=== PATIENT | female | born 1940 | race Caucasian/White ===

== ENCOUNTER → 2016-06-08 | Outpatient (CLI) | payer MEDICARE, BC | END | disposition home or self-care (01) | LOC: LABPAT 12:37 | PROVIDERS: ATTEND Orthopaedic Surgery Orthopaedic Surgery of the Spine | DX: Z01.812 Encounter for preprocedural laboratory examination (principal) | CPT/HCPCS: 87070 ==

== ENCOUNTER → 2016-06-15 | Outpatient (CLI) | payer MEDICARE, BC ==
--- NOTE | 2016-06-15 12:19 | XR ---
EXAMINATION TYPE: XR chest 2V DATE OF EXAM: 06/15/2016 11:06 AM COMPARISON: 05/13/2014 HISTORY: Hypertension FINDINGS: The lungs are clear and there is no pneumothorax, pleural effusion, or focal pneumonia. Persistent elevation of the right hemidiaphragm. Atherosclerotic change aorta. Cardiomegaly stable. Hypertrophic change of the spine noted. Surgical clips in the upper abdomen. IMPRESSION: 1. No acute process. Marked elevation of the right hemidiaphragm noted.
== END | disposition home or self-care (01) ==
LOC: RADXRMAIN 10:47
PROVIDERS: ATTEND Family Medicine
DX: J98.6 Disorders of diaphragm (principal); E11.9 Type 2 diabetes mellitus without complications; M81.0 Age-related osteoporosis without current pathological fracture; E78.00 Pure hypercholesterolemia, unspecified; J32.9 Chronic sinusitis, unspecified; I63.50 Cerebral infarction due to unspecified occlusion or stenosis of unspecified cerebral artery; R56.9 Unspecified convulsions; G60.9 Hereditary and idiopathic neuropathy, unspecified; E55.9 Vitamin D deficiency, unspecified; Z79.01 Long term (current) use of anticoagulants
CPT/HCPCS: 71020

== ENCOUNTER 2016-07-01 09:08 | Inpatient (IN) | payer MEDICARE, BC ==
[2016-06-25 15:10] VITALS: BMI 27.4
[~2016-07-01 09:08] MED LIST: BACITRACIN 50,000 UNIT, POLYMYXIN B 500,000 UNIT in SODIUM CHLORIDE 0.9% IRRIGATIO 1,00... IRRIGATION ONE; HYDROmorphone 1 MG/ML 1 ML SYRINGE IVP PRN; LIDOCAINE 1% 20 ML VIAL (10MG/ML) FOR IV START INTRADERMA PRN; ONDANSETRON 4 MG/2 ML VIAL IVP ONE; ceFAZolin 2 GM in SODIUM CHLORIDE 0.9% 100 ML IVPB ONE
[2016-07-01] MEDS: LACTATED RINGERS 1,000 ML IV SCH (11:35)
[2016-07-01 11:39] LABS: Glucose,Whole Blood 118 mg/dL (75-99)
[2016-07-01 12:35] LABS: INR 1.2 (<1.1); Prothrombin Time 11.8 sec (9.0-12.0)
[2016-07-01] MEDS ORDERED: HYDROmorphone (PF) 1 MG/ML ONE (12:39)
[2016-07-01] MEDS ORDERED: LIDOCAINE 0.5%-EPI 1:200,000 50 ML VIAL SQ ONE (12:39)
[2016-07-01] MEDS ORDERED: THROMBIN (BOVINE) 5,000 UNIT VIAL TOPICAL ONE (12:39)
[2016-07-01] MEDS ORDERED: GELATIN SPONGE,ABSORB (LARGE) 1 EACH SPONGE TOPICAL ONE (12:39)
[2016-07-01] MEDS ORDERED: LIDOCAINE 1% INJ 10MG/ML (20 ML MDV) ONE (12:39)
[2016-07-01] MEDS ORDERED: fentaNYL (PF) 50 MCG/ML 2 ML AMP ONE (12:39)
[2016-07-01] MEDS ORDERED: BUPIVACAINE (PF) 0.25% 30 ML VIAL SQ ONE (12:39)
[2016-07-01] MEDS ORDERED: SUCCINYLCHOLINE CHLORIDE 100 MG/5 ML SYR IV ONE (12:39)
[2016-07-01] MEDS ORDERED: MIDAZOLAM 2 MG/2 ML VIAL ONE (12:39)
[2016-07-01] MEDS ORDERED: ROCURONIUM BROMIDE 10 MG/ML 10 ML VIAL IV ONE (12:39)
[2016-07-01] MEDS ORDERED: PROPOFOL 10 MG/ML 20 ML VIAL IV ONE (12:39)
[2016-07-01] MEDS ORDERED: LACTATED RINGERS 1,000 ML IV ONE (14:06)
[2016-07-01] MEDS ORDERED: BUPIVACAINE LIPOSOME/PF 1.3% 20 ML, BUPIVACAIN-EPI 0.5%-1:200,000 25 ML, SODIUM CHLORID... MISCELLANE ONE ×3 (14:22)
[2016-07-01] MEDS ORDERED: ONDANSETRON 4 MG/2 ML VIAL IVP PRN (15:44)
[2016-07-01] MEDS ORDERED: HYDROmorphone 1 MG/ML 1 ML SYRINGE IVP PRN (15:44)
[2016-07-01] MEDS ORDERED: DIAZEPAM 5 MG TAB PO PRN (15:44)
[2016-07-01] MEDS ORDERED: BENZOCAINE/MENTHOL LOZENG 1 EACH LOZENGE MUCOUS MEM PRN (15:44)
--- NOTE | 2016-07-01 15:56 | XR ---
EXAM TYPE: LUMBAR SPINE X RAY SERIES COMPARISON: NONE HISTORY: Postop TECHNIQUE: One view submitted FINDINGS: Postoperative change appear in near-anatomic alignment. IMPRESSION: 1. Postoperative change.
--- NOTE | 2016-07-01 15:56 | P.OP ---
Date of Procedure: 07/01/16 Preoperative Diagnosis: Spondylolisthesis L3 4 Spinal stenosis L3 4 Facet arthrosis L3 4 Low back pain with lower extremity radiculopathy Postoperative Diagnosis: Same Anesthesia: GETA Pathology: none sent Condition: stable Disposition: PACU Description of Procedure: DESCRIPTION OF PROCEDURE(S): BRIEF OPERATIVE NOTE Preoperative Diagnosis: Spondylolisthesis L3 4, degenerative disc disease L3 4, facet arthrosis L3 4, lower extremity radiculopathy, spinal stenosis L3 4 Postoperative Diagnosis: Same Procedure: Minimally invasive Laminectomy and decompression L3 4 with facetectomy Minimally invasive Posterior lateral decompression and fusion L3 4 with facet fusion on the left and intertransverse process fusion on the right Minimally invasive Transforaminal lumbar interbody fusion for a 360 fusion L3 4 Discectomy for decompression L3 4 Placement of interbody graft L3 4 bone marrow aspiration from the left iliac crest through a separate skin incision using a bone marrow aspirate device to supplement the bone grafting Local autogenous bone grafting Use of Cell Saver Use of bone graft extenders Surgeon: Dr. Larry Instructor Bridge: Servando Hester is present throughout the entire the case persistence during positioning, dissection, exposure, visualization, and all crucial elements of the case as well as closure. Anesthesia: General anesthesia Estimated blood loss: approximately 100 mL Complications: None apparent Components implanted: K2M minimally invasive Buckland screw system with 4 screws measuring 6.5 x 45 mm, 2 rods and 1 Everson interbody cage and 1 osteoamp cancellus sponge to supplemental local autogenous bone graft Disposition: To recovery room in good stable condition. OPERATIVE INDICATIONS The patient has had long-standing issues in their lower back and lower extremities. she is found have a lateral listhesis with spinal listhesis at L3 4 which was dynamic and present when standing and during activity. The finding showed stenosis as well as the listhesis with instability and correlated well with her pain at her back and into her lower extremities. She had been through conservative management however was not having any lasting benefit despite conservative care. The patient has been through conservative treatment. We discussed various treatment options including surgery, and the patient wishes to proceed with surgery We discussed the risk, patient's alternatives and benefits of surgery including but not limited to, risk of bleeding risk of infection, risk of need for further surgery, risk of decreased, loss of motion, muscle function, malunion nonunion, hardware failure, nerve damage, paralysis, heart attack, blindness and . OPERATIVE SUMMARY After discussing all the risks, patient alternatives and benefits at length, the patient elected to proceed with surgical intervention, signed informed consent, and presented for their procedure. The patient was seen and examined in the preoperative holding area and the surgical site was marked. The patient was given antibiotics and brought to the operating room. The patient was sedated and intubated by anesthesia in standard fashion. The patient was positioned on to the operating room table in a prone position on the appropriate frame which was well-padded and well molded. We were careful to pad any bony prominences and pressure points. We were careful to maintain the patient's cervical spine and good neutral alignment and position throughout. The patient was prepped and draped in a normal standard fashion. An appropriate timeout and keystone protocol performed. We were able to proceed with the surgery. The local wound area was infiltrated with local anesthetic. I was able utilize C-arm guidance to establish appropriate position over the pedicles bilaterally at the appropriate levels at L3 4 . With the appropriate levels confirmed was able to make small stab incisions over the appropriate pedicle sites bilaterally. Utilizing C-arm in his house able to establish a Jamshidi needle over the lateral aspect of the pedicle and advanced the trocar into the pedicle being careful not to breech superiorly inferiorly medially or laterally. Position was confirmed regularly with AP and lateral images on C- arm. I was able to establish the trocar into the pedicle appropriately into the posterior aspect of the vertebral body bilaterally at the appropriate levels at L3 4 . This was done at each of the pedicle positions and each of the vertebrae. I was able place the guidewire into the trocar and into the vertebral body appropriately under C-arm guidance. Dissection was taken down over the wire to the appropriate starting position for the screw placed. The appropriate length screw was chosen, threaded over the guidewire and screwed appropriately into the pedicle and vertebral body under C-arm guidance in excellent alignment and position with good bony purchase. This is done at each of the screw sites at the appropriate levels at L3 and 4 bilaterally . With the screws intact I extended the incision to connect the screw hole sites on the most symptomatic side on the right . I dissected down to establish access over the pars and lamina to the base of the spinous process. I was able to expose the facet joint. The capsule the facet was taken down and showed some facet arthrosis at the joint. I was able to use a combination of curettes and Kerrison rongeurs and a high-speed drill to take down the facet joint and do a facetectomy. Partial laminectomy was also performed. I was able get excellent foraminal decompression and central decompression with undermining across midline to perform a laminectomy centrally and contralaterally. As able get good central decompression at L3 4 . The ligamentum flavum was taken down to further decompress centrally and at bilateral neural foramen at L3 4 . I was able to expose the disc space and visualize the traversing nerve root. Note was made of some disc protrusion at the level causing further compression of the nerve root. I was able to establish a annulotomy at the appropriate level protecting soft tissue and neural structures. Note was made of some significant disc desiccation at the disc. I performed a complete discectomy with accommodation of curettes and rasps and scrapers. The discectomy provided further decompression of the traversing nerve root.I was able get good endplate preparation at the disc space. I sized for the appropriate size interbody spacer protecting the soft tissue and neural structures. The wound was copiously irrigated and suctioned dry. There is no evidence of any dural tear or leak. I was able to pack the disc space with local autogenous bone graft as well as a small amount of infuse which was also placed into the interbody cage itself. Protecting the soft tissue structures and neural structures I was able place the interbody cage in good alignment and good position with good fit and fill at the interbody space at L3 4 . His issues was confirmed with C-arm guidance. Good hemostasis maintained. There is no evidence of any dural tear or leak. The wound was irrigated and suctioned dry. With the hardware intact, intraoperative C-arm imaging was again taken which showed good alignment and position of the hardware at the appropriate levels at L3 4 . We were then able to measure, contour and place the rods and appropriate hardware bilaterally. I was able to place capcrews, tighten them down, and shear them off appropriately. The sheared portion was counted and accounted for. With this intact I was able to place the local autogenous bone graft with additional bone graft enhancer as necessary into the posterior lateral gutters over the decorticated transverse processes. The remainder of thgraftas placed over the facet joint on the contralateral side after taking down the facet joint capsule. With the bone graft intact, a stable construct, and good decompression at the appropriate levels, we were able to proceed with closure. Good hemostasis was maintained. There is no evidence of dural tear or leak. The fascia was closed for a watertight closure. he subcuticular tissue was closed with absorbable suture. The wound was cleaned and dried and dressed with the appropriate dressing. The drapes were broken down. The patient was gently rolled back onto their hospital bed being careful to maintain their cervical spine and good neutral alignment and position. They were woken up by anesthesia, extubated, and brought to the recovery room in good stable condition. The patient will be admitted to the hospital for appropriate postoperative care , medical management and monitoring. We will continue to follow them closely about the postoperative course.
[2016-07-01 16:26] LABS: Glucose,Whole Blood 151 mg/dL (75-99)
[2016-07-01] MEDS: ceFAZolin 2 GM in SODIUM CHLORIDE 0.9% 100 ML IVPB SCH ×2 (19:00→23:34)
[2016-07-01 21:23] LABS: Glucose,Whole Blood 114 mg/dL (75-99)
[2016-07-01] MEDS: ATORVASTATIN 10 MG TAB PO SCH (21:25)
[2016-07-01] MEDS: metFORMIN 500 MG TAB PO SCH (21:25)
[2016-07-01] MEDS: SODIUM CHLORIDE 0.9% 1,000 ML IV SCH (23:35)
[2016-07-02] MEDS: HYDROcodone/APAP 5-325MG 1 EACH TAB PO PRN ×5 (01:09→22:11)
[2016-07-02] MEDS: LEVOTHYROXINE 75 MCG TAB PO SCH (05:34)
[2016-07-02] MEDS: LACTATED RINGERS 1,000 ML IV SCH (05:35)
[2016-07-02] MEDS: SODIUM CHLORIDE 0.9% 1,000 ML IV SCH ×2 (05:35→07:11)
[2016-07-02 07:15] VITALS: RESP 16
[2016-07-02 07:16] LABS: Glucose,Whole Blood 127 mg/dL (75-99)
[2016-07-02 08:22] LABS: Basophils % (A) 0 %; CHCM 32.6; Eosinophils % (A) 0 %; HCT 35.8 % (34.0-46.0); HDW 2.76; HGB 11.7 gm/dL (11.4-16.0); Luc # (Auto) 0.11; Luc % (Auto) 1; Lymphocytes % (A) 12 %; MCH 31.3 pg (25.0-35.0); MCHC 32.7 g/dL (31.0-37.0); MCV 95.6 fL (80.0-100.0); Mean Platelet Volume 7.4; Monocytes # (A) 0.6 k/uL (0-1.0); Monocytes % (A) 7 %; Neutrophils # (A) 6.8 k/uL (1.3-7.7); Neutrophils % (A) 80 %; RBC 3.74 m/uL (3.80-5.40); RDW 13.5 % (11.5-15.5); WBC 8.5 k/uL (3.8-10.6); WBC (Perox) 9.47
[2016-07-02 08:34] LABS: Anion Gap 9 mmol/L; Blood Urea Nitrogen 12 mg/dL (7-17); Calcium 9.3 mg/dL (8.4-10.2); Carbon Dioxide 30 mmol/L (22-30); Chloride 105 mmol/L (98-107); Glucose 121 mg/dL (74-99); Non-African American GFR(MDRD) >60 (>60 ml/min/1.73 sqM); Potassium 3.6 mmol/L (3.5-5.1); Sodium 144 mmol/L (137-145)
--- NOTE | 2016-07-02 08:55 | FL ---
EXAMINATION TYPE: FL guidance operating room DATE OF EXAM: 07/01/2016 3:43 PM HISTORY: Flouroscopy time 87 seconds of fluoroscopy provided. IMPRESSION: 1. Fluoroscopy time.
--- NOTE | 2016-07-02 08:58 | P.PN ---
Progress Note - Text Postoperative day #1 Patient is seen and examined today at bedside. The patient has some pain around the surgical site as expected. Pain is being controlled with medication. She was up yesterday and feels as though she'll be okay to try to get up today. She was able tolerate some soft foods yesterday. Physical Exam Afebrile with stable vital signs Abdomen is soft nontender. Chest has good excursion deep and space expiration The incision site is clean dry and intact. No erythema there is no purulence. The dressings her back to her clean and dry. There is no drainage. Extremities have not had neurologic change from prior to surgery. She has sustained dorsiflexion plantar flexion and extensor hallucis longus Calves and thighs were soft nontender without evidence of DVT. Assessment/Plan Postoperative day #1 status post decompression and fusion with minimally invasive approach at L3 4 for her spondylolisthesis with spinal stenosis Patient is progressing as expected from the surgery. We will discontinue her Dobbs today. I will also order a TLSO brace to try to give her some support as she starts to mobilize. We will continue to increase the patient's mobilization with therapy. We'll see how she does with her mobility and hopefully she'll be able to go home however we will also have case management see her for the possibility of alternate disposition after discharge We will continue pain control with oral or IV medications. We'll continue to follow patient closely.
[2016-07-02] MEDS ORDERED: FAMOTIDINE 20 MG TAB PO PRN (09:00)
[2016-07-02] MEDS ORDERED: [UNRECOGNIZED DRUG - REMARK] PO SCH (09:00)
[2016-07-02] MEDS: metFORMIN 500 MG TAB PO SCH ×2 (10:21→20:16)
[2016-07-02] MEDS: BACLOFEN 10 MG TAB PO SCH (10:22)
[2016-07-02] MEDS: LOSARTAN 50 MG TAB PO SCH (10:23)
[2016-07-02] MEDS: SERTRALINE 50 MG TAB PO SCH (10:23)
[2016-07-02] MEDS: FLUTICASONE 50MCG/SPRAY NASAL 16GM EA NOSTRIL SCH (10:42)
[2016-07-02 11:49] LABS: Glucose,Whole Blood 162 mg/dL (75-99)
[2016-07-02] MEDS: GABAPENTIN 400 MG CAP PO SCH (11:54)
[2016-07-02] MEDS: amLODIPine 10 MG TAB PO SCH (11:54)
[2016-07-02] MEDS: ASPIRIN 81 MG CHEW PO SCH (11:54)
[2016-07-02] MEDS: FUROSEMIDE 20 MG TAB PO SCH (11:54)
[2016-07-02 13:03] LABS: Hemoglobin A1C 6.3 % (4.2-6.1)
--- NOTE | 2016-07-02 13:39 | P.CONS ---
History of Present Illness - Reason for Consult Consult date: 07/02/16 Medical management Requesting physician: Greg Larry - Chief Complaint Chronic low back pain - History of Present Illness This is a 75-year-old female with past medical history noted below significant for severe lumbar spinal stenosis was admitted to the hospital for an elective back surgery. Patient is postoperative day #1 status post lumbar spine decompression and fusion involving L3/L4. Patient tolerated the surgery well. She is up in the chair today. Her pain is well controlled. Dobbs catheter discontinued this morning. Patient does not have any specific concerns at this time. I was asked to see her for medical management. Review of Systems Review of system: 14 points review of systems were obtained and were negative except to what were mentioned in the HPI. 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 History of Any Multi-Drug Resistant Organisms: None Reported Past Surgical History: Appendectomy, Cholecystectomy, Hysterectomy, Orthopedic Surgery, Tonsillectomy Additional Past Surgical History / Comment(s): skin cancer removal, hemorroids, lt knee arthoscopy Past Anesthesia/Blood Transfusion Reactions: No Reported Reaction Past Psychological History: Anxiety, Depression Smoking Status: Never smoker Past Alcohol Use History: None Reported Past Drug Use History: None Reported - Past Family History Sister(s) Family Medical History: Cancer Additional Family Medical History / Comment(s): BREAST Medications and Allergies Home Medications Medication Instructions Recorded Confirmed Type Alendronate Sodium 70 mg PO FR 05/03/14 07/01/16 History Aspirin 81 mg PO DAILY 05/03/14 07/01/16 History Baclofen [Lioresal] 20 mg PO DAILY 05/03/14 07/01/16 History Furosemide [Lasix] 20 mg PO DAILY 05/03/14 07/01/16 History Losartan Potassium 100 mg PO DAILY 05/03/14 07/01/16 History Sertraline [Zoloft] 50 mg PO DAILY 05/03/14 07/01/16 History Simvastatin [Zocor] 20 mg PO HS 05/03/14 07/01/16 History Warfarin Sodium 4 mg PO DAILY 05/03/14 07/01/16 History amLODIPine [Norvasc] 10 mg PO QAM 05/03/14 07/01/16 History levETIRAcetam 750 mg PO BID 05/03/14 07/01/16 History metFORMIN HCL 1,000 mg PO BID 05/03/14 07/01/16 History Famotidine [Pepcid] 10 mg PO DIRECTED 06/25/16 07/01/16 History Fluticasone Nasal [place] [Flonase 2 spr EA NOSTRIL DAILY 06/25/16 07/01/16 History Nasal [place]] Gabapentin [Neurontin] 400 mg PO DAILY 06/25/16 07/01/16 History LORazepam [Ativan] 0.5 mg PO DAILY PRN 06/25/16 07/01/16 History Levothyroxine Sodium [Synthroid] 75 mcg PO DAILY 06/25/16 07/01/16 History Plant Stanol Nohemy [Cholest Off] 450 mg PO DAILY 06/25/16 07/01/16 History Zolpidem Tartrate [Ambien] 10 mg PO HS PRN 06/25/16 07/01/16 History Allergies Allergy/AdvReac Type Severity Reaction Status Date / Time Sulfa (Sulfonamide Allergy Rash/Hives Verified 06/25/16 14:58 Antibiotics) bleach Allergy Rash/Hives Uncoded 06/25/16 14:58 Physical Exam Vitals: Vital Signs Temp Pulse Resp BP BP Pulse Ox 07/02/16 11:58 82 16 134/58 94 L 07/02/16 07:42 92 L 07/02/16 07:00 98.1 F 81 16 141/68 91 L 07/02/16 04:06 77 133/62 07/02/16 02:00 98.2 F 78 18 162/72 93 L 07/01/16 20:31 74 16 135/63 93 L 07/01/16 20:16 80 16 142/69 94 L 07/01/16 20:01 79 16 141/69 92 L 07/01/16 19:50 92 L 07/01/16 19:46 79 16 139/69 93 L 07/01/16 19:31 81 16 138/72 93 L 07/01/16 19:16 92 16 136/69 93 L 07/01/16 19:01 83 16 139/66 90 L 07/01/16 18:46 81 144/70 89 L 07/01/16 18:31 76 142/73 07/01/16 18:16 74 148/69 07/01/16 18:01 78 149/69 07/01/16 17:46 76 153/74 90 L 07/01/16 17:31 90 164/81 07/01/16 16:45 89 16 176/80 93 L 07/01/16 16:31 89 16 177/83 94 L 07/01/16 16:17 188/88 07/01/16 16:15 97 16 183/86 94 L 07/01/16 16:00 97.4 F L 105 H 12 186/83 95 Intake and Output 07/01/16 07/02/16 07/02/16 22:59 06:59 14:59 Intake Total 352 600 200 Output Total 480 720 Balance -128 -120 200 Intake: IV 352 600 Sodium Chloride 0.9% 1, 300 600 000 ml @ 75 mls/hr IV . [id number] [facility] Rx#:[id number] Oral 200 Output: Urine 380 720 Uretheral (Dobbs) 720 Estimated Blood Loss 100 Other: Voiding Method Indwelling Catheter Indwelling Catheter Weight 77.111 kg 77.111 kg Patient Weight 07/03/16 06:59 Weight 77.111 kg General: The patient is awake and alert, in no distress Eye: there is normal conjunctiva bilaterally. Neck: The neck is supple, there is no JVD. Cardiovascular: Normal S1-S2, no S3-S4, no murmurs. Respiratory: Lungs clear to auscultation bilaterally Gastrointestinal: Abdomen is soft, nontender Musculoskeletal: There is no pedal edema. Neurological:. Speech is normal. Skin: Skin is warm and dry Results CBC & Chem 7: 07/02/16 07:31 07/02/16 07:31 Labs: Abnormal Lab Results - Last 24 Hours (Table) 07/01/16 07/01/16 07/02/16 Range/Units 16:23 21:20 07:14 RBC (3.80-5.40) m/uL Glucose (74-99) mg/dL POC Glucose (mg/dL) 151 H 114 H 127 H (75-99) mg/dL 07/02/16 07/02/16 07/02/16 Range/Units 07:31 07:31 11:36 RBC 3.74 L (3.80-5.40) m/uL Glucose 121 H (74-99) mg/dL POC Glucose (mg/dL) 162 H (75-99) mg/dL Assessment and Plan Plan: 1. Severe lumbar spinal stenosis status post decompression and fusion of L3/L4 postoperative day #1 2. Essential hypertension: Blood pressure well-controlled continue home medication 3. Type 2 diabetes mellitus 4. Major depressive disorder on Zoloft 5. Hypothyroidism on levothyroxin 6. DVT prophylaxis: Subcu heparin 7. Physical debility: Continue PT/OT Today, I reviewed her medication list and lab work results. Continue current regimen. Dobbs catheter discontinued this morning. Postoperative care. Repeat lab work in the morning. We will continue to follow up on the patient closely.
[2016-07-02 17:11] LABS: Glucose,Whole Blood 130 mg/dL (75-99)
--- NOTE | 2016-07-02 17:59 | XR ---
EXAMINATION TYPE: XR chest 1V portable DATE OF EXAM: 07/02/2016 5:45 PM COMPARISON: June 15, 2016 HISTORY: Dyspnea TECHNIQUE: Single frontal view of the chest is obtained. FINDINGS: The markedly elevated right hemidiaphragm is unchanged. The overall lung inflation pattern is similar to yesterday's study, but there is a suggestion of a veliz btle fine reticular pattern of increased attenuation throughout the lung parenchyma, partially silhou etting the pulmonary vasculature. There is also a band of added opacity in the retrocardiac lung, consistent with segmental atelectasis . There are no abnormal fluid or gas collections evident. Bones and soft tissues are unremarkable. IMPRESSION: 1. Subtle reticular pattern suggests subtle interstitial phase pulmonary edema. 2. Left lower lobe subsegmental atelectasis noted, appearing to be new since the prior study.
[2016-07-02] MEDS: ATORVASTATIN 10 MG TAB PO SCH (20:15)
[2016-07-02] MEDS: HEPARIN SODIUM,PORCINE 5,000 UNIT/ML 1 ML VIAL SQ SCH (20:16)
[2016-07-02 20:47] LABS: Glucose,Whole Blood 126 mg/dL (75-99)
[2016-07-02] MEDS ORDERED: FUROSEMIDE 10 MG/ML 2 ML VIAL IV ONE (21:01)
[2016-07-03] MEDS: LACTATED RINGERS 1,000 ML IV SCH (02:13)
[2016-07-03] MEDS: LEVOTHYROXINE 75 MCG TAB PO SCH (05:23)
[2016-07-03] MEDS: HYDROcodone/APAP 5-325MG 1 EACH TAB PO PRN ×4 (05:24→21:19)
[2016-07-03 07:19] LABS: INR 1.2 (<1.1); Prothrombin Time 11.8 sec (9.0-12.0)
[2016-07-03 07:25] LABS: Glucose,Whole Blood 125 mg/dL (75-99)
[2016-07-03 07:31] LABS: Anion Gap 8 mmol/L; Blood Urea Nitrogen 18 mg/dL (7-17); Calcium 9.1 mg/dL (8.4-10.2); Carbon Dioxide 29 mmol/L (22-30); Chloride 102 mmol/L (98-107); Glucose 131 mg/dL (74-99); Non-African American GFR(MDRD) >60 (>60 ml/min/1.73 sqM); Potassium 3.4 mmol/L (3.5-5.1); Sodium 139 mmol/L (137-145)
[2016-07-03 07:47] LABS: Basophils % (A) 0 %; CHCM 32.7; Eosinophils % (A) 0 %; HCT 33.3 % (34.0-46.0); HGB 10.8 gm/dL (11.4-16.0); Luc # (Auto) 0.09; Luc % (Auto) 1; Lymphocytes # (A) 1.3 k/uL (1.0-4.8); Lymphocytes % (A) 15 %; MCH 30.8 pg (25.0-35.0); MCHC 32.3 g/dL (31.0-37.0); MCV 95.6 fL (80.0-100.0); Monocytes # (A) 0.5 k/uL (0-1.0); Monocytes % (A) 6 %; Neutrophils # (A) 6.5 k/uL (1.3-7.7); Neutrophils % (A) 77 %; RBC 3.49 m/uL (3.80-5.40); RDW 13.3 % (11.5-15.5); WBC 8.4 k/uL (3.8-10.6); WBC (Perox) 8.77
[2016-07-03] MEDS: BACLOFEN 10 MG TAB PO SCH (08:25)
[2016-07-03] MEDS: metFORMIN 500 MG TAB PO SCH ×2 (08:25→21:19)
[2016-07-03] MEDS: FUROSEMIDE 20 MG TAB PO SCH (08:26)
[2016-07-03] MEDS: ASPIRIN 81 MG CHEW PO SCH (08:26)
[2016-07-03] MEDS: HEPARIN SODIUM,PORCINE 5,000 UNIT/ML 1 ML VIAL SQ SCH ×2 (08:26→21:19)
[2016-07-03] MEDS: GABAPENTIN 400 MG CAP PO SCH (08:26)
[2016-07-03] MEDS: FLUTICASONE 50MCG/SPRAY NASAL 16GM EA NOSTRIL SCH (08:26)
[2016-07-03] MEDS: amLODIPine 10 MG TAB PO SCH (08:26)
[2016-07-03] MEDS: LOSARTAN 50 MG TAB PO SCH (08:27)
[2016-07-03] MEDS: SERTRALINE 50 MG TAB PO SCH (08:27)
--- NOTE | 2016-07-03 08:41 | P.DS ---
Providers Date of admission: 07/01/16 09:08 Expected date of discharge: 07/03/16 Attending physician: Greg Larry Consults: 07/01/16 15:44 Consult Physician Routine Consulting Provider: David Dang Consult Reason/Comments: Medical management Do you want consulting provider notified?: Yes Primary care physician: Lela Choudhary - Discharge Diagnosis(es) (1) Spondylolisthesis, lumbar region Current Visit: Yes Status: Acute (2) Lumbar spinal stenosis Current Visit: Yes Status: Acute (3) Lumbar facet arthropathy Current Visit: Yes Status: Acute (4) Low back pain Current Visit: Yes Status: Acute (5) Radiculopathy with lower extremity symptoms Current Visit: Yes Status: Acute (6) Arthrodesis status Current Visit: Yes Status: Acute (7) Pulmonary edema Current Visit: Yes Status: Acute Hospital Course: This is a pleasant 75-year-old female who presented with L3-4 spondylolisthesis , spinal stenosis, and facet arthrosis with low back pain and lower extremity radiculopathy who failed outpatient conservative therapy. She admitted for a minimally invasive posterior lateral decompression fusion with transfer lumbar interbody fusion at L3-4. The patient tolerated the procedure well and did well postoperatively. She states she has some discomfort at the surgical site but that her pain has been well-controlled. She feels improvement in her lower extremity radiculopathy. She is able to ambulate to the restroom without significant difficulty with the aid of a walker. Condition on day of discharge stable. Patient will be discharged home. Patient was cleared preoperatively for surgery by Dr. Choudhary. Patient currently denies any nausea, vomiting, fever , or chills. Patient is eating and voiding freely without difficulty. Patient may shower Tegaderm dressing intact. Patient may remove Tegaderm dressing in 3 days and shower without a dressing at that time. Patient should keep Steri- Strips intact and allow them to fall off naturally. Patient should refrain from driving until at least after their first follow-up appointment in the office. Patient should avoid excessive bending, lifting, and twisting; no lifting greater than 10 pounds. She is also been given a prescription for a wheeled walker to machinist helper in ambulation. She given a prescription for Independence 5 mg/325 mg which she may take 1 tab every 6 hours as needed for the for symptoms. She has had some difficulty with breathing while here in the hospital. Chest x-ray showed evidence of pulmonary edema with some atelectasis. She discern IV Lasix. She is currently on 4 L of O2 nasal cannula with saturation at 90%. We discussed she'll be cleared for discharge when she has been cleared by medicine for discharge in regards to her pulmonary function. She may also restart anticoagulation medications as prescribed prior to surgical intervention. Physical Exam on day of discharge: Patient is awake, alert, and oriented 3 Vital signs stable Good chest excursion with deep inspiration and expiration; currently on O2 nasal cannula; evidence of mild cough Abdomen soft nontender No signs or symptoms of DVT; no calf pain Extensor hallucis longus, plantarflexion, and dorsiflexion positive sustained bilateral lower extremities Incision is clean, dry, and intact; no erythema, purulence, or signs of infection Tegaderm dressing and non-stick Telfa intact Procedures: Minimally invasive posterior lateral decompression and fusion with transforaminal lumbar interbody fusion L3-4 Patient Condition at Discharge: Stable Plan - Discharge Summary New Discharge Prescriptions: HYDROcodone/APAP 5-325MG [Independence 5] 1 each PO Q6HR PRN #90 tab PRN Reason: Pain Discharge Medication List Alendronate Sodium 70 mg PO FR 05/03/14 [History] Aspirin 81 mg PO DAILY 05/03/14 [History] Baclofen [Lioresal] 20 mg PO DAILY 05/03/14 [History] Furosemide [Lasix] 20 mg PO DAILY 05/03/14 [History] Losartan Potassium 100 mg PO DAILY 05/03/14 [History] Sertraline [Zoloft] 50 mg PO DAILY 05/03/14 [History] Simvastatin [Zocor] 20 mg PO HS 05/03/14 [History] Warfarin Sodium 4 mg PO DAILY 05/03/14 [History] amLODIPine [Norvasc] 10 mg PO QAM 05/03/14 [History] levETIRAcetam 750 mg PO BID 05/03/14 [History] metFORMIN HCL 1,000 mg PO BID 05/03/14 [History] Famotidine [Pepcid] 10 mg PO DIRECTED 06/25/16 [History] Fluticasone Nasal [place] [Flonase Nasal [place]] 2 spr EA NOSTRIL DAILY 06/25/16 [ History] Gabapentin [Neurontin] 400 mg PO DAILY 06/25/16 [History] LORazepam [Ativan] 0.5 mg PO DAILY PRN 06/25/16 [History] Levothyroxine Sodium [Synthroid] 75 mcg PO DAILY 06/25/16 [History] Plant Stanol Nohemy [Cholest Off] 450 mg PO DAILY 06/25/16 [History] Zolpidem Tartrate [Ambien] 10 mg PO HS PRN 06/25/16 [History] HYDROcodone/APAP 5-325MG [Independence 5] 1 each PO Q6HR PRN #90 tab 07/03/16 [Rx] Follow up Appointment(s)/Referral(s): Servando James, ROC [PHYSICIAN CHIEF CLINICAL DIETITIAN] - 2 Weeks (Patient may follow-up with Servando James PA-C or Dr. Christian Larry at [facility] in 2-3 weeks following discharge. ) Activity/Diet/Wound Care/Special Instructions: 1. Patient may shower Tegaderm dressing intact. 2. Patient may remove Tegaderm dressing in 3 days and shower without a dressing at that time. 3. Patient should keep Steri-Strips intact and allow them to fall off naturally. 4. Patient should refrain from driving until at least after their first follow- up appointment in the office. 5. Patient should avoid excessive bending, twisting, and lifting; no lifting greater than 10 pounds 6. Do not soak in tub Discharge Disposition: HOME SELF-CARE
[2016-07-03] MEDS ORDERED: POTASSIUM CHLORIDE ER 20 MEQ TAB.ER PO STA (08:54)
[2016-07-03 11:45] LABS: Glucose,Whole Blood 127 mg/dL (75-99)
[2016-07-03] MEDS ORDERED: FUROSEMIDE 10 MG/ML 2 ML VIAL IV ONE (14:14)
--- NOTE | 2016-07-03 14:22 | P.PN ---
Subjective This is a 75-year-old female status post back surgery with Dr. Larry. Patient has had decrease in her oxygen saturation. She is satting around 84% on room air with ambulating. She is requiring about 4 L of oxygen sat 95%. She's not complaining of shortness of breath. She denies any chest pain. Denies any nausea or vomiting. She has a bowel movement changes or urinary symptoms. She denies any previous history of smoking. Denies any history of congestive heart failure. She had a chest x-ray completed and did show some mild edema and atelectasis she did receive 1 dose of IV Lasix yesterday with no improvement in her oxygen saturation. I she will get another dose of IV Lasix today. Cardiology and echo have been ordered. Also, A team called yesterday for possible strokelike symptoms. Patient also had some slurring of the speech and worsening left eyelid droop. Patient has had previous strokes in the past. Symptoms resolved after a few minutes Objective - Vital Signs Vital signs: Vital Signs Temp 97.0 F L 07/03/16 07:00 Pulse 79 07/03/16 07:00 Resp 16 07/03/16 07:00 BP 139/64 07/03/16 07:00 Pulse Ox 94 L 07/03/16 07:00 Intake & Output 07/02/16 07/03/16 07/03/16 18:59 06:59 18:59 Intake Total 640 Output Total 650 600 100 Balance -10 -600 -100 Weight 77.111 kg Intake: Oral 640 Output: Urine 650 600 100 Other: Voiding Method Indwelling Catheter Toilet Bedside Commode # Voids 2 - Exam Head normocephalic Neck supple Lungs bilaterally Heart regular rate and rhythm S1-S2, no rub or gallop Abdomen is soft nontender nondistended positive bowel sounds no hepatosplenomegaly Extremities no edema Neuro alert and orientated to 3. Hand construction analyst equal bilaterally lower extremity strength equal bilaterally. No new facial droop or slurred speech. - Labs CBC & Chem 7: 07/03/16 06:54 07/03/16 06:54 Labs: Abnormal Lab Results - Last 24 Hours (Table) 07/02/16 07/02/16 07/03/16 Range/Units 16:56 20:45 06:54 RBC 3.49 L (3.80-5.40) m/uL Hgb 10.8 L (11.4-16.0) gm/dL Hct 33.3 L (34.0-46.0) % Potassium (3.5-5.1) mmol/L BUN (7-17) mg/dL Glucose (74-99) mg/dL POC Glucose (mg/dL) 130 H 126 H (75-99) mg/dL 07/03/16 07/03/16 07/03/16 Range/Units 06:54 07:19 11:40 RBC (3.80-5.40) m/uL Hgb (11.4-16.0) gm/dL Hct (34.0-46.0) % Potassium 3.4 L (3.5-5.1) mmol/L BUN 18 H (7-17) mg/dL Glucose 131 H (74-99) mg/dL POC Glucose (mg/dL) 125 H 127 H (75-99) mg/dL Assessment and Plan Plan: 1. Severe lumbar spinal stenosis status post decompression and fusion of L3/L4 postoperative day #2 2. Essential hypertension: Blood pressure well-controlled continue home medication 3. Type 2 diabetes mellitus 4. Major depressive disorder on Zoloft 5. Hypothyroidism on levothyroxin 6. DVT prophylaxis: Subcu heparin 7. Physical debility: Continue PT/OT 8. Hypoxemia: Exact etiology unclear possibly related to some fluid overload. Patient will receive another dose of IV Lasix 20 mg 1. Check 2-D echo. Consult cardiology. Chest x-ray also showing evidence of fluid overload and atelectasis. Continue with incentive spirometer 9. Previous history of CVA continue with an aspirin. Patient reports that she is on Coumadin for her CVAs. Denies any history of atrial fibrillation or blood clots Medically, patient is not stable for discharge. We'll have patient evaluated by cardiology and further workup in regards to her hypoxemia
[2016-07-03] MEDS ORDERED: NON-FORMULARY DRUG (Alendronate Sodium [Alendronate Sodium] 70 MG) PO SCH (15:47)
[2016-07-03] MEDS: SODIUM CHLORIDE 0.9% 1,000 ML IV SCH ×2 (16:59→21:20)
[2016-07-03 17:16] LABS: Glucose,Whole Blood 163 mg/dL (75-99)
[2016-07-03] MEDS ORDERED: WARFARIN 2 MG TAB PO SCH (18:00)
--- NOTE | 2016-07-03 18:47 | ECHOF ---
Referral Reason:check EF MEASUREMENTS -------- HEIGHT: 167.6 cm WEIGHT: 77.1 kg BP: 139/64 RVIDd: 2.8 cm (< 3.3) IVSd: 0.9 cm (0.6 - 1.1) LVIDd: 5.1 cm (3.9 - 5.3) LVPWd: 1.0 cm (0.6 - 1.1) IVSs: 1.8 cm LVIDs: 3.3 cm LVPWs: 1.1 cm LA Diam: 3.7 cm (2.7 - 3.8) LAESV Index (A-L): 29.94 ml/m Ao Diam: 2.5 cm (2.0 - 3.7) AV Cusp: 1.7 cm (1.5 - 2.6) LA Diam: 3.5 cm (2.7 - 3.8) MV EXCURSION: 9.371 mm (> 18.000) MV EF SLOPE: 73 mm/s (70 - 150) EPSS: 1.1 cm MV E Richard: 1.03 m/s MV DecT: 211 ms MV A Richard: 0.69 m/s MV E/A Ratio: 1.50 RAP: 5.00 mmHg RVSP: 36.30 mmHg FINDINGS -------- Sinus rhythm with extra systolic beats. This was a technically good study. Left ventricular wall thickness is normal. Overall left ventricular systolic function is normal with, an EF between 55 - 60 %. The right ventricle is normal in size. LA is midly dilated 29-33ml/m2. The right atrium is normal in size. Aortic valve is trileaflet and is mildly thickened. The mitral valve leaflets are mildly thickened. Mild mitral annular calcification present. There is trace mitral regurgitation. Mild tricuspid regurgitation present. There is mild pulmonary hypertension. The right ventricular systolic pressure, as measured by Doppler, is 36.30mmHg. Trace/mild (physiologic) pulmonic regurgitation. The aortic root size is normal. The inferior vena cava is mildly dilated. There is no pericardial effusion. CONCLUSIONS -------- 1. Sinus rhythm with extra systolic beats. 2. Mild mitral annular calcification present. 3. There is trace mitral regurgitation. 4. Mild tricuspid regurgitation present. 5. There is mild pulmonary hypertension. 6. The right ventricular systolic pressure, as measured by Doppler, is 36.30mmHg. 7. Trace/mild (physiologic) pulmonic regurgitation. 8. The aortic root size is normal. 9. The inferior vena cava is mildly dilated. 10. There is no pericardial effusion. 11. This was a technically good study. 12. Left ventricular wall thickness is normal. 13. Overall left ventricular systolic function is normal with, an EF between 55 - 60 %. 14. The right ventricle is normal in size. 15. LA is midly dilated 29-33ml/m2. 16. The right atrium is normal in size. 17. Aortic valve is trileaflet and is mildly thickened. 18. The mitral valve leaflets are mildly thickened. BOTTLE BOOTH ATTENDANT: Gutierrez Wilson RDCS
[2016-07-03] MEDS: ATORVASTATIN 10 MG TAB PO SCH (21:19)
[2016-07-03 21:20] LABS: Glucose,Whole Blood 128 mg/dL (75-99)
[2016-07-04] MEDS: HYDROcodone/APAP 5-325MG 1 EACH TAB PO PRN ×3 (01:52→11:59)
[2016-07-04] MEDS: LACTATED RINGERS 1,000 ML IV SCH (04:50)
[2016-07-04] MEDS: LEVOTHYROXINE 75 MCG TAB PO SCH (05:35)
[2016-07-04 07:16] LABS: Basophils % (A) 0 %; CH 31.2; CHCM 32.9; Eosinophils # (A) 0.1 k/uL (0-0.7); Eosinophils % (A) 1 %; HDW 2.85; HGB 10.5 gm/dL (11.4-16.0); Luc # (Auto) 0.18; Luc % (Auto) 3; Lymphocytes # (A) 1.4 k/uL (1.0-4.8); Lymphocytes % (A) 22 %; MCH 31.4 pg (25.0-35.0); MCHC 32.8 g/dL (31.0-37.0); MCV 95.5 fL (80.0-100.0); Mean Platelet Volume 7.5; Monocytes # (A) 0.3 k/uL (0-1.0); Monocytes % (A) 5 %; Neutrophils # (A) 4.4 k/uL (1.3-7.7); Neutrophils % (A) 69 %; RBC 3.35 m/uL (3.80-5.40); RDW 13.1 % (11.5-15.5); WBC 6.4 k/uL (3.8-10.6); WBC (Perox) 7.16
[2016-07-04 07:20] LABS: INR 1.1 (<1.1); Prothrombin Time 11.2 sec (9.0-12.0)
[2016-07-04 07:47] LABS: Anion Gap 11 mmol/L; Blood Urea Nitrogen 16 mg/dL (7-17); Calcium 9.5 mg/dL (8.4-10.2); Carbon Dioxide 30 mmol/L (22-30); Chloride 99 mmol/L (98-107); Glucose 120 mg/dL (74-99); Non-African American GFR(MDRD) >60 (>60 ml/min/1.73 sqM); Potassium 3.7 mmol/L (3.5-5.1); Sodium 140 mmol/L (137-145)
[2016-07-04 07:51] LABS: Glucose,Whole Blood 123 mg/dL (75-99)
--- NOTE | 2016-07-04 11:18 | P.PN ---
Progress Note - Text This is a pleasant 75-year-old female with L3 4 spondylolisthesis, spinal stenosis and facet arthrosis. The patient is status post minimally invasive posterior lateral decompression fusion with transfer lumbar interbody fusion L3 4. The patient tolerated the procedure well. She's had some difficulty with hypoxemia for which cardiology and pulmonary has been consulted. Workup is in progress. She is seen and evaluated at bedside. In regards to her back she is feeling well. Her pain is reasonably controlled. She denies any lower extremity symptoms today. The patient's dressing is clean dry and intact. She is able to perform active hip flexion. She has sustained dorsiflexion, plantar flexion extensor hallux longus. Sensation and circulatory status is intact. Her calves are soft and nontender. Assessment and plan Continue routine postoperative care. Anticipate discharge to home once she's been cleared medically and by consulting physicians.
[2016-07-04] MEDS: FLUTICASONE 50MCG/SPRAY NASAL 16GM EA NOSTRIL SCH (11:33)
[2016-07-04] MEDS: HEPARIN SODIUM,PORCINE 5,000 UNIT/ML 1 ML VIAL SQ SCH (11:33)
[2016-07-04] MEDS: LOSARTAN 50 MG TAB PO SCH (11:34)
[2016-07-04] MEDS: SERTRALINE 50 MG TAB PO SCH (11:34)
[2016-07-04] MEDS: amLODIPine 10 MG TAB PO SCH (11:35)
[2016-07-04] MEDS: BACLOFEN 10 MG TAB PO SCH (11:35)
[2016-07-04] MEDS: GABAPENTIN 400 MG CAP PO SCH (11:35)
[2016-07-04] MEDS: SODIUM CHLORIDE 0.9% 1,000 ML IV SCH (11:35)
[2016-07-04] MEDS: FUROSEMIDE 20 MG TAB PO SCH (11:35)
[2016-07-04] MEDS: metFORMIN 500 MG TAB PO SCH (11:35)
[2016-07-04] MEDS: ASPIRIN 81 MG CHEW PO SCH (11:35)
[2016-07-04 12:05] LABS: Glucose,Whole Blood 125 mg/dL (75-99)
--- NOTE | 2016-07-04 13:22 | CONS ---
DATE OF CONSULTATION: A 75-year-old lady who was admitted to hospital for back surgery and Cardiology had been consulted because of hypoxia. She has had low O2 saturations prior to surgery and has been requiring oxygen supplements. Really does not have any cardiac symptoms. Denies chest pain, difficulty in breathing, palpitations, syncope, focal neurological deficits or leg edema. Past medical history is significant for hypertension, diabetes, dyslipidemia, seizure disorder, osteoarthritis, and thyroid disorder. Past surgical history is significant for appendectomy, cholecystectomy, hysterectomy, tonsillectomy. Medications include aspirin, baclofen, Lasix, losartan, Zoloft, Zocor, Coumadin, Norvasc, metformin, Pepcid, Flonase, Neurontin, Ativan, Synthroid. ALLERGIES: No known drug allergies. Family history is negative for premature coronary artery disease. Social history is negative for smoking, EtOH abuse or drug abuse. REVIEW OF SYSTEMS: HEENT: Unremarkable. CARDIAC: As described above. RESPIRATORY: Negative. GI: Negative. GENITOURINARY: Negative. MUSCULOSKELETAL: Significant for arthritis. PSYCHOSOCIAL: Negative. ENDOCRINE: Negative. HEMATOLOGICAL: Negative. DERMATOLOGICAL: Negative. CONSTITUTIONAL: Negative. The rest of the system review is not relevant. On exam, comfortable at rest. Vital signs are stable. There is no jugular venous distention. Chest exam reveals good air entry bilaterally. Heart exam reveals first and second heart sounds. No gallop. No murmur. Abdomen is soft. Exam of the extremities did not reveal any edema. Peripheral pulses are felt. Labs show a hemoglobin of 10.5. Potassium is 3.7. Echocardiogram shows normal LV function. ASSESSMENT: 1. Hypoxia of unclear etiology. 2. Hypertension. 3. Status post back surgery. PLAN: The patient will go home on home oxygen. I reviewed echo results with her. If she remains oxygen dependent, we will consider doing a stress test on her as outpatient if we have to.
--- NOTE | 2016-07-04 14:21 | P.DS ---
Providers Date of admission: 07/01/16 09:08 Attending physician: Greg Larry Consults: 07/01/16 15:44 Consult Physician Routine Consulting Provider: David Dang Consult Reason/Comments: Medical management Do you want consulting provider notified?: Yes 07/03/16 14:15 Consult Physician Routine Consulting Provider: Tyler Calvin Consult Reason/Comments: CHF, decrease oxygen Level Do you want consulting provider notified?: Yes Primary care physician: Lela Choudhary Hospital Course: Patient is a 75-year-old female admitted to [facility] by Dr. Henry and underwent decompression and fusion of L3/L4 Postoperatively patient developed worsening shortness of breath and hypoxemia her O2 sat duration was down in the 80s she was started on oxygen supplements Patient had evidence of fluid overload she received IV Lasix and improved. Echocardiogram was done and revealed preserved LV function. She was evaluated by cardiology no further testing or intervention was recommended at this time Patient was discharged home on 07/04/2016 She will be continued on her same home medication as prior to admission She will also receive home oxygen If O2 sat duration improves oxygen can be discontinued in the short term, most likely the cause of her hypoxia is fluid overload which improved significantly with IV Lasix. Patient would benefit of a follow-up with Dr. Alejandra solution architect for further evaluation Patient Condition at Discharge: Stable Plan - Discharge Summary New Discharge Prescriptions: HYDROcodone/APAP 5-325MG [[place] 5] 1 each PO Q6HR PRN #90 tab PRN Reason: Pain Discharge Medication List Alendronate Sodium 70 mg PO FR 05/03/14 [History] Aspirin 81 mg PO DAILY 05/03/14 [History] Baclofen [Lioresal] 20 mg PO DAILY 05/03/14 [History] Furosemide [Lasix] 20 mg PO DAILY 05/03/14 [History] Losartan Potassium 100 mg PO DAILY 05/03/14 [History] Sertraline [Zoloft] 50 mg PO DAILY 05/03/14 [History] Simvastatin [Zocor] 20 mg PO HS 05/03/14 [History] Warfarin Sodium 4 mg PO DAILY 05/03/14 [History] amLODIPine [Norvasc] 10 mg PO QAM 05/03/14 [History] levETIRAcetam 750 mg PO BID 05/03/14 [History] metFORMIN HCL 1,000 mg PO BID 05/03/14 [History] Famotidine [Pepcid] 10 mg PO DIRECTED 06/25/16 [History] Fluticasone Nasal [place] [Flonase Nasal [place]] 2 spr EA NOSTRIL DAILY 06/25/16 [ History] Gabapentin [Neurontin] 400 mg PO DAILY 06/25/16 [History] LORazepam [Ativan] 0.5 mg PO DAILY PRN 06/25/16 [History] Levothyroxine Sodium [Synthroid] 75 mcg PO DAILY 06/25/16 [History] Plant Stanol Nohemy [Cholest Off] 450 mg PO DAILY 06/25/16 [History] Zolpidem Tartrate [Ambien] 10 mg PO HS PRN 06/25/16 [History] HYDROcodone/APAP 5-325MG [[place] 5] 1 each PO Q6HR PRN #90 tab 07/03/16 [Rx] Follow up Appointment(s)/Referral(s): Servando James PAC [PHYSICIAN MILITARY TECHNICIAN] - 07/17/16 10:30 am (Patient may follow-up with Servando James PA-C or Dr. Christian Larry at [facility] in 2-3 weeks following discharge. ) [facility], [NON-STAFF] - 1 Week Tyler Calvin MD [STAFF PHYSICIAN] - 2 Weeks (CALL OFFICE FOR APPOINTMENT, OFFICE CLOSED ON WEEKEND.) Patient Instructions/Handouts: *[facility] - ([facility]) Lumbar Surgery Discharge Instructions, Heart Failure (DC), Using Oxygen at Home (DC), Pulse Oximetry (DC) Activity/Diet/Wound Care/Special Instructions: 1. Patient may shower Tegaderm dressing intact. 2. Patient may remove Tegaderm dressing in 3 days and shower without a dressing at that time. 3. Patient should keep Steri-Strips intact and allow them to fall off naturally. 4. Patient should refrain from driving until at least after their first follow- up appointment in the office. 5. Patient should avoid excessive bending, twisting, and lifting; no lifting greater than 10 pounds 6. Do not soak in tub call [facility] when you get home to get the rest of your o2 delivered [phone] Discharge Disposition: HOME SELF-CARE
[2016-07-04 14:35] VITALS: BP 163/72; PULSE 79; TEMP 98.1
--- NOTE | 2016-07-04 17:09 | P.DS ---
Providers Date of admission: 07/01/16 09:08 Attending physician: Greg Larry Consults: 07/01/16 15:44 Consult Physician Routine Consulting Provider: David Dang Consult Reason/Comments: Medical management Do you want consulting provider notified?: Yes 07/03/16 14:15 Consult Physician Routine Consulting Provider: Tyler Calvin Consult Reason/Comments: CHF, decrease oxygen Level Do you want consulting provider notified?: Yes Primary care physician: Lela Choudhary Hospital Course: The patient presented on the day of admission as per her operative note. Her procedure went well and she feels as though she is making progress in terms of her back. She feels that she has muscle soreness but she does not feel unstable in her back and she did before. She feels her legs are doing well. Her bleeding has been stable as is improving over the past 2 days. She is doing quite well on 2 L nasal cannula and conversant without any shortness of breath. She is not having any chest pain. She has good strength at her upper and lower extremity is. Physical Exam The incision site is clean dry and intact. There is no erythema no drainage. There is no purulence no evidence of infection. The wounds appear to be healing well at her back. Abdomen soft and nontender. Chest has good excursion with deep inspiration and expiration. The patient has active and passive range of motion intact at the upper and lower extremities. There is no acute change in neurologic status. She has good sustained dorsal flexion plantar flexion and EHL. Hospital Course The patient has been making steady progress postoperatively over the past couple of days. She had some issues with her breathing and was hypoxic and may have had some extra fluid on her lungs but she seemed to be doing quite well and is stabilizing nicely. She is breathing well on 2 L nasal cannula without hypoxia over the past 24 hours and is not having any difficulty with her breathing. Her status for a medical standpoint is as per Dr. Estevez's note. I' m in agreement with his assessment and plan. She is going home with home oxygen on nasal cannula. Her daughter was at bedside and we discussed this with her daughter and the patient. They have completed the prophylactic antibiotics without any signs or symptoms of infection. The patient has been able to advance their diet, and is tolerating diet adequately. The pain was initially controlled with IV medications and is now controlled appropriately with oral medications. The patient has been able to increase their mobilization. The patient has progressed appropriately. I think they are in good stable condition for discharge today. They will be sent home with appropriate prescriptions. I answered their questions to the best of my ability in a language that they can understand and they are agreeable with the plan. They will follow up as directed In approximately 2 weeks or sooner if she is having any problems. Patient Condition at Discharge: Stable Plan - Discharge Summary New Discharge Prescriptions: HYDROcodone/APAP 5-325MG [[place] 5-325] 1 each PO Q6HR PRN #90 tab PRN Reason: Pain Discharge Medication List Alendronate Sodium 70 mg PO FR 05/03/14 [History] Aspirin 81 mg PO DAILY 05/03/14 [History] Baclofen [Lioresal] 20 mg PO DAILY 05/03/14 [History] Furosemide [Lasix] 20 mg PO DAILY 05/03/14 [History] Losartan Potassium 100 mg PO DAILY 05/03/14 [History] Sertraline [Zoloft] 50 mg PO DAILY 05/03/14 [History] Simvastatin [Zocor] 20 mg PO HS 05/03/14 [History] Warfarin Sodium 4 mg PO DAILY 05/03/14 [History] amLODIPine [Norvasc] 10 mg PO QAM 05/03/14 [History] levETIRAcetam 750 mg PO BID 05/03/14 [History] metFORMIN HCL 1,000 mg PO BID 05/03/14 [History] Famotidine [Pepcid] 10 mg PO DIRECTED 06/25/16 [History] Fluticasone Nasal [place] [Flonase Nasal [place]] 2 spr EA NOSTRIL DAILY 06/25/16 [ History] Gabapentin [Neurontin] 400 mg PO DAILY 06/25/16 [History] LORazepam [Ativan] 0.5 mg PO DAILY PRN 06/25/16 [History] Levothyroxine Sodium [Synthroid] 75 mcg PO DAILY 06/25/16 [History] Plant Stanol Nohemy [Cholest Off] 450 mg PO DAILY 06/25/16 [History] Zolpidem Tartrate [Ambien] 10 mg PO HS PRN 06/25/16 [History] HYDROcodone/APAP 5-325MG [[place] 5-325] 1 each PO Q6HR PRN #90 tab 07/03/16 [Rx] Follow up Appointment(s)/Referral(s): Lela Choudhary MD [Primary Care Provider] - 1 Week (call for appointment, office closed on weekend) Servando James PAC [PHYSICIAN QUALITY ASSURANCE LEAD] - 07/17/16 10:30 am (Patient may follow-up with Servando James PA-C or Dr. Christian Larry at [facility] in 2-3 weeks following discharge. ) [facility], [NON-STAFF] - 1 Week Tyler Calvin MD [STAFF PHYSICIAN] - 2 Weeks (CALL OFFICE FOR APPOINTMENT, OFFICE CLOSED ON WEEKEND.) Patient Instructions/Handouts: *[facility] - (Kendy) Lumbar Surgery Discharge Instructions, Heart Failure (DC), Pulmonary Edema (DC), Using Oxygen at Home (DC ), Pulse Oximetry (DC) Activity/Diet/Wound Care/Special Instructions: 1. Patient may shower Tegaderm dressing intact. 2. Patient may remove Tegaderm dressing in 3 days and shower without a dressing at that time. 3. Patient should keep Steri-Strips intact and allow them to fall off naturally. 4. Patient should refrain from driving until at least after their first follow- up appointment in the office. 5. Patient should avoid excessive bending, twisting, and lifting; no lifting greater than 10 pounds 6. Do not soak in tub call [facility] when you get home to get the rest of your o2 delivered [phone] Discharge Disposition: HOME SELF-CARE
== END 2016-07-04 17:53 | disposition home or self-care (01) | DRG 460 ==
LOC: 2ORMAIN 09:08 → 3SUR 15:45
PROVIDERS: ADMIT Orthopaedic Surgery Orthopaedic Surgery of the Spine; ATTEND Orthopaedic Surgery Orthopaedic Surgery of the Spine
PROC: 07DR3ZZ Extraction of Iliac Bone Marrow, Percutaneous Approach (ICD-10-PCS; 2016-07-01)
PROC: 0SG00A1 (ICD-10-PCS; principal; 2016-07-01 11:30)
PROC: 0ST20ZZ Resection of Lumbar Vertebral Disc, Open Approach (ICD-10-PCS; 2016-07-01 11:30)
DX: M48.06 Spinal stenosis, lumbar region (principal); J98.11 Atelectasis; E11.40 Type 2 diabetes mellitus with diabetic neuropathy, unspecified; E87.70 Fluid overload, unspecified; M51.16 Intervertebral disc disorders with radiculopathy, lumbar region; G40.909 Epilepsy, unspecified, not intractable, without status epilepticus; I10 Essential (primary) hypertension; E78.5 Hyperlipidemia, unspecified; G25.81 Restless legs syndrome; G89.29 Other chronic pain; M43.16 Spondylolisthesis, lumbar region; M12.88 Other specific arthropathies, not elsewhere classified, other specified site; G56.00 Carpal tunnel syndrome, unspecified upper limb; E03.9 Hypothyroidism, unspecified; R09.02 Hypoxemia; M19.90 Unspecified osteoarthritis, unspecified site; F32.9 Major depressive disorder, single episode, unspecified; F41.9 Anxiety disorder, unspecified; K44.9 Diaphragmatic hernia without obstruction or gangrene; R47.81 Slurred speech; Z79.82 Long term (current) use of aspirin; Z79.01 Long term (current) use of anticoagulants; Z79.84 Long term (current) use of oral hypoglycemic drugs; Z79.899 Other long term (current) drug therapy; Z85.828 Personal history of other malignant neoplasm of skin; Z88.2 Allergy status to sulfonamides; Z82.49 Family history of ischemic heart disease and other diseases of the circulatory system
CPT/HCPCS: 71010; 72100; 80048; 83036; 85025; 85610; 86850; 86900; 86901; 93306; 94760

== ENCOUNTER → 2017-01-13 | Outpatient (CLI) | payer MEDICARE, BC ==
--- NOTE | 2017-01-14 08:54 | MM ---
Reason for exam: screening (asymptomatic). Last mammogram was performed 2 years and 9 months ago. History: Patient is postmenopausal and history of other cancer. Family history of breast cancer in sister at age 69. Cyst aspiration of the right breast, June 18, 2003. Physical Findings: A clinical breast exam by your physician is recommended on an annual basis and results should be correlated with mammographic findings. MG 3D Screening Mammo W/Cad Bilateral CC and MLO view(s) were taken. Prior study comparison: April 27, 2014, bilateral MG screening mammo w CAD. July 21, 2012, bilateral digital screening mammo w/CAD. The breast tissue is heterogeneously dense. This may lower the sensitivity of mammography. Finding: There are stable round, linear calcifications. There is no discrete abnormality. No significant changes in finding since April 27, 2014 and July 21, 2012. ASSESSMENT: Benign, BI-RAD 2 RECOMMENDATION: Routine screening mammogram of both breasts in 1 year.
--- NOTE | 2017-01-15 12:24 | BD ---
EXAMINATION TYPE: MG DEXA axial skeleton. DATE OF EXAM: 01/13/2017 COMPARISON: 2012 CLINICAL HISTORY: osteoporosis Height: 5'5 Weight: 165 FRAX RISK QUESTIONS: Alcohol (3 or more units per day): no Family History (Parent hip fracture): no Glucocorticoids (More than 3mos): no (Ex: prednisone, prednisolone, methylprednisolone, dexamethasone, and hydrocortisone). History of Fracture in Adulthood: yes Secondary Osteoporosis: 1. Type 1 Diabetes: no 2. Hyperthyroidism: no 3. Menopause before 45: yes 4. Malnutrition: no 5. Chronic liver disease: no Rheumatoid Arthritis: no Current Tobacco Use: no RISK FACTORS HISTORY OF: Surgery to Spine When: 06/2016 Diet low in dairy products/other sources of calcium: Postmenopausal woman: MEDICATIONS: thyroid : Synthroid 5 years Osteoporosis Medications: Which medication: Fosamax How Lon years Additional Medications: blood pressure, cholesterol diabetes type 2, Additional History: EXAM MEASUREMENTS: Bone mineral densitometry was performed using the [employer] System. Bone mineral density about the R hip (g/cm2): 0.651 Bone mineral density about the L hip (g/cm2): 0.682 T Score values are as follows: -----R Neck: -2.8 -----L Neck: -2.6 -----R Total: -3.0 -----L Total: -2.8 Bone mineral density has: Decreased -11.9nce study of: 07/21/2012 IMPRESSION: Osteoporosis (T Score less than -2.5) as noted by T Score values at [facility] There is increased fracture risk and therapy is usually indicated based on age. Re-Screen 1-2 years. NOTE: T-SCORE=SD OF THE YOUNG ADULT MEAN.
== END | disposition home or self-care (01) ==
LOC: RADMAMWWP 14:04
PROVIDERS: ATTEND Family Medicine
DX: Z12.31 Encounter for screening mammogram for malignant neoplasm of breast (principal); M81.0 Age-related osteoporosis without current pathological fracture
CPT/HCPCS: 77080; 77063; G0202

== ENCOUNTER → 2017-03-12 | Outpatient (CLI) | payer MEDICARE, BC ==
[~2017-03-12] MED LIST changes: -BACITRACIN 50,000 UNIT, POLYMYXIN B 500,000 UNIT in SODIUM CHLORIDE 0.9% IRRIGATIO 1,00... IRRIGATION ONE; -HYDROmorphone 1 MG/ML 1 ML SYRINGE IVP PRN; -LIDOCAINE 1% 20 ML VIAL (10MG/ML) FOR IV START INTRADERMA PRN; -ONDANSETRON 4 MG/2 ML VIAL IVP ONE; +SODIUM CHLORIDE 0.9% 500 ML in EMPTY BAG 1 BAG IV PRN; +ZOLEDRONIC ACID 5 MG in SODIUM CHLORIDE 0.9% 100 ML IV ONE; -ceFAZolin 2 GM in SODIUM CHLORIDE 0.9% 100 ML IVPB ONE
[2017-03-12 09:54] VITALS: BP 186/88; PULSE 57; RESP 16; TEMP 97.9
== END ==
LOC: PROCWHC3 09:38
PROVIDERS: ATTEND Family Medicine
DX: Q78.2 Osteopetrosis (principal); M81.8 Other osteoporosis without current pathological fracture
CPT/HCPCS: 96365; J3489

== ENCOUNTER → 2018-11-18 | Outpatient (CLI) | payer MEDICARE, BC ==
[~2018-11-18] MED LIST changes: +SODIUM CHLORIDE 0.9% 500 ML 500 ML in EMPTY BAG 1 BAG IV PRN; -SODIUM CHLORIDE 0.9% 500 ML in EMPTY BAG 1 BAG IV PRN; +ZOLEDRONIC ACID 5 MG in SODIUM CHLORIDE 0.9% 100 ML IV NR; -ZOLEDRONIC ACID 5 MG in SODIUM CHLORIDE 0.9% 100 ML IV ONE
[2018-11-18 09:35] VITALS: BP 194/79; PULSE 55; RESP 18; TEMP 97.7
== END | disposition home or self-care (01) ==
LOC: PROCWHC3 09:11
PROVIDERS: ATTEND Family Medicine
DX: M81.0 Age-related osteoporosis without current pathological fracture (principal)
CPT/HCPCS: 96365; J3489

== ENCOUNTER → 2019-01-16 | Outpatient (CLI) | payer MEDICARE, BC ==
--- NOTE | 2019-01-16 09:56 | BD ---
EXAMINATION TYPE: Axial Bone Density DATE OF EXAM: 01/16/2019 COMPARISON: 2017 CLINICAL HISTORY: osteoporosis Height: 5'5 Weight: 167 FRAX RISK QUESTIONS: History of Fracture in Adulthood: y Secondary Osteoporosis: 3. Menopause before 45: y RISK FACTORS HISTORY OF: Surgery to Spine: L3 When: 2017 Diet low in dairy products/other sources of calcium: y Postmenopausal woman: y MEDICATIONS: Thyroid Medications: Which medication: Levothyroxine How Lon-5 years Osteoporosis Medications: Which medication: Other infusion 1 x a year How Lon-2 years Additional Medications: blood pressure, cholesterol, type 2 diabetes, foot pain Additional History: EXAM MEASUREMENTS: Bone mineral densitometry was performed using the [employer] System. Bone mineral density about the R hip (g/cm2): 0.673 Bone mineral density about the L hip (g/cm2): 0.712 T Score values are as follows: -----R Neck: -2.6 -----L Neck: -2.3 -----R Total: -2.9 -----L Total: -2.5 Bone mineral density has: Increased 3.9% since study of: 01/13/2017 Bone mineral density about the L Wrist (g/cm2): 0.507 T Score values are as follows: -----Dist. R+U: -0.3 -----Prox. R+U: -1.6 -----Radius total: -2.8 IMPRESSION: Osteoporosis (T Score less than -2.5). There is increased fracture risk and therapy is usually indicated based on age. Re-Screen 1-2 years. NOTE: T-SCORE=SD OF THE YOUNG ADULT MEAN.
--- NOTE | 2019-01-17 11:46 | MM ---
Reason for exam: screening (asymptomatic). Last mammogram was performed 2 years ago. History: Patient is postmenopausal and history of other cancer. Family history of breast cancer in sister at age 69. Cyst aspiration of the right breast, June 18, 2003. Took hormonal contraceptives for 2 years. MG 3D Screening Mammo W/Cad Bilateral CC and MLO view(s) were taken. Prior study comparison: January 13, 2017, bilateral MG 3d screening mammo w/cad. April 27, 2014, bilateral MG screening mammo w CAD. The breast tissue is heterogeneously dense. This may lower the sensitivity of mammography. Finding: There are two adjacent 4 mm mass, the most conspicuous containing punctate calcifications, both are located in the upper outer quadrant, middle depth position of the left breast. There are benign-appearing calcifications in the right breast. No Suspicious abnormality in the right breast. ASSESSMENT: Incomplete: need additional imaging evaluation, BI-RAD 0 RECOMMENDATION: Ultrasound of the left breast. [facility] will attempt to contact patient to return for ultrasound.
== END | disposition home or self-care (01) ==
LOC: RADMAMWWP 08:47
PROVIDERS: ATTEND Family Medicine
DX: Z12.31 Encounter for screening mammogram for malignant neoplasm of breast (principal); M81.0 Age-related osteoporosis without current pathological fracture
CPT/HCPCS: 77063; 77067; 77080

== ENCOUNTER → 2019-01-31 | Outpatient (CLI) | payer MEDICARE, BC ==
--- NOTE | 2019-01-31 10:14 | USB ---
Reason for exam: additional evaluation requested from abnormal screening. History: Patient is postmenopausal and history of other cancer. Family history of breast cancer in sister at age 69. Cyst aspiration of the right breast, June 18, 2003. Took hormonal contraceptives for 2 years. Physical Findings: Nurse did not find any significant physical abnormalities on exam. US Breast Workup Limited LT Right limited breast ultrasound including focal area of concern, retroareolar and axilla demonstrates a 0.3 x 0.2 x 0.3cm cystic lesion at 1 o'clock and a 0.1 x 0.2 x 0.2cm lesion too small to characterize at 2 o'clock. Both appear cystic with posterior enhancement on image. These are retrospectively seen on mammogram dated 01/13/17. These results were verbally communicated with the patient and result sheet given to the patient on 01/31/19. ASSESSMENT: Benign, BI-RAD 2 RECOMMENDATION: Return to routine screening mammogram schedule for both breasts.
== END | disposition home or self-care (01) ==
LOC: RADUSWWP 09:06
PROVIDERS: ATTEND Family Medicine
DX: R92.8 Other abnormal and inconclusive findings on diagnostic imaging of breast (principal)

== ENCOUNTER → 2020-10-01 | Outpatient (CLI) | payer MEDICARE, BC ==
--- NOTE | 2020-10-02 10:53 | MM ---
Reason for exam: screening (asymptomatic). Last mammogram was performed 1 year and 9 months ago. History: Patient is postmenopausal and history of other cancer. Family history of breast cancer in sister at age 69. Cyst aspiration of the right breast, June 18, 2003. Took hormonal contraceptives for 2 years. Physical Findings: A clinical breast exam by your physician is recommended on an annual basis and results should be correlated with mammographic findings. MG 3D Screening Mammo W/Cad Bilateral CC and MLO view(s) were taken. Prior study comparison: January 16, 2019, bilateral MG 3d screening mammo w/cad. January 13, 2017, bilateral MG 3d screening mammo w/cad. The breast tissue is heterogeneously dense. This may lower the sensitivity of mammography. Cluster of indeterminate calcifications upper outer left breast zone B. ASSESSMENT: Incomplete: need additional imaging evaluation, BI-RAD 0 RECOMMENDATION: Special view mammogram of the left breast. [facility] will attempt to contact patient to return for supplemental views.
== END | disposition home or self-care (01) ==
LOC: RADMAMWWP 12:20
PROVIDERS: ATTEND Family Medicine
DX: Z12.31 Encounter for screening mammogram for malignant neoplasm of breast (principal); Z78.0 Asymptomatic menopausal state; Z80.3 Family history of malignant neoplasm of breast
CPT/HCPCS: 77063; 77067

== ENCOUNTER → 2020-10-03 | Outpatient (CLI) | payer MEDICARE, BC ==
--- NOTE | 2020-10-03 09:46 | MM ---
Reason for exam: additional evaluation requested from abnormal screening. Last mammogram was performed less than 1 month ago. History: Patient is postmenopausal and history of other cancer. Family history of breast cancer in sister at age 69. Cyst aspiration of the right breast, June 18, 2003. Took hormonal contraceptives for 2 years. Physical Findings: Nurse did not find any significant physical abnormalities on exam. MG 3D Work Up W/Cad LT Spot compression CC, spot compression MLO, and LM view(s) were taken of the left breast. Prior study comparison: October 01, 2020, bilateral MG 3d screening mammo w/cad. January 16, 2019, bilateral MG 3d screening mammo w/cad. The breast tissue is heterogeneously dense. This may lower the sensitivity of mammography. Indeterminate cluster of calcifications upper outer left breast zone B. These results were verbally communicated with the patient and result sheet given to the patient on 10/03/20. ASSESSMENT: Suspicious, BI-RAD 4 RECOMMENDATION: Stereotactic core biopsy of the left breast. Called Dr. Choudhary's office with mammographic findings and has scheduled an appointment for the patient for 10/18/20 at 2:[address] Gutierrez. Biopsy scheduled for 10/24/20 at 8:00. PRELIMINARY REPORT CALLED AND FAXED TO DR. GUTIERREZ ON 10/03/20.
== END | disposition home or self-care (01) ==
LOC: RADMAMWWP 07:39
PROVIDERS: ATTEND Family Medicine
DX: R92.1 Mammographic calcification found on diagnostic imaging of breast (principal); Z78.0 Asymptomatic menopausal state; Z80.3 Family history of malignant neoplasm of breast
CPT/HCPCS: 77065; G0279; 77061

== ENCOUNTER → 2020-10-18 | Outpatient (CLI) | payer MEDICARE, BC ==
[2020-10-18 13:57] VITALS: BP 193/75; PULSE 62; RESP 18; TEMP 97.5
--- NOTE | 2020-10-18 14:48 | P.GSHP ---
History of Present Illness H&P Date: 10/18/20 Chief Complaint: left breast abnormal mammogram Marilyn is an 79 year old white female seen in consultation for Dr. Choudhary regarding her mammographic abnormality in her left breast. She [place] [address]. An area of concern was noted in the left breast and [place] [address]. This revealed an indeterminate cluster of calcifications in the upper outer quadrant for which stereotactic core biopsy was recommended. She had not had a mammogram last year secondary to the pandemic. Otherwise she gets mammograms every year. She does not feel any lumps masses or nodules of concern in either breast. She does not complain of any nipple discharge or skin changes. She has not had any recent trauma or infection of the breast. She's never had any surgery on her breast. Caffeine: 1/2 cup of coffee/day nicotine: none chocolate: occasional Family history: sister: Breast cancer at age 73 patient: skin cancer Hormonal History: menarche: 12 M2, breast fed: no, age at first : 20 menopause: surgical, [facility] at 39 for fibroid tumors, also did Appendectomy and bladder suspension BCP: 5 years Surgical History: Tonsillectomy Hysterectomy with appendectomy and bladder suspension Hemorrhoidectomy Skin cancer tumor on forehead, shoulder, arm, legs, feet, bottom lip, chest, top of head in both hands Right foot attention nerve Cholecystectomy Back surgery Medical history: CVA 2000, 2003, 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 Depression and anxiety Tarsal tunnel both feet Hypertension Vertigo Hiatal hernia Hypothyroid High cholesterol Deteriorated disc lower back Diabetic Restless leg syndrome Neuropathy Pinched nerve right side of neck Osteopenia Seizures Numbness related to her back Social History: nicotine: none alcohol: none drugs: none - Constitutional Constitutional: Denies chills, Denies fever - EENT Eyes: bilateral blurred vision Ears: deny: decreased hearing, tinnitus Ears, nose, mouth and throat: Reports headache, Denies sore throat - Breasts Breasts: bilateral: as per HPI - Cardiovascular Cardiovascular: Denies chest pain, Denies shortness of breath - Respiratory Respiratory: Denies cough, Denies 7 - Gastrointestinal Gastrointestinal: Denies abdominal pain, Denies diarrhea, Denies nausea, Denies vomiting - Genitourinary (Female) Genitourinary: Denies dysuria, Denies hematuria - Menstruation Menstruation: Reports post hysterectomy - Musculoskeletal Comment: arthritis Musculoskeletal: Reports myalgias - Integumentary Comment: history of skin cancer Integumentary: Denies pruritus, Denies rash - Neurological Comment: strokes left side weakness Neurological: Reports as per HPI, Reports numbness - Psychiatric Psychiatric: Reports anxiety, Reports depression - Endocrine Comment: Hypothyroid, diabetic - Hematologic/Lymphatic Comment: takes aspirin and Coumadin - Allergic/Immunologic Allergic/Immunologic: Reports seasonal allergies Past Medical History Past Medical History: Cancer, CVA/TIA, Diabetes Mellitus, Hyperlipidemia, Hypertension, Osteoarthritis (OA), Seizure Disorder, Thyroid Disorder Additional Past Medical History / Comment(s): vertigo,hiatal hernia, restless leg,neuropathy,carpal tunnel,ddd History of Any Multi-Drug Resistant Organisms: None Reported Past Surgical History: Appendectomy, Back Surgery, Cholecystectomy, Hysterectomy, Orthopedic Surgery, Tonsillectomy Additional Past Surgical History / Comment(s): skin cancer removal,hemorroids Past Anesthesia/Blood Transfusion Reactions: No Reported Reaction Past Psychological History: Anxiety, Depression Smoking Status: Never smoker Past Alcohol Use History: None Reported Past Drug Use History: None Reported - Past Family History Sister(s) Family Medical History: Cancer Additional Family Medical History / Comment(s): BREAST Medications and Allergies Home Medications Medication Instructions Recorded Confirmed Type Aspirin 81 mg PO DAILY 05/03/14 10/18/20 History Baclofen [Lioresal] 20 mg PO DAILY 05/03/14 10/18/20 History Furosemide [Lasix] 20 mg PO DAILY 05/03/14 10/18/20 History Losartan Potassium 100 mg PO DAILY 05/03/14 10/18/20 History Sertraline [Zoloft] 50 mg PO DAILY 05/03/14 10/18/20 History Simvastatin [Zocor] 20 mg PO HS 05/03/14 10/18/20 History Warfarin Sodium 4 mg PO DAILY 05/03/14 10/18/20 History amLODIPine [Norvasc] 10 mg PO QAM 05/03/14 10/18/20 History levETIRAcetam 750 mg PO BID 05/03/14 10/18/20 History metFORMIN HCL 1,000 mg PO BID 05/03/14 10/18/20 History Famotidine [Pepcid] 40 mg PO DIRECTED 06/25/16 10/18/20 History Fluticasone Nasal Philipp [Flonase 2 spr EA NOSTRIL DAILY 06/25/16 10/18/20 History Nasal Philipp] Gabapentin [Neurontin] 400 mg PO DAILY 06/25/16 10/18/20 History LORazepam [Ativan] 0.5 mg PO DAILY PRN 06/25/16 10/18/20 History Levothyroxine Sodium [Synthroid] 75 mcg PO DAILY 06/25/16 10/18/20 History Plant Stanol Nohemy [Cholest Off] 450 mg PO DAILY 06/25/16 10/18/20 History Zolpidem Tartrate [Ambien] 10 mg PO HS PRN 06/25/16 10/18/20 History Cholecalciferol (Vitamin D3) 5,000 unit PO DAILY 11/18/18 10/18/20 History [Vitamin D3] Thiamine [Vitamin B-1] 100 mg PO DAILY 11/18/18 10/18/20 History Allergies Allergy/AdvReac Type Severity Reaction Status Date / Time Sulfa (Sulfonamide Allergy Rash/Hives Verified 10/18/20 13:52 Antibiotics) bleach Allergy Rash/Hives Uncoded 10/18/20 13:52 Surgical - Exam Vital Signs Temp Pulse Resp BP Pulse Ox 97.5 F L 62 18 193/75 96 10/18/20 13:54 10/18/20 13:54 10/18/20 13:54 10/18/20 13:54 10/18/20 13:54 BMI 25.7 - General no distress - Eyes normal ocular movement - ENT normal pinna, normal nares - Neck no masses, trachea midline - Respiratory normal expansion, normal respiratory effort - Cardiovascular Heart Sounds: normal: S1, S2 - Abdomen Abdomen: soft - Integumentary skin lesion above eyebrows, skin lesions over upper extremities bilateral treated recently by dermatology as precancer - Neurologic no disoriented, no combative - Musculoskeletal normal gait - Psychiatric oriented to time, oriented to person, oriented to place, speech is normal, memory intact Breast exam: BRA: 38C inspection: Bilateral grade 2/3 ptosis Palpation: Right breast: Multiple positional exam fibrocystic changes, no dominant masses or nodules of concern Right axilla: No adenopathy of concern Left breast: Multi-positional exam fibrocystic changes, no dominant masses or nodules of concern, attention to the upper outer quadrant area does not reveal any discrete masses Left axilla: No adenopathy of concern Assessment and Plan Assessment: Impression: CVA 2000, 2003, 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 Patient with abnormal left breast mammogram 2. Stereotactic core biopsy recommended 3. Holding Coumadin and aspirin as per Dr. Choudhary PT and INR will be repeated the morning of the procedure Patient and her understand the risks and benefits and wished to proceed. Risk include but are not limited to bleeding, infection, reaction to the anesthetic. The possibility that the lesion could not be targeted was discussed and the fact that this may require an open biopsy. Alternatives such as watchful waiting open biopsy were discussed but not recommended. CC: Dr. Choudhary
== END ==
LOC: WWCWWP 13:25
PROVIDERS: ATTEND Surgery
DX: N60.12 Diffuse cystic mastopathy of left breast (principal); F32.9 Major depressive disorder, single episode, unspecified; F41.9 Anxiety disorder, unspecified; G57.53 Tarsal tunnel syndrome, bilateral lower limbs; I10 Essential (primary) hypertension; R42 Dizziness and giddiness; K44.9 Diaphragmatic hernia without obstruction or gangrene; E03.9 Hypothyroidism, unspecified; E78.00 Pure hypercholesterolemia, unspecified; E11.40 Type 2 diabetes mellitus with diabetic neuropathy, unspecified; G25.81 Restless legs syndrome; E78.5 Hyperlipidemia, unspecified; G58.8 Other specified mononeuropathies; M19.90 Unspecified osteoarthritis, unspecified site; M85.80 Other specified disorders of bone density and structure, unspecified site; R56.9 Unspecified convulsions; Z86.73 Personal history of transient ischemic attack (TIA), and cerebral infarction without residual deficits; Z80.3 Family history of malignant neoplasm of breast; Z79.82 Long term (current) use of aspirin; Z79.84 Long term (current) use of oral hypoglycemic drugs; Z79.890 Hormone replacement therapy; Z79.899 Other long term (current) drug therapy; Z88.2 Allergy status to sulfonamides; Z91.048 Other nonmedicinal substance allergy status

== ENCOUNTER → 2020-10-24 | Day surgery (SDC) | payer MEDICARE, BC ==
[2020-10-24 07:32] VITALS: RESP 16
[2020-10-24 07:56] LABS: Partial Thromboplastin Time 22.2 sec (22.0-30.0); Prothrombin Time 10.9 sec (9.0-12.0)
--- NOTE | 2020-10-24 08:54 | P.PCN ---
Date of Procedure: 10/24/20 Preoperative Diagnosis: Indeterminate cluster of calcifications upper outer quadrant left breast Postoperative Diagnosis: Same Procedure(s) Performed: Left breast stereotactic core biopsy Anesthesia: local Senior Branch Manager #1: Mónica Gutierrez Pathology: other (Breast tissue with microcalcifications of concern) Condition: stable Disposition: same day Indications for Procedure: Microcalcifications of concern upper outer quadrant left breast Operative Findings: Specimen radiograph reveals microcalcifications of concern Description of Procedure: Marilyn is an 79-year-old white female who was noted to have some indeterminate microcalcifications of concern in the left breast in the upper quadrant area. She was recommended to undergo a stereotactic core biopsy. Risks and benefits of the procedure were discussed with the patient as well as alternatives. She wished to proceed with a stereotactic core biopsy. The patient was taking Coumadin which was stopped and preoperative PT and INR were obtained and were noted to be in normal limits. The patient was brought to the stereotactic core biopsy room. She was positioned prone on the lo-rad table. A sorter lumber straightener film was obtained. The area of concern was identified, and trageted. A lateral to medial approach was utilized. The breast was prepped using Betadine. 20 mL of 1% lidocaine were used to anesthetize the area of concern. A 9-gauge vacuum-assisted core rotating biopsy needle was driven to the correct coordinates. The needle was fired. Post fire film revealed the needle to be in the correct location. 3 specimens were obtained at the 12 o'clock position. Radiograph of the specimen revealed the area of concern had been sampled. A secure parker Top-Hat clip was placed. This was noted to be in the correct location. The specimen was sent to pathology. The patient tolerated the procedure in stable condition. The patient will follow-up with Dr. Ramos next week.
[2020-10-24 09:00] VITALS: BP 197/83; PULSE 66; TEMP 97.9
--- NOTE | 2020-10-24 17:33 | MM ---
EXAMINATION TYPE: MG stereo VAD BX LT DATE OF EXAM: 10/24/2020 COMPARISON: 10/03/2020 CLINICAL HISTORY: Left breast calcifications TECHNIQUE: Stereotactic guided core biopsy of left breast. FINDINGS: The procedure of stereotactic guided core biopsy was explained to the patient. Benefits, alternatives, and risks were discussed. An informed consent was then obtained. The shortness pathway for biopsy was chosen. Shortness pathway was true lateral breast positioning, lateral to medial approach. I performed the localization, then surgeon, Dr. Richard Siddiqi performed the remainder of the procedure. A vacuum assisted biopsy gun was used to obtain multiple core samples. The patient tolerated the procedure well without any immediate complication. The patient was kept in the radiology department for short stay after the procedure and then discharged home in stable condition. Targeted calcifications are identified in specimen mammogram. Post biopsy mammogram shows the clip to appear in satisfactory position relative to the targeted area of concern on the preprocedure images. IMPRESSION: SUCCESSFUL, UNCOMPLICATED STEREOTACTIC GUIDED CORE BIOPSY OF AREA OF CONCERN IN THE LEFT BREAST, FULL PATHOLOGY RESULTS TO FOLLOW. 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 Focal flat epithelial atypia adjacent to DCIS. Negative for invasive carcinoma. Recommendation Surgical consult of the left breast. EMILY
== END ==
LOC: RADMAMWWP 06:57
PROVIDERS: ATTEND Surgery
DX: R92.0 Mammographic microcalcification found on diagnostic imaging of breast (principal); Z85.3 Personal history of malignant neoplasm of breast; R92.8 Other abnormal and inconclusive findings on diagnostic imaging of breast; D05.12 Intraductal carcinoma in situ of left breast; Z88.2 Allergy status to sulfonamides; Z88.9 Allergy status to unspecified drugs, medicaments and biological substances
CPT/HCPCS: 88305; 85610; 85730; 88342; 88341; 19081; A4648; J2001

== ENCOUNTER → 2020-11-01 | Outpatient (CLI) | payer MEDICARE, BC ==
[2020-11-01 11:48] VITALS: BP 205/86; PULSE 54; RESP 16; TEMP 97.7
--- NOTE | 2020-11-01 12:19 | P.PN ---
Subjective Progress Note Date: 11/01/20 Principal diagnosis: DCIS low-grade left breast Marilyn is an 79-year-old white female status post stero-tactic core biopsy of the left breast on 10-24-20. Pathology revealed low-grade ductal carcinoma in situ that was ER/AK positive. She tolerated the procedure without difficulty. She has no complaints. Her mammogram was reviewed with Dr. Parr in the area of concern appears to be approximately 1 cm in size. Objective - Vital Signs Vital signs: Vital Signs Temp 97.7 F 11/01/20 11:37 Pulse 54 L 11/01/20 11:37 Resp 16 11/01/20 11:37 BP 205/86 11/01/20 11:37 Pulse Ox 94 L 11/01/20 11:37 Intake & Output 10/31/20 11/01/20 11/01/20 18:59 06:59 18:59 Weight 72.121 kg - Constitutional General appearance: Present: average body habitus - EENT Eyes: Present: EOMI - Integumentary Integumentary Comment(s): Biopsy site clean and dry, no evidence of infection or hematoma. Assessment and Plan Assessment: Impression: 1. Stereotactic core biopsy left breast/positive ductal carcinoma in situ Plan: 1. Needle localization excisional lumpectomy, possible optical plastic tissue transfer 2. Medical clearance from Dr. Choudhary 3. Presentation of case at tumor board Would not recommend sentinel node biopsy stenosis and ductal carcinoma in situ, it is a small area, and the patient is 79 years old with multiple medical comorbidities. Risk and benefits of the procedure were discussed with the patient. This i ncluded but are not limited to bleeding, infection, reaction to anesthetic. Additionally the patient could have positive margins which would necessitate further resection. We have run the [facility] nomogram to show the benefit of surgery plus or minus radiation or hormonal therapy. He also shown the patient her mammogram so she could have a perspective of the size of the lesion relative to the size of her tumor. She has been given the option of a mastectomy versus lumpectomy and mastectomy was not recommended. The patient wishes to proceed with lumpectomy. The patient does have multiple medical comorbidities and clearance from Dr. Choudhary will be obtained. CC: Dr. Choudhary encounter 45 minutes time spent in examination, review of tests, and counselling.
== END ==
LOC: WWCWWP 10:52
PROVIDERS: ATTEND Surgery
DX: D05.12 Intraductal carcinoma in situ of left breast (principal); Z17.0 Estrogen receptor positive status [ER+]; Z88.2 Allergy status to sulfonamides

== ENCOUNTER → 2020-11-05 | Outpatient (CLI) | payer MEDICARE, BC ==
[2020-11-05 11:09] VITALS: BP 208/88; PULSE 86; RESP 15; TEMP 97.7
== END | disposition home or self-care (01) ==
LOC: PROCWHC3 09:42
PROVIDERS: ATTEND Family Medicine
DX: M81.0 Age-related osteoporosis without current pathological fracture (principal)
CPT/HCPCS: 96365; J3489

== ENCOUNTER → 2020-11-26 | Outpatient (CLI) | payer MEDICARE, BC ==
[2020-11-26 11:19] LABS: INR 1.7 (<1.2); Prothrombin Time 16.9 sec (9.0-12.0)
[2020-11-26 15:57] LABS: Basophils # (A) 0.02 X 10*3/uL (0.00-0.10); Basophils % (A) 0.3 %; Eosinophils # (A) 0.02 X 10*3/uL (0.04-0.35); Eosinophils % (A) 0.3 %; HCT 35.7 % (37.2-46.3); HGB 11.4 g/dL (12.0-15.0); Lymphocytes # (A) 1.82 X 10*3/uL (0.90-5.00); Lymphocytes % (A) 31.6 %; MCH 30.2 pg (27.0-32.0); MCHC 31.9 g/dL (32.0-37.0); MCV 94.4 fL (80.0-97.0); Mean Platelet Volume 10.6 fL (9.5-12.2); Monocytes # (A) 0.51 X 10*3/uL (0.20-1.00); Monocytes % (A) 8.9 %; Neutrophils # (A) 3.35 X 10*3/uL (1.80-7.70); Neutrophils % (A) 58.2 %; Platelet Count 185 X 10*3/uL (140-440); RBC 3.78 X 10*6/uL (4.10-5.20); RDW 13.2 % (11.5-14.5); WBC 5.76 X 10*3/uL (4.50-10.00)
[2020-11-26 17:06] LABS: ALT <8 U/L (8-44); AST 15 U/L (13-35); African American GFR (CKD) 44.9 (60.0-200.0); Albumin/Globulin Ratio 2.18 (1.60-3.17); Alkaline Phosphatase 41 U/L (41-126); Calcium 10.6 mg/dL (8.7-10.3); Carbon Dioxide 29.1 mmol/L (21.6-31.8); Chloride 105 mmol/L (96-109); Chol/HDL Ratio 3.54; Cholesterol 170 mg/dL (0-200); Globulin 2.2 g/dL (1.6-3.3); Glucose 116 mg/dL (70-110); LDL Cholesterol,Calculated 84.8 mg/dL (0.0-131.0); Non-African American GFR(CKD) 38.7 (60.0-200.0); Potassium 3.9 mmol/L (3.5-5.5); Sodium 144 mmol/L (135-145); Total Bilirubin 1.4 mg/dL (0.3-1.2)
[2020-11-26 17:27] LABS: Hemoglobin A1C 6.5 % (4.0-6.0)
== END | disposition home or self-care (01) ==
LOC: LABWHC1 10:22
PROVIDERS: ATTEND Family Medicine
DX: Z01.812 Encounter for preprocedural laboratory examination (principal); E11.9 Type 2 diabetes mellitus without complications; I10 Essential (primary) hypertension; Z79.01 Long term (current) use of anticoagulants
CPT/HCPCS: 36415; 80053; 80061; 83036; 84443; 85025; 85610; 85730

== ENCOUNTER 2020-12-19 06:38 | Day surgery (SDC) | payer MEDICARE, BC ==
--- NOTE | 2020-12-13 13:07 | P.PN ---
Subjective Progress Note Date: 12/13/20 Principal diagnosis: Ductal carcinoma in situ left breast Marilyn is an 80 year old white female seen in consultation for Dr. Choudhary regarding her mammographic abnormality in her left breast. She had a [place] [address]. An area of concern was noted in the left breast and a diagnostic [place] [address]. This revealed an indeterminate cluster of calcifications in the upper outer quadrant for which stereotactic core biopsy was recommended. She had not had a mammogram last year secondary to the pandemic. Otherwise she gets mammograms every year. She did not feel any lumps masses or nodules of concern in either breast. She did not complain of any nipple discharge or skin changes. She had not had any recent trauma or infection of the breast. She underwent a stereotactic core biopsy on 6321. Pathology revealed low-grade DCIS that was ER/OH positive. She tolerated procedure without difficulty. Caffeine: 1/2 cup of coffee/day nicotine: none chocolate: occasional Family history: sister: Breast cancer at age 73 patient: skin cancer Hormonal History: menarche: 12 M2, breast fed: no, age at first : 20 menopause: surgical, [facility] at 39 for fibroid tumors, also did Appendectomy and bladder suspension BCP: 5 years Surgical History: Tonsillectomy Hysterectomy with appendectomy and bladder suspension Hemorrhoidectomy Skin cancer tumor on forehead, shoulder, arm, legs, feet, bottom lip, chest, top of head in both hands Right foot attention nerve Cholecystectomy Back surgery Medical history: CVA 2000, 2004, 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 Depression and anxiety Tarsal tunnel both feet Hypertension Vertigo Hiatal hernia Hypothyroid High cholesterol Deteriorated disc lower back Diabetic Restless leg syndrome Neuropathy Pinched nerve right side of neck Osteopenia Seizures Numbness related to her back Social History: nicotine: none alcohol: none drugs: none - Constitutional Constitutional: Denies chills, Denies fever - EENT Eyes: bilateral blurred vision Ears: deny: decreased hearing, tinnitus Ears, nose, mouth and throat: Reports headache, Denies sore throat - Breasts Breasts: bilateral: as per HPI - Cardiovascular Cardiovascular: Denies chest pain, Denies shortness of breath - Respiratory Respiratory: Denies cough, Denies 7 - Gastrointestinal Gastrointestinal: Denies abdominal pain, Denies diarrhea, Denies nausea, Denies vomiting - Genitourinary (Female) Genitourinary: Denies dysuria, Denies hematuria - Menstruation Menstruation: Reports post hysterectomy - Musculoskeletal Comment: arthritis Musculoskeletal: Reports myalgias - Integumentary Comment: history of skin cancer Integumentary: Denies pruritus, Denies rash - Neurological Comment: strokes left side weakness Neurological: Reports as per HPI, Reports numbness - Psychiatric Psychiatric: Reports anxiety, Reports depression - Endocrine Comment: Hypothyroid, diabetic - Hematologic/Lymphatic Comment: takes aspirin and Coumadin - Allergic/Immunologic Allergic/Immunologic: Reports seasonal allergies Objective - Constitutional General appearance: Present: average body habitus - EENT Eyes: Present: EOMI - Neck Neck: Present: normal ROM - Respiratory Respiratory: bilateral: CTA - Cardiovascular Heart sounds: normal: S1, S2 - Integumentary Integumentary: Present: normal turgor - Psychiatric Psychiatric: Present: A&O x's 3, appropriate affect, intact judgment & insight - Additional findings Additional findings: Breast exam: Yoseph: 30 8C Inspection: Bilateral grade 2/3 ptosis Palpation: Right breast: Positional exam fibrocystic changes or dominant masses or nodules of concern; 5 mL clean and dry no evidence of infection or hematoma Right axilla no adenopathy of concern Left breast: Multi-positional exam fibrocystic changes no dominant masses or nodules of concern Left axilla: No adenopathy of concern Assessment and Plan Assessment: Impression/plan: CVA 2000, 2004, 2007 Mini stroke 2001, 2010 Depression and anxiety Tarsal tunnel both feet Hypertension Vertical Hiatal hernia Hypothyroid High cholesterol Deteriorated disc lower back Diabetic Restless leg syndrome Neuropathy Patient of right side of neck Osteopenia Seizures Numbness related to her back Abnormal left breast mammogram Fibrocystic breast changes Family history of cancer Ductal carcinoma in situ Patient diagnosed with left breast ductal carcinoma in situ Patient would like to have needle localization excisional lumpectomy of this site. Would not recommend sentinel node biopsy. The area small the patient is 79 years old with multiple medical morbidities The skin benefits of the procedure were discussed with the patient. These include but are not limited to bleeding, infection, reaction to the anesthetic. Additionally the patient could have positive margins which would necessitate further resection. Clear phlegm [facility] nomogram to show the benefit of surgery plus or minus radiation or hormonal therapy. We've shown the patient her mammogram so she could have a perspective of the size of the lesion relative to the size of the breast. She has been given the option of mastectomy versus lumpectomy and mastectomy was not recommended. The patient wishes to proceed with lumpectomy. The patient does have medical comorbidities and clearance from Dr. Choudhary is requested.
[2020-12-16 09:52] VITALS: BMI 25.7
[~2020-12-19 06:38] MED LIST changes: +HEPARIN SODIUM,PORCINE/PF 5,000 UNIT/0.5 ML SYRINGE SQ PRN; +LACTATED RINGERS 1,000 ML IV SCH; +ONDANSETRON 4 MG/2 ML VIAL IVP ONE; +Pre Op ABX Message 1 EACH MISC MISCELLANE ONE; -SODIUM CHLORIDE 0.9% 500 ML 500 ML in EMPTY BAG 1 BAG IV PRN; -ZOLEDRONIC ACID 5 MG in SODIUM CHLORIDE 0.9% 100 ML IV NR; +fentaNYL (PF) 50 MCG/ML 2 ML AMP IV PRN
[2020-12-19 07:30] LABS: Glucose,Whole Blood 130 mg/dL (75-99)
[2020-12-19] MEDS ORDERED: ALPRAZolam 0.25 MG TAB ONE (07:48)
[2020-12-19] MEDS ORDERED: ALPRAZolam 0.25 MG TAB PO ONE (07:50)
[2020-12-19 08:05] LABS: INR 1.1 (<1.2); Prothrombin Time 11.4 sec (9.0-12.0)
[2020-12-19 08:11] LABS: Partial Thromboplastin Time 21.4 sec (22.0-30.0)
[2020-12-19] MEDS ORDERED: LIDOCAINE 1% INJ 10MG/ML (20 ML MDV) SQ ONE (09:16)
[2020-12-19] MEDS ORDERED: DEXAMETHASONE SOD PHOSPHATE 4 MG/ML 1 ML VIAL IVP ONE (09:53)
[2020-12-19] MEDS ORDERED: SUCCINYLCHOLINE CHLORIDE 100 MG/5 ML SYR IV ONE (10:39)
[2020-12-19] MEDS ORDERED: PROPOFOL 10 MG/ML 20 ML VIAL IV ONE (10:39)
[2020-12-19] MEDS ORDERED: MIDAZOLAM 2 MG/2 ML VIAL ONE (10:39)
[2020-12-19] MEDS ORDERED: ePHEDrine SULFATE/0.9% NACL/PF 50 MG/5 ML SYRINGE IV ONE (10:39)
[2020-12-19] MEDS ORDERED: fentaNYL (PF) 50 MCG/ML 2 ML AMP ONE (10:39)
[2020-12-19] MEDS ORDERED: LIDOCAINE 1% INJ 10MG/ML (20 ML MDV) ONE (10:39)
--- NOTE | 2020-12-19 11:19 | P.OP ---
Date of Procedure: 12/19/20 Preoperative Diagnosis: Left breast ductal carcinoma in situ Postoperative Diagnosis: Same Procedure(s) Performed: Needle localization lumpectomy with margins Anesthesia: INESSA Surgeon: Mónica Gutierrez Estimated Blood Loss (ml): 5 IV fluids (ml): 350 Pathology: other (beast tissue) Condition: stable Disposition: same day Indications for Procedure: core biopsy left breast ductal carcinoma in situ Operative Findings: Fibrofatty breast tissue Description of Procedure: The patient was initially seen in the radiology department and needle localization of area of concern was performed. The patient was then brought to the operative suite where the left breast was prepped and draped in a sterile fashion. An incision was made which surrounded the needle including an area of skin as the clip was very superficial. This was carried down to the hook of the needle and surrounding tissue was excised. The tissue was painted for orientation. Radiograph of the specimen revealed the area of concern had been then removed. The breast was irrigated and evaluated for hemostasis. The deep tissues were closed using 3-0 Vicryl suture. The skin was closed using 4-0 Monocryl. Steri-Strips were applied. The patient tolerated the procedure in stable condition. All instrument and sponge counts were correct at the end of the case.
--- NOTE | 2020-12-19 11:21 | P.DS ---
Providers Attending physician: Mónica Gutierrez Primary care physician: Lela Choudhary Plan - Discharge Summary Discharge Rx Participant: No New Discharge Prescriptions: No Action Furosemide [Lasix] 20 mg PO DAILY Aspirin 81 mg PO DAILY Sertraline [Zoloft] 50 mg PO DAILY metFORMIN HCL [Glucophage] 1,000 mg PO BID levETIRAcetam 750 mg PO BID Simvastatin [Zocor] 20 mg PO HS Warfarin Sodium 4 mg PO DAILY Baclofen [Lioresal] 20 mg PO DAILY amLODIPine [Norvasc] 10 mg PO QAM Losartan Potassium 100 mg PO DAILY Zolpidem Tartrate [Ambien] 10 mg PO HS PRN PRN Reason: SLEEP Plant Stanol Nohemy [Cholest Off] 450 mg PO DAILY Levothyroxine Sodium [Synthroid] 75 mcg PO DAILY LORazepam [Ativan] 0.5 mg PO DAILY PRN PRN Reason: Anxiety Gabapentin [Neurontin] 400 mg PO HS Fluticasone Nasal Clear[place] [Flonase Nasal Clear[place]] 2 spr EA NOSTRIL DAILY Famotidine [Pepcid] 40 mg PO DAILY Thiamine [Vitamin B-1] 100 mg PO DAILY Cholecalciferol (Vitamin D3) [Vitamin D3] 5,000 unit PO DAILY cloNIDine [Catapres-TTS] 1 patch TRANSDERM Q7D Discharge Medication List Aspirin 81 mg PO DAILY 05/03/14 [History] Baclofen [Lioresal] 20 mg PO DAILY 05/03/14 [History] Furosemide [Lasix] 20 mg PO DAILY 05/03/14 [History] Losartan Potassium 100 mg PO DAILY 05/03/14 [History] Sertraline [Zoloft] 50 mg PO DAILY 05/03/14 [History] Simvastatin [Zocor] 20 mg PO HS 05/03/14 [History] Warfarin Sodium 4 mg PO DAILY 05/03/14 [History] amLODIPine [Norvasc] 10 mg PO QAM 05/03/14 [History] levETIRAcetam 750 mg PO BID 05/03/14 [History] metFORMIN HCL [Glucophage] 1,000 mg PO BID 05/03/14 [History] Famotidine [Pepcid] 40 mg PO DAILY 06/25/16 [History] Fluticasone Nasal [place] [Flonase Nasal [place]] 2 spr EA NOSTRIL DAILY 06/25/16 [History] Gabapentin [Neurontin] 400 mg PO HS 06/25/16 [History] LORazepam [Ativan] 0.5 mg PO DAILY PRN 06/25/16 [History] Levothyroxine Sodium [Synthroid] 75 mcg PO DAILY 06/25/16 [History] Plant Stanol Nohemy [Cholest Off] 450 mg PO DAILY 06/25/16 [History] Zolpidem Tartrate [Ambien] 10 mg PO HS PRN 06/25/16 [History] Cholecalciferol (Vitamin D3) [Vitamin D3] 5,000 unit PO DAILY 11/18/18 [History] Thiamine [Vitamin B-1] 100 mg PO DAILY 11/18/18 [History] cloNIDine [Catapres-TTS] 1 patch TRANSDERM Q7D 12/19/20 [History] Follow up Appointment(s)/Referral(s): Mónica Gutierrez MD [STAFF PHYSICIAN] - 1 Week Activity/Diet/Wound Care/Special Instructions: Do not drive today May shower after 48 hours Wear bra at all times Discharge Disposition: HOME SELF-CARE
[2020-12-19 11:41] VITALS: TEMP 96.8
--- NOTE | 2020-12-19 12:03 | MM ---
EXAMINATION TYPE: MG pre op needle loc LT, MG surgical specimen LT DATE OF EXAM: 12/19/2020 COMPARISON: 10/03/2020, 10/01/2020 CLINICAL HISTORY: 80-year-old female with biopsy-proven left breast DCIS referred for needle localiza tion for excision. TECHNIQUE: Needle localization with wire placement and surgical excision of area of concern in the 2: 00 periphery of the left breast. FINDINGS: The procedure of needle localization with wire placement and than surgical excision was exp lained to the patient. Benefits, alternatives, and risks were discussed. An informed consent was th en obtained. The shortest pathway for procedure was chosen. Shortest pathway was a lateral approach. The overlyin g skin was prepped and draped in usual sterile fashion. Lidocaine was used as anesthetic into the sk in and subcutaneous tissue up to the level of area of concern. A 5 cm Kopans needle was used. It was placed via a lateral approach under mammographic guidance. Subsequent 90 degrees mammogram show the needle to be in satisfactory position relative to the targeted area. At this point, wire was placed and the needle was withdrawn. The wire was fixed to patient's skin. Images were marked for surgeon . The patient tolerated the procedure well without any immediate complication. The patient was kept in the radiology department for short stay after the procedure and then taken to surgery for surgical e xcision. The microclip and surrounding tissue as well as the wire are identified in the specimen mammogram. T he patient was kept in hospital for short stay after the procedure and then discharged home in stable condition. IMPRESSION: Successful, uncomplicated needle localization with wire placement and surgical excision of the site o f biopsy-proven DCIS in the 2:00 left breast. We note that no residual microcalcifications remained a fter the biopsy and that there may have been slight 1 cm lateral clip migration which was accounted f or during wire placement. Full pathology results to follow.
[2020-12-19] MEDS ORDERED: LABETALOL SYRINGE 5 MG/ML IVP ONE (12:09)
[2020-12-19] MEDS ORDERED: LACTATED RINGERS 1,000 ML IV ONE (12:20)
[2020-12-19 13:44] VITALS: RESP 18
[2020-12-19 14:06] VITALS: BP 167/78; PULSE 82
== END 2020-12-19 14:07 | disposition home or self-care (01) ==
LOC: OR 06:38
PROVIDERS: ATTEND Surgery
DX: D24.2 Benign neoplasm of left breast (principal); Z17.0 Estrogen receptor positive status [ER+]; Z85.3 Personal history of malignant neoplasm of breast; Z90.710 Acquired absence of both cervix and uterus; Z98.890 Other specified postprocedural states; Z90.89 Acquired absence of other organs; Z85.828 Personal history of other malignant neoplasm of skin; Z90.49 Acquired absence of other specified parts of digestive tract; Z86.73 Personal history of transient ischemic attack (TIA), and cerebral infarction without residual deficits; F32.9 Major depressive disorder, single episode, unspecified; F41.9 Anxiety disorder, unspecified; I10 Essential (primary) hypertension; R42 Dizziness and giddiness; E03.9 Hypothyroidism, unspecified; E78.00 Pure hypercholesterolemia, unspecified; G25.81 Restless legs syndrome; E11.40 Type 2 diabetes mellitus with diabetic neuropathy, unspecified; M85.80 Other specified disorders of bone density and structure, unspecified site; G58.9 Mononeuropathy, unspecified; R56.9 Unspecified convulsions; Z79.01 Long term (current) use of anticoagulants; Z79.82 Long term (current) use of aspirin; Z79.84 Long term (current) use of oral hypoglycemic drugs; Z79.890 Hormone replacement therapy; Z79.899 Other long term (current) drug therapy
CPT/HCPCS: 19301; 85610; 85730; 88307; 76098; 19281; J2250; J1100; J2001; J3010; J0330; J2704; J1644

== ENCOUNTER → 2020-12-26 | Outpatient (CLI) | payer MEDICARE, BC ==
--- NOTE | 2020-12-26 13:26 | P.PN ---
Progress Note - Text Progress Note Date: 12/26/20 Marilyn is an 80-year-old white female status post left breast needle local excisional lumpectomy and [id number]. Pathology revealed that the lesion had been completely removed with no residual DCIS. The patient after she went home did well. Lungs: clear Heart: S1-S2 Incision left breast clean and dry Patient's case was discussed at tumor Board and she opted for excision rather than any radiation therapy or hormonal therapy. She has opted not to be followed by medical and radiation oncology. We are going to follow her closely. Impression: 1. DCIS left breast completely excised 2. Patient has declined radiation or hormonal therapy. Plan: 1. Follow up here in 4 months for physician exam 2. Follow-up sooner any questions or concerns CC: DR. Choudhary
[2020-12-26 15:51] VITALS: BP 202/74; PULSE 59; RESP 16; TEMP 98
== END | disposition home or self-care (01) ==
LOC: WWCWWP 13:13
PROVIDERS: ATTEND Surgery
DX: Z53.9 Procedure and treatment not carried out, unspecified reason (principal)

== ENCOUNTER → 2021-03-27 | Outpatient (CLI) | payer MEDICARE, BC ==
--- NOTE | 2021-03-27 14:57 | P.PN ---
Subjective Progress Note Date: 03/27/21 Marilyn is an 80 year old white female seen in consultation for Dr. Choudhary regarding a mammographic abnormality in her left breast. She had a bilateral routine mammogram performed on . An area of concern was noted in the left breast and a diagnostic left breast mammogram was performed on . This revealed an indeterminate cluster of calcifications in the upper outer quadrant for which stereotactic core biopsy was recommended. She had not had a mammogram in 2019 secondary to the pandemic. Otherwise she gets mammograms every year. She did not feel any lumps masses or nodules of concern in either breast. She did not complain of any nipple discharge or skin changes. She had not had any recent trauma or infection of the breast. She'd never had any surgery on her breast. She underwent a stero biopsy on 10-24-20 which revealed DCIS. She than had a needle localization and resection on 12-19-20 which revealed the lesion had been completely removed. She opted for no radiation or hormone therapy. She has no complaints of any new lumps masses or nodules in either breast. Caffeine: 1/2 cup of coffee/day nicotine: none chocolate: occasional Family history: sister: Breast cancer at age 73 patient: skin cancer Hormonal History: menarche: 12 M2, breast fed: no, age at first : 20 menopause: surgical, JOHNY at 39 for fibroid tumors, also did Appendectomy and bladder suspension BCP: 5 years Surgical History: Tonsillectomy Hysterectomy with appendectomy and bladder suspension Hemorrhoidectomy Skin cancer tumor on forehead, shoulder, arm, legs, feet, bottom lip, chest, top of head in both hands Right foot attention nerve Cholecystectomy Back surgery left breast lumpectomy Medical history: CVA 2000, 2004, 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 Depression and anxiety Tarsal tunnel both feet Hypertension Vertigo Hiatal hernia Hypothyroid High cholesterol Deteriorated disc lower back Diabetic Restless leg syndrome Neuropathy Pinched nerve right side of neck Osteopenia Seizures Numbness related to her back Social History: nicotine: none alcohol: none drugs: none - Constitutional Constitutional: Denies chills, Denies fever - EENT Eyes: bilateral blurred vision Ears: deny: decreased hearing, tinnitus Ears, nose, mouth and throat: Reports headache, Denies sore throat - Breasts Breasts: bilateral: as per HPI - Cardiovascular Cardiovascular: Denies chest pain, Denies shortness of breath - Respiratory Respiratory: Denies cough, Denies 7 - Gastrointestinal Gastrointestinal: Denies abdominal pain, Denies diarrhea, Denies nausea, Denies vomiting - Genitourinary (Female) Genitourinary: Denies dysuria, Denies hematuria - Menstruation Menstruation: Reports post hysterectomy - Musculoskeletal Comment: arthritis Musculoskeletal: Reports myalgias - Integumentary Comment: history of skin cancer Integumentary: Denies pruritus, Denies rash - Neurological Comment: strokes left side weakness Neurological: Reports as per HPI, Reports numbness - Psychiatric Psychiatric: Reports anxiety, Reports depression - Endocrine Comment: Hypothyroid, diabetic - Hematologic/Lymphatic Comment: takes aspirin and Coumadin - Allergic/Immunologic Allergic/Immunologic: Reports seasonal allergies Objective - Constitutional General appearance: Present: cooperative - EENT Eyes: Present: EOMI ENT: Present: hearing grossly normal - Neck Neck: Present: normal ROM - Respiratory Respiratory: bilateral: CTA - Cardiovascular Rhythm: regular Heart sounds: normal: S1, S2 - Gastrointestinal General gastrointestinal: Present: soft - Integumentary Integumentary: Present: normal turgor - Musculoskeletal Musculoskeletal: Present: gait normal - Psychiatric Psychiatric: Present: A&O x's 3, appropriate affect, intact judgment & insight - Additional findings Additional findings: Breast Exam: BRA: 36D inspection: bilateral grade 3 ptosis, well-healed scar left breast palpation: right breast: Multi-positional exam fibrocystic changes no dominant masses or nodules of concern Right axilla: No adenopathy of concern Left breast: Multi-positional exam fibrocystic changes no dominant masses or n odules of concern; well healed scar from prior surgery Left axilla: No adenopathy of concern Assessment and Plan Assessment: Impression: CVA 2000, 2003, 2006 Mini stroke 2002 in 2009 Depression and anxiety Tarsal tunnel both feet Hypertension Vertigo Hiatal hernia Hypothyroid High cholesterol Deteriorated disc lower back Diabetic Restless leg syndrome Neuropathy Pinched nerve right side of neck Osteopenia Seizures Numbness related to her back left breast DCIS resected no evidence of recurrence Plan: Medical management of medical conditions Left breast mammogram in 3 months with physician exam at that time Patient to follow up sooner if any questions or concerns Again patient has declined seen medical radiation oncology and we are following her clinically. CC: Dr. Choudhary
[2021-03-27 15:09] VITALS: BP 197/75; PULSE 61; RESP 18; TEMP 98.1
== END | disposition home or self-care (01) ==
LOC: WWCWWP 13:36
PROVIDERS: ATTEND Surgery
DX: Z53.9 Procedure and treatment not carried out, unspecified reason (principal)

== ENCOUNTER → 2021-06-30 | Outpatient (CLI) | payer MEDICARE, BC ==
--- NOTE | 2021-06-30 11:33 | MM ---
Reason for exam: follow-up at short interval from prior study. Last mammogram was performed 9 months ago. History: Patient is postmenopausal, has history of high-risk lesion on a previous biopsy at age 80, has history of breast cancer at age 79, and history of other cancer. Family history of breast cancer in sister at age 69. High risk MG pre op needle loc LT of the left breast, December 19, 2020. Lumpectomy of the left breast, December 19, 2020. Malignant MG stereo VAD BX LT of the left breast, October 24, 2020. Cyst aspiration of the right breast, June 18, 2003. Took hormonal contraceptives for 2 years. Physical Findings: Nurse did not find any significant physical abnormalities on exam. MG 3D Diag Mammo W/Cad LT CC and MLO view(s) were taken of the left breast. Prior study comparison: October 03, 2020, left breast MG 3d work up w/cad LT. October 01, 2020, bilateral MG 3d screening mammo w/cad. The breast tissue is heterogeneously dense. This may lower the sensitivity of mammography. There is no discrete abnormality. Post operative changes left breast. These results were verbally communicated with the patient and result sheet given to the patient on 06/30/21. ASSESSMENT: Benign, BI-RAD 2 RECOMMENDATION: Follow-up diagnostic mammogram of both breasts in 3 months. Back on schedule for September 2021.
== END | disposition home or self-care (01) ==
LOC: RADMAMWWP 10:14
PROVIDERS: ATTEND Surgery
DX: R92.8 Other abnormal and inconclusive findings on diagnostic imaging of breast (principal)
CPT/HCPCS: 77065; G0279; 77061

== ENCOUNTER → 2021-07-04 | Outpatient (CLI) | payer MEDICARE, BC ==
[2021-07-04 12:42] VITALS: BP 171/75; PULSE 67; RESP 18; TEMP 97.9
--- NOTE | 2021-07-04 13:05 | P.PN ---
Subjective Progress Note Date: 07/04/21 Principal diagnosis: DCIS left breast Marilyn is an 80 year old white female seen in consultation for Dr. Choudhary regarding a mammographic abnormality in her left breast. She had a bilateral routine mammogram performed on . An area of concern was noted in the left breast [place] [id number]. This revealed an indeterminate cluster of calcifications in the upper outer quadrant for which stereotactic core biopsy was recommended. She had not had a mammogram in 2019 secondary to the pandemic. Otherwise she gets mammograms every year. She did not feel any lumps masses or nodules of concern in either breast. She did not complain of any nipple discharge or skin changes. She had not had any recent trauma or infection of the breast. She'd never had any surgery on her breast. She underwent a stero biopsy on 10-24-20 which revealed DCIS. She than had a needle localization and resection on 12-19-20 which revealed the lesion had been completely removed. She opted for no radiation or hormone therapy. She has no complaints of any new lumps masses or nodules in either breast. 07-04-21 Left breast mammogram done, this was benign BIRAD 2 and bilateral mammogram recommended in 3 months back on schedule. She does not complain of any lumps masses or nodules of concern in either breast. Caffeine: 1/2 cup of coffee/day nicotine: none chocolate: occasional Family history: sister: Breast cancer at age 73 patient: skin cancer Hormonal History: menarche: 12 M2, breast fed: no, age at first : 20 menopause: surgical, JOHNY at 39 for fibroid tumors, also did Appendectomy and bladder suspension BCP: 5 years Surgical History: Tonsillectomy Hysterectomy with appendectomy and bladder suspension Hemorrhoidectomy Skin cancer tumor on forehead, shoulder, arm, legs, feet, bottom lip, chest, top of head in both hands Right foot attention nerve Cholecystectomy Back surgery left breast lumpectomy skin cancer left upper arm Medical history: CVA 2000, 2003, 2006 Mini stroke 2002 in 2009 Depression and anxiety Tarsal tunnel both feet Hypertension Vertigo Hiatal hernia Hypothyroid High cholesterol Deteriorated disc lower back Diabetic Restless leg syndrome Neuropathy Pinched nerve right side of neck Osteopenia Seizures Numbness related to her back Social History: nicotine: none alcohol: none drugs: none - Constitutional Constitutional: Denies chills, Denies fever - EENT Eyes: bilateral blurred vision Ears: deny: decreased hearing, tinnitus Ears, nose, mouth and throat: Reports headache, Denies sore throat - Breasts Breasts: bilateral: as per HPI - Cardiovascular Cardiovascular: Denies chest pain, Denies shortness of breath - Respiratory Respiratory: Denies cough - Gastrointestinal Gastrointestinal: Denies abdominal pain, Denies diarrhea, Denies nausea, Denies vomiting - Genitourinary (Female) Genitourinary: Denies dysuria, Denies hematuria - Menstruation Menstruation: Reports post hysterectomy - Musculoskeletal Comment: arthritis Musculoskeletal: Reports myalgias - Integumentary Comment: history of skin cancer Integumentary: Denies pruritus, Denies rash - Neurological Comment: strokes left side weakness Neurological: Reports as per HPI, Reports numbness - Psychiatric Psychiatric: Reports anxiety, Reports depression - Endocrine Comment: Hypothyroid, diabetic - Hematologic/Lymphatic Comment: takes aspirin and Coumadin - Allergic/Immunologic Allergic/Immunologic: Reports seasonal allergies Objective - Vital Signs Vital signs: Vital Signs Temp 97.9 F 07/04/21 12:36 Pulse 67 07/04/21 12:36 Resp 18 07/04/21 12:36 BP 171/75 07/04/21 12:36 Pulse Ox Intake & Output 07/03/21 07/04/21 07/04/21 18:59 06:59 18:59 Weight 68.492 kg - Exam BMI 25.1 - Constitutional General appearance: Present: cooperative - EENT Eyes: Present: EOMI ENT: Present: hearing grossly normal - Neck Neck: Present: normal ROM - Respiratory Respiratory: bilateral: CTA - Cardiovascular Rhythm: regular Heart sounds: normal: S1, S2 - Integumentary Integumentary Comment(s): incision left upper arm, skin cancer resected Integumentary: Present: normal turgor - Musculoskeletal Musculoskeletal: Present: gait normal - Psychiatric Psychiatric: Present: A&O x's 3, appropriate affect, intact judgment & insight - Additional findings Additional findings: Breast Exam: BRA: 38D inspection: Bilateral grade 3 ptosis Palpation: Right breast: Multiple positional exam fibrocystic changes no dominant masses or nodules of concern Right axilla: No adenopathy of concern Left breast: Well-healed scar from prior surgery, multiple positional exam no dominant masses or nodules of concern Left axilla: No adenopathy of concern Assessment and Plan Assessment: Impression: CVA 2000, 2003, 2006 Mini stroke 2002 in 2010 Depression and anxiety Tarsal tunnel both feet Hypertension Vertigo Hiatal hernia Hypothyroid High cholesterol Deteriorated disc lower back Diabetic Restless leg syndrome Neuropathy Pinched nerve right side of neck Osteopenia Seizures Numbness related to her back DCIS left breast treated with lumpectomy, patient did not have radiation or hormone therapy Plan: Repeat examination in 4 months Bilateral mammogram at that time Cc: Dr. Choudhary
== END | disposition home or self-care (01) ==
LOC: WWCWWP 12:02
PROVIDERS: ATTEND Surgery
DX: Z53.9 Procedure and treatment not carried out, unspecified reason (principal)

== ENCOUNTER → 2021-10-06 | Outpatient (CLI) | payer MEDICARE, BC ==
--- NOTE | 2021-10-06 15:21 | MM ---
Reason for Exam: Follow-up at short interval from prior study. Last screening mammogram was performed 12 month(s) ago. Patient History: Menarche at age 11. First Full-Term at age 19. Left ovary removed at age 38. Right ovary removed at age 38. Hysterectomy at age 38. Postmenopausal. Other cancer. Breast cancer, age 79. Patient used Hormonal Contraceptives for 2 years. 12/19/2020, Lumpectomy on the Left side. 12/19/2020, High risk Core Biopsy on the left side. 10/24/2020, Malignant Core Biopsy on the left side. 06/18/2003, Cyst Aspiration on the Right side. Sister had breast cancer, left, age 69. Film Views: Bilateral CC views were taken. Bilateral MLO views were taken. Prior Study Comparison: 10/01/2020 Bilateral Screening Mammogram, [facility]. 10/03/2020 Left Diagnostic Mammogram, [facility]. 06/30/2021 Left Diagnostic Mammogram, [facility]. Tissue Density: The breast tissue is heterogeneously dense. This may lower the sensitivity of mammography. Findings: Analyzed By CAD. Calcifications - There is benign-appearing regional linear calcifications in the upper outer quadrant of the right breast redemonstrated. Architectural distortion - There is architectural distortion in the upper outer quadrant of the left breast in the middle position corresponding to posttreatment change Chronic nodularity right breast is stable. Overall Assessment: Benign, BI-RAD 2 Management: Diagnostic Mammogram of both breasts in 1 year. A clinical breast exam by your physician is recommended on an annual basis and results should be correlated with mammographic findings.
== END | disposition home or self-care (01) ==
LOC: RADMAMWWP 13:32
PROVIDERS: ATTEND Surgery
DX: Z85.3 Personal history of malignant neoplasm of breast (principal)
CPT/HCPCS: 77066; G0279; 77062

== ENCOUNTER → 2021-10-10 | Outpatient (CLI) | payer MEDICARE, BC ==
--- NOTE | 2021-10-10 13:13 | BD ---
EXAMINATION TYPE: Axial Bone Density DATE OF EXAM: 10/10/2021 COMPARISON: NONE CLINICAL HISTORY: 80 years year old Female. ICD-10 CODE: M81.0 Age related osteoporosis Height: 5 FT 4 1/2 IN Weight: 146 FRAX RISK QUESTIONS: Alcohol (3 or more units per day): NO Family History (Parent hip fracture): NO Glucocorticoids (More than 3mos): NO (Ex: prednisone, prednisolone, methylprednisolone, dexamethasone, and hydrocortisone). History of Fracture in Adulthood: YES Secondary Osteoporosis: 1. Type 1 Diabetes: TYPE 2 2. Hyperthyroidism: NO 3. Menopause before 45: YES 4. Malnutrition: NO 5. Chronic liver disease: NO Rheumatoid Arthritis: NO Current Tobacco Use: NO RISK FACTORS HISTORY OF: Surgery to Spine/Hip(right/left)/Wrist (right/left): LUMBAR When: 2017 Family History of Osteoporosis: NO Active: YES Diet low in dairy products/other sources of calcium: NO Postmenopausal woman: YES Take estrogen and/or progesterone medications: NO Lost more than 2 inches in height since high school: YES Frequent falls: USES A CANE FOR STABILITY Poor Health: FAIR Hyperparathyroidism: NO Adrenal Insufficiency: NO MEDICATIONS: Thyroid Medications: YES Which medication: LEVOTHYROXINE How Lon-5 YEARS Additional Medications: BACLOFEN, SIMVASTATIN, AMLODIPINE, WARFARIN, GABAPENTIN, METFORMIN, LEVETIRAC ETAM, LOSARTAN, FUROSEMIDE, LEVOTHYROXINE, SERTRALINE, JAR DANCE, FAMOTIDINE, CLONIDINE, RECLAST Additional History: BEEN ON RECLAST FOR 3-4 YEARS EXAM MEASUREMENTS: Bone mineral density about the R hip (g/cm2): 0.642 Bone mineral density about the L hip (g/cm2): 0.717 T Score values are as follows: -----R Neck: -2.8 -----L Neck: -2.3 -----R Total: -3.0 -----L Total: -2.7 Bone mineral density has: DECREASED -3.1 % since study of: 2019 Bone mineral density about the L Wrist (g/cm2): 0.464 T Score values are as follows: -----Dist. R+U: -1.3 -----Prox. R+U: -2.1 -----Radius total: -3.5 Bone mineral density has: DECREASED -6.3 % since study of: 2019 FRAX%s: The graph provided illustrates a 31.6 % chance for a major osteoporotic fx and a 12.1 % chanc e for the hips probability for fx in 10 years time. IMPRESSION: Osteoporosis NOTE: T-SCORE=SD OF THE YOUNG ADULT MEAN.
== END | disposition home or self-care (01) ==
LOC: RADBDWWP 10:56
PROVIDERS: ATTEND Pediatrics
DX: M81.0 Age-related osteoporosis without current pathological fracture (principal)
CPT/HCPCS: 77080

== ENCOUNTER 2021-11-22 17:57 | Emergency (ER) | payer MEDICARE, BC ==
[2021-11-22 18:24] VITALS: TEMP 98.3
--- NOTE | 2021-11-22 18:59 | CT ---
EXAMINATION TYPE: CT brain siddhartha zneg con DATE OF EXAM: 11/22/2021 COMPARISON: CT brain 12/13/2011 HISTORY: Fall. Pain CT DLP: 1227.1 mGycm Automated exposure control for dose reduction was used. Images of the brain and cervical spine obtained with no contrast. There is cerebral cortical atrophy. There is no mass effect nor midline shift. No sign of intracrania l hemorrhage. The calvarium is intact. Skull base is intact. There is degenerative disc space narrowing throughout the cervical spine. There is a minimal retrolis thesis at C3-4. No compression fracture. Facet joints are intact. There is mild hypertrophic facet ar thropathy. Prevertebral soft tissues are intact. IMPRESSION: Cerebral atrophy. No acute intracranial abnormality. Spondylotic changes of the cervical spine. No acute abnormality of the cervical spine. No fracture.
--- NOTE | 2021-11-22 19:19 | XR ---
EXAMINATION TYPE: XR chest 2V DATE OF EXAM: 11/22/2021 COMPARISON: To 917 HISTORY: Pain TECHNIQUE: 3 views FINDINGS: There is elevated right diaphragm. No heart failure. Heart size is fairly normal. No pulmon greg consolidation. No pleural effusion. 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 No heart fa ilure.
--- NOTE | 2021-11-22 19:20 | XR ---
EXAMINATION TYPE: XR shoulder complete RT DATE OF EXAM: 11/22/2021 COMPARISON: NONE HISTORY: Pain TECHNIQUE: 3 views FINDINGS: There is calcification at the greater tuberosity of the humerus. I see no fracture nor disl ocation. AC joint is intact. IMPRESSION: Calcific tendinitis. No fracture seen.
[2021-11-22 19:54] VITALS: RESP 16
[2021-11-22] MEDS ORDERED: traMADol 50 MG TAB PO STA (20:06)
--- NOTE | 2021-11-22 20:13 | ED ---
General Adult HPI - General Chief complaint: Fall Stated complaint: fall Time Seen by Provider: 11/22/21 18:00 Source: patient, EMS, RN notes reviewed, old records reviewed Mode of arrival: EMS Limitations: no limitations - History of Present Illness Initial comments: 80-year-old female presenting status post fall. Patient fell backwards while vacuuming. She landed onto her right shoulder and right posterior lateral chest wall. There is no head or neck trauma but the patient is on Coumadin. She complains predominantly of pain in her shoulder and lateral chest wall. - Related Data Home Medications Medication Instructions Recorded Confirmed Aspirin 81 mg PO DAILY 05/03/14 10/09/21 Baclofen [Lioresal] 20 mg PO DAILY 05/03/14 10/09/21 Furosemide [Lasix] 20 mg PO DAILY 05/03/14 10/09/21 Losartan Potassium 100 mg PO DAILY 05/03/14 10/09/21 Sertraline [Zoloft] 50 mg PO DAILY 05/03/14 10/09/21 Simvastatin [Zocor] 20 mg PO HS 05/03/14 10/09/21 Warfarin Sodium 4 mg PO DAILY 05/03/14 10/09/21 amLODIPine [Norvasc] 10 mg PO QAM 05/03/14 10/09/21 levETIRAcetam 750 mg PO BID 05/03/14 10/09/21 metFORMIN HCL [Glucophage] 1,000 mg PO BID 05/03/14 10/09/21 Famotidine [Pepcid] 40 mg PO DAILY 06/25/16 10/09/21 Fluticasone Nasal [place] [Flonase 2 spr EA NOSTRIL DAILY 06/25/16 10/09/21 Nasal [place]] Gabapentin [Neurontin] 400 mg PO HS 06/25/16 10/09/21 LORazepam [Ativan] 0.5 mg PO DAILY PRN 06/25/16 10/09/21 Levothyroxine Sodium [Synthroid] 75 mcg PO DAILY 06/25/16 10/09/21 Plant Stanol Nohemy [Cholest Off] 450 mg PO DAILY 06/25/16 07/04/21 Cholecalciferol (Vitamin D3) 5,000 unit PO DAILY 11/18/18 10/09/21 [Vitamin D3] Thiamine [Vitamin B-1] 100 mg PO DAILY 11/18/18 10/09/21 Previous Rx's Medication Instructions Recorded traMADol HCl [Ultram] 50 mg PO BID PRN #12 tab 11/22/21 Allergies Allergy/AdvReac Type Severity Reaction Status Date / Time Sulfa (Sulfonamide Allergy Rash/Hives Verified 10/09/21 13:40 Antibiotics) bleach Allergy Rash/Hives Uncoded 10/09/21 13:40 Review of Systems ROS Statement: Those systems with pertinent positive or pertinent negative responses have been documented in the HPI. ROS Other: All systems not noted in ROS Statement are negative. Past Medical History Past Medical History: Cancer, CVA/TIA, Diabetes Mellitus, Hyperlipidemia, Hypertension, Osteoarthritis (OA), Seizure Disorder, Thyroid Disorder Additional Past Medical History / Comment(s): vertigo,hiatal hernia, restless leg,neuropathy,carpal tunnel,ddd, squamous cell carcinoma-arms, hands, legs History of Any Multi-Drug Resistant Organisms: None Reported Past Surgical History: Appendectomy, Back Surgery, Breast Surgery, Cholecystectomy, Hysterectomy, Orthopedic Surgery, Tonsillectomy Additional Past Surgical History / Comment(s): skin cancer removal, hemorrhoid removal, left breast high risk excisional november 2020 Past Anesthesia/Blood Transfusion Reactions: Motion Sickness Additional Past Anesthesia/Blood Transfusion Reaction / Comment(s): vertigo Past Psychological History: Anxiety, Depression Smoking Status: Never smoker Past Alcohol Use History: None Reported Past Drug Use History: None Reported - Past Family History Sister(s) Family Medical History: Cancer Additional Family Medical History / Comment(s): BREAST General Exam Limitations: no limitations General appearance: alert, in no apparent distress Head exam: Present: atraumatic, normocephalic Eye exam: Present: normal appearance, PERRL ENT exam: Present: normal exam Neck exam: Present: normal inspection, full ROM. Absent: tenderness, meningismus Respiratory exam: Present: normal lung sounds bilaterally, chest wall tenderness (Right lateral, no crepitus). Absent: respiratory distress, wheezes Cardiovascular Exam: Present: regular rate, normal rhythm GI/Abdominal exam: Present: soft. Absent: distended, tenderness, guarding Extremities exam: Absent: full ROM (Decreased range of motion of the right shoulder secondary to pain, no deformity noted. Distal pulses intact.) Back exam: Present: normal inspection. Absent: paraspinal tenderness, vertebral tenderness Neurological exam: Present: alert, oriented X3, CN II-XII intact. Absent: motor sensory deficit Psychiatric exam: Present: normal affect, normal mood Skin exam: Present: warm, dry, intact. Absent: cyanosis, diaphoretic Course Vital Signs 11/22/21 11/22/21 11/22/21 18:14 18:24 18:30 Temperature 98.3 F Pulse Rate 71 Respiratory 18 18 Rate Blood Pressure 172/86 172/86 O2 Sat by Pulse 95 93 L Oximetry 11/22/21 11/22/21 19:00 19:30 Temperature Pulse Rate Respiratory 16 16 Rate Blood Pressure 172/86 172/86 O2 Sat by Pulse 95 94 L Oximetry Medical Decision Making - Medical Decision Making 80-year-old female with mechanical fall. I did perform CT imaging of the brain given the history of Coumadin use. This is negative for intracranial hemorrhage or mass effect. Cervical spine is negative for fracture subluxation. X-rays of the chest and shoulder are performed without acute bony abnormality. Patient is accompanied by her family. She's given pain medicine and should follow with her primary care physician. Return parameters discussed. Disposition Clinical Impression: Fall, Shoulder strain Disposition: HOME SELF-CARE Condition: Fair Instructions (If sedation given, give patient instructions): Fall Prevention for Older Adults (ED), Shoulder Sprain (ED) Prescriptions: traMADol HCl [Ultram] 50 mg PO BID PRN #12 tab PRN Reason: Pain Is patient prescribed a controlled substance at d/c from ED?: No Referrals: Henrry Rojas MD [Primary Care Provider] - 1-2 days Time of Disposition: 20:10
[2021-11-22 20:42] VITALS: BP 176/91; PULSE 74
== END 2021-11-22 20:49 | disposition home or self-care (01) ==
LOC: EC 17:57
DX: S46.911A Strain of unspecified muscle, fascia and tendon at shoulder and upper arm level, right arm, initial encounter (principal); E78.5 Hyperlipidemia, unspecified; E11.9 Type 2 diabetes mellitus without complications; I10 Essential (primary) hypertension; Z86.73 Personal history of transient ischemic attack (TIA), and cerebral infarction without residual deficits; Z91.048 Other nonmedicinal substance allergy status; Z88.2 Allergy status to sulfonamides; W19.XXXA Unspecified fall, initial encounter
CPT/HCPCS: 70450; 71046; 72125; 99284

== ENCOUNTER → 2022-02-13 | Outpatient (CLI) | payer MEDICARE, BC ==
[2022-02-13 14:14] VITALS: BP 115/72; PULSE 76; RESP 14; TEMP 98.1
--- NOTE | 2022-02-13 15:14 | P.PN ---
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 Additional studies revealed indeterminate calcifications in the upper outer quadrant of the breast for which stereotactic core biopsy was recommended. Stereotactic core biopsy was performed and 63 which revealed DCIS. She then had a needle localization resection on [id number] which revealed the lesion had been completely removed. She opted for no radiation or hormonal therapy. She had a bilateral mammogram and [id number] which was benign BIRADS 2. The patient is not complaining of any new lumps masses or nodules of concern in either breast. Caffeine: stopped all caffeine nicotine: none chocolate: occasional Family history: sister: Breast cancer at age 73 patient: skin cancer Hormonal History: menarche: 12 M2, breast fed: no, age at first : 20 menopause: surgical, JOHNY at 39 for fibroid tumors, also did Appendectomy and bladder suspension BCP: 5 years Surgical History: Tonsillectomy Hysterectomy with appendectomy and bladder suspension Hemorrhoidectomy Skin cancer tumor on forehead, shoulder, arm, legs, feet, bottom lip, chest, top of head in both hands Right foot attention nerve Cholecystectomy Back surgery left breast lumpectomy skin cancer left upper arm 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 Quintanilla) Medical history: CVA 2000, 2003, 2006 Mini stroke 2002 in 2010 Depression and anxiety Tarsal tunnel both feet Hypertension Vertigo Hiatal hernia Hypothyroid High cholesterol Deteriorated disc lower back Diabetic Restless leg syndrome Neuropathy Pinched nerve right side of neck Osteopenia Seizures Numbness related to her back Social History: nicotine: none alcohol: none drugs: none - Constitutional Constitutional: Denies chills, Denies fever - EENT Eyes: bilateral blurred vision Ears: deny: decreased hearing, tinnitus Ears, nose, mouth and throat: Reports headache, Denies sore throat - Breasts Breasts: bilateral: as per HPI - Cardiovascular Cardiovascular: Denies chest pain, Denies shortness of breath - Respiratory Respiratory: Denies cough - Gastrointestinal Gastrointestinal: Denies abdominal pain, Denies diarrhea, Denies nausea, Denies vomiting - Genitourinary (Female) Genitourinary: Denies dysuria, Denies hematuria - Menstruation Menstruation: Reports post hysterectomy - Musculoskeletal Comment: arthritis Musculoskeletal: Reports myalgias - Integumentary Comment: history of skin cancer Integumentary: Denies pruritus, Denies rash - Neurological Comment: strokes left side weakness Neurological: Reports as per HPI, Reports numbness - Psychiatric Psychiatric: Reports anxiety, Reports depression - Endocrine Comment: Hypothyroid, diabetic - Hematologic/Lymphatic Comment: takes aspirin and Coumadin - Allergic/Immunologic Allergic/Immunologic: Reports seasonal allergies Objective - Vital Signs Vital signs: Vital Signs Temp 98.1 F 02/13/22 14:11 Pulse 76 02/13/22 14:11 Resp 14 02/13/22 14:11 BP 115/72 02/13/22 14:11 Pulse Ox 96 02/13/22 14:11 FiO2 Intake & Output 02/12/22 02/13/22 02/13/22 18:59 06:59 18:59 Weight 65.771 kg - Exam BMI: 24.1 - Constitutional General appearance: Present: cooperative - EENT Eyes: Present: EOMI ENT: Present: hearing grossly normal - Neck Neck: Present: normal ROM - Respiratory Respiratory: bilateral: CTA - Cardiovascular Heart sounds: normal: S1, S2 - Integumentary Integumentary Comment(s): scar under right nares - Musculoskeletal Musculoskeletal: Present: gait normal - Psychiatric Psychiatric: Present: A&O x's 3, appropriate affect, intact judgment & insight - Additional findings Additional findings: [place] Exam: BRA: 38D inspection: Well-healed scar left breast from prior surgery, bilateral grade 3 p tosis Palpation: Right breast: Multiple position exam fibrocystic changes no dominant masses or nodules of concern Right axilla: No adenopathy of concern Left breast: Multi-positional exam fibrocystic changes no evidence of recurrent disease well-healed scar from prior surgery Left axilla: No adenopathy of concern Assessment and Plan Assessment: Impression: CVA 2000, 2004, 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 Depression and anxiety Tarsal tunnel both feet Hypertension Vertigo Hiatal hernia Hypothyroid High cholesterol Deteriorated disc lower back Diabetic Restless leg syndrome Neuropathy Pinched nerve right side of neck Osteopenia Seizures Numbness related to her back History of DCIS left breast no evidence of recurrence Plan: Bilateral mammogram September 2022 with appointment CC: Dr. Rojas
== END | disposition home or self-care (01) ==
LOC: WWCWWP 13:28
PROVIDERS: ATTEND Surgery
DX: Z53.9 Procedure and treatment not carried out, unspecified reason (principal)

== ENCOUNTER 2022-08-24 13:52 | Inpatient (IN) | payer MEDICARE, BC ==
[2022-08-24] MEDS ORDERED: SODIUM CHLORIDE 0.9% 1,000 ML IV STA (14:35)
[2022-08-24 15:07] LABS: Basophils % (A) 0 %; Eosinophils % (A) 0 %; HCT 35.9 % (34.0-46.0); HGB 12.7 gm/dL (11.4-16.0); Lymphocytes # (A) 1.7 k/uL (1.0-4.8); Lymphocytes % (A) 21 %; MCH 31.4 pg (25.0-35.0); MCHC 35.4 g/dL (31.0-37.0); MCV 88.8 fL (80.0-100.0); Mean Platelet Volume 8.1; Monocytes # (A) 0.4 k/uL (0-1.0); Monocytes % (A) 6 %; Neutrophils # (A) 5.7 k/uL (1.3-7.7); Neutrophils % (A) 70 %; Platelet Count 245 k/uL (150-450); RBC 4.04 m/uL (3.80-5.40); RDW 13.8 % (11.5-15.5); WBC 8.1 k/uL (3.8-10.6)
--- NOTE | 2022-08-24 15:36 | ED ---
General Adult HPI - General Chief complaint: Weakness Stated complaint: weakness Time Seen by Provider: 08/24/22 14:14 Source: patient, family Mode of arrival: EMS Limitations: no limitations - History of Present Illness Initial comments: 81-year-old female with past nuchal history of CVA, diabetes, hypertension who presents to the emergency department reporting fatigue and weakness. Her has been acutely ill and is hospitalized at [facility]. She has been significantly stressed. Daughter states that she has not been eating or drinking. The did test positive for Covid. did start having symptoms of sinus congestion and therefore they tested her at home and found that she tested positive for Covid. Daughter states that she has been increasingly fatigued. She is unable to get out of bed. She has had some c onfusion. No recorded fevers. Patient is able to respond to all questions appropriately. Admits to nausea without vomiting. EMS was called. Patient is given a 500 bolus. Eyes any chest pain or shortness of breath. No vomiting. 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 - Related Data Home Medications Medication Instructions Recorded Confirmed Aspirin 81 mg PO DAILY 05/03/14 08/24/22 Losartan Potassium 100 mg PO HS 05/03/14 08/24/22 amLODIPine [Norvasc] 10 mg PO DAILY 05/03/14 08/24/22 metFORMIN HCL [Glucophage] 1,000 mg PO BID 05/03/14 08/24/22 Levothyroxine Sodium [Synthroid] 75 mcg PO DAILY 06/25/16 08/24/22 DULoxetine HCL [Cymbalta] 20 mg PO BID 08/24/22 08/24/22 Empagliflozin [Jardiance] 10 mg PO DAILY 08/24/22 08/24/22 Famotidine [Pepcid] 20 mg PO DAILY PRN 08/24/22 08/24/22 cloNIDine HCL 0.1 mg PO TID 08/24/22 08/24/22 levETIRAcetam [Keppra] 500 mg PO BID 08/24/22 08/24/22 ondansetron HCL [Zofran] 8 mg PO Q8HR PRN 08/24/22 08/24/22 Previous Rx's Medication Instructions Recorded Acetaminophen Tab [Tylenol] 650 mg PO Q6HR PRN tab 08/27/22 Ascorbic Acid [Vitamin C] 1,000 mg PO DAILY tab 08/27/22 INSULIN ASPART (NovoLOG) [NovoLOG 0 unit SQ AC-TID each 08/27/22 (formulary)] Melatonin 3 mg PO HS PRN tab 08/27/22 Multivitamins, Thera Liquid 15 ml PO DAILY ml 08/27/22 [Theragran Liquid (formulary)] Atorvastatin [Lipitor] 10 mg PO HS #30 tab 08/29/22 LORazepam [Ativan] 0.5 mg PO TID PRN #9 tab 08/29/22 Mirtazapine 7.5 mg PO HS #30 tablet 08/29/22 Rivaroxaban [Xarelto] 15 mg PO AC-SUPPER #30 tab 08/29/22 Zinc Gluconate [Zinc] 50 mg PO DAILY #30 tablet 08/29/22 Allergies Allergy/AdvReac Type Severity Reaction Status Date / Time Sulfa (Sulfonamide Allergy Rash/Hives Verified 08/24/22 16:39 Antibiotics) bleach Allergy Rash/Hives Uncoded 08/24/22 16:39 Review of Systems ROS Statement: Those systems with pertinent positive or pertinent negative responses have been documented in the HPI. ROS Other: All systems not noted in ROS Statement are negative. Past Medical History Past Medical History: Cancer, CVA/TIA, Diabetes Mellitus, Hyperlipidemia, Hypertension, Osteoarthritis (OA), Seizure Disorder, Thyroid Disorder Additional Past Medical History / Comment(s): vertigo,hiatal hernia, restless leg,neuropathy,carpal tunnel,ddd, squamous cell carcinoma-arms, hands, legs History of Any Multi-Drug Resistant Organisms: None Reported Past Surgical History: Appendectomy, Back Surgery, Breast Surgery, Cholecyste ctomy, Hysterectomy, Orthopedic Surgery, Tonsillectomy Additional Past Surgical History / Comment(s): skin cancer removal, hemorrhoid removal, left breast high risk excisional november 2020 Past Anesthesia/Blood Transfusion Reactions: Motion Sickness Additional Past Anesthesia/Blood Transfusion Reaction / Comment(s): vertigo Past Psychological History: Anxiety, Depression Smoking Status: Never smoker Past Alcohol Use History: None Reported Past Drug Use History: None Reported - Past Family History Sister(s) Family Medical History: Cancer Additional Family Medical History / Comment(s): BREAST General Exam Limitations: no limitations General appearance: alert, lethargic Head exam: Present: atraumatic, normocephalic, normal inspection Eye exam: Present: normal appearance, PERRL, EOMI. Absent: scleral icterus, conjunctival injection, periorbital swelling ENT exam: Present: mucous membranes dry Respiratory exam: Present: normal lung sounds bilaterally. Absent: respiratory distress, wheezes, rales, rhonchi, stridor Cardiovascular Exam: Present: regular rate, normal rhythm, normal heart sounds. Absent: systolic murmur, diastolic murmur, rubs, gallop, clicks GI/Abdominal exam: Present: soft, normal bowel sounds. Absent: distended, tenderness, guarding, rebound, rigid Neurological exam: Present: alert, oriented X3, CN II-XII intact Psychiatric exam: Present: flat affect Skin exam: Present: warm, dry, intact, normal color. Absent: rash Course Vital Signs 08/24/22 08/24/22 08/24/22 13:59 15:49 18:32 Temperature 97.6 F 98.2 F Pulse Rate 74 62 68 Respiratory 16 19 20 Rate Blood Pressure 129/73 146/77 146/87 O2 Sat by Pulse 94 L 91 L 92 L Oximetry 08/24/22 08/24/22 08/25/22 20:56 23:56 02:23 Temperature Pulse Rate 71 65 62 Respiratory 16 14 14 Rate Blood Pressure 145/70 148/86 123/62 O2 Sat by Pulse 94 L 93 L 93 L Oximetry 08/25/22 08/25/22 08/25/22 07:03 08:58 12:42 Temperature Pulse Rate 61 59 L 74 Respiratory 14 18 18 Rate Blood Pressure 144/72 140/70 177/88 O2 Sat by Pulse 92 L 92 L 94 L Oximetry 08/25/22 18:21 Temperature Pulse Rate 72 Respiratory 18 Rate Blood Pressure 144/74 O2 Sat by Pulse 92 L Oximetry Medical Decision Making - Medical Decision Making Was pt. sent in by a medical professional or institution (, PA, STOCK REPAIRER, urgent care, hospital, or senior living...) When possible be specific @ -No Did you speak to anyone other than the patient for history (EMS, parent, family, police, friend...)? What history was obtained from this source @ -Daughter Did you review nursing and triage notes (agree or disagree)? Why? @ -I reviewed and agree with nursing and triage notes Were old charts reviewed (outside hosp., previous admission, EMS record, old EKG, old radiological studies, urgent care reports/EKG's, senior living records)? Report findings @ -No old charts were reviewed Differential Diagnosis (chest pain, altered mental status, abdominal pain women, abdominal pain men, vaginal bleeding, weakness, fever, dyspnea, syncope, headache, dizziness, GI bleed, back pain, seizure, CVA, palpatations, mental health, musculoskeletal)? @ -CA, CVA, covid, sepsis, uti EKG interpreted by me (3pts min.). @ -As above X-rays interpreted by me (1pt min.). @ -yes CT interpreted by me (1pt min.). @ -yes U/S interpreted by me (1pt. min.). @ -None done What testing was considered but not performed or refused? (CT, X-rays, U/S, labs)? Why? @ -None What meds were considered but not given or refused? Why? @ -None Did you discuss the management of the patient with other professionals (prof essionals i.e. , PA, STOCK REPAIRER, lab, RT, psych nurse, clinical social work aide, certified composites technician, teacher, artillery officer, case making machine operator)? Give summary @ -Admitting physician Was smoking cessation discussed for >3mins.? @ -No Was critical care preformed (if so, how long)? @ -No Were there social determinants of health that impacted care today? How? (Homelessness, low income, unemployed, alcoholism, drug addiction, transportation, low edu. Level, literacy, decrease access to med. care, intermediate, rehab)? @ -No Was there de-escalation of care discussed even if they declined (Discuss DNR or withdrawal of care, Hospice)? DNR status @ -No What co-morbidities impacted this encounter? (DM, HTN, Smoking, COPD, CAD, Cancer, CVA, ARF, Chemo, Hep., AIDS, mental health diagnosis, sleep apnea, morbid obesity)? @ -DM, htn, hld Was patient admitted / discharged? Hospital course, mention meds given and rou te, prescriptions, significant lab abnormalities, going to OR and other pertinent info. @ - Admitted Undiagnosed new problem with uncertain prognosis? @ -yes Drug Therapy requiring intensive monitoring for toxicity (Heparin, Nitro, Insulin, Cardizem)? @ -No Were any procedures done? @ -No Diagnosis/symptom? @ -acute covid infection, acute dehydration, supratheraputic inr Acute, or Chronic, or Acute on Chronic? @ -acute Uncomplicated (without systemic symptoms) or Complicated (systemic symptoms)? @ -complicated Side effects of treatment? @ -No Exacerbation, Progression, or Severe Exacerbation? @ -No Poses a threat to life or bodily function? How? (Chest pain, USA, CA, pneumonia, PE, COPD, DKA, ARF, appy, cholecystitis, CVA, Diverticulitis, Homicidal, Suicidal, threat to staff... and all critical care pts) @ -yes - Lab Data Result diagrams: 08/25/22 05:48 08/27/22 05:45 Lab Results 08/24/22 08/24/22 08/24/22 Range/Units 14:50 14:50 14:50 WBC 8.1 (3.8-10.6) k/uL RBC 4.04 (3.80-5.40) m/uL Hgb 12.7 (11.4-16.0) gm/dL Hct 35.9 (34.0-46.0) % MCV 88.8 (80.0-100.0) fL MCH 31.4 (25.0-35.0) pg MCHC 35.4 (31.0-37.0) g/dL RDW 13.8 (11.5-15.5) % Plt Count 245 (150-450) k/uL MPV 8.1 Neutrophils % 70 % Lymphocytes % 21 % Monocytes % 6 % Eosinophils % 0 % Basophils % 0 % Neutrophils # 5.7 (1.3-7.7) k/uL Lymphocytes # 1.7 (1.0-4.8) k/uL Monocytes # 0.4 (0-1.0) k/uL Eosinophils # 0.0 (0-0.7) k/uL Basophils # 0.0 (0-0.2) k/uL PT >130.0 H (9.0-12.0) sec INR >10.0 H* (<1.2) APTT 58.6 H (22.0-30.0) sec Sodium 140 (137-145) mmol/L Potassium 3.3 L (3.5-5.1) mmol/L Chloride 101 (98-107) mmol/L Carbon Dioxide 25 (22-30) mmol/L Anion Gap 14 mmol/L BUN 23 H (7-17) mg/dL Creatinine 1.72 H (0.52-1.04) mg/dL Est GFR (CKD-EPI)AfAm 32 (>60 ml/min/1.73 sqM) Est GFR (CKD-EPI)NonAf 27 (>60 ml/min/1.73 sqM) Glucose 139 H (74-99) mg/dL Lactic Ac Sepsis Rflx Plasma Lactic Acid Felix (0.7-2.0) mmol/L Calcium 9.2 (8.4-10.2) mg/dL Magnesium 0.9 L* (1.6-2.3) mg/dL Total Bilirubin 1.1 (0.2-1.3) mg/dL AST 16 (14-36) U/L ALT 14 (4-34) U/L Alkaline Phosphatase 41 (38-126) U/L Troponin I (0.000-0.034) ng/mL Total Protein 6.5 (6.3-8.2) g/dL Albumin 4.0 (3.5-5.0) g/dL Urine Color Urine Appearance (Clear) Urine pH (5.0-8.0) Ur Specific [place] (1.001-1.035) Urine Protein (Negative) Urine Glucose (UA) (Negative) Urine Ketones (Negative) Urine Blood (Negative) Urine Nitrite (Negative) Urine Bilirubin (Negative) Urine Urobilinogen (<2.0) mg/dL Ur Leukocyte Esterase (Negative) Urine RBC (0-5) /hpf Urine WBC (0-5) /hpf Ur Squamous Epith Cells (0-4) /hpf Urine Mucus (None) /hpf Coronavirus (PCR) (Not Detectd) 08/24/22 08/24/22 08/24/22 Range/Units 14:50 14:50 15:50 WBC (3.8-10.6) k/uL RBC (3.80-5.40) m/uL Hgb (11.4-16.0) gm/dL Hct (34.0-46.0) % MCV (80.0-100.0) fL MCH (25.0-35.0) pg MCHC (31.0-37.0) g/dL RDW (11.5-15.5) % Plt Count (150-450) k/uL MPV Neutrophils % % Lymphocytes % % Monocytes % % Eosinophils % % Basophils % % Neutrophils # (1.3-7.7) k/uL Lymphocytes # (1.0-4.8) k/uL Monocytes # (0-1.0) k/uL Eosinophils # (0-0.7) k/uL Basophils # (0-0.2) k/uL PT (9.0-12.0) sec INR (<1.2) APTT (22.0-30.0) sec Sodium (137-145) mmol/L Potassium (3.5-5.1) mmol/L Chloride (98-107) mmol/L Carbon Dioxide (22-30) mmol/L Anion Gap mmol/L BUN (7-17) mg/dL Creatinine (0.52-1.04) mg/dL Est GFR (CKD-EPI)AfAm (>60 ml/min/1.73 sqM) Est GFR (CKD-EPI)NonAf (>60 ml/min/1.73 sqM) Glucose (74-99) mg/dL Lactic Ac Sepsis Rflx Y Plasma Lactic Acid Felix 2.7 H* (0.7-2.0) mmol/L Calcium (8.4-10.2) mg/dL Magnesium (1.6-2.3) mg/dL Total Bilirubin (0.2-1.3) mg/dL AST (14-36) U/L ALT (4-34) U/L Alkaline Phosphatase (38-126) U/L Troponin I <0.012 (0.000-0.034) ng/mL Total Protein (6.3-8.2) g/dL Albumin (3.5-5.0) g/dL Urine Color Urine Appearance (Clear) Urine pH (5.0-8.0) Ur Specific [place] (1.001-1.035) Urine Protein (Negative) Urine Glucose (UA) (Negative) Urine Ketones (Negative) Urine Blood (Negative) Urine Nitrite (Negative) Urine Bilirubin (Negative) Urine Urobilinogen (<2.0) mg/dL Ur Leukocyte Esterase (Negative) Urine RBC (0-5) /hpf Urine WBC (0-5) /hpf Ur Squamous Epith Cells (0-4) /hpf Urine Mucus (None) /hpf Coronavirus (PCR) (Not Detectd) 08/24/22 08/24/22 Range/Units 16:24 16:24 WBC (3.8-10.6) k/uL RBC (3.80-5.40) m/uL Hgb (11.4-16.0) gm/dL Hct (34.0-46.0) % MCV (80.0-100.0) fL MCH (25.0-35.0) pg MCHC (31.0-37.0) g/dL RDW (11.5-15.5) % Plt Count (150-450) k/uL MPV Neutrophils % % Lymphocytes % % Monocytes % % Eosinophils % % Basophils % % Neutrophils # (1.3-7.7) k/uL Lymphocytes # (1.0-4.8) k/uL Monocytes # (0-1.0) k/uL Eosinophils # (0-0.7) k/uL Basophils # (0-0.2) k/uL PT (9.0-12.0) sec INR (<1.2) APTT (22.0-30.0) sec Sodium (137-145) mmol/L Potassium (3.5-5.1) mmol/L Chloride (98-107) mmol/L Carbon Dioxide (22-30) mmol/L Anion Gap mmol/L BUN (7-17) mg/dL Creatinine (0.52-1.04) mg/dL Est GFR (CKD-EPI)AfAm (>60 ml/min/1.73 sqM) Est GFR (CKD-EPI)NonAf (>60 ml/min/1.73 sqM) Glucose (74-99) mg/dL Lactic Ac Sepsis Rflx Plasma Lactic Acid Felix (0.7-2.0) mmol/L Calcium (8.4-10.2) mg/dL Magnesium (1.6-2.3) mg/dL Total Bilirubin (0.2-1.3) mg/dL AST (14-36) U/L ALT (4-34) U/L Alkaline Phosphatase (38-126) U/L Troponin I (0.000-0.034) ng/mL Total Protein (6.3-8.2) g/dL Albumin (3.5-5.0) g/dL Urine Color Light Yellow Urine Appearance Clear (Clear) Urine pH 5.0 (5.0-8.0) Ur Specific [place] 1.008 (1.001-1.035) Urine Protein Negative (Negative) Urine Glucose (UA) 4+ H (Negative) Urine Ketones Negative (Negative) Urine Blood Large H (Negative) Urine Nitrite Negative (Negative) Urine Bilirubin Negative (Negative) Urine Urobilinogen <2.0 (<2.0) mg/dL Ur Leukocyte Esterase Negative (Negative) Urine RBC 68 H (0-5) /hpf Urine WBC 1 (0-5) /hpf Ur Squamous Epith Cells <1 (0-4) /hpf Urine Mucus Rare H (None) /hpf Coronavirus (PCR) Detected A (Not Detectd) - EKG Data EKG Comments: EKG demonstrates sinus rhythm with a rate of 71. [place] interval 157. QRS 103. QTC of 400. There are some PACs. No acute ST segment elevation Disposition Clinical Impression: Supratherapeutic INR, COVID-19, Weakness, Hypomagnesemia Disposition: ADMITTED IP TO THIS HOSP Is patient prescribed a controlled substance at d/c from ED?: No Time of Disposition: 16:45 Decision to Admit Reason: Admit from EC Decision Date: 08/24/22 Decision Time: 16:45
[2022-08-24 15:48] LABS: Partial Thromboplastin Time 58.6 sec (22.0-30.0)
[2022-08-24 15:52] LABS: Prothrombin Time >130.0 sec (9.0-12.0)
[2022-08-24 15:54] LABS: INR >10.0 (<1.2)
[2022-08-24 16:26] LABS: Calcium 9.2 mg/dL (8.4-10.2); Potassium 3.3 mmol/L (3.5-5.1); Total Bilirubin 1.1 mg/dL (0.2-1.3); Total Protein 6.5 g/dL (6.3-8.2)
--- NOTE | 2022-08-24 16:26 | CT ---
EXAMINATION TYPE: CT brain wo con DATE OF EXAM: 08/24/2022 COMPARISON: 11/22/2021 HISTORY: 81-year-old female with altered mental status, confusion, Weakness. TECHNIQUE: Examination was done in axial plane without intravenous contrast. Coronal and sagittal r econstructions performed. CT DLP: 1157.4 mGycm Automated exposure control for dose reduction was used. FINDINGS: There is no evidence of acute intracranial hemorrhage, acute ischemic changes, mass, mass-effect, or extra-axial fluid collection. There is no effacement of cerebral sulci or basal subarachnoid cister ns. There is no hydrocephalus. There is no midline shift. Real-white matter distinction is preserv ed. There is mild generalized supratentorial volume loss. Mild periventricular and subcortical white hermes er hypodensities in both cerebral hemispheres. Atherosclerotic calcifications in the bilateral carotid siphons. Mild mucosal thickening in the sphenoid sinuses. Slight leftward nasal septal deviation. IMPRESSION: Mild cerebral atrophy and mild burden of chronic small vessel ischemic disease. No acute intracranial abnormality seen.
--- NOTE | 2022-08-24 16:27 | XR ---
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 This obscures the right heart margin. Heart likely upper limits of normal in size. Interstitial prominence is a chronic appearance. Some straightening scarring noted at the periphery of the left base. No sera consolidat ion or pleural effusion seen. Cholecystectomy clips. 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 Otherwise, chronic appearing changes without definite acute process.
[2022-08-24 16:41] LABS: Magnesium 0.9 mg/dL (1.6-2.3)
[2022-08-24] MEDS ORDERED: PHYTONADIONE ORAL 5 MG/5 ML ORAL.SYRG PO STA (16:44)
[2022-08-24 16:47] LABS: Appearance,Urine Clear (Clear); Bilirubin,Urine Negative (Negative); Blood,Urine Large (Negative); Color,Urine Light Yellow; Glucose,Urine (UA) 4+ (Negative); Ketones,Urine Negative (Negative); Leukocyte Esterase,Urine Negative (Negative); Mucus,Urine Rare /hpf; Nitrite,Urine Negative (Negative); Protein,Urine Negative (Negative); RBC,Urine 68 /hpf (0-5); Specific Gravity,Urine 1.008 (1.001-1.035); Squamous Epithelial Cell,Urine <1 /hpf (0-4); Urobilinogen,Urine <2.0 mg/dL (<2.0); WBC,Urine 1 /hpf (0-5)
[2022-08-24] MEDS ORDERED: NALOXONE 0.4 MG/ML 1 ML VIAL IV PRN (16:48)
[2022-08-24] MEDS ORDERED: POTASSIUM CHLORIDE ER 20 MEQ TAB.ER PO STA (16:52)
[2022-08-24 17:01] LABS: Glucose,Whole Blood 117 mg/dL (70-110)
[2022-08-24] MEDS: SODIUM CHLORIDE 0.9% 1,000 ML IV SCH ×2 (17:28→23:53)
[2022-08-24] MEDS: MAGNESIUM SULFATE-D5W PMX 1 GM in DEXTROSE/WATER 1 100ML.BAG IVPB SCH ×2 (17:28→18:51)
[2022-08-24] MEDS ORDERED: MECLIZINE 12.5 MG TAB PO PRN (19:59)
[2022-08-24] MEDS ORDERED: cloNIDine HCL 0.1 MG TAB PO STA (20:03)
[2022-08-24] MEDS ORDERED: levETIRAcetam 500 MG TAB PO STA (20:04)
[2022-08-24] MEDS ORDERED: ATORVASTATIN 20 MG TAB PO STA (20:04)
[2022-08-24] MEDS ORDERED: LOSARTAN 50 MG TAB PO STA (20:05)
[2022-08-24] MEDS: ONDANSETRON 4 MG/2 ML VIAL IVP PRN (20:12)
[2022-08-24] MEDS ORDERED: FAMOTIDINE 20 MG TAB PO PRN (21:04)
[2022-08-24] MEDS ORDERED: NON FORMULARY DRUG (Ondansetron Hcl [Zofran] 8 MG Tablet) PO PRN (21:04)
[2022-08-24] MEDS ORDERED: LORazepam 0.5 MG TAB PO PRN (21:04)
[2022-08-24] MEDS ORDERED: LACTULOSE 20 GM/30 ML CUP PO PRN (22:49)
[2022-08-24] MEDS ORDERED: MELATONIN 3 MG TABLET PO PRN (22:49)
--- NOTE | 2022-08-24 23:04 | P.HPIM ---
History of Present Illness H&P Date: 08/24/22 Chief Complaint: Weak and tired This is a pleasant 81-year-old patient who follows with Dr. Rojas. Chronic stable medical conditions include diabetes, hypertension, essential hypertension, osteoarthritis, seizure disorder, hypothyroid, restless legs syndrome, peripheral neuropathy, History is obtained primarily by the daughter the bedside. Patient's has been admitted at [facility] for last 4 weeks.Diagnoses of COVID. Patient has been very stressed out about this. For last 34 days patient started getting more and more weak and tired. Fatigue. Not getting out of bed. Nausea. Some headaches off and on. Some muscle achiness. Patient did test positive at home for COVID 19. Denies shortness of breath. No diarrhea. No change in smell. Decreased taste. INR greater than 10. Given 5 mg vitamin K in the ER Review of systems: GEN.: Weak tired decreased appetite EYES: None HEENT: None NECK: None RESPIRATORY: None CARDIOVASCULAR: None GASTROINTESTINAL: None GENITOURINARY: None MUSCULOSKELETAL: Muscle aches, joint pains LYMPHATICS: None HEMATOLOGICAL: None PSYCHIATRY: None NEUROLOGICAL: None Past medical history to include: Diabetes, hyperlipidemia, hypertension, prostatitis, seizure disorder, hypothyroid, hiatal hernia, restless leg syndrome, peripheral neuropathy, DJD, squamous cell carcinoma the arms hands legs Social history: . No history of smoking or alcohol Physical examination: VITAL SIGNS: 98.2, 71, 16, 145/70, 91 % room air GENERAL: BMI 20, laying in bed awake tired. EYES: Pupils equal. Conjunctiva normal. HEENT: External appearance of nose and ears normal, oral cavity dry mucous membranes. NECK: JVD not raised; masses not palpable. HEART: First and second heart sounds are normal; no edema. LUNGS:[ Respiratory rate normal; decreased breath sounds. ABDOMEN: Soft, nontender, liver spleen not palpable, no masses palpable. PSYCH: Tired but able tonsil simple questionsl. MUSCULOSKELETAL:No Clubbing/cyanosis;muscles-grossly intact. OA NEUROLOGICAL: Cranial nerves grossly intact; no facial asymmetry, power and sensation grossly intact. LYMPHATICS: No lymph nodes palpable in the axilla and neck INVESTIGATIONS, reviewed in the clinical context: White count 8.1 hemoglobin 12.7 platelets 245 INR greater than 10 Sodium 140 potassium 3.3 when necessary 23 creatinine 1.7 to lactic acid 2.7. Magnesium 0.9 Troponin I is less than 0.012 COVID-19 PCR: Detected EKG tracing personally reviewed by me-sinus rhythm. Nonspecific T ST segment changes Computed tomography scan brain: Some atrophic changes Chest x-ray film personally reviewed by me-elevated right diaphragm. Chronic Assessment and plan: -Acute COVID-19. With pulse ox between 91-94%. Dexamethasone 6 mg a. Day. Patient's on Coumadin -Acute hypoxic respiratory failure secondary to Covid 19 Oxygen decreased to the pulse ox above 94% -Chronically elevated right diaphragm -Acute kidney injury possibly a combination of ATN/prerenal. Decreased appetite. IV fluids. Hold Lasix -Acute medical debility, multifactorial including COVID-19, acute kidney injury -Anorexia from COVID-19. Soft diet -Essential hypertension Hold off Lasix, amlodipine, losartan. Continue with Catapres -Diabetes mellitus type 2, on oral hypoglycemic Hold Glucophage. Diabetic diet. Follow Accu-Cheks -Seizure disorder Keppra -Hyperlipidemia Hold Zocor for now -Coumadin toxicity. INR greater than 10. No bleeding. Received 5 mg of vitamin K IV in the ER -Full code IV fluids. Received vitamin K. Soft diet. Oxygen. Dexamethasone. Care was discussed in detail with the daughter the bedside. Questions answered Past Medical History Past Medical History: Cancer, CVA/TIA, Diabetes Mellitus, Hyperlipidemia, Hypertension, Osteoarthritis (OA), Seizure Disorder, Thyroid Disorder Additional Past Medical History / Comment(s): vertigo,hiatal hernia, restless leg,neuropathy,carpal tunnel,ddd, squamous cell carcinoma-arms, hands, legs History of Any Multi-Drug Resistant Organisms: None Reported Past Surgical History: Appendectomy, Back Surgery, Breast Surgery, Cholecystectomy, Hysterectomy, Orthopedic Surgery, Tonsillectomy Additional Past Surgical History / Comment(s): skin cancer removal, hemorrhoid removal, left breast high risk excisional november 2020 Past Anesthesia/Blood Transfusion Reactions: Motion Sickness Additional Past Anesthesia/Blood Transfusion Reaction / Comment(s): vertigo Past Psychological History: Anxiety, Depression Smoking Status: Never smoker Past Alcohol Use History: None Reported Past Drug Use History: None Reported - Past Family History Sister(s) Family Medical History: Cancer Additional Family Medical History / Comment(s): BREAST Medications and Allergies Home Medications Medication Instructions Recorded Confirmed Type Aspirin 81 mg PO DAILY 12/11/14 04/03/23 History Furosemide [Lasix] 20 mg PO DAILY 05/03/14 08/24/22 History Losartan Potassium 100 mg PO HS 05/03/14 08/24/22 History Simvastatin [Zocor] 20 mg PO HS 05/03/14 08/24/22 History amLODIPine [Norvasc] 10 mg PO DAILY 05/03/14 08/24/22 History metFORMIN HCL [Glucophage] 1,000 mg PO BID 05/03/14 08/24/22 History LORazepam [Ativan] 0.5 mg PO BID PRN 06/25/16 08/24/22 History Levothyroxine Sodium [Synthroid] 75 mcg PO DAILY 06/25/16 08/24/22 History DULoxetine HCL [Cymbalta] 20 mg PO BID 08/24/22 08/24/22 History Empagliflozin [Jardiance] 10 mg PO DAILY 08/24/22 08/24/22 History Famotidine [Pepcid] 20 mg PO DAILY PRN 08/24/22 08/24/22 History Warfarin [Coumadin] 5 mg PO HS 08/24/22 08/24/22 History cloNIDine HCL 0.1 mg PO TID 08/24/22 08/24/22 History levETIRAcetam [Keppra] 500 mg PO BID 08/24/22 08/24/22 History ondansetron HCL [Zofran] 8 mg PO Q8HR PRN 08/24/22 08/24/22 History Allergies Allergy/AdvReac Type Severity Reaction Status Date / Time Sulfa (Sulfonamide Allergy Rash/Hives Verified 08/24/22 16:39 Antibiotics) bleach Allergy Rash/Hives Uncoded 08/24/22 16:39 Physical Exam Vitals: Vital Signs Temp Pulse Resp BP Pulse Ox 08/24/22 20:56 71 16 145/70 94 L 08/24/22 18:32 68 20 146/87 92 L 08/24/22 15:49 98.2 F 62 19 146/77 91 L 08/24/22 13:59 97.6 F 74 16 129/73 94 L Intake and Output 08/24/22 08/24/22 08/24/22 06:59 14:59 22:59 Other: Weight 54.431 kg Results CBC & Chem 7: 08/24/22 14:50 08/24/22 14:50 Labs: Abnormal Lab Results - Last 24 Hours (Table) 08/24/22 08/24/22 08/24/22 Range/Units 14:50 14:50 14:50 PT >130.0 H (9.0-12.0) sec INR >10.0 H* (<1.2) APTT 58.6 H (22.0-30.0) sec Potassium 3.3 L (3.5-5.1) mmol/L BUN 23 H (7-17) mg/dL Creatinine 1.72 H (0.52-1.04) mg/dL Glucose 139 H (74-99) mg/dL POC Glucose (mg/dL) (70-110) mg/dL Plasma Lactic Acid Felix 2.7 H* (0.7-2.0) mmol/L Magnesium 0.9 L* (1.6-2.3) mg/dL Urine Glucose (UA) (Negative) Urine Blood (Negative) Urine RBC (0-5) /hpf Urine Mucus (None) /hpf Coronavirus (PCR) (Not Detectd) 08/24/22 08/24/22 08/24/22 Range/Units 16:24 16:24 16:57 PT (9.0-12.0) sec INR (<1.2) APTT (22.0-30.0) sec Potassium (3.5-5.1) mmol/L BUN (7-17) mg/dL Creatinine (0.52-1.04) mg/dL Glucose (74-99) mg/dL POC Glucose (mg/dL) 117 H (70-110) mg/dL Plasma Lactic Acid Felix (0.7-2.0) mmol/L Magnesium (1.6-2.3) mg/dL Urine Glucose (UA) 4+ H (Negative) Urine Blood Large H (Negative) Urine RBC 68 H (0-5) /hpf Urine Mucus Rare H (None) /hpf Coronavirus (PCR) Detected A (Not Detectd)
[2022-08-24] MEDS: dexAMETHasone 2 MG TAB PO SCH (23:51)
[2022-08-25] MEDS: ONDANSETRON 4 MG/2 ML VIAL IVP PRN ×2 (02:21→08:47)
[2022-08-25] MEDS: ASPIRIN 81 MG PO SCH (08:50)
[2022-08-25] MEDS: dexAMETHasone 2 MG TAB PO SCH (08:50)
[2022-08-25] MEDS: cloNIDine HCL 0.1 MG TAB PO SCH ×3 (08:50→20:37)
[2022-08-25] MEDS: levETIRAcetam 500 MG TAB PO SCH ×2 (08:51→20:35)
[2022-08-25] MEDS: LEVOTHYROXINE 75 MCG TAB PO SCH (08:51)
[2022-08-25 11:11] LABS: Basophils # (A) 0.02 X 10*3/uL (0.00-0.10); Basophils % (A) 0.3 %; Eosinophils # (A) 0.02 X 10*3/uL (0.04-0.35); Eosinophils % (A) 0.3 %; HCT 33.2 % (37.2-46.3); HGB 10.9 g/dL (12.0-15.0); Immature Grans, Automated 1.6 %; Lymphocytes # (A) 1.61 X 10*3/uL (0.90-5.00); Lymphocytes % (A) 20.3 %; MCH 30.3 pg (27.0-32.0); MCHC 32.8 g/dL (32.0-37.0); MCV 92.2 fL (80.0-97.0); Mean Platelet Volume 9.8 fL (9.5-12.2); Monocytes # (A) 0.81 X 10*3/uL (0.20-1.00); Monocytes % (A) 10.2 %; NRBC Per 100 WBC 0 /100 WBCS (0.0-0.0); Neutrophils # (A) 5.35 X 10*3/uL (1.80-7.70); Neutrophils % (A) 67.3 %; Platelet Count 230 X 10*3/uL (140-440); RDW 13.3 % (11.5-14.5); WBC 7.94 X 10*3/uL (4.50-10.00)
[2022-08-25 11:20] LABS: African American GFR (CKD) 37.2 (60.0-200.0); Anion Gap 10.1 mmol/L (10.00-18.00); BUN/Creat Ratio 11.13 Ratio (12.00-20.00); Blood Urea Nitrogen 16.7 mg/dL (9.0-27.0); Carbon Dioxide 27.9 mmol/L (20.0-27.5); Magnesium 1.6 mg/dL (1.5-2.4); Non-African American GFR(CKD) 32.1 (60.0-200.0); Potassium 3.7 mmol/L (3.5-5.5)
[2022-08-25] MEDS ORDERED: SCOPOLAMINE 1 MG/72 HR PATCH TRANSDERM SCH (12:00)
[2022-08-25] MEDS: DULoxetine HCL 20 MG CAPSULE.DR PO SCH ×2 (12:40→20:35)
[2022-08-25] MEDS: DAPAGLIFLOZIN PROPANEDIOL 5 MG TABLET PO SCH (12:40)
[2022-08-25] MEDS: SODIUM CHLORIDE 0.9% 1,000 ML IV SCH ×2 (12:42→15:49)
[2022-08-25] MEDS ORDERED: DEXTROSE 50% SYRINGE 50 ML IVP PRN ×2 (14:20)
--- NOTE | 2022-08-25 14:22 | P.PN ---
Progress Note - Text Progress Note Date: 08/25/22 Chief Complaint: Weak and tired This is a pleasant 81-year-old patient who follows with Dr. Rojas. Chronic stable medical conditions include diabetes, hypertension, essential hypertension, osteoarthritis, seizure disorder, hypothyroid, restless legs syndrome, peripheral neuropathy, History is obtained primarily by the daughter the bedside. Patient's has been admitted at [facility] for last 4 weeks.Diagnoses of COVID. Patient has been very stressed out about this. For last 34 days patient started getting more and more weak and tired. Fatigue. Not getting out of bed. Nausea. Some headaches off and on. Some muscle achiness. Patient did test positive at home for COVID 19. Denies shortness of breath. No diarrhea. No change in smell. Decreased taste. INR greater than 10. Given 5 mg vitamin K in the ER 08/25/2022: In bed. Decreased appetite. Daughter at the bedside. Getting IV fluids. Some improvement in creatinine. On dexamethasone. Pulse ox between 92-94%. INR pending. 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 No history of smoking or alcohol Physical examination: VITAL SIGNS: Afebrile, 74, 18, 140/70, 92% room air GENERAL: , laying in bed awake tired. EYES: Pupils equal. Conjunctiva normal. HEENT: External appearance of nose and ears normal, oral cavity dry mucous membranes. NECK: JVD not raised; masses not palpable. HEART: First and second heart sounds are normal; no edema. LUNGS:[ Respiratory rate normal; decreased breath sounds. ABDOMEN: Soft, nontender, liver spleen not palpable, no masses palpable. PSYCH: Able to answer simple questions. MUSCULOSKELETAL:No Clubbing/cyanosis;muscles-grossly intact. OA INVESTIGATIONS, reviewed in the clinical context: August 25: White count 7.9 hemoglobin 10.9 platelets 2:30 potassium 3.7 creatinine 1.5 procalcitonin 0.1 White count 8.1 hemoglobin 12.7 platelets 245 INR greater than 10 Sodium 140 potassium 3.3 when necessary 23 creatinine 1.7 to lactic acid 2.7. Magnesium 0.9 Troponin I is less than 0.012 COVID-19 PCR: Detected EKG tracing personally reviewed by me-sinus rhythm. Nonspecific T ST segment changes Computed tomography scan brain: Some atrophic changes Chest x-ray film personally reviewed by me-elevated right diaphragm. Chronic Assessment and plan: -Acute COVID-19. With pulse ox between 91-94%.: Slow to respond Dexamethasone 6 mg a. Day. Patient's on Coumadin -Acute hypoxic respiratory failure secondary to Covid 19 Oxygen to the pulse ox above 94% -Chronically elevated right diaphragm -Acute kidney injury possibly a combination of ATN/prerenal. Decreased appetite. IV fluids. Hold Lasix -Acute medical debility, multifactorial including COVID-19, acute kidney injury -Anorexia from COVID-19. Soft diet -Essential hypertension Hold off Lasix, amlodipine,. Continue with Catapres. Resume losartan today -Diabetes mellitus type 2, on oral hypoglycemic Hold Glucophage. Diabetic diet. Follow Accu-Cheks -Seizure disorder Keppra -Hyperlipidemia Hold Zocor for now -Coumadin toxicity. INR greater than 10. No bleeding. Received 5 mg of vitamin K IV in the ER -Full code IV fluids. Pending INR. Encourage oral intake. Oxygen. Dexamethasone. Care was discussed with the daughter the bedside. Questions answered
[2022-08-25 14:44] LABS: INR 4.16 (0.90-1.11); Prothrombin Time 44.5 sec (9.9-11.9)
[2022-08-25] MEDS: INSULIN ASPART (NovoLOG) 100 UNIT/ML VIAL SQ SCH ×2 (15:43→17:09)
[2022-08-25 15:44] LABS: Glucose,Whole Blood 196 mg/dL (70-110)
[2022-08-25 17:10] LABS: Glucose,Whole Blood 169 mg/dL (70-110)
[2022-08-25 20:25] LABS: Glucose,Whole Blood 167 mg/dL (70-110)
[2022-08-25] MEDS: ATORVASTATIN 10 MG TAB PO SCH (20:35)
[2022-08-25] MEDS: LOSARTAN 50 MG TAB PO SCH (20:35)
[2022-08-25] MEDS: PROCHLORPERAZINE INJ 10 MG/2 ML VIAL IVP PRN (20:36)
[2022-08-25] MEDS: ACETAMINOPHEN TAB 325 MG TAB PO PRN (20:40)
--- NOTE | 2022-08-25 21:29 | P.CONS ---
History of Present Illness - Reason for Consult Consult date: 08/25/22 covid 19 Requesting physician: Ck Rodas - Chief Complaint Weakness and decreased oral intake x few days - History of Present Illness Patient is a 81-year-old female with a past medical his significant for diabetes mellitus hypertension hyperlipidemia seizure disorder CVA TIA who was recently diagnosed with COVID-19 about a week ago last Wednesday and the patient who is currently ill and hospitalized at [facility] also tested positive for COVID-19 before transfer to the group home patient initially did okay and did have some mild cough but no sputum production all over the last few days and the patient becoming more weaker and did have a decreased oral intake unable to get out of the bed and some confusion no fever has been recorded no vomiting or any diarrhea on presentation to the hospital the patient was afebrile and no fever have recorded subsequently patient did have mild hypoxemia with O2 sats of 93 to 92% currently 96% on room air patient did have a normal white count no significant lymphopenia creatinine was normal lactic acid was mildly elevated liver enzymes are normal urine has been negative COVID test came back positive patient did have a CT of the brain negative for any bleed chest x-ray chronic appearing changes without definite acute process infectious disease was consulted for further management most information has been obtained from review the chart talking to the daughter at the bedside as the patient herself did not provide any history Review of Systems Positive point has been mentioned in the HPI rest of the systems are negative Past Medical History Past Medical History: Cancer, CVA/TIA, Diabetes Mellitus, Hyperlipidemia, Hypertension, Osteoarthritis (OA), Seizure Disorder, Thyroid Disorder Additional Past Medical History / Comment(s): vertigo,hiatal hernia, restless leg,neuropathy,carpal tunnel,ddd, squamous cell carcinoma-arms, hands, legs History of Any Multi-Drug Resistant Organisms: None Reported Past Surgical History: Appendectomy, Back Surgery, Breast Surgery, Cholecystectomy, Hysterectomy, Orthopedic Surgery, Tonsillectomy Additional Past Surgical History / Comment(s): skin cancer removal, hemorrhoid removal, left breast high risk excisional november 2020 Past Anesthesia/Blood Transfusion Reactions: Motion Sickness Additional Past Anesthesia/Blood Transfusion Reaction / Comm: vertigo Past Psychological History: Anxiety, Depression Smoking Status: Never smoker Past Alcohol Use History: None Reported Past Drug Use History: None Reported - Past Family History Sister(s) Family Medical History: Cancer Additional Family Medical History / Comment(s): BREAST Medications and Allergies Home Medications Medication Instructions Recorded Confirmed Type Aspirin 81 mg PO DAILY 05/03/14 08/24/22 History Losartan Potassium 100 mg PO HS 05/03/14 08/24/22 History amLODIPine [Norvasc] 10 mg PO DAILY 05/03/14 08/24/22 History metFORMIN HCL [Glucophage] 1,000 mg PO BID 05/03/14 08/24/22 History Levothyroxine Sodium [Synthroid] 75 mcg PO DAILY 06/25/16 08/24/22 History DULoxetine HCL [Cymbalta] 20 mg PO BID 08/24/22 08/24/22 History Empagliflozin [Jardiance] 10 mg PO DAILY 08/24/22 08/24/22 History Famotidine [Pepcid] 20 mg PO DAILY PRN 08/24/22 08/24/22 History cloNIDine HCL 0.1 mg PO TID 08/24/22 08/24/22 History levETIRAcetam [Keppra] 500 mg PO BID 08/24/22 08/24/22 History ondansetron HCL [Zofran] 8 mg PO Q8HR PRN 08/24/22 08/24/22 History Acetaminophen Tab [Tylenol] 650 mg PO Q6HR PRN tab 08/27/22 Rx Ascorbic Acid [Vitamin C] 1,000 mg PO DAILY tab 08/27/22 Rx INSULIN ASPART (NovoLOG) [NovoLOG 0 unit SQ AC-TID each 08/27/22 Rx (formulary)] Melatonin 3 mg PO HS PRN tab 08/27/22 Rx Multivitamins, Thera Liquid 15 ml PO DAILY ml 08/27/22 Rx [Theragran Liquid (formulary)] Atorvastatin [Lipitor] 10 mg PO HS #30 tab 08/29/22 Rx LORazepam [Ativan] 0.5 mg PO TID PRN #9 tab 08/29/22 Rx Mirtazapine 7.5 mg PO HS #30 tablet 08/29/22 Rx Rivaroxaban [Xarelto] 15 mg PO AC-SUPPER #30 tab 08/29/22 Rx Zinc Gluconate [Zinc] 50 mg PO DAILY #30 tablet 08/29/22 Rx Allergies Allergy/AdvReac Type Severity Reaction Status Date / Time Sulfa (Sulfonamide Allergy Rash/Hives Verified 08/24/22 16:39 Antibiotics) bleach Allergy Rash/Hives Uncoded 08/24/22 16:39 Physical Exam Vitals: Vital Signs Temp Pulse Resp BP Pulse Ox 08/25/22 08:58 59 L 18 140/70 92 L 08/25/22 07:03 61 14 144/72 92 L 08/25/22 02:23 62 14 123/62 93 L 08/24/22 23:56 65 14 148/86 93 L 08/24/22 20:56 71 16 145/70 94 L 08/24/22 18:32 68 20 146/87 92 L 08/24/22 15:49 98.2 F 62 19 146/77 91 L 08/24/22 13:59 97.6 F 74 16 129/73 94 L GENERAL DESCRIPTION: Elderly female lying in bed, no distress. No tachypnea or accessory muscle of respiration use. HEENT: Shows Pallor , no scleral icterus. Oral mucous membrane is dry. No pharyngeal erythema or thrush NECK: Trachea central, no thyromegaly. LUNGS: Unlabored breathing. Decreased breath sound the bases. No wheeze or crackle. HEART: S1, S2, regular rate and rhythm. No loud murmur ABDOMEN: Soft, no tenderness , guarding or rigidity, no organomegaly EXTREMITIES: No edema of feet. SKIN: No rash, no masses palpable. NEUROLOGICAL: The patient is sleepy lethargic orientation could not be determined. Results CBC & Chem 7: 08/25/22 05:48 08/27/22 05:45 Labs: Abnormal Lab Results - Last 24 Hours (Table) 08/24/22 08/24/22 08/24/22 Range/Units 14:50 14:50 14:50 RBC (4.10-5.20) X 10*6/uL Hgb (12.0-15.0) g/dL Hct (37.2-46.3) % Immature Gran # (0.00-0.04) X 10*3/uL Eosinophils # (0.04-0.35) X 10*3/uL PT >130.0 H (9.0-12.0) sec INR >10.0 H* (<1.2) APTT 58.6 H (22.0-30.0) sec Potassium 3.3 L (3.5-5.1) mmol/L Carbon Dioxide (20.0-27.5) mmol/L BUN 23 H (7-17) mg/dL Creatinine 1.72 H (0.52-1.04) mg/dL Est GFR (CKD-EPI)AfAm (60.0-200.0) Est GFR (CKD-EPI)NonAf (60.0-200.0) BUN/Creatinine Ratio (12.00-20.00) Ratio Glucose 139 H (74-99) mg/dL POC Glucose (mg/dL) (70-110) mg/dL Plasma Lactic Acid Felix 2.7 H* (0.7-2.0) mmol/L Magnesium 0.9 L* (1.6-2.3) mg/dL Procalcitonin (0.02-0.09) ng/mL Urine Glucose (UA) (Negative) Urine Blood (Negative) Urine RBC (0-5) /hpf Urine Mucus (None) /hpf Coronavirus (PCR) (Not Detectd) 08/24/22 08/24/22 08/24/22 Range/Units 16:24 16:24 16:57 RBC (4.10-5.20) X 10*6/uL Hgb (12.0-15.0) g/dL Hct (37.2-46.3) % Immature Gran # (0.00-0.04) X 10*3/uL Eosinophils # (0.04-0.35) X 10*3/uL PT (9.0-12.0) sec INR (<1.2) APTT (22.0-30.0) sec Potassium (3.5-5.1) mmol/L Carbon Dioxide (20.0-27.5) mmol/L BUN (7-17) mg/dL Creatinine (0.52-1.04) mg/dL Est GFR (CKD-EPI)AfAm (60.0-200.0) Est GFR (CKD-EPI)NonAf (60.0-200.0) BUN/Creatinine Ratio (12.00-20.00) Ratio Glucose (74-99) mg/dL POC Glucose (mg/dL) 117 H (70-110) mg/dL Plasma Lactic Acid Felix (0.7-2.0) mmol/L Magnesium (1.6-2.3) mg/dL Procalcitonin (0.02-0.09) ng/mL Urine Glucose (UA) 4+ H (Negative) Urine Blood Large H (Negative) Urine RBC 68 H (0-5) /hpf Urine Mucus Rare H (None) /hpf Coronavirus (PCR) Detected A (Not Detectd) 08/25/22 08/25/22 08/25/22 Range/Units 05:48 05:48 05:48 RBC 3.60 L (4.10-5.20) X 10*6/uL Hgb 10.9 L (12.0-15.0) g/dL Hct 33.2 L (37.2-46.3) % Immature Gran # 0.13 H (0.00-0.04) X 10*3/uL Eosinophils # 0.02 L (0.04-0.35) X 10*3/uL PT (9.0-12.0) sec INR (<1.2) APTT (22.0-30.0) sec Potassium (3.5-5.1) mmol/L Carbon Dioxide 27.9 H (20.0-27.5) mmol/L BUN (7-17) mg/dL Creatinine (0.52-1.04) mg/dL Est GFR (CKD-EPI)AfAm 37.2 L (60.0-200.0) Est GFR (CKD-EPI)NonAf 32.1 L (60.0-200.0) BUN/Creatinine Ratio 11.13 L (12.00-20.00) Ratio Glucose 117 H (74-99) mg/dL POC Glucose (mg/dL) (70-110) mg/dL Plasma Lactic Acid Felix (0.7-2.0) mmol/L Magnesium (1.6-2.3) mg/dL Procalcitonin 0.10 H (0.02-0.09) ng/mL Urine Glucose (UA) (Negative) Urine Blood (Negative) Urine RBC (0-5) /hpf Urine Mucus (None) /hpf Coronavirus (PCR) (Not Detectd) Assessment and Plan (1) COVID-19 Status: Acute Code(s): U07.1 - COVID-19 SNOMED Code(s): 350281429 Plan: 1patient was in the hospital with weakness which is likely multifactorial in this patient with a recent diagnosis of COVID-19 about a week ago and possibly contributing to some of her symptoms patient currently is more than 7 days of the diagnosis and not requiring any supplemental oxygen will not qualify for remdesivir per [facility] policy and the clinical suspicion is low for secondary bacterial pneumonia as the patient not running any fever chest x-ray did not show any acute infiltrate 2-treatment for COVID reviewed mostly supportive with zinc ascorbic acid and the patient benefit from IV hydration as she looks dehydrated 3-droplet isolation We will follow on clinical condition and cultures to further adjust medication if needed Thank you for this consultation we will follow the patient along with you Time with Patient: Greater than 30
[2022-08-26 06:06] LABS: Glucose,Whole Blood 135 mg/dL (70-110)
[2022-08-26] MEDS: LEVOTHYROXINE 75 MCG TAB PO SCH (06:42)
[2022-08-26] MEDS: INSULIN ASPART (NovoLOG) 100 UNIT/ML VIAL SQ SCH ×3 (06:42→16:53)
[2022-08-26] MEDS: SODIUM CHLORIDE 0.9% 1,000 ML IV SCH ×4 (06:42→21:51)
[2022-08-26 07:53] LABS: INR 1.8 (<1.2)
[2022-08-26] MEDS: DAPAGLIFLOZIN PROPANEDIOL 5 MG TABLET PO SCH (07:54)
[2022-08-26] MEDS: DULoxetine HCL 20 MG CAPSULE.DR PO SCH ×2 (07:54→21:50)
[2022-08-26] MEDS: ASPIRIN 81 MG PO SCH (07:54)
[2022-08-26] MEDS: cloNIDine HCL 0.1 MG TAB PO SCH ×3 (07:54→21:50)
[2022-08-26] MEDS: levETIRAcetam 500 MG TAB PO SCH ×2 (07:54→21:50)
[2022-08-26] MEDS: dexAMETHasone 2 MG TAB PO SCH (07:54)
[2022-08-26] MEDS: CALCIUM CARBONATE 500 MG CHEWABLE PO PRN (07:54)
[2022-08-26 08:11] LABS: African American GFR (CKD) 54 (>60 ml/min/1.73 sqM); Anion Gap 8 mmol/L; Blood Urea Nitrogen 14 mg/dL (7-17); Calcium 8.4 mg/dL (8.4-10.2); Carbon Dioxide 26 mmol/L (22-30); Chloride 107 mmol/L (98-107); Glucose 122 mg/dL (74-99); Non-African American GFR(CKD) 47 (>60 ml/min/1.73 sqM); Potassium 3.9 mmol/L (3.5-5.1); Sodium 141 mmol/L (137-145)
[2022-08-26] MEDS: PROCHLORPERAZINE INJ 10 MG/2 ML VIAL IVP PRN ×2 (10:33→21:49)
[2022-08-26] MEDS: ACETAMINOPHEN TAB 325 MG TAB PO PRN ×2 (11:25→21:56)
[2022-08-26 11:57] LABS: Glucose,Whole Blood 144 mg/dL (70-110)
--- NOTE | 2022-08-26 14:52 | P.CN ---
Psychiatric Consult - . Consult date: 08/26/22 Consult:: 08/26/22 14:51 IDENTIFYING DATA: This patient is a , retired, 81 year old female with a significant history of HTN, HISTORY OF PRESENT ILLNESS: The patient presented to the hospital on 08/25/2022, brought into the emergency department by family for worsening fatigue and weakness. The patient did test positive for COVID. Collateral information was provided by the patient's daughter Rosa Maria Arevalo with permission granted by the patient. The patient's daughter reports that the patient has had significant worsening of depression and anxiety over the past few months due to the ailing health of her . The patient's daughter reports that they have been for 63 years and have been together most if not every day of their lives. She states that he tested positive for Covid and is currently waiting placement for [facility]. Prior to this he has been dealing with significant issues regarding his general health and dialysis. As per daughter, the patient has been displaying significant signs and symptoms of depression including low mood, anhedonia, low energy, nausea, low appetite, and excessive sleep. The patient has had episodes of severe anxiety with fears of being alone. She has reported thoughts of wanting to pass away to her daughter. The patient however is not endorsing any suicidal or homicidal ideation, intention, and/or plan. She is not reporting any auditory or visual hallucinations. She denies any paranoia or other delusions. The patient does admit to low appetite and severe nausea. PAST PSYCHIATRIC HISTORY: Patient has a history of depression and anxiety. Her home medication regimen includes Cymbalta and Ativan. No previous psychiatric hospitalizations. Patient denies any psychiatric outpatient follow-up. Patient denies any history of suicide attempts in the past. PAST MEDICAL HISTORY: Past Medical History: Cancer, CVA/TIA, Diabetes Mellitus, Hyperlipidemia, Hypertension, Osteoarthritis (OA), Seizure Disorder, Thyroid Disorder Additional Past Medical History / Comment(s): vertigo,hiatal hernia, restless leg,neuropathy,carpal tunnel,ddd, squamous cell carcinoma-arms, hands, legs History of Any Multi-Drug Resistant Organisms: None Reported Past Surgical History: Appendectomy, Back Surgery, Breast Surgery, Cholecystectomy, Hysterectomy, Orthopedic Surgery, Tonsillectomy Additional Past Surgical History / Comment(s): skin cancer removal, hemorrhoid removal, left breast high risk excisional november 2020 Past Anesthesia/Blood Transfusion Reactions: Motion Sickness Additional Past Anesthesia/Blood Transfusion Reaction / Comment(s): vertigo Past Psychological History: Anxiety, Depression Smoking Status: Never smoker Past Alcohol Use History: None Reported Past Drug Use History: None Reported ALLERGIES: Sulfa, bleach CHEMICAL DEPENDENCY HISTORY: No reported tobacco, alcohol, marijuana, or illicit drug use. FAMILY PSYCHIATRIC/SUBSTANCE USE HISTORY: No reported family psychiatric history SOCIAL HISTORY: Patient was born and raised in [place], [place]. She is to her for 63 years. They have 3 children together. She currently lives with her daughter. Her has been hospitalized for an extended period of time and is currently waiting placement at [facility]. The patient reports that she is Anabaptist. She reports no significant legal history. MENTAL STATUS EXAM: General Appearance: Patient appears to be stated age is alert, and cooperative. Patient appears to have fair hygiene and grooming wearing hospital gown with poor eye contact. Behavior: Patient is calmly lying in bed without any agitated behavior. Psychomotor slowing is evident. Speech: Patient's speech is fluent and nonpressured. Monotone and nonspontaneous. Mood/Affect: Patient reports their mood is "tired", affect is depressed and withdrawn. Suicidality/Homicidality: Patient does not endorse any suicidal or homicidal ideation, intention, and/or plan. Perceptions: Patient denies any visual hallucinations and denies any auditory hallucinations Though content/process: There is no evidence of any delusional thought content and thought process is linear and goal-directed. Memory and concentration: AOX3, grossly intact for the purposes of this session. Can spell "WORLD" backwards Judgment and insight: Fair Vital Signs Temp 97.6 F 08/26/22 13:15 Pulse 54 L 08/26/22 13:15 Resp 16 08/26/22 13:15 BP 168/64 08/26/22 13:15 Pulse Ox 94 L 08/26/22 13:15 FiO2 Intake & Output 08/25/22 08/26/22 08/26/22 18:59 06:59 18:59 Weight 54.431 kg 54.431 kg Other: Voiding Method Toilet Toilet # Voids 8 Laboratory Results WBC 7.94 X 10*3/uL (4.50-10.00) 08/25/22 05:48 RBC 3.60 X 10*6/uL (4.10-5.20) L 08/25/22 05:48 Hgb 10.9 g/dL (12.0-15.0) L 08/25/22 05:48 Hct 33.2 % (37.2-46.3) L 08/25/22 05:48 MCV 92.2 fL (80.0-97.0) 08/25/22 05:48 MCH 30.3 pg (27.0-32.0) 08/25/22 05:48 MCHC 32.8 g/dL (32.0-37.0) 08/25/22 05:48 RDW 13.3 % (11.5-14.5) 08/25/22 05:48 Plt Count 230 X 10*3/uL (140-440) 08/25/22 05:48 MPV 9.8 fL (9.5-12.2) 08/25/22 05:48 Immature Gran % (Auto) 1.6 % 08/25/22 05:48 Absolute Nucleated RBC 0 X 10*3/uL (0.00-0.00) 08/25/22 05:48 Neutrophils % 67.3 % 08/25/22 05:48 Lymphocytes % 20.3 % 08/25/22 05:48 Monocytes % 10.2 % 08/25/22 05:48 Eosinophils % 0.3 % 08/25/22 05:48 Basophils % 0.3 % 08/25/22 05:48 Immature Gran # 0.13 X 10*3/uL (0.00-0.04) H 08/25/22 05:48 Neutrophils # 5.35 X 10*3/uL (1.80-7.70) 08/25/22 05:48 Lymphocytes # 1.61 X 10*3/uL (0.90-5.00) 08/25/22 05:48 Monocytes # 0.81 X 10*3/uL (0.20-1.00) 08/25/22 05:48 Eosinophils # 0.02 X 10*3/uL (0.04-0.35) L 08/25/22 05:48 Basophils # 0.02 X 10*3/uL (0.00-0.10) 08/25/22 05:48 NRBC/100 WBC Diff 0 /100 WBCS (0.0-0.0) 08/25/22 05:48 PT 18.0 sec (9.0-12.0) H 08/26/22 05:48 INR 1.8 (<1.2) H 08/26/22 05:48 APTT 58.6 sec (22.0-30.0) H 08/24/22 14:50 Sodium 141 mmol/L (137-145) 08/26/22 05:48 Potassium 3.9 mmol/L (3.5-5.1) 08/26/22 05:48 Chloride 107 mmol/L (98-107) 08/26/22 05:48 Carbon Dioxide 26 mmol/L (22-30) 08/26/22 05:48 Anion Gap 8 mmol/L 08/26/22 05:48 BUN 14 mg/dL (7-17) 08/26/22 05:48 Creatinine 1.11 mg/dL (0.52-1.04) H 08/26/22 05:48 Est GFR (CKD-EPI)AfAm 54 (>60 ml/min/1.73 sqM) 08/26/22 05:48 Est GFR (CKD-EPI)NonAf 47 (>60 ml/min/1.73 sqM) 08/26/22 05:48 BUN/Creatinine Ratio 11.13 Ratio (12.00-20.00) L 08/25/22 05:48 Glucose 122 mg/dL (74-99) H 08/26/22 05:48 POC Glucose (mg/dL) 144 mg/dL (70-110) H 08/26/22 11:53 POC Glu Business Owner/Engineer ID Sayra Ferrell 08/26/22 11:53 Lactic Ac Sepsis Rflx Y 08/24/22 15:50 Plasma Lactic Acid Felix 1.3 mmol/L (0.7-2.0) 08/24/22 18:32 Calcium 8.4 mg/dL (8.4-10.2) 08/26/22 05:48 Magnesium 1.6 mg/dL (1.5-2.4) 08/25/22 05:48 Total Bilirubin 1.1 mg/dL (0.2-1.3) 08/24/22 14:50 AST 16 U/L (14-36) 08/24/22 14:50 ALT 14 U/L (4-34) 08/24/22 14:50 Alkaline Phosphatase 41 U/L (38-126) 08/24/22 14:50 Troponin I <0.012 ng/mL (0.000-0.034) 08/24/22 14:50 Total Protein 6.5 g/dL (6.3-8.2) 08/24/22 14:50 Albumin 4.0 g/dL (3.5-5.0) 08/24/22 14:50 Procalcitonin 0.10 ng/mL (0.02-0.09) H 08/25/22 05:48 Urine Color Light Yellow 08/24/22 16:24 Urine Appearance Clear (Clear) 08/24/22 16:24 Urine pH 5.0 (5.0-8.0) 08/24/22 16:24 Ur Specific [place] 1.008 (1.001-1.035) 08/24/22 16:24 Urine Protein Negative (Negative) 08/24/22 16:24 Urine Glucose (UA) 4+ (Negative) H 08/24/22 16:24 Urine Ketones Negative (Negative) 08/24/22 16:24 Urine Blood Large (Negative) H 08/24/22 16:24 Urine Nitrite Negative (Negative) 08/24/22 16:24 Urine Bilirubin Negative (Negative) 08/24/22 16:24 Urine Urobilinogen <2.0 mg/dL (<2.0) 08/24/22 16:24 Ur Leukocyte Esterase Negative (Negative) 08/24/22 16:24 Urine RBC 68 /hpf (0-5) H 08/24/22 16:24 Urine WBC 1 /hpf (0-5) 08/24/22 16:24 Ur Squamous Epith Cells <1 /hpf (0-4) 08/24/22 16:24 Urine Mucus Rare /hpf (None) H 08/24/22 16:24 Coronavirus (PCR) Detected (Not Detectd) A 08/24/22 16:24 IMPRESSIONS: Major depressive disorder, recurrent, severe - likely exacerbated by general medical condition and separation from Generalized anxiety disorder COVID-19 infection Anemia PLAN: -At this time patient DOES NOT meet criteria for inpatient psychiatric admission. Patient may meet criteria for geriatric inpatient psychiatric hospitals patient however she is positive for COVID-19 infection. Furthermore, keeping her from family may be more detrimental to her mental health and well-being than having her receive treatment in the outpatient setting. -Delirium precautions recommended with patient including - avoiding use of narcotics and FARM [employer]OR sedatives, limit anticholinergic medications when possible, frequent re-orientation, minimize use of restraints, open window shades during the day and close them at night -Would recommend the following medication changes/additions: We will start Remeron 7.5 mg by mouth at bedtime for depression/nausea/appetite stimulation Continue Cymbalta 20 mg by mouth twice a day for depression -Check B12 and folate -Will continue to follow along
--- NOTE | 2022-08-26 15:26 | P.PN ---
Progress Note - Text Progress Note Date: 08/26/22 Chief Complaint: Weak and tired This is a pleasant 81-year-old patient who follows with Dr. Rojas. Chronic stable medical conditions include diabetes, hypertension, essential hypertension, osteoarthritis, seizure disorder, hypothyroid, restless legs syndrome, peripheral neuropathy, History is obtained primarily by the daughter the bedside. Patient's has been admitted at [facility] for last 4 weeks.Diagnoses of COVID. Patient has been very stressed out about this. For last 34 days patient started getting more and more weak and tired. Fatigue. Not getting out of bed. Nausea. Some headaches off and on. Some muscle achiness. Patient did test positive at home for COVID 19. Denies shortness of breath. No diarrhea. No change in smell. Decreased taste. INR greater than 10. Given 5 mg vitamin K in the ER 08/25/2022: In bed. Decreased appetite. Daughter at the bedside. Getting IV fluids. Some improvement in creatinine. On dexamethasone. Pulse ox between 92-94%. INR pending. Resume losartan today 08/26/2022: Sitting up in a chair. Very depressed. Eating little. Did throw up his breakfast. Did have the patient order soft diet. Patient seen by psychiatry. Remeron added. Electrolytes are better. Continue IV fluids. Past medical history to include: Diabetes, hyperlipidemia, hypertension, prostatitis, seizure disorder, hypothyroid, hiatal hernia, restless leg syndrome, peripheral neuropathy, DJD, squamous cell carcinoma the arms hands legs Social history: . No history of smoking or alcohol Physical examination: VITAL SIGNS: 97.6, 54, 16, 116/64, 94% room air GENERAL: , laying in bed depressed EYES: Pupils equal. Conjunctiva normal. HEENT: External appearance of nose and ears normal, oral cavity dry mucous membranes. NECK: JVD not raised; masses not palpable. HEART: First and second heart sounds are normal; no edema. LUNGS:[ Respiratory rate normal; decreased breath sounds. ABDOMEN: Soft, nontender, liver spleen not palpable, no masses palpable. PSYCH: AO 3, depressed. MUSCULOSKELETAL:No Clubbing/cyanosis;muscles-grossly intact. OA INVESTIGATIONS, reviewed in the clinical context: August 26: INR 1.8 potassium 3.9 creatinine 1.11 August 25: White count 7.9 hemoglobin 10.9 platelets 2:30 potassium 3.7 creatinine 1.5 procalcitonin 0.1 White count 8.1 hemoglobin 12.7 platelets 245 INR greater than 10 Sodium 140 potassium 3.3 when necessary 23 creatinine 1.7 to lactic acid 2.7. Magnesium 0.9 Troponin I is less than 0.012 COVID-19 PCR: Detected EKG tracing personally reviewed by me-sinus rhythm. Nonspecific T ST segment changes Computed tomography scan brain: Some atrophic changes Chest x-ray film personally reviewed by me-elevated right diaphragm. Chronic Assessment and plan: -Acute COVID-19. With pulse ox between 91-94%.: Better Dexamethasone 6 mg a. Day. Patient's on Coumadin -Acute hypoxic respiratory failure secondary to Covid 19: Better Oxygen to the pulse ox above 94% -Chronically elevated right diaphragm -Acute kidney injury possibly a combination of ATN/prerenal. Better IV fluids. Hold Lasix -Acute medical debility, multifactorial including COVID-19, acute kidney injury -Anorexia from COVID-19. Soft diet -Essential hypertension Hold off Lasix, amlodipine,. Continue with Catapres. Resume losartan today -Diabetes mellitus type 2, on oral hypoglycemic Hold Glucophage. Diabetic diet. Follow Accu-Cheks -Seizure disorder Keppra -Major depressive disorder, recurrent, severe, generalized anxiety disorder Continue Cymbalta. Start Remeron 7.5 mg by mouth daily at bedtime -Hyperlipidemia Hold Zocor for now -Coumadin toxicity. INR greater than 10. No bleeding.: 5 mg of vitamin K IV in the ER -Full code IV fluids. Change diet to full liquids. Oxygen. Dexamethasone. Plan to DC tomorrow.
--- NOTE | 2022-08-26 15:30 | P.PN ---
Subjective Progress Note Date: 08/26/22 Principal diagnosis: COVID 19 Patient is a 81-year-old female with a past medical his significant for diabetes mellitus hypertension hyperlipidemia seizure disorder CVA TIA who was recently diagnosed with COVID-19 about a week before presentation hospital and presenting predominantly with weakness and decreased oral intake. On today's evaluation that is 08/26/2022, the patient is afebrile, the patient is currently on room air satting 95% patient is more awake and alert today compared to yesterday and does not seem to be any distress oral intake remains to be poor denies any chest pain no worsening cough vomiting or any diarrhea Objective - Vital Signs Vital signs: Vital Signs Temp 98.2 F 08/26/22 08:08 Pulse 49 L 08/26/22 08:08 Resp 16 08/26/22 08:08 BP 168/80 08/26/22 08:08 Pulse Ox 95 08/26/22 08:08 FiO2 Intake & Output 08/25/22 08/26/22 08/26/22 18:59 06:59 18:59 Weight 54.431 kg 54.431 kg Other: Voiding Method Toilet Toilet # Voids 8 - Exam GENERAL DESCRIPTION: An elderly female lying in bed in no distress RESPIRATORY SYSTEM: Unlabored breathing , decreased breath sounds at bases HEART: S1 S2 regular rate and rhythm , ABDOMEN: Soft , no tenderness EXTREMITIES: No edema feet - Labs CBC & Chem 7: 08/25/22 05:48 08/26/22 05:48 Labs: Abnormal Lab Results - Last 24 Hours (Table) 08/25/22 08/25/22 08/25/22 Range/Units 05:48 15:42 17:08 PT 44.5 H (9.9-11.9) sec INR 4.16 H (0.90-1.11) Creatinine (0.52-1.04) mg/dL Glucose (74-99) mg/dL POC Glucose (mg/dL) 196 H 169 H (70-110) mg/dL 08/25/22 08/26/22 08/26/22 Range/Units 20:22 05:48 05:48 PT 18.0 H (9.9-11.9) sec INR 1.8 H (0.90-1.11) Creatinine 1.11 H (0.52-1.04) mg/dL Glucose 122 H (74-99) mg/dL POC Glucose (mg/dL) 167 H (70-110) mg/dL 08/26/22 08/26/22 Range/Units 06:05 11:53 PT (9.9-11.9) sec INR (0.90-1.11) Creatinine (0.52-1.04) mg/dL Glucose (74-99) mg/dL POC Glucose (mg/dL) 135 H 144 H (70-110) mg/dL Assessment and Plan (1) COVID-19 Current Visit: Yes Status: Acute Code(s): U07.1 - COVID-19 SNOMED Code(s): 550494033 Plan: 1patient was in the hospital with weakness which is likely multifactorial in this patient with a recent diagnosis of COVID-19 about a week ago and possibly contributing to some of her symptoms patient currently is more than 7 days of the diagnosis and not requiring any supplemental oxygen will not qualify for remdesivir per [facility] policy and the clinical suspicion is low for secondary bacterial pneumonia as the patient not running any fever chest x-ray did not show any acute infiltrate Patient seemed to have some clinical improvement and will continue with zinc ascorbic acid, no need Remdisivir Time with Patient: Less than 30
[2022-08-26] MEDS: ZINC SULFATE 220 MG CAP PO SCH (16:49)
[2022-08-26] MEDS: ASCORBIC ACID 500 MG TAB PO SCH (16:49)
[2022-08-26] MEDS: MULTIVITAMINS, THERA LIQUID 237 ML BOTTLE PO SCH (16:50)
[2022-08-26 16:51] LABS: Glucose,Whole Blood 145 mg/dL (70-110)
[2022-08-26 20:33] LABS: Glucose,Whole Blood 189 mg/dL (70-110)
[2022-08-26] MEDS: ATORVASTATIN 10 MG TAB PO SCH (21:50)
[2022-08-26] MEDS: MIRTAZAPINE 15 MG TAB PO SCH (21:50)
[2022-08-26] MEDS: LOSARTAN 50 MG TAB PO SCH (21:50)
[2022-08-27] MEDS: SODIUM CHLORIDE 0.9% 1,000 ML IV SCH (06:12)
[2022-08-27] MEDS: LEVOTHYROXINE 75 MCG TAB PO SCH (06:12)
[2022-08-27] MEDS: INSULIN ASPART (NovoLOG) 100 UNIT/ML VIAL SQ SCH ×3 (06:12→16:55)
[2022-08-27 06:13] LABS: Glucose,Whole Blood 133 mg/dL (70-110)
[2022-08-27 08:16] LABS: African American GFR (CKD) 59 (>60 ml/min/1.73 sqM); Anion Gap 8 mmol/L; Blood Urea Nitrogen 14 mg/dL (7-17); Calcium 8.6 mg/dL (8.4-10.2); Carbon Dioxide 26 mmol/L (22-30); Chloride 106 mmol/L (98-107); Glucose 112 mg/dL (74-99); Non-African American GFR(CKD) 51 (>60 ml/min/1.73 sqM); Potassium 3.8 mmol/L (3.5-5.1); Sodium 140 mmol/L (137-145)
[2022-08-27] MEDS: cloNIDine HCL 0.1 MG TAB PO SCH ×2 (09:58→21:00)
[2022-08-27] MEDS: ASPIRIN 81 MG PO SCH (09:58)
[2022-08-27] MEDS: ASCORBIC ACID 500 MG TAB PO SCH (09:58)
[2022-08-27] MEDS: dexAMETHasone 2 MG TAB PO SCH (09:58)
[2022-08-27] MEDS: ZINC SULFATE 220 MG CAP PO SCH (09:59)
[2022-08-27] MEDS: DAPAGLIFLOZIN PROPANEDIOL 5 MG TABLET PO SCH (09:59)
[2022-08-27] MEDS: DULoxetine HCL 20 MG CAPSULE.DR PO SCH ×2 (09:59→21:01)
[2022-08-27] MEDS: levETIRAcetam 500 MG TAB PO SCH ×2 (10:00→21:00)
[2022-08-27] MEDS: MULTIVITAMINS, THERA LIQUID 237 ML BOTTLE PO SCH (10:03)
[2022-08-27] MEDS ORDERED: cloNIDine HCL 0.1 MG TAB PO STA (10:30)
[2022-08-27] MEDS: amLODIPine 10 MG TAB PO SCH (11:27)
[2022-08-27 11:38] LABS: Glucose,Whole Blood 141 mg/dL (70-110)
[2022-08-27 13:05] LABS: INR 1.5 (0.90-1.11); Prothrombin Time 16.7 sec (9.9-11.9)
--- NOTE | 2022-08-27 13:39 | P.PN ---
Progress Note - Text Progress Note Date: 08/27/22 Interval History: Patient was seen resting in bed and was directable and agreeable to speak with group underwriter in the office. Patient is currently denying any suicidal or homicidal ideation, intention, and/or plan. She is not reporting any auditory or visual hallucinations. She is denying any paranoia or other delusions. She is alert and oriented in all spheres. She reports that she is sleeping well and eating well. The patient is much more spontaneous in conversation. She is able to laugh about the [place] tigers in their history of losing. She has been adherent with her medication and is not endorsing any significant side effects. Mental Status Exam: General Appearance: Patient appears to be stated age is alert, directable, and cooperative. Behavior: Patient is calmly seated without any agitated behavior. Speech: Patient's speech is fluent and nonpressured. Mood/Affect: Mood is improving mildly, affect is congruent and constricted. Suicidality/Homicidality: Patient denies having any suicidal or homicidal ideation intent or plan. Perceptions: Patient denies any visual hallucinations and denies any auditory hallucinations Though content/process: There is no evidence of any delusional thought content and thought process is linear and goal-directed. Memory and concentration: AOX3, grossly intact for the purposes of this session Judgment and insight: Improving mildly Vital Signs Temp 98.6 F 08/27/22 07:19 Pulse 66 08/27/22 07:19 Resp 16 08/27/22 09:58 BP 192/96 08/27/22 07:19 Pulse Ox 94 L 08/27/22 07:19 FiO2 Intake & Output 08/26/22 08/27/22 08/27/22 18:59 06:59 18:59 Weight 54.431 kg Other: Voiding Method Toilet Toilet Toilet # Voids 8 1 Laboratory Results WBC 7.94 X 10*3/uL (4.50-10.00) 08/25/22 05:48 RBC 3.60 X 10*6/uL (4.10-5.20) L 08/25/22 05:48 Hgb 10.9 g/dL (12.0-15.0) L 08/25/22 05:48 Hct 33.2 % (37.2-46.3) L 08/25/22 05:48 MCV 92.2 fL (80.0-97.0) 08/25/22 05:48 MCH 30.3 pg (27.0-32.0) 08/25/22 05:48 MCHC 32.8 g/dL (32.0-37.0) 08/25/22 05:48 RDW 13.3 % (11.5-14.5) 08/25/22 05:48 Plt Count 230 X 10*3/uL (140-440) 08/25/22 05:48 MPV 9.8 fL (9.5-12.2) 08/25/22 05:48 Immature Gran % (Auto) 1.6 % 08/25/22 05:48 Absolute Nucleated RBC 0 X 10*3/uL (0.00-0.00) 08/25/22 05:48 Neutrophils % 67.3 % 08/25/22 05:48 Lymphocytes % 20.3 % 08/25/22 05:48 Monocytes % 10.2 % 08/25/22 05:48 Eosinophils % 0.3 % 08/25/22 05:48 Basophils % 0.3 % 08/25/22 05:48 Immature Gran # 0.13 X 10*3/uL (0.00-0.04) H 08/25/22 05:48 Neutrophils # 5.35 X 10*3/uL (1.80-7.70) 08/25/22 05:48 Lymphocytes # 1.61 X 10*3/uL (0.90-5.00) 08/25/22 05:48 Monocytes # 0.81 X 10*3/uL (0.20-1.00) 08/25/22 05:48 Eosinophils # 0.02 X 10*3/uL (0.04-0.35) L 08/25/22 05:48 Basophils # 0.02 X 10*3/uL (0.00-0.10) 08/25/22 05:48 NRBC/100 WBC Diff 0 /100 WBCS (0.0-0.0) 08/25/22 05:48 PT 16.7 sec (9.9-11.9) H 08/27/22 05:45 INR 1.50 (0.90-1.11) H 08/27/22 05:45 APTT 58.6 sec (22.0-30.0) H 08/24/22 14:50 Sodium 140 mmol/L (137-145) 08/27/22 05:45 Potassium 3.8 mmol/L (3.5-5.1) 08/27/22 05:45 Chloride 106 mmol/L (98-107) 08/27/22 05:45 Carbon Dioxide 26 mmol/L (22-30) 08/27/22 05:45 Anion Gap 8 mmol/L 08/27/22 05:45 BUN 14 mg/dL (7-17) 08/27/22 05:45 Creatinine 1.03 mg/dL (0.52-1.04) 08/27/22 05:45 Est GFR (CKD-EPI)AfAm 59 (>60 ml/min/1.73 sqM) 08/27/22 05:45 Est GFR (CKD-EPI)NonAf 51 (>60 ml/min/1.73 sqM) 08/27/22 05:45 BUN/Creatinine Ratio 11.13 Ratio (12.00-20.00) L 08/25/22 05:48 Glucose 112 mg/dL (74-99) H 08/27/22 05:45 POC Glucose (mg/dL) 141 mg/dL (70-110) H 08/27/22 11:33 POC Glu Chief Librarian Work With [employer] ID Keke Beckwithyline 08/27/22 11:33 Lactic Ac Sepsis Rflx Y 08/24/22 15:50 Plasma Lactic Acid Felix 1.3 mmol/L (0.7-2.0) 08/24/22 18:32 Calcium 8.6 mg/dL (8.4-10.2) 08/27/22 05:45 Magnesium 1.6 mg/dL (1.5-2.4) 08/25/22 05:48 Total Bilirubin 1.1 mg/dL (0.2-1.3) 08/24/22 14:50 AST 16 U/L (14-36) 08/24/22 14:50 ALT 14 U/L (4-34) 08/24/22 14:50 Alkaline Phosphatase 41 U/L (38-126) 08/24/22 14:50 Troponin I <0.012 ng/mL (0.000-0.034) 08/24/22 14:50 Total Protein 6.5 g/dL (6.3-8.2) 08/24/22 14:50 Albumin 4.0 g/dL (3.5-5.0) 08/24/22 14:50 Vitamin B12 479.0 pg/mL (200.0-944.0) 08/26/22 05:48 Folate 10.90 ng/mL (4.40-31.00) 08/26/22 05:48 Procalcitonin 0.10 ng/mL (0.02-0.09) H 08/25/22 05:48 Urine Color Light Yellow 08/24/22 16:24 Urine Appearance Clear (Clear) 08/24/22 16:24 Urine pH 5.0 (5.0-8.0) 08/24/22 16:24 Ur Specific [place] 1.008 (1.001-1.035) 08/24/22 16:24 Urine Protein Negative (Negative) 08/24/22 16:24 Urine Glucose (UA) 4+ (Negative) H 08/24/22 16:24 Urine Ketones Negative (Negative) 08/24/22 16:24 Urine Blood Large (Negative) H 08/24/22 16:24 Urine Nitrite Negative (Negative) 08/24/22 16:24 Urine Bilirubin Negative (Negative) 08/24/22 16:24 Urine Urobilinogen <2.0 mg/dL (<2.0) 08/24/22 16:24 Ur Leukocyte Esterase Negative (Negative) 08/24/22 16:24 Urine RBC 68 /hpf (0-5) H 08/24/22 16:24 Urine WBC 1 /hpf (0-5) 08/24/22 16:24 Ur Squamous Epith Cells <1 /hpf (0-4) 08/24/22 16:24 Urine Mucus Rare /hpf (None) H 08/24/22 16:24 Coronavirus (PCR) Detected (Not Detectd) A 08/24/22 16:24 Assessment Major depressive disorder, recurrent, severe - likely exacerbated by general medical condition and separation from ; resolving Generalized anxiety disorder COVID-19 infection Anemia Plan: -At this time patient DOES NOT meet criteria for inpatient psychiatric admission. The patient is not presenting with any significant signs or symptoms of depression today and she is much more spontaneous in conversation. She has been eating and sleeping well. She has been tolerating her medications. She is not presenting with imminent risk of harm to self or others. -Delirium precautions recommended with patient including - avoiding use of narcotics and [employer]EL[employer] sedatives, limit anticholinergic medications when possible, frequent re-orientation, minimize use of restraints, open window shades during the day and close them at night -Would recommend the following medication changes/additions: Continue Remeron 7.5 mg by mouth at bedtime for depression/nausea/appetite stimulation Continue Cymbalta 20 mg by mouth twice a day for depression -Psychiatry will sign off at this time. Thank you for this consult.
--- NOTE | 2022-08-27 13:50 | P.PN ---
Progress Note - Text Progress Note Date: 08/27/22 Chief Complaint: Weak and tired This is a pleasant 81-year-old patient who follows with Dr. Rojas. Chronic stable medical conditions include diabetes, hypertension, essential hypertension, osteoarthritis, seizure disorder, hypothyroid, restless legs syndrome, peripheral neuropathy, History is obtained primarily by the daughter the bedside. Patient's has been admitted at [facility] for last 4 weeks.Diagnoses of COVID. Patient has been very stressed out about this. For last 34 days patient started getting more and more weak and tired. Fatigue. Not getting out of bed. Nausea. Some headaches off and on. Some muscle achiness. Patient did test positive at home for COVID 19. Denies shortness of breath. No diarrhea. No change in smell. Decreased taste. INR greater than 10. Given 5 mg vitamin K in the ER 08/25/2022: In bed. Decreased appetite. Daughter at the bedside. Getting IV fluids. Some improvement in creatinine. On dexamethasone. Pulse ox between 92-94%. INR pending. Resume losartan today 08/26/2022: Sitting up in a chair. Very depressed. Eating little. Did throw up his breakfast. Did have the patient order soft diet. Patient seen by psychiatry. Remeron added. Electrolytes are better. Continue IV fluids. 08/27/2022: Patient stable for discharge. Documented intake 50% of her breakfast this morning. Has been up in a chair. More awake and answering questions more perked up. No active issues requiring acute inpatient treatment. Patient has a bed for rehab. correctional case manager discussed me to inform me that patient's family disputed discharge. We'll change Coumadin to Xarelto.. I called the patient's daughter on the phone and explained that Coumadin has been discontinued and patient put on Xarelto. Zocor is being replaced by Lipitor. Because of its profile. Lasix discontinued. wants to have some more days that the medicines can be monitored. I explained the importance of physical therapy, but from my standpoint sooner the better. Amlodipine and losartan resumed today. Patient walked 40 feet with a walker More than 50 minutes spent today. Care of the patient. Past medical history to include: Diabetes, hyperlipidemia, hypertension, prostatitis, seizure disorder, hypothyroid, hiatal hernia, restless leg syndrome, peripheral neuropathy, DJD, squamous cell carcinoma the arms hands legs Social history: . No history of smoking or alcohol Physical examination: VITAL SIGNS: Manual blood pressure requested GENERAL: , laying in bed comfortable EYES: Pupils equal. Conjunctiva normal. HEENT: External appearance of nose and ears normal, oral cavity dry mucous membranes. NECK: JVD not raised; masses not palpable. HEART: First and second heart sounds are normal; no edema. LUNGS:[ Respiratory rate normal; decreased breath sounds. ABDOMEN: Soft, nontender, liver spleen not palpable, no masses palpable. PSYCH: AO 3, less depressed MUSCULOSKELETAL:No Clubbing/cyanosis;muscles-grossly intact. OA INVESTIGATIONS, reviewed in the clinical context: August 27: INR 1.5 creatinine 1.03 August 26: INR 1.8 potassium 3.9 creatinine 1.11 August 25: White count 7.9 hemoglobin 10.9 platelets 2:30 potassium 3.7 creatinine 1.5 procalcitonin 0.1 White count 8.1 hemoglobin 12.7 platelets 245 INR greater than 10 Sodium 140 potassium 3.3 when necessary 23 creatinine 1.7 to lactic acid 2.7. Magnesium 0.9 Troponin I is less than 0.012 COVID-19 PCR: Detected EKG tracing personally reviewed by me-sinus rhythm. Nonspecific T ST segment changes Computed tomography scan brain: Some atrophic changes Chest x-ray film personally reviewed by me-elevated right diaphragm. Chronic Assessment and plan: -Acute COVID-19. Initial pulse ox between 91-94%.: Better Dexamethasone 6 mg a. Day. Patient's on Coumadin -Acute hypoxic respiratory failure secondary to Covid 19: Better Pulse ox 94% -Chronically elevated right diaphragm -Acute kidney injury possibly a combination of ATN/prerenal. Better IV fluids. Stop Lasix -Acute medical debility, multifactorial including COVID-19, acute kidney injury -Anorexia from COVID-19.: Improving Soft diet -Essential hypertension Stop Lasix, Catapres. amlodipine, and losartan resumed. -Diabetes mellitus type 2, on oral hypoglycemic Hold Glucophage. Diabetic diet. Follow Accu-Cheks -Seizure disorder Keppra -Major depressive disorder, recurrent, severe, generalized anxiety disorder Continue Cymbalta. Added Remeron 7.5 mg by mouth daily at bedtime -Hyperlipidemia Change Zocor to Lipitor because of better profile -Coumadin toxicity. INR greater than 10. No bleeding.: . 5 mg of vitamin K IV in the ER -Full code For blood pressure Catapres, amlodipine, losartan. Change Zocor to Lipitor for better profile. Eating better. Walked 40 feet. Change Coumadin to Xarelto.
[2022-08-27 16:39] LABS: Glucose,Whole Blood 193 mg/dL (70-110)
[2022-08-27] MEDS: RIVAROXABAN 15 MG TAB PO SCH (17:32)
[2022-08-27] MEDS: PROCHLORPERAZINE INJ 10 MG/2 ML VIAL IVP PRN (17:52)
[2022-08-27] MEDS ORDERED: WARFARIN 5 MG TAB PO ONE (18:00)
--- NOTE | 2022-08-27 18:09 | P.PN ---
Subjective Progress Note Date: 08/27/22 Principal diagnosis: COVID 19 Patient is a 81-year-old female with a past medical his significant for diabetes mellitus hypertension hyperlipidemia seizure disorder CVA TIA who was recently diagnosed with COVID-19 about a week before presentation hospital and presenting predominantly with weakness and decreased oral intake. On today's evaluation that is 08/27/2022, the patient remains to be afebrile, the patient is currently on room air satting 94% patient is feeling slightly better today and did have more oral intake denies any further nausea vomiting abdominal pain and no diarrhea Objective - Vital Signs Vital signs: Vital Signs Temp 98.6 F 08/27/22 07:19 Pulse 66 08/27/22 07:19 Resp 16 08/27/22 09:58 BP 192/96 08/27/22 07:19 Pulse Ox 94 L 08/27/22 07:19 FiO2 Intake & Output 08/26/22 08/27/22 08/27/22 18:59 06:59 18:59 Weight 54.431 kg Other: Voiding Method Toilet Toilet Toilet # Voids 8 1 - Exam GENERAL DESCRIPTION: An elderly female lying in bed in no distress RESPIRATORY SYSTEM: Unlabored breathing , decreased breath sounds at bases HEART: S1 S2 regular rate and rhythm , ABDOMEN: Soft , no tenderness EXTREMITIES: No edema feet - Labs CBC & Chem 7: 08/25/22 05:48 08/27/22 05:45 Labs: Abnormal Lab Results - Last 24 Hours (Table) 08/26/22 08/26/22 08/27/22 Range/Units 16:49 20:31 05:45 PT 16.7 H (9.9-11.9) sec INR 1.50 H (0.90-1.11) Glucose (74-99) mg/dL POC Glucose (mg/dL) 145 H 189 H (70-110) mg/dL 08/27/22 08/27/22 08/27/22 Range/Units 05:45 06:12 11:33 PT (9.9-11.9) sec INR (0.90-1.11) Glucose 112 H (74-99) mg/dL POC Glucose (mg/dL) 133 H 141 H (70-110) mg/dL Assessment and Plan (1) COVID-19 Current Visit: Yes Status: Acute Code(s): U07.1 - COVID-19 SNOMED Code(s): 215441409 Plan: 1patient was in the hospital with weakness which is likely multifactorial in this patient with a recent diagnosis of COVID-19 about a week ago and possibly contributing to some of her symptoms patient currently is more than 7 days of the diagnosis and not requiring any supplemental oxygen will not qualify for remdesivir per [facility] policy and the clinical suspicion is low for secondary bacterial pneumonia as the patient not running any fever chest x-ray did not show any acute infiltrate 2-Patient did have a minimal clinical improvement and will continue with zinc ascorbic acid, and continue with supportive care Time with Patient: Less than 30
[2022-08-27] MEDS: ATORVASTATIN 10 MG TAB PO SCH (21:00)
[2022-08-27] MEDS ORDERED: cloNIDine HCL 0.2 MG TAB PO SCH (21:00)
[2022-08-27] MEDS: MIRTAZAPINE 15 MG TAB PO SCH (21:00)
[2022-08-27] MEDS: LOSARTAN 50 MG TAB PO SCH (21:01)
[2022-08-27 21:17] LABS: Glucose,Whole Blood 177 mg/dL (70-110)
[2022-08-28 06:10] LABS: Glucose,Whole Blood 124 mg/dL (70-110)
[2022-08-28] MEDS: INSULIN ASPART (NovoLOG) 100 UNIT/ML VIAL SQ SCH ×3 (06:34→16:43)
[2022-08-28] MEDS: LEVOTHYROXINE 75 MCG TAB PO SCH (06:41)
[2022-08-28] MEDS: cloNIDine HCL 0.1 MG TAB PO SCH ×3 (09:04→21:45)
[2022-08-28] MEDS: MULTIVITAMINS, THERA LIQUID 237 ML BOTTLE PO SCH (09:04)
[2022-08-28] MEDS: levETIRAcetam 500 MG TAB PO SCH ×2 (09:04→21:46)
[2022-08-28] MEDS: dexAMETHasone 2 MG TAB PO SCH (09:04)
[2022-08-28] MEDS: ZINC SULFATE 220 MG CAP PO SCH (09:04)
[2022-08-28] MEDS: amLODIPine 10 MG TAB PO SCH (09:04)
[2022-08-28] MEDS: ASPIRIN 81 MG PO SCH (09:04)
[2022-08-28] MEDS: ASCORBIC ACID 500 MG TAB PO SCH (09:04)
[2022-08-28] MEDS: DULoxetine HCL 20 MG CAPSULE.DR PO SCH ×2 (09:04→21:45)
[2022-08-28] MEDS: DAPAGLIFLOZIN PROPANEDIOL 5 MG TABLET PO SCH (09:04)
[2022-08-28 11:50] LABS: Glucose,Whole Blood 167 mg/dL (70-110)
--- NOTE | 2022-08-28 15:44 | P.PN ---
Progress Note - Text Progress Note Date: 08/28/22 Chief Complaint: Weak and tired This is a pleasant 81-year-old patient who follows with Dr. Rojas. Chronic stable medical conditions include diabetes, hypertension, essential hypertension, osteoarthritis, seizure disorder, hypothyroid, restless legs syndrome, peripheral neuropathy, History is obtained primarily by the daughter the bedside. Patient's has been admitted at [facility] for last 4 weeks.Diagnoses of COVID. Patient has been very stressed out about this. For last 34 days patient started getting more and more weak and tired. Fatigue. Not getting out of bed. Nausea. Some headaches off and on. Some muscle achiness. Patient did test positive at home for COVID 19. Denies shortness of breath. No diarrhea. No change in smell. Decreased taste. INR greater than 10. Given 5 mg vitamin K in the ER 08/25/2022: In bed. Decreased appetite. Daughter at the bedside. Getting IV fluids. Some improvement in creatinine. On dexamethasone. Pulse ox between 92-94%. INR pending. Resume losartan today 08/26/2022: Sitting up in a chair. Very depressed. Eating little. Did throw up his breakfast. Did have the patient order soft diet. Patient seen by psychiatry. Remeron added. Electrolytes are better. Continue IV fluids. 08/27/2022: Patient stable for discharge. Documented intake 50% of her breakfast this morning. Has been up in a chair. More awake and answering questions more perked up. No active issues requiring acute inpatient treatment. Patient has a bed for rehab. manager risk discussed me to inform me that patient's family disputed discharge. We'll change Coumadin to Xarelto.. I called the patient's daughter on the phone and explained that Coumadin has been discontinued and patient put on Xarelto. Zocor is being replaced by Lipitor. Because of its profile. Lasix discontinued. wants to have some more days that the medicines can be monitored. I explained the importance of physical therapy, but from my standpoint sooner the better. Amlodipine and losartan resumed today. Patient walked 40 feet with a walker More than 50 minutes spent today. Care of the patient. 08/28/2022: Patient did much better today. Up to the bathroom on her own. Appetite is much improved. Feeling much better. More cheerful. Case management for me that Medicare it declined patient's objection to discharge. Has a little controlled on to be discharged. Patient will be going home with her daughter. With home care. Tolerating Xarelto. Psychiatry is signed off. Independent. Walk 60 feet. Oral intake 50% Past medical history to include: Diabetes, hyperlipidemia, hypertension, prostatitis, seizure disorder, hypothyroid, hiatal hernia, restless leg syndrome, peripheral neuropathy, DJD, squamous cell carcinoma the arms hands legs Social history: . No history of smoking or alcohol Physical examination: VITAL SIGNS: 98.3, 55, 18, 150/77, 90% on room air GENERAL: , Up in bed comfortable EYES: Pupils equal. Conjunctiva normal. HEENT: External appearance of nose and ears normal, oral cavity dry mucous membranes. NECK: JVD not raised; masses not palpable. HEART: First and second heart sounds are normal; no edema. LUNGS:[ Respiratory rate normal; decreased breath sounds. ABDOMEN: Soft, nontender, liver spleen not palpable, no masses palpable. PSYCH: AO 3, mood and affect much better MUSCULOSKELETAL:No Clubbing/cyanosis;muscles-grossly intact. OA INVESTIGATIONS, reviewed in the clinical context: August 27: INR 1.5 creatinine 1.03 August 26: INR 1.8 potassium 3.9 creatinine 1.11 August 25: White count 7.9 hemoglobin 10.9 platelets 2:30 potassium 3.7 creatinine 1.5 procalcitonin 0.1 White count 8.1 hemoglobin 12.7 platelets 245 INR greater than 10 Sodium 140 potassium 3.3 when necessary 23 creatinine 1.7 to lactic acid 2.7. Magnesium 0.9 Troponin I is less than 0.012 COVID-19 PCR: Detected EKG tracing personally reviewed by me-sinus rhythm. Nonspecific T ST segment changes Computed tomography scan brain: Some atrophic changes Chest x-ray film personally reviewed by me-elevated right diaphragm. Chronic Assessment and plan: -Acute COVID-19. Initial pulse ox between 91-94%.: Improving Dexamethasone 6 mg a. Day. Patient's on Coumadin -Acute hypoxic respiratory failure secondary to Covid 19: Better 91% on room air -Chronically elevated right diaphragm -Acute kidney injury possibly a combination of ATN/prerenal. Better IV fluids. Stop Lasix -Acute medical debility, multifactorial including COVID-19, acute kidney injury -Anorexia from COVID-19.: Improving Soft diet -Essential hypertension Stop Lasix, Catapres. amlodipine, and losartan -Diabetes mellitus type 2, on oral hypoglycemic Glucophage. Diabetic diet. Follow Accu-Cheks -Seizure disorder Keppra -Major depressive disorder, recurrent, severe, generalized anxiety disorder: Im proving Continue Cymbalta. Started on Remeron 7.5 mg by mouth daily at bedtime -Hyperlipidemia Change Zocor to Lipitor because of better profile -Coumadin toxicity. INR greater than 10. No bleeding.: . Discontinued 5 mg of vitamin K IV in the ER -Full code Patient looking much better. Discharged tomorrow.
[2022-08-28 16:30] LABS: Glucose,Whole Blood 218 mg/dL (70-110)
[2022-08-28] MEDS: RIVAROXABAN 15 MG TAB PO SCH (16:30)
--- NOTE | 2022-08-28 17:59 | P.PN ---
Subjective Progress Note Date: 08/28/22 Principal diagnosis: COVID 19 Patient is a 81-year-old female with a past medical his significant for diabetes mellitus hypertension hyperlipidemia seizure disorder CVA TIA who was recently diagnosed with COVID-19 about a week before presentation hospital and presenting predominantly with weakness and decreased oral intake. On today's evaluation that is 08/28/2022, the patient continues to be afebrile, the patient is more awake and alert and is feeling slightly better, the patient denies having any chest pain or shortness of breath occasional dry cough no further vomiting or diarrhea has been tolerating her diet oral intake has improved Objective - Vital Signs Vital signs: Vital Signs Temp 97.8 F 08/28/22 07:22 Pulse 56 L 08/28/22 08:00 Resp 18 08/28/22 07:22 BP 168/73 08/28/22 07:22 Pulse Ox 91 L 08/28/22 07:22 FiO2 Intake & Output 08/27/22 08/28/22 08/28/22 18:59 06:59 18:59 Other: Voiding Method Toilet Toilet # Voids 2 2 - Exam GENERAL DESCRIPTION: An elderly female lying in bed in no distress RESPIRATORY SYSTEM: Unlabored breathing , decreased breath sounds at bases HEART: S1 S2 regular rate and rhythm , ABDOMEN: Soft , no tenderness EXTREMITIES: No edema feet - Labs CBC & Chem 7: 08/25/22 05:48 08/27/22 05:45 Labs: Abnormal Lab Results - Last 24 Hours (Table) 08/27/22 08/27/22 08/28/22 Range/Units 16:37 21:15 06:08 POC Glucose (mg/dL) 193 H 177 H 124 H (70-110) mg/dL 08/28/22 Range/Units 11:48 POC Glucose (mg/dL) 167 H (70-110) mg/dL Assessment and Plan (1) COVID-19 Current Visit: Yes Status: Acute Code(s): U07.1 - COVID-19 SNOMED Code(s): 030484398 Plan: 1patient was in the hospital with weakness which is likely multifactorial in this patient with a recent diagnosis of COVID-19 about a week ago and possibly contributing to some of her symptoms patient currently is more than 7 days of the diagnosis and not requiring any supplemental oxygen will not qualify for remdesivir per [facility] policy and the clinical suspicion is low for secondary bacterial pneumonia as the patient not running any fever chest x-ray did not show any acute infiltrate 2-Patient seemed to have some clinical improvement and will continue with current supportive treatment including zinc ascorbic acid, and monitor clinical course closely Time with Patient: Less than 30
[2022-08-28] MEDS: CALCIUM CARBONATE 500 MG CHEWABLE PO PRN (18:29)
[2022-08-28 20:21] LABS: Glucose,Whole Blood 259 mg/dL (70-110)
[2022-08-28] MEDS: LOSARTAN 50 MG TAB PO SCH (21:45)
[2022-08-28] MEDS: ATORVASTATIN 10 MG TAB PO SCH (21:45)
[2022-08-28] MEDS: MIRTAZAPINE 15 MG TAB PO SCH (21:45)
[2022-08-28] MEDS: metFORMIN 500 MG TAB PO SCH (21:46)
[2022-08-29 02:27] LABS: Glucose,Whole Blood 130 mg/dL (70-110)
[2022-08-29 05:50] LABS: Glucose,Whole Blood 139 mg/dL (70-110)
[2022-08-29] MEDS: INSULIN ASPART (NovoLOG) 100 UNIT/ML VIAL SQ SCH (06:07)
[2022-08-29] MEDS: LEVOTHYROXINE 75 MCG TAB PO SCH (06:52)
[2022-08-29 07:51] VITALS: BP 149/83; PULSE 78; RESP 18; TEMP 97.5
[2022-08-29] MEDS: ASCORBIC ACID 500 MG TAB PO SCH (10:18)
[2022-08-29] MEDS: dexAMETHasone 2 MG TAB PO SCH (10:18)
[2022-08-29] MEDS: ZINC SULFATE 220 MG CAP PO SCH (10:18)
[2022-08-29] MEDS: amLODIPine 10 MG TAB PO SCH (10:18)
[2022-08-29] MEDS: cloNIDine HCL 0.1 MG TAB PO SCH (10:18)
[2022-08-29] MEDS: DAPAGLIFLOZIN PROPANEDIOL 5 MG TABLET PO SCH (10:18)
[2022-08-29] MEDS: levETIRAcetam 500 MG TAB PO SCH (10:18)
[2022-08-29] MEDS: ASPIRIN 81 MG PO SCH (10:18)
[2022-08-29] MEDS: metFORMIN 500 MG TAB PO SCH (10:18)
[2022-08-29] MEDS: DULoxetine HCL 20 MG CAPSULE.DR PO SCH (10:18)
[2022-08-29] MEDS: MULTIVITAMINS, THERA LIQUID 237 ML BOTTLE PO SCH (10:21)
[2022-08-29 14:19] LABS: INR 1.43 (0.90-1.11); Prothrombin Time 15.9 sec (9.9-11.9)
--- NOTE | 2022-08-29 17:35 | P.DS ---
Providers Date of admission: 08/24/22 16:49 Expected date of discharge: 08/29/22 Attending physician: Ck Rodas Consults: 08/24/22 22:57 Consult Physician Routine Consulting Provider: Cindy Guajardo Consult Reason/Comments: COVID-19 Do you want consulting provider notified?: Yes 08/26/22 11:39 Consult Physician Routine Consulting Provider: Devang Chopra Consult Reason/Comments: Depression Do you want consulting provider notified?: Yes Primary care physician: Henrry Rojas [facility] Course: Chief Complaint: Weak and tired This is a pleasant 81-year-old patient who follows with Dr. Rojas. Chronic stable medical conditions include diabetes, hypertension, essential hypertension, osteoarthritis, seizure disorder, hypothyroid, restless legs syndrome, peripheral neuropathy, History is obtained primarily by the daughter the bedside. Patient's has been admitted at [facility] for last 4 weeks.Diagnoses of COVID. Patient has been very stressed out about this. For last 34 days patient started getting more and more weak and tired. Fatigue. Not getting out of bed. Nausea. Some headaches off and on. Some muscle achiness. Patient did test positive at home for COVID 19. Denies shortness of breath. No diarrhea. No change in smell. Decreased taste. INR greater than 10. Given 5 mg vitamin K in the ER 08/25/2022: In bed. Decreased appetite. Daughter at the bedside. Getting IV fluids. Some improvement in creatinine. On dexamethasone. Pulse ox between 92-94%. INR pending. Resume losartan today 08/26/2022: Sitting up in a chair. Very depressed. Eating little. Did throw up his breakfast. Did have the patient order soft diet. Patient seen by psychiatry. Remeron added. Electrolytes are better. Continue IV fluids. 08/27/2022: Patient stable for discharge. Documented intake 50% of her breakfast this morning. Has been up in a chair. More awake and answering questions more perked up. No active issues requiring acute inpatient treatment. Patient has a bed for rehab. manager of security discussed me to inform me that patient's family disputed discharge. We'll change Coumadin to Xarelto.. I called the patient's daughter on the phone and explained that Coumadin has been discontinued and patient put on Xarelto. Zocor is being replaced by Lipitor. Because of its profile. Lasix discontinued. wants to have some more days that the medicines can be monitored. I explained the importance of physical therapy, but from my standpoint sooner the better. Amlodipine and losartan resumed today. Patient walked 40 feet with a walker More than 50 minutes spent today. Care of the patient. 08/28/2022: Patient did much better today. Up to the bathroom on her own. Appetite is much improved. Feeling much better. More cheerful. Case management for me that Medicare it declined patient's objection to discharge. Has a little controlled on to be discharged. Patient will be going home with her daughter. With home care. Tolerating Xarelto. Psychiatry is signed off. Independent. Walk 60 feet. Oral intake 50% 08/29/2022: Patient doing well. Up to the bathroom. Eating well. No cheerful. Discussed at length with the daughter the bedside. Questions answered. Discussion and discharge planning more than 35 minutes Past medical history to include: Diabetes, hyperlipidemia, hypertension, prostatitis, seizure disorder, hypothyroid, hiatal hernia, restless leg syndrome, peripheral neuropathy, DJD, squamous cell carcinoma the arms hands legs Social history: . No history of smoking or alcohol Physical examination: VITAL SIGNS: 97.5, 78, 18, 149 breasts 83, 94% room air GENERAL: , Up by the vendor comfortable EYES: Pupils equal. Conjunctiva normal. HEENT: External appearance of nose and ears normal, oral cavity dry mucous membranes. NECK: JVD not raised; masses not palpable. HEART: First and second heart sounds are normal; no edema. LUNGS:[ Respiratory rate normal; decreased breath sounds. ABDOMEN: Soft, nontender, liver spleen not palpable, no masses palpable. PSYCH: AO 3, mood and affect much better MUSCULOSKELETAL:No Clubbing/cyanosis;muscles-grossly intact. OA INVESTIGATIONS, reviewed in the clinical context: August 27: INR 1.5 creatinine 1.03 August 26: INR 1.8 potassium 3.9 creatinine 1.11 August 25: White count 7.9 hemoglobin 10.9 platelets 2:30 potassium 3.7 creatinine 1.5 procalcitonin 0.1 White count 8.1 hemoglobin 12.7 platelets 245 INR greater than 10 Sodium 140 potassium 3.3 when necessary 23 creatinine 1.7 to lactic acid 2.7. Magnesium 0.9 Troponin I is less than 0.012 COVID-19 PCR: Detected EKG tracing personally reviewed by me-sinus rhythm. Nonspecific T ST segment changes Computed tomography scan brain: Some atrophic changes Chest x-ray film personally reviewed by me-elevated right diaphragm. Chronic Assessment and plan: -Acute COVID-19. Initial pulse ox between 91-94%.: Better Dexamethasone 6 mg a. Day. -Stopped -Acute hypoxic respiratory failure secondary to Covid 19: Better 94 % on room air -Chronically elevated right diaphragm -Acute kidney injury possibly a combination of ATN/prerenal. Better IV fluids. Stop Lasix -Acute medical debility, multifactorial including COVID-19, acute kidney injury -Anorexia from COVID-19.: Improved Soft diet -Essential hypertension Stop Lasix,. Catapres. amlodipine, and losartan -Diabetes mellitus type 2, on oral hypoglycemic Glucophage. Diabetic diet. Follow Accu-Cheks -Seizure disorder Keppra -Major depressive disorder, recurrent, severe, generalized anxiety disorder: Improving Continue Cymbalta. Admitted Remeron 7.5 mg by mouth daily at bedtime. Seen by psychiatry -Hyperlipidemia Change Zocor to Lipitor because of better profile -Coumadin toxicity. INR greater than 10. No bleeding.: . Discontinued 5 mg of vitamin K IV in the ER -Full code Disposition: Home Plan - Discharge Summary Discharge Rx Participant: No New Discharge Prescriptions: New Melatonin 3 mg PO HS PRN tab PRN Reason: Insomnia INSULIN ASPART (NovoLOG) [NovoLOG (formulary)] 0 unit SQ AC-TID each Ascorbic Acid [Vitamin C] 1,000 mg PO DAILY tab LORazepam [Ativan] 0.5 mg PO TID PRN #9 tab PRN Reason: Anxiety Rivaroxaban [Xarelto] 15 mg PO AC-SUPPER #30 tab Zinc Gluconate [Zinc] 50 mg PO DAILY #30 tablet Multivitamins, Thera Liquid [Theragran Liquid (formulary)] 15 ml PO DAILY ml Acetaminophen Tab [Tylenol] 650 mg PO Q6HR PRN tab PRN Reason: Mild Pain Or Fever > 100.5 Atorvastatin [Lipitor] 10 mg PO HS #30 tab Mirtazapine 7.5 mg PO HS #30 tablet Continue Aspirin 81 mg PO DAILY metFORMIN HCL [Glucophage] 1,000 mg PO BID amLODIPine [Norvasc] 10 mg PO DAILY Losartan Potassium 100 mg PO HS Levothyroxine Sodium [Synthroid] 75 mcg PO DAILY levETIRAcetam [Keppra] 500 mg PO BID ondansetron HCL [Zofran] 8 mg PO Q8HR PRN PRN Reason: Nausea And Vomiting DULoxetine HCL [Cymbalta] 20 mg PO BID Famotidine [Pepcid] 20 mg PO DAILY PRN PRN Reason: Gi Upset Empagliflozin [Jardiance] 10 mg PO DAILY cloNIDine HCL 0.1 mg PO TID Discontinued Furosemide [Lasix] 20 mg PO DAILY Simvastatin [Zocor] 20 mg PO HS LORazepam [Ativan] 0.5 mg PO BID PRN PRN Reason: Anxiety Warfarin [Coumadin] 5 mg PO HS Discharge Medication List Aspirin 81 mg PO DAILY 05/03/14 [History] Losartan Potassium 100 mg PO HS 05/03/14 [History] amLODIPine [Norvasc] 10 mg PO DAILY 05/03/14 [History] metFORMIN HCL [Glucophage] 1,000 mg PO BID 05/03/14 [History] Levothyroxine Sodium [Synthroid] 75 mcg PO DAILY 06/25/16 [History] DULoxetine HCL [Cymbalta] 20 mg PO BID 08/24/22 [History] Empagliflozin [Jardiance] 10 mg PO DAILY 08/24/22 [History] Famotidine [Pepcid] 20 mg PO DAILY PRN 08/24/22 [History] cloNIDine HCL 0.1 mg PO TID 08/24/22 [History] levETIRAcetam [Keppra] 500 mg PO BID 08/24/22 [History] ondansetron HCL [Zofran] 8 mg PO Q8HR PRN 08/24/22 [History] Acetaminophen Tab [Tylenol] 650 mg PO Q6HR PRN tab 08/27/22 [Rx] Ascorbic Acid [Vitamin C] 1,000 mg PO DAILY tab 08/27/22 [Rx] INSULIN ASPART (NovoLOG) [NovoLOG (formulary)] 0 unit SQ AC-TID each 08/27/22 [Rx] Melatonin 3 mg PO HS PRN tab 08/27/22 [Rx] Multivitamins, Thera Liquid [Theragran Liquid (formulary)] 15 ml PO DAILY ml 08/27/22 [Rx] Atorvastatin [Lipitor] 10 mg PO HS #30 tab 08/29/22 [Rx] LORazepam [Ativan] 0.5 mg PO TID PRN #9 tab 08/29/22 [Rx] Mirtazapine 7.5 mg PO HS #30 tablet 08/29/22 [Rx] Rivaroxaban [Xarelto] 15 mg PO AC-SUPPER #30 tab 08/29/22 [Rx] Zinc Gluconate [Zinc] 50 mg PO DAILY #30 tablet 08/29/22 [Rx] Follow up Appointment(s)/Referral(s): Henrry Rojas MD [Primary Care Provider] - 1-2 days ([facility]ce is closed at time of discharge. Please call for appointment.) Patient Instructions/Handouts: COVID-19 (Coronavirus Disease 2019) (DC) Discharge Disposition: HOME WITH HOME HEALTH SERVICES
== END 2022-08-29 12:47 | disposition home health service (06) | DRG 177 ==
LOC: EC 13:52 → 4SSUR 16:49
PROVIDERS: ADMIT Hospitalist; ATTEND Hospitalist
DX: U07.1 COVID-19 (principal); J96.01 Acute respiratory failure with hypoxia; N17.9 Acute kidney failure, unspecified; F33.2 Major depressive disorder, recurrent severe without psychotic features; J98.6 Disorders of diaphragm; E11.42 Type 2 diabetes mellitus with diabetic polyneuropathy; G40.909 Epilepsy, unspecified, not intractable, without status epilepticus; I10 Essential (primary) hypertension; E78.5 Hyperlipidemia, unspecified; E03.9 Hypothyroidism, unspecified; G25.81 Restless legs syndrome; E83.42 Hypomagnesemia; K44.9 Diaphragmatic hernia without obstruction or gangrene; F41.1 Generalized anxiety disorder; R79.1 Abnormal coagulation profile; T45.515A Adverse effect of anticoagulants, initial encounter; M19.90 Unspecified osteoarthritis, unspecified site; R63.0 Anorexia; D64.9 Anemia, unspecified; Z79.82 Long term (current) use of aspirin; Z79.84 Long term (current) use of oral hypoglycemic drugs; Z79.01 Long term (current) use of anticoagulants; Z79.890 Hormone replacement therapy; Z79.899 Other long term (current) drug therapy; Z86.73 Personal history of transient ischemic attack (TIA), and cerebral infarction without residual deficits; Z85.828 Personal history of other malignant neoplasm of skin; Z88.2 Allergy status to sulfonamides; Z88.8 Allergy status to other drugs, medicaments and biological substances
CPT/HCPCS: 36415; 70450; 71046; 80048; 80053; 81001; 82607; 82746; 83605; 83735; 84145; 84484; 85025; 85610; 85730; 87635; 93005; 96361; 96365; 96366; 96375; 96376; 99285

== ENCOUNTER → 2022-11-19 | Outpatient (CLI) | payer MEDICARE, BC ==
--- NOTE | 2022-11-19 13:00 | MM ---
Reason for Exam: Additional evaluation requested from prior study. Last mammogram was performed 1 year(s) and 1 month(s) ago. Patient History: Menarche at age 11. First Full-Term at age 19. Left ovary removed at age 38. Right ovary removed at age 38. Hysterectomy at age 38. Postmenopausal. Other cancer. Breast cancer, left, age 79. Patient used Hormonal Contraceptives for 2 years. 12/19/2020, Lumpectomy on the Left side. 12/19/2020, High risk Core Biopsy on the left side. 10/24/2020, Malignant Core Biopsy on the left side. 06/18/2003, Cyst Aspiration on the Right side. Sister had breast cancer, left, age 69. Tissue Density: The breast tissue is heterogeneously dense. This may lower the sensitivity of mammography. Findings: Analyzed By CAD. Stable benign-appearing regional calcifications within the upper outer quadrant of the right breast redemonstrated. There is architectural distortion within the upper outer quadrant of the left breast in the middle position corresponding to posttreatment change. Stable chronic nodularity within the right breast. No new suspicious masses or calcifications within either breast. Overall Assessment: Benign, BI-RAD 2 Management: Diagnostic Mammogram of both breasts in 1 year. A clinical breast exam by your physician is recommended on an annual basis and results should be correlated with mammographic findings. This exam should not preclude additional follow-up of suspicious palpable abnormalities. Results were given to the patient verbally at the time of exam. Electronically signed and approved by: Pantera Pham D.O.
== END | disposition home or self-care (01) ==
LOC: RADMAMWWP 12:36
PROVIDERS: ATTEND Surgery
DX: Z78.0 Asymptomatic menopausal state (principal); Z85.3 Personal history of malignant neoplasm of breast; Z80.3 Family history of malignant neoplasm of breast
CPT/HCPCS: 77066; G0279; 77062

== ENCOUNTER → 2022-11-19 | Outpatient (CLI) | payer MEDICARE, BC ==
[2022-11-19 13:34] VITALS: BP 119/70; PULSE 67; RESP 17; TEMP 97.6
--- NOTE | 2022-11-19 13:54 | P.PN ---
Subjective Progress Note Date: 11/19/22 Principal diagnosis: DCIS left breast DCIS left breast 202011-19-22 Marilyn is an 81-year-old white female who on a routine mammogram performed on had an area of concern noted in the left breast. Additional studies revealed indeterminate calcifications in the upper outer quadrant of the breast for which stereotactic core biopsy was recommended. Stereotactic core biopsy was performed and 63 which revealed DCIS. She then had a needle localization resection on 1 which revealed the lesion had been completely removed. She opted for no radiation or hormonal therapy. She had a bilateral mammogram on 11-19-22 which was BIRAD 2 The patient is not complaining of any new lumps masses or nodules of concern in either breast. Caffeine: stopped all caffeine nicotine: none chocolate: occasional Family history: sister: Breast cancer at age 73 patient: skin cancer Hormonal History: menarche: 12 M2, breast fed: no, age at first : 20 menopause: surgical, JOHNY at 39 for fibroid tumors, also did Appendectomy and bladder suspension BCP: 5 years Surgical History: Tonsillectomy Hysterectomy with appendectomy and bladder suspension Hemorrhoidectomy Skin cancer tumor on forehead, shoulder, arm, legs, feet, bottom lip, chest, top of head in both hands Right foot attention nerve Cholecystectomy Back surgery left breast lumpectomy skin cancer left upper arm 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 Quintanilla) skin cancer right leg October 2022 Medical history: CVA 2000, 2003, 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 Depression and anxiety Tarsal tunnel both feet Hypertension Vertigo Hiatal hernia Hypothyroid High cholesterol Deteriorated disc lower back Diabetic Restless leg syndrome Neuropathy Pinched nerve right side of neck Osteopenia Seizures Numbness related to her back COVID Social History: nicotine: none alcohol: none drugs: none - Constitutional Constitutional: Denies chills, Denies fever - EENT Eyes: bilateral blurred vision Ears: deny: decreased hearing, tinnitus Ears, nose, mouth and throat: Reports headache, Denies sore throat - Breasts Breasts: bilateral: as per HPI - Cardiovascular Cardiovascular: Denies chest pain, Denies shortness of breath - Respiratory Respiratory: Denies cough - Gastrointestinal Gastrointestinal: Denies abdominal pain, Denies diarrhea, Denies nausea, Denies vomiting - Genitourinary (Female) Genitourinary: Denies dysuria, Denies hematuria - Menstruation Menstruation: Reports post hysterectomy - Musculoskeletal Comment: arthritis Musculoskeletal: Reports myalgias - Integumentary Comment: history of skin cancer Integumentary: Denies pruritus, Denies rash - Neurological Comment: strokes left side weakness Neurological: Reports as per HPI, Reports numbness - Psychiatric Psychiatric: Reports anxiety, Reports depression - Endocrine Comment: Hypothyroid, diabetic - Hematologic/Lymphatic Comment: takes aspirin and Coumadin - Allergic/Immunologic Allergic/Immunologic: Reports seasonal allergies Objective - Vital Signs Vital signs: Vital Signs Temp 97.6 F 11/19/22 13:31 Pulse 67 11/19/22 13:31 Resp 17 11/19/22 13:31 BP 119/70 11/19/22 13:31 Pulse Ox 96 11/19/22 13:31 FiO2 Intake & Output 11/18/22 11/19/22 11/19/22 18:59 06:59 18:59 Weight 63.503 kg - Constitutional General appearance: Present: cooperative - EENT Eyes: Present: EOMI ENT: Present: hearing grossly normal - Neck Neck: Present: normal ROM - Respiratory Respiratory: bilateral: CTA - Cardiovascular Rhythm: regular Heart sounds: normal: S1, S2 - Gastrointestinal General gastrointestinal: Present: soft - Integumentary Integumentary Comment(s): scar under right nares Integumentary: Present: normal turgor - Musculoskeletal Musculoskeletal Comment(s): uses a wheel chair - Psychiatric Psychiatric: Present: A&O x's 3, appropriate affect, intact judgment & insight - Additional findings Additional findings: Brest Exam: BRA: 38D inspection: Well-healed scar left breast from prior surgery, bilateral grade 3 ptosis Palpation: Right breast: Multiple position exam fibrocystic changes no dominant masses or nodules of concern Right axilla: Shoddy adenopathy Left breast: Multi-positional exam fibrocystic changes no evidence of recurrent disease well-healed scar from prior surgery Left axilla: No adenopathy of concern Assessment and Plan Assessment: Impression: CVA 2000, 2003, 2006 Mini stroke 2002 in 2009 Depression and anxiety Tarsal tunnel both feet Hypertension Vertigo Hiatal hernia Hypothyroid High cholesterol Deteriorated disc lower back Diabetic Restless leg syndrome Neuropathy Pinched nerve right side of neck Osteopenia Seizures Numbness related to her back History of DCIS left breast no evidence of recurrence Shotty adenopathy right axilla Plan: Bilateral mammogram September 2022 BIRAD 2, repeat mammogram in one year follow up in 6 months Follow-up sooner any questions or concerns CC: Dr. Rojas
== END ==
LOC: WWCWWP 13:03
PROVIDERS: ATTEND Surgery
DX: D05.12 Intraductal carcinoma in situ of left breast (principal); F32.A Depression, unspecified; F41.9 Anxiety disorder, unspecified; E03.9 Hypothyroidism, unspecified; E78.00 Pure hypercholesterolemia, unspecified; G25.81 Restless legs syndrome; E11.40 Type 2 diabetes mellitus with diabetic neuropathy, unspecified; I10 Essential (primary) hypertension; R56.9 Unspecified convulsions; M85.80 Other specified disorders of bone density and structure, unspecified site; R42 Dizziness and giddiness; K44.9 Diaphragmatic hernia without obstruction or gangrene; Z80.3 Family history of malignant neoplasm of breast; Z85.828 Personal history of other malignant neoplasm of skin; Z85.3 Personal history of malignant neoplasm of breast; Z86.16 Personal history of COVID-19; Z86.73 Personal history of transient ischemic attack (TIA), and cerebral infarction without residual deficits; Z88.2 Allergy status to sulfonamides; Z91.048 Other nonmedicinal substance allergy status; Z79.4 Long term (current) use of insulin; Z79.84 Long term (current) use of oral hypoglycemic drugs; Z79.890 Hormone replacement therapy; Z90.49 Acquired absence of other specified parts of digestive tract; Z79.01 Long term (current) use of anticoagulants

== ENCOUNTER 2023-01-25 14:12 | Emergency (ER) | payer MEDICARE, BC ==
[2023-01-25] MEDS ORDERED: SODIUM CHLORIDE 0.9% 1,000 ML IV STA (14:28)
--- NOTE | 2023-01-25 14:37 | ED ---
General Adult HPI - General Chief complaint: Abdominal Pain Stated complaint: weakness Time Seen by Provider: 01/25/23 14:14 Source: patient, EMS Mode of arrival: EMS Limitations: no limitations - History of Present Illness Initial comments: Dictation was produced using [employer] dictation software. please excuse any grammatical, word or spelling errors. Chief Complaint: 82-year-old female with sore throat, diarrhea and abdominal cramping History of Present Illness: Patient is an 82-year-old female she has multiple comorbidities including CK D, diabetes, dyslipidemia states that she has been having one day of mild headache, weakness, nausea, diarrhea and sore throat. No sick contacts. Patient is vaccinated for COVID-19. Denies any fever or constitutional symptoms. Denies any recent travel. No concerns of food poisoning. The ROS documented in this emergency department record has been reviewed and confirmed by me. Those systems with pertinent positive or negative responses have been documented in the HPI. All other systems are other negative and/or noncontributory. - Related Data Home Medications Medication Instructions Recorded Confirmed Aspirin 81 mg PO DAILY 05/03/14 11/19/22 Losartan Potassium 100 mg PO HS 05/03/14 11/19/22 amLODIPine [Norvasc] 10 mg PO DAILY 05/03/14 11/19/22 metFORMIN HCL [Glucophage] 1,000 mg PO BID 05/03/14 11/19/22 Levothyroxine Sodium [Synthroid] 75 mcg PO DAILY 06/25/16 11/19/22 DULoxetine HCL [Cymbalta] 20 mg PO BID 08/24/22 11/19/22 Empagliflozin [Jardiance] 10 mg PO DAILY 08/24/22 11/19/22 Famotidine [Pepcid] 20 mg PO DAILY PRN 08/24/22 11/19/22 cloNIDine HCL 0.1 mg PO TID 08/24/22 11/19/22 levETIRAcetam [Keppra] 500 mg PO BID 08/24/22 11/19/22 ondansetron HCL [Zofran] 8 mg PO Q8HR PRN 08/24/22 11/19/22 Previous Rx's Medication Instructions Recorded Acetaminophen Tab [Tylenol] 650 mg PO Q6HR PRN tab 08/27/22 Ascorbic Acid [Vitamin C] 1,000 mg PO DAILY tab 08/27/22 INSULIN ASPART (NovoLOG) [NovoLOG 0 unit SQ AC-TID each 08/27/22 (formulary)] Melatonin 3 mg PO HS PRN tab 08/27/22 Multivitamins, Thera Liquid 15 ml PO DAILY ml 08/27/22 [Theragran Liquid (formulary)] Atorvastatin [Lipitor] 10 mg PO HS #30 tab 08/29/22 LORazepam [Ativan] 0.5 mg PO TID PRN #9 tab 08/29/22 Mirtazapine 7.5 mg PO HS #30 tablet 08/29/22 Rivaroxaban [Xarelto] 15 mg PO AC-SUPPER #30 tab 08/29/22 Zinc Gluconate [Zinc] 50 mg PO DAILY #30 tablet 08/29/22 Allergies Allergy/AdvReac Type Severity Reaction Status Date / Time Sulfa (Sulfonamide Allergy Rash/Hives Verified 01/25/23 14:20 Antibiotics) bleach Allergy Rash/Hives Uncoded 01/25/23 14:20 Review of Systems ROS Statement: Those systems with pertinent positive or pertinent negative responses have been documented in the HPI. ROS Other: All systems not noted in ROS Statement are negative. Past Medical History Past Medical History: Cancer, CVA/TIA, Diabetes Mellitus, Hyperlipidemia, Hypertension, Osteoarthritis (OA), Renal Disease, Seizure Disorder, Thyroid Disorder Additional Past Medical History / Comment(s): vertigo,hiatal hernia, restless leg,neuropathy,carpal tunnel,ddd, squamous cell carcinoma-arms, hands, legs, AKF History of Any Multi-Drug Resistant Organisms: None Reported Past Surgical History: Appendectomy, Back Surgery, Breast Surgery, Cholecystec kobe, Hysterectomy, Orthopedic Surgery, Tonsillectomy Additional Past Surgical History / Comment(s): skin cancer removal, hemorrhoid removal, left breast high risk excisional november 2020 Past Anesthesia/Blood Transfusion Reactions: Motion Sickness Additional Past Anesthesia/Blood Transfusion Reaction / Comment(s): vertigo Past Psychological History: Anxiety, Depression Smoking Status: Never smoker Past Alcohol Use History: None Reported Past Drug Use History: None Reported - Past Family History Sister(s) Family Medical History: Cancer Additional Family Medical History / Comment(s): BREAST General Exam - General Exam Comments Initial Comments: PHYSICAL EXAM: General Impression: Alert and oriented x3, not in acute distress HEENT: Normocephalic atraumatic, extra-ocular movements intact, pupils equal and reactive to light bilaterally, mucous membranes moist. Cardiovascular: Heart regular rate and rhythm Chest: Able to complete full sentences, no retractions, no tachypnea Abdomen: abdomen soft, non-tender, non-distended, no organomegaly Musculoskeletal: Pulses present and equal in all extremities, no peripheral edema Motor: no focal deficits noted Neurological: CN II-XII grossly intact, no focal motor or sensory deficits noted Skin: Intact with no visualized rashes Psych: Normal affect and mood Limitations: no limitations Course Vital Signs 01/25/23 14:16 Temperature 98.5 F Pulse Rate 87 Respiratory 18 Rate Blood Pressure 146/85 O2 Sat by Pulse 93 L Oximetry Medical Decision Making - Medical Decision Making Was pt. sent in by a medical professional or institution (, PA, BATTERY ASSEMBLER, urgent care, hospital, or longterm...) When possible be specific @ -No Did you speak to anyone other than the patient for history (EMS, parent, family, police, friend...)? What history was obtained from this source @ -No Did you review nursing and triage notes (agree or disagree)? Why? @ -I reviewed and agree with nursing and triage notes Were old charts reviewed (outside hosp., previous admission, EMS record, old EKG, old radiological studies, urgent care reports/EKG's, longterm records)? Report findings @ -No old charts were reviewed Differential Diagnosis (chest pain, altered mental status, abdominal pain women, abdominal pain men, vaginal bleeding, musculoskeletal, weakness, fever, dyspnea, syncope, headache, dizziness, GI bleed, back pain, seizure, CVA, palpatations, mental health)? @ -Differential Abdominal Pain Women: Appendicitis, Cholecystitis, diverticulosis, ischemic bowel, pancreatitis, hepat itis, UTI, gastroenteritis, AAA, incarcerated hernia, bowel obstruction, constipation, inflammatory bowel, hepatitis, peptic ulcer disease, splenic infarction, perforated viscus, vulvitis, ovarian torsion, PID, kidney stone, placenta abruption, this is not meant to be an all-inclusive list EKG interpreted by me (3pts min.). @ -None done X-rays interpreted by me (1pt min.). @ -None done CT interpreted by me (1pt min.). @ -None done U/S interpreted by me (1pt. min.). @ -None done What testing was considered but not performed or refused? (CT, X-rays, U/S, labs)? Why? @ -None What meds were considered but not given or refused? Why? @ -None Did you discuss the management of the patient with other professionals (professionals i.e. , PA, BATTERY ASSEMBLER, lab, RT, psych nurse, 7th grade social studies teacher, associate trainer, teacher, licensed loan officer, employment evaluator/case manager)? Give summary @ -No Was smoking cessation discussed for >3mins.? @ -No Was critical care preformed (if so, how long)? @ -No Were there social determinants of health that impacted care today? How? (Homelessness, low income, unemployed, alcoholism, drug addiction, transportation, low edu. Level, literacy, decrease access to med. care, prison, rehab)? @ -No Was there de-escalation of care discussed even if they declined (Discuss DNR or withdrawal of care, Hospice)? DNR status @ -No What co-morbidities impacted this encounter? (DM, HTN, Smoking, COPD, CAD, Cancer, CVA, ARF, Chemo, Hep., AIDS, mental health diagnosis, sleep apnea, morbid obesity)? @ -None Was patient admitted / discharged? Hospital course, mention meds given and route, prescriptions, significant lab abnormalities, going to OR and other pertinent info. @ --82 year-old female presents to emergency by with sore throat, diarrhea nausea and poor appetite. Patient with the symptoms of viral gastroenteritis. Laboratory evaluation obtained. CBC, metabolic panel is within acceptable limits. Vital testing is negative. Strep test negative. Patient given Zofran IV fluids discharge advised follow-up with primary doctor. Undiagnosed new problem with uncertain prognosis? @ -No Drug Therapy requiring intensive monitoring for toxicity (Heparin, Nitro, Insulin, Cardizem)? @ -No Were any procedures done? @ -No Diagnosis/symptom? Acute, or Chronic, or Acute on Chronic? Uncomplicated (without systemic symptoms) or Complicated (systemic symptoms)? @ -1. Viral syndrome Side effects of treatment? @ -No Exacerbation, Progression, or Severe Exacerbation? @ -No Poses a threat to life or bodily function? How? (Chest pain, USA, CA, pneumonia, PE, COPD, DKA, ARF, appy, cholecystitis, CVA, Diverticulitis, Homicidal, Suicidal, threat to staff... and all critical care pts) @ -No - Lab Data Result diagrams: 01/25/23 14:33 01/25/23 14:33 Lab Results 01/25/23 01/25/23 01/25/23 Range/Units 14:33 14:33 14:33 WBC 9.4 (3.8-10.6) k/uL RBC 3.80 (3.80-5.40) m/uL Hgb 11.9 (11.4-16.0) gm/dL Hct 35.6 (34.0-46.0) % MCV 93.8 (80.0-100.0) fL MCH 31.4 (25.0-35.0) pg MCHC 33.5 (31.0-37.0) g/dL RDW 14.5 (11.5-15.5) % Plt Count 179 (150-450) k/uL MPV 7.6 Neutrophils % 80 % Lymphocytes % 7 % Monocytes % 10 % Eosinophils % 0 % Basophils % 0 % Neutrophils # 7.5 (1.3-7.7) k/uL Lymphocytes # 0.7 L (1.0-4.8) k/uL Monocytes # 1.0 (0-1.0) k/uL Eosinophils # 0.0 (0-0.7) k/uL Basophils # 0.0 (0-0.2) k/uL Sodium 139 (137-145) mmol/L Potassium 4.6 (3.5-5.1) mmol/L Chloride 104 (98-107) mmol/L Carbon Dioxide 26 (22-30) mmol/L Anion Gap 9 mmol/L BUN 27 H (7-17) mg/dL Creatinine 1.59 H (0.52-1.04) mg/dL Est GFR (CKD-EPI)AfAm 34 (>60 ml/min/1.73 sqM) Est GFR (CKD-EPI)NonAf 30 (>60 ml/min/1.73 sqM) Glucose 131 H (74-99) mg/dL Calcium 10.4 H (8.4-10.2) mg/dL Influenza Type A (PCR) Not Detected (Not Detectd) Influenza Type B (PCR) Not Detected (Not Detectd) RSV (PCR) Not Detected (Not Detectd) SARS-CoV-2 (PCR) Not Detected (Not Detectd) Group A Strep (PCR) (Not Detectd) 01/25/23 Range/Units 14:33 WBC (3.8-10.6) k/uL RBC (3.80-5.40) m/uL Hgb (11.4-16.0) gm/dL Hct (34.0-46.0) % MCV (80.0-100.0) fL MCH (25.0-35.0) pg MCHC (31.0-37.0) g/dL RDW (11.5-15.5) % Plt Count (150-450) k/uL MPV Neutrophils % % Lymphocytes % % Monocytes % % Eosinophils % % Basophils % % Neutrophils # (1.3-7.7) k/uL Lymphocytes # (1.0-4.8) k/uL Monocytes # (0-1.0) k/uL Eosinophils # (0-0.7) k/uL Basophils # (0-0.2) k/uL Sodium (137-145) mmol/L Potassium (3.5-5.1) mmol/L Chloride (98-107) mmol/L Carbon Dioxide (22-30) mmol/L Anion Gap mmol/L BUN (7-17) mg/dL Creatinine (0.52-1.04) mg/dL Est GFR (CKD-EPI)AfAm (>60 ml/min/1.73 sqM) Est GFR (CKD-EPI)NonAf (>60 ml/min/1.73 sqM) Glucose (74-99) mg/dL Calcium (8.4-10.2) mg/dL Influenza Type A (PCR) (Not Detectd) Influenza Type B (PCR) (Not Detectd) RSV (PCR) (Not Detectd) SARS-CoV-2 (PCR) (Not Detectd) Group A Strep (PCR) NOT DETECTED (Not Detectd) Disposition Clinical Impression: Gastroenteritis Disposition: HOME SELF-CARE Condition: Good Instructions (If sedation given, give patient instructions): Gastroenteritis (ED) Is patient prescribed a controlled substance at d/c from ED?: No Referrals: Mani Robles DO [Primary Care Provider] - 1-2 days Time of Disposition: 15:35
[2023-01-25 15:00] LABS: African American GFR (CKD) 34 (>60 ml/min/1.73 sqM); Anion Gap 9 mmol/L; Blood Urea Nitrogen 27 mg/dL (7-17); Calcium 10.4 mg/dL (8.4-10.2); Carbon Dioxide 26 mmol/L (22-30); Chloride 104 mmol/L (98-107); Glucose 131 mg/dL (74-99); Non-African American GFR(CKD) 30 (>60 ml/min/1.73 sqM); Potassium 4.6 mmol/L (3.5-5.1); Sodium 139 mmol/L (137-145)
[2023-01-25 15:24] LABS: Basophils % (A) 0 %; Eosinophils % (A) 0 %; HCT 35.6 % (34.0-46.0); HGB 11.9 gm/dL (11.4-16.0); Lymphocytes # (A) 0.7 k/uL (1.0-4.8); Lymphocytes % (A) 7 %; MCH 31.4 pg (25.0-35.0); MCHC 33.5 g/dL (31.0-37.0); MCV 93.8 fL (80.0-100.0); Mean Platelet Volume 7.6; Monocytes % (A) 10 %; Neutrophils # (A) 7.5 k/uL (1.3-7.7); Neutrophils % (A) 80 %; Platelet Count 179 k/uL (150-450); RDW 14.5 % (11.5-15.5); WBC 9.4 k/uL (3.8-10.6)
[2023-01-25] MEDS ORDERED: ONDANSETRON 4 MG/2 ML VIAL IVP STA (15:33)
[2023-01-25] MEDS ORDERED: ONDANSETRON 4 MG ODT STARTER PACK 2 TAB BTL PO STA (15:34)
[2023-01-25 15:59] VITALS: BP 158/84; PULSE 70; RESP 16; TEMP 98.3
== END 2023-01-25 16:08 | disposition home or self-care (01) ==
LOC: EC 14:12
DX: K52.9 Noninfective gastroenteritis and colitis, unspecified (principal); E11.9 Type 2 diabetes mellitus without complications; I10 Essential (primary) hypertension; F41.9 Anxiety disorder, unspecified; F32.A Depression, unspecified; E07.9 Disorder of thyroid, unspecified; Z79.890 Hormone replacement therapy; Z79.82 Long term (current) use of aspirin; Z79.899 Other long term (current) drug therapy; Z88.2 Allergy status to sulfonamides; Z88.8 Allergy status to other drugs, medicaments and biological substances; Z79.84 Long term (current) use of oral hypoglycemic drugs; Z88.1 Allergy status to other antibiotic agents
CPT/HCPCS: 36415; 87651; 80048; 85025; 87636; 99284; 96374; 96361; J2405; S0119

== ENCOUNTER → 2023-02-04 | Outpatient (CLI) | payer MEDICARE, BC ==
--- NOTE | 2023-02-04 10:25 | CT ---
EXAMINATION TYPE: CT abdomen pelvis wo con DATE OF EXAM: 02/04/2023 COMPARISON: None HISTORY: acute kidney failure CT DLP: 438.5 mGycm Examination of the solid and hollow viscera is limited given the lack of contrast. FINDINGS: LUNG BASES: No evidence for nodule. No evidence for infiltrate. Chronic elevation right hemidiaphragm with right basilar parenchymal scar or atelectasis. LIVER/GB: The gallbladder is surgically absent. No space-occupying hepatic lesion. PANCREAS: No pancreatic mass identified. No inflammatory process seen. SPLEEN: No evidence for splenomegaly. No intrasplenic lesions seen. ADRENALS: No adrenal nodules identified. No evidence for thickening. KIDNEYS: No evidence for renal mass. 1 cm nonobstructing calculus lower pole left kidney. No addition al calculi seen. No hydronephrosis. BOWEL: Appendix has a normal appearance. No evidence of bowel obstruction. No inflammatory process. Lymph nodes: No evidence for adenopathy greater than 1 cm. Abdominal aorta: Atheromatous changes seen. No evidence for aneurysm. Genital organs: No significant abnormality. Other: No significant abnormality. IMPRESSION: 1. Nonobstructing nephrolithiasis left kidney. No hydronephrosis, renal mass or significant parenchym al thinning for the patient's age group.
== END | disposition home or self-care (01) ==
LOC: RADCTMAIN 08:17
PROVIDERS: ATTEND Family Medicine
DX: E11.43 Type 2 diabetes mellitus with diabetic autonomic (poly)neuropathy (principal); N17.8 Other acute kidney failure; N20.0 Calculus of kidney
CPT/HCPCS: 74176

== ENCOUNTER 2023-03-30 06:49 | Inpatient (IN) | payer MEDICARE, BC ==
[2023-03-30] MEDS ORDERED: SODIUM CHLORIDE 0.9% 500 ML 500 ML IV ONE (07:17)
[2023-03-30] MEDS ORDERED: ACETAMINOPHEN TAB 500 MG TAB PO STA (07:18)
--- NOTE | 2023-03-30 07:30 | ED ---
General Adult HPI - General Chief complaint: Altered Mental Status Stated complaint: AMS Time Seen by Provider: 03/30/23 06:58 Source: patient, EMS, RN notes reviewed, old records reviewed Mode of arrival: EMS - History of Present Illness Initial comments: 82-year-old female presenting with confusion and fever. Patient has history of chronic kidney disease, history diabetes. She developed confusion and hallucination over the past 12 hours. She was also noted to have some nausea and fever of 101. Patient's daughter is at bedside was able to aid in the history. She states that she complained of some back pain which seems to be predominantly right sided. She was screened for urinary tract infection and recent past and this was negative according to the daughter. She's had no cough or upper respiratory symptoms. No complaints of abdominal pain. - Related Data Home Medications Medication Instructions Recorded Confirmed Aspirin 81 mg PO DAILY 05/03/14 11/19/22 Losartan Potassium 100 mg PO HS 05/03/14 11/19/22 amLODIPine [Norvasc] 10 mg PO DAILY 05/03/14 11/19/22 metFORMIN HCL [Glucophage] 1,000 mg PO BID 05/03/14 11/19/22 Levothyroxine Sodium [Synthroid] 75 mcg PO DAILY 06/25/16 11/19/22 DULoxetine HCL [Cymbalta] 20 mg PO BID 08/24/22 11/19/22 Empagliflozin [Jardiance] 10 mg PO DAILY 08/24/22 11/19/22 Famotidine [Pepcid] 20 mg PO DAILY PRN 08/24/22 11/19/22 cloNIDine HCL 0.1 mg PO TID 08/24/22 11/19/22 levETIRAcetam [Keppra] 500 mg PO BID 08/24/22 11/19/22 ondansetron HCL [Zofran] 8 mg PO Q8HR PRN 08/24/22 11/19/22 Previous Rx's Medication Instructions Recorded Acetaminophen Tab [Tylenol] 650 mg PO Q6HR PRN tab 08/27/22 Ascorbic Acid [Vitamin C] 1,000 mg PO DAILY tab 08/27/22 INSULIN ASPART (NovoLOG) [NovoLOG 0 unit SQ AC-TID each 08/27/22 (formulary)] Melatonin 3 mg PO HS PRN tab 04/06/23 Multivitamins, Thera Liquid 15 ml PO DAILY ml 08/27/22 [Theragran Liquid (formulary)] Atorvastatin [Lipitor] 10 mg PO HS #30 tab 08/29/22 LORazepam [Ativan] 0.5 mg PO TID PRN #9 tab 08/29/22 Mirtazapine 7.5 mg PO HS #30 tablet 08/29/22 Rivaroxaban [Xarelto] 15 mg PO AC-SUPPER #30 tab 08/29/22 Zinc Gluconate [Zinc] 50 mg PO DAILY #30 tablet 08/29/22 Allergies Allergy/AdvReac Type Severity Reaction Status Date / Time Sulfa (Sulfonamide Allergy Rash/Hives Verified 01/25/23 14:20 Antibiotics) bleach Allergy Rash/Hives Uncoded 01/25/23 14:20 Review of Systems ROS Statement: Those systems with pertinent positive or pertinent negative responses have been documented in the HPI. ROS Other: All systems not noted in ROS Statement are negative. Past Medical History Past Medical History: Cancer, CVA/TIA, Diabetes Mellitus, Hyperlipidemia, Hypertension, Osteoarthritis (OA), Renal Disease, Seizure Disorder, Thyroid Disorder Additional Past Medical History / Comment(s): vertigo,hiatal hernia, restless leg,neuropathy,carpal tunnel,ddd, squamous cell carcinoma-arms, hands, legs, AKF History of Any Multi-Drug Resistant Organisms: None Reported Past Surgical History: Appendectomy, Back Surgery, Breast Surgery, Cholecystectomy, Hysterectomy, Orthopedic Surgery, Tonsillectomy Additional Past Surgical History / Comment(s): skin cancer removal, hemorrhoid removal, left breast high risk excisional november 2020 Past Anesthesia/Blood Transfusion Reactions: Motion Sickness Additional Past Anesthesia/Blood Transfusion Reaction / Comment(s): vertigo Past Psychological History: Anxiety, Depression Smoking Status: Never smoker Past Alcohol Use History: None Reported Past Drug Use History: None Reported - Past Family History Sister(s) Family Medical History: Cancer Additional Family Medical History / Comment(s): BREAST General Exam Limitations: altered mental status General appearance: in no apparent distress, lethargic Head exam: Present: atraumatic, normocephalic Eye exam: Present: normal appearance, PERRL ENT exam: Present: mucous membranes dry Neck exam: Present: normal inspection. Absent: tenderness, meningismus Respiratory exam: Present: normal lung sounds bilaterally. Absent: respiratory distress, wheezes Cardiovascular Exam: Present: regular rate, normal rhythm GI/Abdominal exam: Present: soft. Absent: distended, tenderness, guarding, rebound Extremities exam: Present: normal inspection, normal capillary refill Neurological exam: Present: alert, CN II-XII intact, other (No focal findings). Absent: oriented X3, motor sensory deficit Skin exam: Present: warm, dry, intact Course Vital Signs 03/30/23 03/30/23 03/30/23 06:59 08:38 08:40 Temperature 101.1 F H Pulse Rate 80 Respiratory 16 Rate Blood Pressure 184/104 O2 Sat by Pulse 95 80 L 91 L Oximetry 03/30/23 03/30/23 08:44 09:10 Temperature 97.8 F Pulse Rate 92 94 Respiratory 17 20 Rate Blood Pressure 169/86 179/97 O2 Sat by Pulse 94 L 95 Oximetry Medical Decision Making - Medical Decision Making Was pt. sent in by a medical professional or institution (, PA, FACILITIES MANAGER, urgent care, hospital, or fdc...) When possible be specific @ -No Did you speak to anyone other than the patient for history (EMS, parent, family, police, friend...)? What history was obtained from this source @ Patient's daughter who is at bedside Did you review nursing and triage notes (agree or disagree)? Why? @ -I reviewed and agree with nursing and triage notes Were old charts reviewed (outside hosp., previous admission, EMS record, old EKG, old radiological studies, urgent care reports/EKG's, fdc records)? Report findings @ -No old charts were reviewed Differential Diagnosis (chest pain, altered mental status, abdominal pain women, abdominal pain men, vaginal bleeding, weakness, fever, dyspnea, syncope, headache, dizziness, GI bleed, back pain, seizure, CVA, palpatations, mental health, musculoskeletal)? @ -[Differential Altered Mental Status: Hypoglycemia, DKA, hypercapnia, ETOH, overdose, CO poisoning, trauma, myxedema coma, HTN encephalopathy, infection, encephalitis, psychosis, intercranial hemor rhage, hepatic encephalopathy, meningitis, CVA, this is not meant to be an all- inclusive list EKG interpreted by me (3pts min.). @ -[Sinus rhythm rate of 95, GA interval 164, QRS duration 108, QTC [address] segment elevation. X-rays interpreted by me (1pt min.). @ Chest x-ray showing chronic elevation of right hemidiaphragm and left lower lobe infiltrate. CT interpreted by me (1pt min.). @ -None done U/S interpreted by me (1pt. min.). @ -None done What testing was considered but not performed or refused? (CT, X-rays, U/S, labs)? Why? @ -None What meds were considered but not given or refused? Why? @ -None Did you discuss the management of the patient with other professionals (professionals i.e. , PA, FACILITIES MANAGER, lab, RT, psych nurse, social services assistant, forest botany instructor, teacher, traffic officer, family service caseworker)? Give summary @ -[Sound physician group Was smoking cessation discussed for >3mins.? @ -No Was critical care preformed (if so, how long)? @ -No Were there social determinants of health that impacted care today? How? (Homelessness, low income, unemployed, alcoholism, drug addiction, transportation, low edu. Level, literacy, decrease access to med. care, shelter, rehab)? @ -No Was there de-escalation of care discussed even if they declined (Discuss DNR or withdrawal of care, Hospice)? DNR status @ -[Patient is a DO NOT RESUSCITATE with elective intubation for respiratory issues What co-morbidities impacted this encounter? (DM, HTN, Smoking, COPD, CAD, Cancer, CVA, ARF, Chemo, Hep., AIDS, mental health diagnosis, sleep apnea, morbid obesity)? @ -Diabetes Was patient admitted / discharged? Hospital course, mention meds given and route, prescriptions, significant lab abnormalities, going to OR and other pertinent info. @ 82-year-old female with fever, confusion. Patient is febrile upon arrival o ther vital signs are stable. She has normal lactic acid, normal white blood cell count. Her viral panel is negative. Urinalysis is negative. She has a infiltrate on chest x-ray which is likely the cause of her fever. She has mild oxygen requirements requiring oxygen by nasal cannula. She will be admitted for treatment of pneumonia with hypoxia. Undiagnosed new problem with uncertain prognosis? @ -No Drug Therapy requiring intensive monitoring for toxicity (Heparin, Nitro, Insulin, Cardizem)? @ -No Were any procedures done? @ -No Diagnosis/symptom? @ -[Pneumonia with hypoxia Acute, or Chronic, or Acute on Chronic? @ -[Acute Uncomplicated (without systemic symptoms) or Complicated (systemic symptoms)? @ -Complicated Side effects of treatment? @ -No Exacerbation, Progression, or Severe Exacerbation? @ -No Poses a threat to life or bodily function? How? (Chest pain, [place], [place], pneumonia, PE, COPD, DKA, ARF, appy, cholecystitis, CVA, Diverticulitis, Homicidal, Suic idal, threat to staff... and all critical care pts) @ -Yes, sepsis, respiratory failure - Lab Data Result diagrams: 03/30/23 07:36 03/30/23 07:36 Lab Results 03/30/23 03/30/23 03/30/23 Range/Units 07:36 07:36 07:36 WBC 9.3 (3.8-10.6) k/uL RBC 3.89 (3.80-5.40) m/uL Hgb 12.2 (11.4-16.0) gm/dL Hct 36.2 (34.0-46.0) % MCV 92.9 (80.0-100.0) fL MCH 31.2 (25.0-35.0) pg MCHC 33.6 (31.0-37.0) g/dL RDW 13.6 (11.5-15.5) % Plt Count 165 (150-450) k/uL MPV 8.1 Neutrophils % 82 % Lymphocytes % 10 % Monocytes % 7 % Eosinophils % 0 % Basophils % 0 % Neutrophils # 7.7 (1.3-7.7) k/uL Lymphocytes # 0.9 L (1.0-4.8) k/uL Monocytes # 0.6 (0-1.0) k/uL Eosinophils # 0.0 (0-0.7) k/uL Basophils # 0.0 (0-0.2) k/uL PT 16.7 H (10.0-12.5) sec INR 1.6 H (<1.2) APTT 25.4 (22.0-30.0) sec Sodium (137-145) mmol/L Potassium (3.5-5.1) mmol/L Chloride (98-107) mmol/L Carbon Dioxide (22-30) mmol/L Anion Gap mmol/L BUN (7-17) mg/dL Creatinine (0.52-1.04) mg/dL Est GFR (CKD-EPI)AfAm (>60 ml/min/1.73 sqM) Est GFR (CKD-EPI)NonAf (>60 ml/min/1.73 sqM) Glucose (74-99) mg/dL Calcium (8.4-10.2) mg/dL Total Bilirubin (0.2-1.3) mg/dL AST (14-36) U/L ALT (4-34) U/L Alkaline Phosphatase (38-126) U/L Total Protein (6.3-8.2) g/dL Albumin (3.5-5.0) g/dL Urine Color Colorless Urine Appearance Clear (Clear) Urine pH 7.0 (5.0-8.0) Ur Specific [place] 1.013 (1.001-1.035) Urine Protein 1+ H (Negative) Urine Glucose (UA) 4+ H (Negative) Urine Ketones Negative (Negative) Urine Blood Negative (Negative) Urine Nitrite Negative (Negative) Urine Bilirubin Negative (Negative) Urine Urobilinogen <2.0 (<2.0) mg/dL Ur Leukocyte Esterase Negative (Negative) Urine RBC <1 (0-5) /hpf Urine WBC <1 (0-5) /hpf Ur Squamous Epith Cells <1 (0-4) /hpf Urine Bacteria Rare H (None) /hpf Influenza Type A (PCR) (Not Detectd) Influenza Type B (PCR) (Not Detectd) RSV (PCR) (Not Detectd) SARS-CoV-2 (PCR) (Not Detectd) 03/30/23 03/30/23 Range/Units 07:36 07:36 WBC (3.8-10.6) k/uL RBC (3.80-5.40) m/uL Hgb (11.4-16.0) gm/dL Hct (34.0-46.0) % MCV (80.0-100.0) fL MCH (25.0-35.0) pg MCHC (31.0-37.0) g/dL RDW (11.5-15.5) % Plt Count (150-450) k/uL MPV Neutrophils % % Lymphocytes % % Monocytes % % Eosinophils % % Basophils % % Neutrophils # (1.3-7.7) k/uL Lymphocytes # (1.0-4.8) k/uL Monocytes # (0-1.0) k/uL Eosinophils # (0-0.7) k/uL Basophils # (0-0.2) k/uL PT (10.0-12.5) sec INR (<1.2) APTT (22.0-30.0) sec Sodium 142 (137-145) mmol/L Potassium 4.0 (3.5-5.1) mmol/L Chloride 103 (98-107) mmol/L Carbon Dioxide 26 (22-30) mmol/L Anion Gap 13 mmol/L BUN 29 H (7-17) mg/dL Creatinine 1.37 H (0.52-1.04) mg/dL Est GFR (CKD-EPI)AfAm 41 (>60 ml/min/1.73 sqM) Est GFR (CKD-EPI)NonAf 36 (>60 ml/min/1.73 sqM) Glucose 243 H (74-99) mg/dL Calcium 10.6 H (8.4-10.2) mg/dL Total Bilirubin 2.2 H (0.2-1.3) mg/dL AST 16 (14-36) U/L ALT 13 (4-34) U/L Alkaline Phosphatase 71 (38-126) U/L Total Protein 8.2 (6.3-8.2) g/dL Albumin 4.8 (3.5-5.0) g/dL Urine Color Urine Appearance (Clear) Urine pH (5.0-8.0) Ur Specific [place] (1.001-1.035) Urine Protein (Negative) Urine Glucose (UA) (Negative) Urine Ketones (Negative) Urine Blood (Negative) Urine Nitrite (Negative) Urine Bilirubin (Negative) Urine Urobilinogen (<2.0) mg/dL Ur Leukocyte Esterase (Negative) Urine RBC (0-5) /hpf Urine WBC (0-5) /hpf Ur Squamous Epith Cells (0-4) /hpf Urine Bacteria (None) /hpf Influenza Type A (PCR) Not Detected (Not Detectd) Influenza Type B (PCR) Not Detected (Not Detectd) RSV (PCR) Not Detected (Not Detectd) SARS-CoV-2 (PCR) Not Detected (Not Detectd) Disposition Clinical Impression: Delirium due to general medical condition, Pneumonia, Hypoxia Disposition: ADMITTED IP TO THIS HOSP Condition: Stable Is patient prescribed a controlled substance at d/c from ED?: No Referrals: Mani Robles DO [Primary Care Provider] - 1-2 days Time of Disposition: 09:52
--- NOTE | 2023-03-30 07:39 | XR ---
EXAMINATION TYPE: XR chest 2V DATE OF EXAM: 03/30/2023 7:34 AM COMPARISON: Chest radiographs from TECHNIQUE: XR chest 2V Frontal and lateral views of the chest. CLINICAL INDICATION:Female, 82 years old with history of fever; FINDINGS: Lungs/Pleura: Blunting of the right costophrenic angle. Chronic elevation of the right hemidiaphragm. No pneumothorax. Left basilar patchy airspace opacity. Pulmonary vascularity: Unremarkable. Heart/mediastinum: Cardiomediastinal silhouette is enlarged and stable. Atherosclerotic calcificatio ns are seen in the aorta. Musculoskeletal: No acute osseous pathology. IMPRESSION: Small right pleural effusion with left basilar patchy airspace opacities which may represent atelecta sis versus infiltrate.
[2023-03-30 07:58] LABS: Basophils % (A) 0 %; Eosinophils % (A) 0 %; HCT 36.2 % (34.0-46.0); HGB 12.2 gm/dL (11.4-16.0); Lymphocytes # (A) 0.9 k/uL (1.0-4.8); Lymphocytes % (A) 10 %; MCH 31.2 pg (25.0-35.0); MCHC 33.6 g/dL (31.0-37.0); MCV 92.9 fL (80.0-100.0); Mean Platelet Volume 8.1; Monocytes # (A) 0.6 k/uL (0-1.0); Monocytes % (A) 7 %; Neutrophils # (A) 7.7 k/uL (1.3-7.7); Neutrophils % (A) 82 %; Platelet Count 165 k/uL (150-450); RBC 3.89 m/uL (3.80-5.40); RDW 13.6 % (11.5-15.5); WBC 9.3 k/uL (3.8-10.6)
[2023-03-30 08:09] LABS: INR 1.6 (<1.2); Partial Thromboplastin Time 25.4 sec (22.0-30.0); Prothrombin Time 16.7 sec (10.0-12.5)
[2023-03-30 08:15] LABS: ALT 13 U/L (4-34); AST 16 U/L (14-36); African American GFR (CKD) 41 (>60 ml/min/1.73 sqM); Albumin 4.8 g/dL (3.5-5.0); Alkaline Phosphatase 71 U/L (38-126); Anion Gap 13 mmol/L; Blood Urea Nitrogen 29 mg/dL (7-17); Calcium 10.6 mg/dL (8.4-10.2); Carbon Dioxide 26 mmol/L (22-30); Chloride 103 mmol/L (98-107); Glucose 243 mg/dL (74-99); Non-African American GFR(CKD) 36 (>60 ml/min/1.73 sqM); Sodium 142 mmol/L (137-145); Total Bilirubin 2.2 mg/dL (0.2-1.3); Total Protein 8.2 g/dL (6.3-8.2)
[2023-03-30] MEDS ORDERED: AZITHROMYCIN 500 MG in SODIUM CHLORIDE 0.9% 250 ML IVPB STA (09:27)
[2023-03-30 09:28] LABS: Appearance,Urine Clear (Clear); Bacteria,Urine Rare /hpf; Bilirubin,Urine Negative (Negative); Blood,Urine Negative (Negative); Color,Urine Colorless; Glucose,Urine (UA) 4+ (Negative); Ketones,Urine Negative (Negative); Leukocyte Esterase,Urine Negative (Negative); Nitrite,Urine Negative (Negative); Protein,Urine 1+ (Negative); RBC,Urine <1 /hpf (0-5); Specific Gravity,Urine 1.013 (1.001-1.035); Squamous Epithelial Cell,Urine <1 /hpf (0-4); Urobilinogen,Urine <2.0 mg/dL (<2.0); WBC,Urine <1 /hpf (0-5)
[2023-03-30] MEDS: SODIUM CHLORIDE 0.9% 1,000 ML IV SCH (09:31)
[2023-03-30] MEDS ORDERED: NALOXONE 0.4 MG/ML 1 ML VIAL IV PRN (09:49)
[2023-03-30] MEDS ORDERED: FAMOTIDINE 20 MG TAB PO PRN (11:42)
[2023-03-30] MEDS: levETIRAcetam 500 MG TAB PO SCH ×2 (12:18→20:19)
[2023-03-30] MEDS: LEVOTHYROXINE 75 MCG TAB PO SCH (12:18)
[2023-03-30] MEDS: DULoxetine HCL 30 MG CAPSULE.DR PO SCH (12:18)
[2023-03-30] MEDS: amLODIPine 10 MG TAB PO SCH (12:18)
[2023-03-30] MEDS: DAPAGLIFLOZIN PROPANEDIOL 5 MG TABLET PO SCH ×2 (12:18→12:19)
[2023-03-30] MEDS: FUROSEMIDE 20 MG TAB PO SCH (12:19)
[2023-03-30] MEDS ORDERED: PNEUMONIA PROTOCOL UTILIZED 1 EACH MISC PO PRN (16:19)
[2023-03-30] MEDS ORDERED: ACETAMINOPHEN TAB 325 MG TAB PO PRN (16:19)
[2023-03-30] MEDS ORDERED: ALBUTEROL NEBULIZED 2.5 MG/3 ML INHALATION PRN (16:19)
[2023-03-30] MEDS ORDERED: DEXTROSE 50% SYRINGE 50 ML IVP PRN ×2 (16:21)
[2023-03-30] MEDS ORDERED: bisacodyL 5 MG TABLET.DR PO PRN (16:22)
[2023-03-30] MEDS ORDERED: ONDANSETRON 4 MG/2 ML VIAL IVP PRN (16:22)
[2023-03-30] MEDS ORDERED: MELATONIN 3 MG TABLET PO PRN (16:22)
--- NOTE | 2023-03-30 16:26 | P.HPIM ---
History of Present Illness H&P Date: 03/30/23 (delayed charting seen at 1115) Patient is an 82-year-old female with sciatica, hypertension, dyslipidemia, diabetes, and prior cerebrovascular accidents who presented to the hospital today due to fevers and altered mentation. In the emergency department she underwent an extensive evaluation. Initial vital signs were remarkable for temperature of 101.1 and blood pressure 184/104. She was found to be 80% on room air. Initial laboratory analysis included CBC, coags, CMP, & urinalysis which were remarkable for INR 1.6, BUN 29, creatinine 1.37, calcium 10.6. Influenza A/B/RSV/COVID-19 testing was negative. Her chest x-ray in the ER showed possible left lower lobe infiltrate. She was given a dose of Zithromax and Rocephin. Arrangements were made for admission. Patient seen and examined at bedside in the emergency department with daughter present. Patient is lethargic. She does awake to touch over immediately falls back asleep. Daughter participates in information gathering. The patient had been suffering from her sciatica with having some right sided buttock pain as well as as fasciculations. They went and saw her primary care physician yesterday who prescribed her baclofen. She took 2 doses yesterday and then became more confused in the evening. As time went on she had increased confusion as well as weakness. This morning she went to go to the bathroom and was unable to hold herself up. The daughter brought her to the emergency department. Patient daughter states that when she was seen at the family physician yesterday she had no signs of pneumonia or urinary tract infection. She has not been having any fevers, cough, or shortness of breath at home prior to this incident. She is not convinced that the baclofen would cause altered mentation as the patient has been on it in the past. Vital signs reviewed General: nontoxic, no distress, appears at stated age Derm: warm, dry Eyes: EOMI, no lid lag, anicteric sclera, pupils equal round reactive to light ENT: Nose and ears atraumatic, no thrush, no pharyngeal erythema Cardiovascular: S1S2 reg, no murmur, positive posterior tibial pulse bilateral, no edema, capillary refill less than 2 seconds Lungs: Decreased breath sounds bilateral, no rhonchi, no rales, no wheeze, no accessory muscle use Abdominal: soft, nontender to palpation, no guarding, no appreciable organomegaly, normal bowel sounds Ext: no gross muscle atrophy, moving all 4 extremities independently, no contractures Neuro: CN II-XII grossly intact, no focal neuro deficits noted Psych: Lethargic, awake and converses appropriately, but has difficulty maintaining alertness. Assessment/Plan: Metabolic encephalopathy Left lower lobe pneumonia, community-acquired Hypercalcemia Dehydration -Influenza A/B/RSV/COVID-19 testing was negative Zithromax 500 mg IV piggyback daily, Rocephin 2 g IV piggyback daily -Hold baclofen, Ativan, Remeron, and gabapentin due to sedation -Continue with Keppra 500 mg by mouth twice daily given patient's history of seizures -Normal saline at 75 mL/h - safe and supportive environment DM II -Start sliding scale insulin -Follow blood sugars -Check A1c - farxigaf 5 mg oral daily Chronic kidney disease stage III - monitor Cr closely - avoid nephrotoxic agents Subtherapeutic Coumadin coagulopathy History of CVA -Resume Coumadin with pharmacy to dose Chronic: Hypertension Dyslipidemia Seizure disorder Imaging: Discussed x-ray is reviewed by myself shows increased pulmonary vascular co ngestion with left lower lobe infiltrate and air bronchograms Data Review: As per HPI The patient is admitted with an anticipated greater than 2 midnight stay for evaluation of Pneumonia Surrogate decision-maker: Daughter CODE STATUS:Okay for elective intubation, no CPR DVT prophylaxis: Coumadin Anticipated discharge date: Pending Clinical Course Anticipated discharge place: Pending Clinical Course This dictation was prepared using [employer] voice recognition software. Though every attempt is made to correct errors during dictation some may still exist. Past Medical History Past Medical History: Cancer, CVA/TIA, Diabetes Mellitus, Hyperlipidemia, Hypertension, Osteoarthritis (OA), Renal Disease, Seizure Disorder, Thyroid Disorder Additional Past Medical History / Comment(s): vertigo,hiatal hernia, restless leg,neuropathy,carpal tunnel,ddd, squamous cell carcinoma-arms, hands, legs, CKD History of Any Multi-Drug Resistant Organisms: None Reported Past Surgical History: Appendectomy, Back Surgery, Breast Surgery, Cholecystectomy, Hysterectomy, Orthopedic Surgery, Tonsillectomy Additional Past Surgical History / Comment(s): skin cancer removal, hemorrhoid removal, left breast high risk excisional november 2020 Past Anesthesia/Blood Transfusion Reactions: Motion Sickness Additional Past Anesthesia/Blood Transfusion Reaction / Comment(s): vertigo Past Psychological History: Anxiety, Depression Smoking Status: Never smoker Past Alcohol Use History: None Reported Past Drug Use History: None Reported - Past Family History Sister(s) Family Medical History: Cancer Additional Family Medical History / Comment(s): BREAST Medications and Allergies Home Medications Medication Instructions Recorded Confirmed Type Losartan Potassium 100 mg PO HS 05/03/14 03/30/23 History amLODIPine [Norvasc] 10 mg PO DAILY 05/03/14 03/30/23 History Levothyroxine Sodium [Synthroid] 75 mcg PO DAILY 06/25/16 03/30/23 History Empagliflozin [Jardiance] 10 mg PO DAILY 08/24/22 03/30/23 History Famotidine [Pepcid] 20 mg PO DAILY PRN 08/24/22 03/30/23 History cloNIDine HCL 0.1 mg PO BID 08/24/22 03/30/23 History levETIRAcetam [Keppra] 500 mg PO BID 08/24/22 03/30/23 History Atorvastatin [Lipitor] 10 mg PO HS #30 tab 08/29/22 03/30/23 Rx DULoxetine HCL [Cymbalta] 30 mg PO DAILY 03/30/23 03/30/23 History Furosemide [Lasix] 20 mg PO DAILY 03/30/23 03/30/23 History Gabapentin 300 mg PO HS 03/30/23 03/30/23 History LORazepam [Ativan] 0.5 mg PO DAILY PRN 03/30/23 03/30/23 History Mirtazapine [Remeron] 7.5 mg PO HS 03/30/23 03/30/23 History Warfarin Sodium [Jantoven] 4 mg PO DAILY 03/30/23 03/30/23 History Allergies Allergy/AdvReac Type Severity Reaction Status Date / Time Bleach (Sodium Hypochlorite) Allergy Rash/Hives Verified 03/30/23 10:28 Sulfa (Sulfonamide Allergy Rash/Hives Verified 03/30/23 10:28 Antibiotics) Physical Exam Osteopathic Statement: *. No significant issues noted on an osteopathic structural exam other than those noted in the History and Physical/Consult. Vitals: Vital Signs Temp Pulse Resp BP Pulse Ox 03/30/23 15:15 75 16 165/81 97 03/30/23 14:03 98.2 F 78 18 167/94 95 03/30/23 13:20 78 17 162/82 95 03/30/23 12:08 90 17 169/97 94 L 03/30/23 11:00 90 17 163/87 94 L 03/30/23 10:25 98.3 F 92 20 174/95 94 L 03/30/23 09:10 94 20 179/97 95 03/30/23 08:44 97.8 F 92 17 169/86 94 L 03/30/23 08:40 91 L 03/30/23 08:38 80 L 03/30/23 06:59 101.1 F H 80 16 184/104 95 Intake and Output 03/30/23 03/30/23 03/30/23 06:59 14:59 22:59 Output Total 1200 Balance -1200 Output: Urine 1200 Uretheral (Dobbs) 400 Other: Weight 72.575 kg Results CBC & Chem 7: 03/30/23 07:36 03/30/23 07:36 Labs: Abnormal Lab Results - Last 24 Hours (Table) 03/30/23 03/30/23 03/30/23 Range/Units 07:36 07:36 07:36 Lymphocytes # 0.9 L (1.0-4.8) k/uL PT 16.7 H (10.0-12.5) sec INR 1.6 H (<1.2) BUN (7-17) mg/dL Creatinine (0.52-1.04) mg/dL Glucose (74-99) mg/dL Calcium (8.4-10.2) mg/dL Total Bilirubin (0.2-1.3) mg/dL Urine Protein 1+ H (Negative) Urine Glucose (UA) 4+ H (Negative) Urine Bacteria Rare H (None) /hpf 03/30/23 Range/Units 07:36 Lymphocytes # (1.0-4.8) k/uL PT (10.0-12.5) sec INR (<1.2) BUN 29 H (7-17) mg/dL Creatinine 1.37 H (0.52-1.04) mg/dL Glucose 243 H (74-99) mg/dL Calcium 10.6 H (8.4-10.2) mg/dL Total Bilirubin 2.2 H (0.2-1.3) mg/dL Urine Protein (Negative) Urine Glucose (UA) (Negative) Urine Bacteria (None) /hpf
[2023-03-30 16:59] LABS: Glucose,Whole Blood 161 mg/dL (70-110)
[2023-03-30] MEDS: INSULIN ASPART (NovoLOG) 100 UNIT/ML VIAL SQ SCH ×2 (17:18→20:56)
[2023-03-30] MEDS ORDERED: WARFARIN 5 MG TAB PO ONE (18:00)
[2023-03-30 18:02] LABS: Glucose,Whole Blood 155 mg/dL (70-110)
[2023-03-30] MEDS: LOSARTAN 50 MG TAB PO SCH (20:18)
[2023-03-30] MEDS: ATORVASTATIN 10 MG TAB PO SCH (20:19)
[2023-03-30 20:48] LABS: Glucose,Whole Blood 161 mg/dL (70-110)
[2023-03-31] MEDS: SODIUM CHLORIDE 0.9% 1,000 ML IV SCH ×2 (02:00→12:56)
[2023-03-31] MEDS: LEVOTHYROXINE 75 MCG TAB PO SCH (05:33)
[2023-03-31 07:21] LABS: Glucose,Whole Blood 154 mg/dL (70-110)
--- NOTE | 2023-03-31 08:35 | XR ---
EXAMINATION TYPE: XR chest 1V portable DATE OF EXAM: 03/31/2023 COMPARISON: 03/30/2023 HISTORY: Pneumonia TECHNIQUE: Single frontal view of the chest is obtained. FINDINGS: Elevated right hemidiaphragm with subsegmental changes at both lung bases. Heart is promin ent in size but no overt failure or pneumothorax. IMPRESSION: 1. Marked elevation of the right hemidiaphragm with basilar atelectasis favored over pneumonia.
[2023-03-31] MEDS: INSULIN ASPART (NovoLOG) 100 UNIT/ML VIAL SQ SCH ×4 (09:23→20:56)
[2023-03-31] MEDS: DULoxetine HCL 30 MG CAPSULE.DR PO SCH (09:31)
[2023-03-31] MEDS: amLODIPine 10 MG TAB PO SCH (09:31)
[2023-03-31] MEDS: FUROSEMIDE 20 MG TAB PO SCH (09:31)
[2023-03-31] MEDS: DAPAGLIFLOZIN PROPANEDIOL 5 MG TABLET PO SCH (09:31)
[2023-03-31] MEDS: levETIRAcetam 500 MG TAB PO SCH ×2 (09:31→20:53)
[2023-03-31 11:29] LABS: HCT 36.3 % (37.2-46.3); HGB 11.4 g/dL (12.0-15.0); MCH 29.6 pg (27.0-32.0); MCHC 31.4 g/dL (32.0-37.0); MCV 94.3 FL (80.0-97.0); Mean Platelet Volume 10.4 FL (9.5-12.2); NRBC Per 100 WBC 0 X 10*3/uL (0.00-0.01); Platelet Count 156 X 10*3/uL (140-440); RBC 3.85 X 10*6/uL (4.10-5.20); RDW 13.3 % (11.5-14.5)
[2023-03-31] MEDS: AZITHROMYCIN 500 MG in SODIUM CHLORIDE 0.9% 250 ML IVPB SCH (11:33)
[2023-03-31 11:59] LABS: Glucose,Whole Blood 153 mg/dL (70-110)
[2023-03-31 13:20] LABS: INR 1.82 sec (0.93-1.11); Prothrombin Time 18.9 sec (9.9-11.9)
[2023-03-31 13:53] LABS: BUN/Creat Ratio 15.69 Ratio (12.00-20.00); Blood Urea Nitrogen 20.4 mg/dL (9.0-27.0); Calcium 10.1 mg/dL (8.7-10.3); Carbon Dioxide 23.9 mmol/L (21.6-31.8); Chloride 105 mmol/L (96-109); Glucose 148 mg/dL (70-110); Potassium 3.5 mmol/L (3.5-5.5); Sodium 144 mmol/L (135-145)
--- NOTE | 2023-03-31 15:26 | P.PN ---
Subjective Progress Note Date: 03/31/23 (delayed charting seen at 0845) Patient is an 82-year-old female with sciatica, hypertension, dyslipidemia, diabetes, and prior cerebrovascular accidents who presented to the hospital toda y due to fevers and altered mentation. In the emergency department she underwent an extensive evaluation. Initial vital signs were remarkable for temperature of 101.1 and blood pressure 184/104. She was found to be 80% on room air. Initial laboratory analysis included CBC, coags, CMP, & urinalysis which were remarkable for INR 1.6, BUN 29, creatinine 1.37, calcium 10.6. Influenza A/B/RSV/COVID-19 testing was negative. Her chest x-ray in the ER showed possible left lower lobe infiltrate. She was given a dose of Zithromax and Rocephin. Arrangements were made for admission. She was conitnued on zithromax and rocephin. Patient seen and examined at bedside. Doing better today, no chest pain, mild SOB, no nuasea, feeling stronger today. Vital signs reviewed General: nontoxic, no distress, appears at stated age Cardiovascular: S1S2 reg, no murmur, positive posterior tibial pulse bilateral, Lungs: Decreased bs bilateral, no rhonchi, no rales , no accessory muscle use Abdominal: soft, nontender to palpation, no guarding, no appreciable organomegaly Ext: no gross muscle atrophy, no edema b/l lower extremities, no contractures Neuro: CN II-XI grossly intact, no focal neuro deficits Psych: Alert, oriented, appropriate affect Assessment/Plan: Metabolic encephalopathy, improving Left lower lobe pneumonia, community-acquired Acute Hypoxic Respiratory Failure - Influenza A/B/RSV/COVID-19 testing was negative - Zithromax 500 mg IV piggyback daily D # 2, Rocephin 2 g IV piggyback daily D#2 - Continue to hold baclofen, Ativan, Remeron, and gabapentin due to sedation - Continue with Keppra 500 mg by mouth twice daily - Normal saline at 75 mL/h - safe and supportive environment DM II -Sliding scale insulin -Follow blood sugars -A1c 8.1 -farxiga 5 mg oral daily Chronic kidney disease stage III - monitor Cr closely - avoid nephrotoxic agents Subtherapeutic Coumadin coagulopathy History of CVA -pharmacy dosing coumadin, follow INR daily for titration, monitor for toxicity with INR and for bleeding. Hypercalcemia, resolved Dehydration, resolved Chronic: Hypertension Dyslipidemia Seizure disorder Imaging: CXR reviewed by myself with continued right hemidiaphragm elevation and left sided infiltrate Data Review: Labs reviewed today are CBC, BMP, A1c, and coags which are remarkable for hemoglobin 11.4, INR 1.82, hemoglobin A1c 8.1 DVT prophylaxis: Coumadin Discussed with: Anticipated discharge date: Pending Clinical Course Anticipated discharge place: Pending Clinical Course This dictation was prepared using [email or web address] voice recognition software. Though every attempt is made to correct errors during dictation some may still exist. Objective - Vital Signs Vital signs: Vital Signs Temp 98.9 F 03/31/23 13:55 Pulse 75 03/31/23 13:55 Resp 18 03/31/23 13:55 BP 155/71 03/31/23 13:55 Pulse Ox 97 03/31/23 13:55 FiO2 Intake & Output 03/30/23 03/31/23 03/31/23 18:59 06:59 18:59 Intake Total 150 1020 120 Output Total 2400 1200 Balance -2250 -180 120 Weight 72.575 kg Intake: Intake, IV Titration 150 900 Amount Sodium Chloride 0.9% 1, 150 900 000 ml @ 75 mls/hr IV . [id number] [facility] Rx#:[id number] Oral 120 120 Output: Urine 2400 1200 Uretheral (Dobbs) 1600 Other: Voiding Method Indwelling Catheter Indwelling Catheter Indwelling Catheter - Labs CBC & Chem 7: 03/31/23 06:21 03/31/23 06:21 Labs: Abnormal Lab Results - Last 24 Hours (Table) 03/30/23 03/30/23 03/30/23 Range/Units 16:57 17:59 20:47 RBC (4.10-5.20) X 10*6/uL Hgb (12.0-15.0) g/dL Hct (37.2-46.3) % MCHC (32.0-37.0) g/dL PT (9.9-11.9) sec INR (0.93-1.11) sec Anion Gap (4.00-12.00) mmol/L Est GFR (CKD-EPI) (>=60) Glucose (70-110) mg/dL POC Glucose (mg/dL) 161 H 155 H 161 H (70-110) mg/dL Hemoglobin A1c (<=6.0) % 03/31/23 03/31/23 03/31/23 Range/Units 06:21 06:21 06:21 RBC 3.85 L (4.10-5.20) X 10*6/uL Hgb 11.4 L (12.0-15.0) g/dL Hct 36.3 L (37.2-46.3) % MCHC 31.4 L (32.0-37.0) g/dL PT 18.9 H (9.9-11.9) sec INR 1.82 H (0.93-1.11) sec Anion Gap (4.00-12.00) mmol/L Est GFR (CKD-EPI) (>=60) Glucose (70-110) mg/dL POC Glucose (mg/dL) (70-110) mg/dL Hemoglobin A1c 8.1 H (<=6.0) % 03/31/23 03/31/23 03/31/23 Range/Units 06:21 07:01 11:45 RBC (4.10-5.20) X 10*6/uL Hgb (12.0-15.0) g/dL Hct (37.2-46.3) % MCHC (32.0-37.0) g/dL PT (9.9-11.9) sec INR (0.93-1.11) sec Anion Gap 15.10 H (4.00-12.00) mmol/L Est GFR (CKD-EPI) 41 L (>=60) Glucose 148 H (70-110) mg/dL POC Glucose (mg/dL) 154 H 153 H (70-110) mg/dL Hemoglobin A1c (<=6.0) %
[2023-03-31 16:57] LABS: Glucose,Whole Blood 146 mg/dL (70-110)
[2023-03-31] MEDS ORDERED: WARFARIN 5 MG TAB PO ONE (18:00)
[2023-03-31] MEDS: LOSARTAN 50 MG TAB PO SCH (20:53)
[2023-03-31] MEDS: ATORVASTATIN 10 MG TAB PO SCH (20:53)
[2023-03-31 20:55] LABS: Glucose,Whole Blood 170 mg/dL (70-110)
[2023-03-31] MEDS: GABAPENTIN 300 MG CAP PO SCH (21:47)
[2023-04-01] MEDS: SODIUM CHLORIDE 0.9% 1,000 ML IV SCH (02:14)
--- NOTE | 2023-04-01 05:13 | XR ---
EXAM: XR Right Knee, 3 Views CLINICAL HISTORY: ITS.REASON XR Reason: trauma, fall TECHNIQUE: Three views of the right knee. COMPARISON: No relevant prior studies available. IMPRESSION: 1. No evidence of acutely displaced fracture or dislocation within the right knee. 2. Mild to moderate medial and lateral tibiofemoral compartment osteoarthrosis with extensive chondrocalcinosis. Additional mild patellofemoral compartment osteoarthrosis with osteophyte formation. 3. Given bone demineralization, if there is further concern, consider MRI.
[2023-04-01] MEDS: LEVOTHYROXINE 75 MCG TAB PO SCH (05:33)
[2023-04-01 06:43] LABS: INR 2.1 (<1.2); Prothrombin Time 21.2 sec (10.0-12.5)
[2023-04-01 07:07] LABS: Glucose,Whole Blood 135 mg/dL (70-110)
[2023-04-01] MEDS: INSULIN ASPART (NovoLOG) 100 UNIT/ML VIAL SQ SCH ×4 (08:57→20:11)
[2023-04-01 09:00] LABS: BUN/Creat Ratio 17.92 Ratio (12.00-20.00); Blood Urea Nitrogen 21.5 mg/dL (9.0-27.0); Calcium 9.9 mg/dL (8.7-10.3); Carbon Dioxide 25.2 mmol/L (21.6-31.8); Chloride 108 mmol/L (96-109); Glucose 148 mg/dL (70-110); Potassium 3.5 mmol/L (3.5-5.5); Sodium 145 mmol/L (135-145)
[2023-04-01 09:16] LABS: HCT 36.5 % (37.2-46.3); HGB 11.5 g/dL (12.0-15.0); MCH 29.8 pg (27.0-32.0); MCHC 31.5 g/dL (32.0-37.0); MCV 94.6 FL (80.0-97.0); Mean Platelet Volume 10.3 FL (9.5-12.2); NRBC Per 100 WBC 0 X 10*3/uL (0.00-0.01); Platelet Count 165 X 10*3/uL (140-440); RBC 3.86 X 10*6/uL (4.10-5.20); RDW 13.2 % (11.5-14.5); WBC 6.64 X 10*3/uL (4.50-10.00)
--- NOTE | 2023-04-01 09:44 | XR ---
EXAMINATION TYPE: XR chest 1V portable DATE OF EXAM: 04/01/2023 8:40 AM CLINICAL INDICATION:Female, 82 years old with history of hypoxia; COMPARISON: Chest radiographs from 03/31/2023 TECHNIQUE: XR chest 1V portable Frontal view of the chest. FINDINGS: Lungs/Pleura: Elevated right diaphragm, similar prior. There is no evidence of pleural effusion, foca l consolidation, or pneumothorax. Pulmonary vascularity: Unremarkable. Heart/mediastinum: Cardiomediastinal silhouette is enlarged and stable. Musculoskeletal: No acute osseous pathology. IMPRESSION: Low lung volumes with a generalized hazy appearance which could represent atelectasis versus pulmonar y edema correlate with serum BNP.
[2023-04-01] MEDS: FUROSEMIDE 20 MG TAB PO SCH (10:27)
[2023-04-01] MEDS: levETIRAcetam 500 MG TAB PO SCH ×2 (10:27→20:11)
[2023-04-01] MEDS: amLODIPine 10 MG TAB PO SCH (10:27)
[2023-04-01] MEDS: DAPAGLIFLOZIN PROPANEDIOL 5 MG TABLET PO SCH (10:36)
[2023-04-01] MEDS: DULoxetine HCL 30 MG CAPSULE.DR PO SCH (10:36)
[2023-04-01] MEDS: AZITHROMYCIN 500 MG in SODIUM CHLORIDE 0.9% 250 ML IVPB SCH (10:41)
[2023-04-01 12:05] LABS: Glucose,Whole Blood 172 mg/dL (70-110)
--- NOTE | 2023-04-01 13:49 | P.PN ---
Subjective Progress Note Date: 04/01/23 Patient is an 82-year-old female with sciatica, hypertension, dyslipidemia, diabetes, and prior cerebrovascular accidents who presented to the hospital today due to fevers and altered mentation. In the emergency department she underwent an extensive evaluation. Initial vital signs were remarkable for temperature of 101.1 and blood pressure 184/104. She was found to be 80% on room air. Initial laboratory analysis included CBC, coags, CMP, & urinalysis which were remarkable for INR 1.6, BUN 29, creatinine 1.37, calcium 10.6. Influenza A/B/RSV/COVID-19 testing was negative. Her chest x-ray in the ER showed possible left lower lobe infiltrate. She was given a dose of Zithromax and Rocephin. Arrangements were made for admission. She was conitnued on zithromax and rocephin. Patient seen and examined at bedside. Doing better today, no chest pain, mild SOB, no nuasea, feeling stronger today. Has a Dobbs catheter in place. Vital signs reviewed General: nontoxic, no distress, appears at stated age Cardiovascular: S1S2 reg, no murmur, positive posterior tibial pulse bilateral, Lungs: Decreased bs bilateral, no rhonchi, no rales , no accessory muscle use, supplemental oxygen Abdominal: soft, nontender to palpation, no guarding, no appreciable organomegaly Ext: no gross muscle atrophy, no edema b/l lower extremities, no contractures Neuro: CN II-XI grossly intact, no focal neuro deficits Psych: Alert, oriented, appropriate affect Assessment/Plan: Metabolic encephalopathy, resolved Left lower lobe pneumonia, community-acquired versus aspiration Acute Hypoxic Respiratory Failure - Influenza A/B/RSV/COVID-19 testing was negative - Zithromax 500 mg IV piggyback daily D # 3, Rocephin 2 g IV piggyback daily D#3 - Continue to hold baclofen, Ativan, Remeron, and gabapentin due to sedation - Continue with Keppra 500 mg by mouth twice daily - IV fluids discontinued - safe and supportive environment -Continue to wean oxygen Acute urinary retention -Do a voiding trial DM II -Sliding scale insulin -Follow blood sugars -A1c 8.1 -farxiga 5 mg oral daily Chronic kidney disease stage III - monitor Cr closely - avoid nephrotoxic agents Subtherapeutic Coumadin coagulopathy History of CVA -pharmacy dosing coumadin, follow INR daily for titration, monitor for toxicity with INR and for bleeding. Hypercalcemia, resolved Dehydration, resolved Chronic: Hypertension Dyslipidemia Seizure disorder Imaging: CXR reviewed by myself with continued right hemidiaphragm elevation and left sided infiltrate , unchanged from yesterday Data Review: Labs reviewed today are WBC 6.64, hemoglobin 11.5, INR 2.1, creatinine 1.2, blood sugars range between 140-170 DVT prophylaxis: Coumadin Anticipated discharge date: Pending Clinical Course Anticipated discharge place: Pending Clinical Course Objective - Vital Signs Vital signs: Vital Signs Temp 98.2 F 04/01/23 12:01 Pulse 80 04/01/23 12:01 Resp 17 04/01/23 12:01 BP 169/94 04/01/23 12:01 Pulse Ox 96 04/01/23 12:01 FiO2 Intake & Output 03/31/23 04/01/23 04/01/23 18:59 06:59 18:59 Intake Total 660 Output Total 913 583 9408 Balance 120 -500 -1100 Intake: Oral 660 Output: Urine 444 549 9852 Uretheral (Dobbs) 540 Other: Voiding Method Indwelling Catheter Indwelling Catheter Indwelling Catheter - Labs CBC & Chem 7: 04/01/23 05:48 04/01/23 05:48 Labs: Abnormal Lab Results - Last 24 Hours (Table) 03/31/23 03/31/23 03/31/23 Range/Units 06:21 16:56 20:53 RBC (4.10-5.20) X 10*6/uL Hgb (12.0-15.0) g/dL Hct (37.2-46.3) % MCHC (32.0-37.0) g/dL PT (10.0-12.5) sec INR (<1.2) Anion Gap 15.10 H (4.00-12.00) mmol/L Est GFR (CKD-EPI) 41 L (>=60) Glucose 148 H (70-110) mg/dL POC Glucose (mg/dL) 146 H 170 H (70-110) mg/dL 04/01/23 04/01/23 04/01/23 Range/Units 05:48 05:48 05:48 RBC 3.86 L (4.10-5.20) X 10*6/uL Hgb 11.5 L (12.0-15.0) g/dL Hct 36.5 L (37.2-46.3) % MCHC 31.5 L (32.0-37.0) g/dL PT 21.2 H (10.0-12.5) sec INR 2.1 H (<1.2) Anion Gap (4.00-12.00) mmol/L Est GFR (CKD-EPI) 45 L (>=60) Glucose 148 H (70-110) mg/dL POC Glucose (mg/dL) (70-110) mg/dL 04/01/23 04/01/23 Range/Units 07:05 12:02 RBC (4.10-5.20) X 10*6/uL Hgb (12.0-15.0) g/dL Hct (37.2-46.3) % MCHC (32.0-37.0) g/dL PT (10.0-12.5) sec INR (<1.2) Anion Gap (4.00-12.00) mmol/L Est GFR (CKD-EPI) (>=60) Glucose (70-110) mg/dL POC Glucose (mg/dL) 135 H 172 H (70-110) mg/dL Microbiology - Last 24 Hours (Table) 03/30/23 07:30 Blood Culture - Preliminary Blood 03/30/23 07:36 Blood Culture - Preliminary Blood
[2023-04-01 17:24] LABS: Glucose,Whole Blood 188 mg/dL (70-110)
[2023-04-01] MEDS ORDERED: WARFARIN 2 MG TAB PO ONE (18:00)
[2023-04-01 19:57] LABS: Glucose,Whole Blood 162 mg/dL (70-110)
[2023-04-01] MEDS: ATORVASTATIN 10 MG TAB PO SCH (20:11)
[2023-04-01] MEDS: LOSARTAN 50 MG TAB PO SCH (20:11)
[2023-04-01] MEDS: GABAPENTIN 300 MG CAP PO SCH (20:11)
[2023-04-02] MEDS: LEVOTHYROXINE 75 MCG TAB PO SCH (05:29)
[2023-04-02 06:27] LABS: Prothrombin Time 19.7 sec (10.0-12.5)
[2023-04-02 07:25] LABS: Glucose,Whole Blood 135 mg/dL (70-110)
[2023-04-02 07:59] VITALS: RESP 14
[2023-04-02] MEDS: amLODIPine 10 MG TAB PO SCH (08:14)
[2023-04-02] MEDS: FUROSEMIDE 20 MG TAB PO SCH (08:15)
[2023-04-02] MEDS: DAPAGLIFLOZIN PROPANEDIOL 5 MG TABLET PO SCH (08:15)
[2023-04-02] MEDS: DULoxetine HCL 30 MG CAPSULE.DR PO SCH (08:15)
[2023-04-02] MEDS: levETIRAcetam 500 MG TAB PO SCH (08:16)
[2023-04-02] MEDS: INSULIN ASPART (NovoLOG) 100 UNIT/ML VIAL SQ SCH ×2 (09:06→13:09)
[2023-04-02] MEDS: AZITHROMYCIN 500 MG in SODIUM CHLORIDE 0.9% 250 ML IVPB SCH (09:07)
[2023-04-02] MEDS ORDERED: AZITHROMYCIN 500 MG TAB PO STA (11:07)
[2023-04-02] MEDS ORDERED: CEFDINIR 300 MG CAP PO SCH (11:15)
--- NOTE | 2023-04-02 11:29 | P.DS ---
Providers Date of admission: 03/30/23 09:49 Expected date of discharge: 04/02/23 Attending physician: Deb Cuevas DO Primary care physician: Mani Robles [facility] Course: Discharge Diagnosis: Metabolic encephalopathy Left lower lobe pneumonia, suspected aspiration Acute Hypoxic Respiratory Failure Acute urinary retention Type 2 diabetes History of CVA on Coumadin CK D stage III Hypercalcemia Dehydration Sciatica Chronic low back pain Hospital Course: Patient is an 82-year-old female with sciatica, hypertension, dyslipidemia, diabetes, and prior cerebrovascular accidents who presented to the hospital today due to fevers and altered mentation. In the emergency department she underwent an extensive evaluation. Initial vital signs were remarkable for temperature of 101.1 and blood pressure 184/104. She was found to be 80% on room air. Initial laboratory analysis included CBC, coags, CMP, & urinalysis which were remarkable for INR 1.6, BUN 29, creatinine 1.37, calcium 10.6. Influenza A/B/RSV/COVID-19 testing was negative. Her chest x-ray in the ER showed possible left lower lobe infiltrate. Concerning for aspiration pneumonia given patient was recently started on baclofen causing sedation. She was started on ceftriaxone and azithromycin. Respiratory function improved at the time of discharge. Mental status normal at the time of discharge. Patient is now going home on oral antibiotics. Daughter will be providing 14/12 care. Due to significant sciatica and back pain patient requires a transport chair. Patient seen and examined at bedside. Vital signs reviewed and stable. General: nontoxic, no distress, appears at stated age Cardiovascular: S1S2 reg, no murmur, positive posterior tibial pulse bilateral, Lungs: Decreased bs bilateral, no rhonchi, no rales , no accessory muscle use, supplemental oxygen Abdominal: soft, nontender to palpation, no guarding, no appreciable organomegaly Ext: no gross muscle atrophy, no edema b/l lower extremities, no contractures Neuro: CN II-XI grossly intact, no focal neuro deficits Psych: Alert, oriented, appropriate affect A total of 33 minutes of time were spent preparing this complex discharge summary. Patient was discharged on 04/02/23 at 11:11. Patient Condition at Discharge: Stable Plan - Discharge Summary Discharge Rx Participant: No New Discharge Prescriptions: New Cefdinir [Omnicef] 300 mg PO BID #5 cap Continue amLODIPine [Norvasc] 10 mg PO DAILY Losartan Potassium 100 mg PO HS Levothyroxine Sodium [Synthroid] 75 mcg PO DAILY levETIRAcetam [Keppra] 500 mg PO BID Furosemide [Lasix] 20 mg PO DAILY Warfarin Sodium [Jantoven] 4 mg PO DAILY Famotidine [Pepcid] 20 mg PO DAILY PRN PRN Reason: Gi Upset Empagliflozin [Jardiance] 10 mg PO DAILY cloNIDine HCL 0.1 mg PO BID Atorvastatin [Lipitor] 10 mg PO HS #30 tab DULoxetine HCL [Cymbalta] 30 mg PO DAILY Gabapentin 300 mg PO HS Mirtazapine [Remeron] 7.5 mg PO HS Discontinued LORazepam [Ativan] 0.5 mg PO DAILY PRN PRN Reason: Anxiety Discharge Medication List Losartan Potassium 100 mg PO HS 05/03/14 [History] amLODIPine [Norvasc] 10 mg PO DAILY 05/03/14 [History] Levothyroxine Sodium [Synthroid] 75 mcg PO DAILY 06/25/16 [History] Empagliflozin [Jardiance] 10 mg PO DAILY 08/24/22 [History] Famotidine [Pepcid] 20 mg PO DAILY PRN 08/24/22 [History] cloNIDine HCL 0.1 mg PO BID 08/24/22 [History] levETIRAcetam [Keppra] 500 mg PO BID 08/24/22 [History] Atorvastatin [Lipitor] 10 mg PO HS #30 tab 08/29/22 [Rx] DULoxetine HCL [Cymbalta] 30 mg PO DAILY 03/30/23 [History] Furosemide [Lasix] 20 mg PO DAILY 03/30/23 [History] Gabapentin 300 mg PO HS 03/30/23 [History] Mirtazapine [Remeron] 7.5 mg PO HS 03/30/23 [History] Warfarin Sodium [Jantoven] 4 mg PO DAILY 03/30/23 [History] Cefdinir [Omnicef] 300 mg PO BID #5 cap 04/02/23 [Rx] Follow up Appointment(s)/Referral(s): Mani Robles DO [Primary Care Provider] - 04/08/23 2:20 pm (appointment in [place] office w/ Gisela ZHENG) Patient Instructions/Handouts: Bacterial Pneumonia (DC), Encephalopathy (DC) Activity/Diet/Wound Care/Special Instructions: Please see your PCP. Discharge Disposition: HOME WITH HOME HEALTH SERVICES
[2023-04-02 11:46] LABS: Glucose,Whole Blood 296 mg/dL (70-110)
[2023-04-02 12:06] VITALS: BP 150/74; PULSE 82; TEMP 98.1
[2023-04-02] MEDS ORDERED: WARFARIN 5 MG TAB PO ONE (18:00)
== END 2023-04-02 14:11 | disposition home health service (06) | DRG 177 ==
LOC: EC 06:49 → 5NMEDONC 09:49
PROVIDERS: ADMIT Internal Medicine; ATTEND Internal Medicine
DX: J69.0 Pneumonitis due to inhalation of food and vomit (principal); G93.41 Metabolic encephalopathy; J96.01 Acute respiratory failure with hypoxia; F05 Delirium due to known physiological condition; I12.9 Hypertensive chronic kidney disease with stage 1 through stage 4 chronic kidney disease, or unspecified chronic kidney disease; E11.22 Type 2 diabetes mellitus with diabetic chronic kidney disease; E86.0 Dehydration; G40.909 Epilepsy, unspecified, not intractable, without status epilepticus; Z20.822 Contact with and (suspected) exposure to COVID-19; N18.30 Chronic kidney disease, stage 3 unspecified; F32.A Depression, unspecified; G25.81 Restless legs syndrome; E78.5 Hyperlipidemia, unspecified; E83.52 Hypercalcemia; F41.9 Anxiety disorder, unspecified; R79.1 Abnormal coagulation profile; X58.XXXA Exposure to other specified factors, initial encounter; T45.515A Adverse effect of anticoagulants, initial encounter; Z79.01 Long term (current) use of anticoagulants; Z79.4 Long term (current) use of insulin; Z79.84 Long term (current) use of oral hypoglycemic drugs; Z79.82 Long term (current) use of aspirin; Z86.73 Personal history of transient ischemic attack (TIA), and cerebral infarction without residual deficits; E11.42 Type 2 diabetes mellitus with diabetic polyneuropathy; Z90.710 Acquired absence of both cervix and uterus; G89.29 Other chronic pain; M19.90 Unspecified osteoarthritis, unspecified site; R33.8 Other retention of urine; M54.40 Lumbago with sciatica, unspecified side; Z79.890 Hormone replacement therapy; Z79.899 Other long term (current) drug therapy; Z88.2 Allergy status to sulfonamides; Z91.048 Other nonmedicinal substance allergy status; Z90.49 Acquired absence of other specified parts of digestive tract; Z85.828 Personal history of other malignant neoplasm of skin
CPT/HCPCS: 36415; 51798; 71045; 71046; 80048; 80053; 81001; 83036; 85025; 85027; 85610; 85730; 87040; 87449; 87636; 93005; 96361; 96365; 96367; 96368; 99285

== ENCOUNTER → 2023-04-08 | Outpatient (CLI) | payer MEDICARE, BC ==
--- NOTE | 2023-04-08 16:07 | XR ---
EXAMINATION TYPE: XR chest 2V DATE OF EXAM: 04/08/2023 COMPARISON: 04/01/2023 HISTORY: Shortness of breath TECHNIQUE: Frontal and lateral views of the chest are obtained. FINDINGS: Scattered senescent parenchymal changes noted. Hyperinflation compatible with COPD. No evidence for infiltrate. No evidence for atelectasis. Chronic elevation right hemidiaphragm. Heart size is stable. Mediastinal structures are stable and grossly unremarkable. No evidence for hilar prominence. Degenerative changes dorsal spine. IMPRESSION: 1. No evidence for acute pulmonary disease.
--- NOTE | 2023-04-08 16:08 | XR ---
EXAMINATION TYPE: XR lumbosacral spine min 4V DATE OF EXAM: 04/08/2023 CLINICAL HISTORY: pain COMPARISON: NONE TECHNIQUE: Frontal, lateral, and oblique images of the lumbar spine are obtained. FINDINGS: Compression fracture involving L1 of uncertain age and/or etiology with loss of height of 5 0%. No additional lumbar compression fracture seen. Severe multilevel degenerative disc disease and s pondylosis. Postoperative changes of fusion at L3-4. Pedicular screws and intervertebral spacer in pl yaima. IMPRESSION: Fracture of uncertain age and/or etiology L1. Degenerative and postoperative changes as n oted.
== END | disposition home or self-care (01) ==
LOC: RADXRYALE 15:23
PROVIDERS: ATTEND Physician Assistant
DX: J15.9 Unspecified bacterial pneumonia (principal); M43.26 Fusion of spine, lumbar region; M51.36 Other intervertebral disc degeneration, lumbar region
CPT/HCPCS: 71046; 72110

== ENCOUNTER → 2023-04-29 | Outpatient (CLI) | payer MEDICARE, BC ==
--- NOTE | 2023-04-29 15:29 | P.PN ---
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 Additional studies revealed indeterminate calcifications in the upper outer quadrant of the breast for which stereotactic core biopsy was recommended. Stereotactic core biopsy was performed and 6320 which revealed DCIS. She then had a needle localization resection on which revealed the lesion had been completely removed. She opted for no radiation or hormonal therapy. She had a bilateral mammogram on 11-19-22 which was BIRAD 2 The patient is not complaining of any new lumps masses or nodules of concern in either breast. 04-29-23 DCIS treated with lumpectomy on 12-19-20; she opted for no chemo or radiation The concern about any new lumps masses or nodules in either breast Caffeine: stopped all caffeine nicotine: none chocolate: occasional Family history: sister: Breast cancer at age 73 patient: skin cancer Hormonal History: menarche: 12 M2, breast fed: no, age at first : 20 menopause: surgical, JOHNY at 39 for fibroid tumors, also did Appendectomy and bladder suspension BCP: 5 years Surgical History: Tonsillectomy Hysterectomy with appendectomy and bladder suspension Hemorrhoidectomy Skin cancer tumor on forehead, shoulder, arm, legs, feet, bottom lip, chest, top of head in both hands Right foot attention nerve Cholecystectomy Back surgery left breast lumpectomy skin cancer left upper arm 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 Quintanilla) skin cancer right leg October 2022 skin cancer left arm uncertain of the type done by dermatology Medical history: CVA 2000, 2003, 2006 Mini stroke 2002 in 2010 Depression and anxiety Tarsal tunnel both feet Hypertension Vertigo Hiatal hernia Hypothyroid High cholesterol Deteriorated disc lower back Diabetic Restless leg syndrome Neuropathy Pinched nerve right side of neck Osteopenia Seizures Numbness related to her back COVID Social History: nicotine: none alcohol: none drugs: none - Constitutional Constitutional: Denies chills, Denies fever - EENT Eyes: bilateral blurred vision Ears: deny: decreased hearing, tinnitus Ears, nose, mouth and throat: Reports headache, Denies sore throat - Breasts Breasts: bilateral: as per HPI - Cardiovascular Cardiovascular: Denies chest pain, Denies shortness of breath - Respiratory Respiratory: Denies cough - Gastrointestinal Gastrointestinal: Denies abdominal pain, Denies diarrhea, Denies nausea, Denies vomiting - Genitourinary (Female) Genitourinary: Denies dysuria, Denies hematuria - Menstruation Menstruation: Reports post hysterectomy - Musculoskeletal Comment: arthritis Musculoskeletal: Reports myalgias - Integumentary Comment: history of skin cancer Integumentary: Denies pruritus, Denies rash - Neurological Comment: strokes left side weakness Neurological: Reports as per HPI, Reports numbness - Psychiatric Psychiatric: Reports anxiety, Reports depression - Endocrine Comment: Hypothyroid, diabetic - Hematologic/Lymphatic Comment: takes aspirin and Coumadin - Allergic/Immunologic Allergic/Immunologic: Reports seasonal allergies Objective - Constitutional General appearance: Present: cooperative - EENT Eyes: Present: EOMI ENT: Present: hearing grossly normal - Neck Neck: Present: normal ROM - Respiratory Respiratory: bilateral: CTA - Cardiovascular Heart sounds: normal: S1, S2 - Integumentary Integumentary: Present: normal turgor - Musculoskeletal Musculoskeletal Comment(s): uses a wheel chair - Psychiatric Psychiatric: Present: A&O x's 3, appropriate affect, intact judgment & insight - Additional findings Additional findings: [place] Exam: BRA: 38D inspection: Well-healed scar left breast from prior surgery, bilateral grade 3 ptosis Palpation: Right breast: Exam then seated in wheelchair exam fibrocystic changes no dominant masses or nodules of concern Right axilla: no adenopathy of concern Left breast: examine done seated in wheelchair exam fibrocystic changes no evidence of recurrent disease well-healed scar from prior surgery Left axilla: No adenopathy of concern Assessment and Plan Assessment: Impression: CVA 2000, 2003, 2006 Mini stroke 2002 in 2010 Depression and anxiety Tarsal tunnel both feet Hypertension Vertigo Hiatal hernia Hypothyroid High cholesterol Deteriorated disc lower back Diabetic Restless leg syndrome Neuropathy Pinched nerve right side of neck Osteopenia Seizures Numbness related to her back History of DCIS left breast no evidence of recurrence Shotty adenopathy right axilla Plan: Bilateral mammogram September 2022 BIRAD 2, repeat mammogram in September 2023 follow up September after mammogram Follow-up sooner any questions or concerns CC: Dr. Rojas
[2023-04-29 16:13] VITALS: BP 112/61; PULSE 63; RESP 16; TEMP 97.6
== END ==
LOC: WWCWWP 14:51
PROVIDERS: ATTEND Surgery
DX: D05.12 Intraductal carcinoma in situ of left breast (principal); E03.9 Hypothyroidism, unspecified; E11.40 Type 2 diabetes mellitus with diabetic neuropathy, unspecified; E78.00 Pure hypercholesterolemia, unspecified; F32.A Depression, unspecified; F41.9 Anxiety disorder, unspecified; G25.81 Restless legs syndrome; I10 Essential (primary) hypertension; K44.9 Diaphragmatic hernia without obstruction or gangrene; M85.80 Other specified disorders of bone density and structure, unspecified site; R56.9 Unspecified convulsions; Z85.828 Personal history of other malignant neoplasm of skin; Z86.16 Personal history of COVID-19; Z86.73 Personal history of transient ischemic attack (TIA), and cerebral infarction without residual deficits; Z90.49 Acquired absence of other specified parts of digestive tract; I63.9 Cerebral infarction, unspecified; Z80.3 Family history of malignant neoplasm of breast; Z88.2 Allergy status to sulfonamides; Z79.84 Long term (current) use of oral hypoglycemic drugs; Z91.048 Other nonmedicinal substance allergy status

== ENCOUNTER 2023-12-12 20:18 | Inpatient (IN) | payer MEDICARE, BC ==
[2023-12-12 21:05] LABS: Basophils % (A) 0 %; Eosinophils % (A) 1 %; HCT 41.5 % (34.0-46.0); HGB 13.4 gm/dL (11.4-16.0); Lymphocytes # (A) 2.2 k/uL (1.0-4.8); Lymphocytes % (A) 29 %; MCH 31.2 pg (25.0-35.0); MCHC 32.2 g/dL (31.0-37.0); Mean Platelet Volume 8.1; Monocytes # (A) 0.7 k/uL (0-1.0); Monocytes % (A) 9 %; Neutrophils # (A) 4.6 k/uL (1.3-7.7); Neutrophils % (A) 59 %; Platelet Count 169 k/uL (150-450); RBC 4.28 m/uL (3.80-5.40); RDW 14.8 % (11.5-15.5); WBC 7.7 k/uL (3.8-10.6)
[2023-12-12 21:14] LABS: ALT 10 U/L (4-34); AST 18 U/L (14-36); African American GFR (CKD) 42 (>60 ml/min/1.73 sqM); Albumin 4.6 g/dL (3.5-5.0); Alkaline Phosphatase 61 U/L (38-126); Anion Gap 9 mmol/L; Blood Urea Nitrogen 21 mg/dL (7-17); Calcium 10.4 mg/dL (8.4-10.2); Carbon Dioxide 28 mmol/L (22-30); Chloride 104 mmol/L (98-107); Glucose 123 mg/dL (74-99); Magnesium 2.1 mg/dL (1.6-2.3); Non-African American GFR(CKD) 37 (>60 ml/min/1.73 sqM); Potassium 4.4 mmol/L (3.5-5.1); Sodium 141 mmol/L (137-145); Total Bilirubin 1.4 mg/dL (0.2-1.3); Total Protein 7.1 g/dL (6.3-8.2)
[2023-12-12 21:20] LABS: INR 1.8 (<1.2); Partial Thromboplastin Time 26.8 sec (22.0-30.0); Prothrombin Time 18.5 sec (10.0-12.5)
[2023-12-12 21:22] LABS: NT-Pro-B-Type Natriuretic Pept 622 pg/mL
[2023-12-12 21:25] LABS: Appearance,Urine Cloudy (Clear); Bacteria,Urine Rare /hpf; Bilirubin,Urine Negative (Negative); Blood,Urine Trace (Negative); Color,Urine Colorless; Glucose,Urine (UA) 4+ (Negative); Ketones,Urine Negative (Negative); Leukocyte Esterase,Urine Large (Negative); Nitrite,Urine Negative (Negative); PH, Urine 7.5 (5.0-8.0); Protein,Urine Negative (Negative); RBC,Urine 8 /hpf (0-5); Specific Gravity,Urine 1.008 (1.001-1.035); Squamous Epithelial Cell,Urine 6 /hpf (0-4); Urobilinogen,Urine <2.0 mg/dL (<2.0); WBC,Urine 7 /hpf (0-5)
--- NOTE | 2023-12-12 21:33 | XR ---
EXAMINATION TYPE: XR chest 2V DATE OF EXAM: 12/12/2023 9:29 PM CLINICAL INDICATION:Female, 83 years old with history of difficulty breathing; COMPARISON: Chest radiographs from 04/08/2023 TECHNIQUE: XR chest 2V Frontal view of the chest. FINDINGS: Lungs/Pleura: Elevated right diaphragm similar prior. There is no evidence of pleural effusion, focal consolidation, or pneumothorax. Pulmonary vascularity: Unremarkable. Heart/mediastinum: Cardiomediastinal silhouette is enlarged and stable. Atherosclerotic calcificatio ns are seen in the aorta. Musculoskeletal: No acute osseous pathology. Compression deformities in the lower spine. IMPRESSION: 1. Similar exam to prior 04/08/2023 with cardiomegaly, no evidence for acute heart failure.. 2. Elevated right diaphragm, similar to prior.
[2023-12-12] MEDS: hydrALAZINE HCL 20 MG/ML 1 ML VIAL IVP STA (22:21)
[2023-12-12] MEDS ORDERED: NALOXONE 0.4 MG/ML 1 ML VIAL IV PRN (22:36)
--- NOTE | 2023-12-12 22:40 | ED ---
General Adult HPI - General Chief complaint: Shortness of Breath Stated complaint: dyspnea Time Seen by Provider: 12/12/23 20:50 Source: patient, EMS, RN notes reviewed, old records reviewed Mode of arrival: EMS Limitations: no limitations - History of Present Illness Initial comments: Patient is an 83-year-old female who presents emergency department complaining of shortness of breath. Has been somewhat progressive over the last few weeks but worse over the last 1 to 2 days. Typically does not requiring oxygen. Has a history of diabetes, hypertension, seizure disorder, thyroid disorder. He is chronically on Lasix daily. This is for dependent edema. No other complaints at this time. Denies any fevers, chills, cough. Denies chest pain or shortness of breath at least at rest on with oxygen. Denies any significant congestion. Denies abdominal pain, nausea, vomiting, diarrhea. Presents for further evaluation with family. - Related Data Home Medications Medication Instructions Recorded Confirmed Losartan Potassium 100 mg PO HS 05/03/14 04/29/23 amLODIPine [Norvasc] 10 mg PO DAILY 05/03/14 04/29/23 Levothyroxine Sodium [Synthroid] 75 mcg PO DAILY 06/25/16 04/29/23 Empagliflozin [Jardiance] 10 mg PO DAILY 08/24/22 04/29/23 Famotidine [Pepcid] 20 mg PO DAILY PRN 08/24/22 04/29/23 cloNIDine HCL 0.1 mg PO BID 08/24/22 04/29/23 levETIRAcetam [Keppra] 500 mg PO BID 08/24/22 04/29/23 DULoxetine HCL [Cymbalta] 30 mg PO DAILY 03/30/23 04/29/23 Furosemide [Lasix] 20 mg PO DAILY 03/30/23 04/29/23 Gabapentin 300 mg PO HS 03/30/23 04/29/23 Mirtazapine [Remeron] 7.5 mg PO HS 03/30/23 04/29/23 Warfarin Sodium [Jantoven] 4 mg PO DAILY 03/30/23 04/29/23 metFORMIN HCL 1,000 mg PO DAILY 04/29/23 04/29/23 Previous Rx's Medication Instructions Recorded Atorvastatin [Lipitor] 10 mg PO HS #30 tab 08/29/22 Allergies Allergy/AdvReac Type Severity Reaction Status Date / Time Bleach (Sodium Hypochlorite) Allergy Rash/Hives Verified 12/12/23 20:47 Sulfa (Sulfonamide Allergy Rash/Hives Verified 12/12/23 20:47 Antibiotics) Review of Systems ROS Statement: Those systems with pertinent positive or pertinent negative responses have been documented in the HPI. Review of Systems: CONST: Denies fever EYES: Denies blurry vision ENT: Denies nasal congestion C/V: Denies Chest pain RESP: Endorses shortness of breath GI: Denies abdominal pain : Denies dysuria SKIN: Denies rash. MSK: Denies joint pain. NEURO: Denies headache ROS Other: All systems not noted in ROS Statement are negative. Past Medical History Past Medical History: Cancer, CVA/TIA, Diabetes Mellitus, Hyperlipidemia, Hypertension, Osteoarthritis (OA), Renal Disease, Seizure Disorder, Thyroid Disorder Additional Past Medical History / Comment(s): vertigo,hiatal hernia, restless leg,neuropathy,carpal tunnel,ddd, squamous cell carcinoma-arms, hands, legs, CKD History of Any Multi-Drug Resistant Organisms: None Reported Past Surgical History: Appendectomy, Back Surgery, Breast Surgery, Cholecystectomy, Hysterectomy, Orthopedic Surgery, Tonsillectomy Additional Past Surgical History / Comment(s): skin cancer removal, hemorrhoid removal, left breast high risk excisional november 2020, back surgery with rods and screws, tarsel tunnel both feet Past Anesthesia/Blood Transfusion Reactions: Motion Sickness Additional Past Anesthesia/Blood Transfusion Reaction / Comment(s): vertigo Past Psychological History: Anxiety, Depression Smoking Status: Never smoker Past Alcohol Use History: None Reported Past Drug Use History: None Reported - Past Family History Sister(s) Family Medical History: Cancer Additional Family Medical History / Comment(s): BREAST General Exam - General Exam Comments Initial Comments: General: Appears in no acute distress. HEAD: Normal with no signs of head trauma. EYES: PERRLA, EOMI, conjunctiva normal, no discharge. ENT: Hearing grossly intact, normal oropharynx. RESPIRATORY: Mild hypoxia to 89 to 90% on room air. Improved to 93 to 95% on 2 L nasal cannula. No significant work of breathing. Breath sounds within acceptable limits. C/V: Regular rate and rhythm. S1 and S2 auscultated, no edema, peripheral pulses 2+ and intact throughout ABD: Abd is soft, nontender, nondistended EXT: Normal range of motion, no obvious deformity SKIN: No rashes or lesions observed on exposed skin. NEURO: Alert and oriented x 4. Cranial nerves II-XII intact. No focal sensory or strength deficits. Limitations: no limitations Course Vital Signs 12/12/23 12/12/23 12/12/23 20:37 20:51 22:15 Temperature 98.7 F Pulse Rate 84 66 Respiratory 26 H 26 H 18 Rate Blood Pressure 217/120 195/105 O2 Sat by Pulse 96 95 Oximetry 12/12/23 12/12/23 12/13/23 23:10 23:57 00:21 Temperature Pulse Rate 74 72 74 Respiratory 18 24 18 Rate Blood Pressure 159/85 160/88 154/87 O2 Sat by Pulse 95 93 L 95 Oximetry Medical Decision Making - Medical Decision Making Was pt. sent in by a medical professional or institution (, PA, FIELD CROP HARVEST WORKER, urgent care, hospital, or prison...) When possible be specific @ -No Did you speak to anyone other than the patient for history (EMS, parent, family, police, friend...)? What history was obtained from this source @ -No Did you review nursing and triage notes (agree or disagree)? Why? @ -I reviewed and agree with nursing and triage notes Were old charts reviewed (outside hosp., previous admission, EMS record, old EKG, old radiological studies, urgent care reports/EKG's, prison records)? Report findings @ -Old chart probe March 2023 EKG reviewed which revealed no obvious acute changes from then. Differential Diagnosis (chest pain, altered mental status, abdominal pain women, abdominal pain men, vaginal bleeding, weakness, fever, dyspnea, syncope, headache, dizziness, GI bleed, back pain, seizure, CVA, palpatations, mental health, musculoskeletal)? @ -Differential Dyspnea: Coronary syndrome, arrhythmia, tamponade, asthma, COPD, pulmonary embolism, pneumonia, pneumothorax, pulmonary effusion, anaphylaxis, diabetic ketoacidosis, flailed chest, pulmonary contusion, diaphragmatic rupture, anemia, jonny romuscular, this is not meant to be an all-inclusive list. EKG interpreted by me (3pts min.). @ -As above X-rays interpreted by me (1pt min.). @ -X-ray reveals no obvious acute cardiopulmonary process. CT interpreted by me (1pt min.). @ -None done U/S interpreted by me (1pt. min.). @ -None done What testing was considered but not performed or refused? (CT, X-rays, U/S, labs)? Why? @ -None What meds were considered but not given or refused? Why? @ -None Did you discuss the management of the patient with other professionals (professionals i.e. DrRebekah, PA, FIELD CROP HARVEST WORKER, lab, RT, psych nurse, psychotherapist social worker, calculating machine mechanic, teacher, parachute/combatant diver officer, foster care case manager)? Give summary @ -Discussed with Dr. Ridley who accepted the admission Was smoking cessation discussed for >3mins.? @ -No Was critical care preformed (if so, how long)? @ -No Were there social determinants of health that impacted care today? How? (Homelessness, low income, unemployed, alcoholism, drug addiction, transportation, low edu. Level, literacy, decrease access to med. care, detention, rehab)? @ -No Was there de-escalation of care discussed even if they declined (Discuss DNR or withdrawal of care, Hospice)? DNR status @ -No What co-morbidities impacted this encounter? (DM, HTN, Smoking, COPD, CAD, Cancer, CVA, ARF, Chemo, Hep., AIDS, mental health diagnosis, sleep apnea, morbid obesity)? @ -None Was patient admitted / discharged? Hospital course, mention meds given and route, prescriptions, significant lab abnormalities, going to OR and other pertinent info. @ -Based on the patient's presentation and physical exam, presents with dyspnea and mild hypoxia with room air oxygenation of 89 and 90%. Improved on 2 L nasal cannula. We will obtain cardiopulmonary workup. Patient in agreement this plan. Remainder the vital signs remarkable for mild hypertension. Patient be given a small dose of IV hydralazine. IV hydralazine did improve the pressures. Chest x-ray unremarkable. EKG unremarkable. Patient's labs remarkable for a D-dimer within acceptable limits, undetectable troponin, BNP within normal limits. Remainder the workup unremarkable as well. On reevaluation after the patient. Due to her requiring oxygen I did want to admit her to observation for echo. She was in agreement this plan. I spoke with the admitting team, Dr. Ridley who accepted the admission. Undiagnosed new problem with uncertain prognosis? @ -No Drug Therapy requiring intensive monitoring for toxicity (Heparin, Nitro, Insulin, Cardizem)? @ -No Were any procedures done? @ -No Diagnosis/symptom? @ -Dyspnea, hypoxic respiratory failure Acute, or Chronic, or Acute on Chronic? @ -Acute Uncomplicated (without systemic symptoms) or Complicated (systemic symptoms)? @ -Complicated Side effects of treatment? @ -No Exacerbation, Progression, or Severe Exacerbation? @ -No Poses a threat to life or bodily function? How? (Chest pain, USA, NH, pneumonia, PE, COPD, DKA, ARF, appy, cholecystitis, CVA, Diverticulitis, Homicidal, S uicidal, threat to staff... and all critical care pts) @ -Yes - Lab Data Result diagrams: 12/12/23 20:25 12/12/23 20:25 Lab Results 12/12/23 12/12/23 12/12/23 Range/Units 20:25 20:25 20:25 WBC 7.7 (3.8-10.6) k/uL RBC 4.28 (3.80-5.40) m/uL Hgb 13.4 (11.4-16.0) gm/dL Hct 41.5 (34.0-46.0) % MCV 97.0 (80.0-100.0) fL MCH 31.2 (25.0-35.0) pg MCHC 32.2 (31.0-37.0) g/dL RDW 14.8 (11.5-15.5) % Plt Count 169 (150-450) k/uL MPV 8.1 Neutrophils % 59 % Lymphocytes % 29 % Monocytes % 9 % Eosinophils % 1 % Basophils % 0 % Neutrophils # 4.6 (1.3-7.7) k/uL Lymphocytes # 2.2 (1.0-4.8) k/uL Monocytes # 0.7 (0-1.0) k/uL Eosinophils # 0.0 (0-0.7) k/uL Basophils # 0.0 (0-0.2) k/uL PT 18.5 H (10.0-12.5) sec INR 1.8 H (<1.2) APTT 26.8 (22.0-30.0) sec D-Dimer 0.42 (<0.60) mg/L FEU Sodium 141 (137-145) mmol/L Potassium 4.4 (3.5-5.1) mmol/L Chloride 104 (98-107) mmol/L Carbon Dioxide 28 (22-30) mmol/L Anion Gap 9 mmol/L BUN 21 H (7-17) mg/dL Creatinine 1.33 H (0.52-1.04) mg/dL Est GFR (CKD-EPI)AfAm 42 (>60 ml/min/1.73 sqM) Est GFR (CKD-EPI)NonAf 37 (>60 ml/min/1.73 sqM) Glucose 123 H (74-99) mg/dL Plasma Lactic Acid Felix (0.7-2.0) mmol/L Calcium 10.4 H (8.4-10.2) mg/dL Magnesium 2.1 (1.6-2.3) mg/dL Total Bilirubin 1.4 H (0.2-1.3) mg/dL AST 18 (14-36) U/L ALT 10 (4-34) U/L Alkaline Phosphatase 61 (38-126) U/L Troponin I (0.000-0.034) ng/mL NT-Pro-B Natriuret Pep 622 pg/mL Total Protein 7.1 (6.3-8.2) g/dL Albumin 4.6 (3.5-5.0) g/dL Urine Color Urine Appearance (Clear) Urine pH (5.0-8.0) Ur Specific [place] (1.001-1.035) Urine Protein (Negative) Urine Glucose (UA) (Negative) Urine Ketones (Negative) Urine Blood (Negative) Urine Nitrite (Negative) Urine Bilirubin (Negative) Urine Urobilinogen (<2.0) mg/dL Ur Leukocyte Esterase (Negative) Urine RBC (0-5) /hpf Urine WBC (0-5) /hpf Ur Squamous Epith Cells (0-4) /hpf Urine Bacteria (None) /hpf Influenza Type A (PCR) (Not Detectd) Influenza Type B (PCR) (Not Detectd) RSV (PCR) (Not Detectd) SARS-CoV-2 (PCR) (Not Detectd) 12/12/23 12/12/23 12/12/23 Range/Units 20:25 20:25 21:08 WBC (3.8-10.6) k/uL RBC (3.80-5.40) m/uL Hgb (11.4-16.0) gm/dL Hct (34.0-46.0) % MCV (80.0-100.0) fL MCH (25.0-35.0) pg MCHC (31.0-37.0) g/dL RDW (11.5-15.5) % Plt Count (150-450) k/uL MPV Neutrophils % % Lymphocytes % % Monocytes % % Eosinophils % % Basophils % % Neutrophils # (1.3-7.7) k/uL Lymphocytes # (1.0-4.8) k/uL Monocytes # (0-1.0) k/uL Eosinophils # (0-0.7) k/uL Basophils # (0-0.2) k/uL PT (10.0-12.5) sec INR (<1.2) APTT (22.0-30.0) sec D-Dimer (<0.60) mg/L FEU Sodium (137-145) mmol/L Potassium (3.5-5.1) mmol/L Chloride (98-107) mmol/L Carbon Dioxide (22-30) mmol/L Anion Gap mmol/L BUN (7-17) mg/dL Creatinine (0.52-1.04) mg/dL Est GFR (CKD-EPI)AfAm (>60 ml/min/1.73 sqM) Est GFR (CKD-EPI)NonAf (>60 ml/min/1.73 sqM) Glucose (74-99) mg/dL Plasma Lactic Acid Felix 1.3 (0.7-2.0) mmol/L Calcium (8.4-10.2) mg/dL Magnesium (1.6-2.3) mg/dL Total Bilirubin (0.2-1.3) mg/dL AST (14-36) U/L ALT (4-34) U/L Alkaline Phosphatase (38-126) U/L Troponin I <0.012 (0.000-0.034) ng/mL NT-Pro-B Natriuret Pep pg/mL Total Protein (6.3-8.2) g/dL Albumin (3.5-5.0) g/dL Urine Color Colorless Urine Appearance Cloudy H (Clear) Urine pH 7.5 (5.0-8.0) Ur Specific [place] 1.008 (1.001-1.035) Urine Protein Negative (Negative) Urine Glucose (UA) 4+ H (Negative) Urine Ketones Negative (Negative) Urine Blood Trace H (Negative) Urine Nitrite Negative (Negative) Urine Bilirubin Negative (Negative) Urine Urobilinogen <2.0 (<2.0) mg/dL Ur Leukocyte Esterase Large H (Negative) Urine RBC 8 H (0-5) /hpf Urine WBC 7 H (0-5) /hpf Ur Squamous Epith Cells 6 H (0-4) /hpf Urine Bacteria Rare H (None) /hpf Influenza Type A (PCR) (Not Detectd) Influenza Type B (PCR) (Not Detectd) RSV (PCR) (Not Detectd) SARS-CoV-2 (PCR) (Not Detectd) 12/12/23 Range/Units 21:08 WBC (3.8-10.6) k/uL RBC (3.80-5.40) m/uL Hgb (11.4-16.0) gm/dL Hct (34.0-46.0) % MCV (80.0-100.0) fL MCH (25.0-35.0) pg MCHC (31.0-37.0) g/dL RDW (11.5-15.5) % Plt Count (150-450) k/uL MPV Neutrophils % % Lymphocytes % % Monocytes % % Eosinophils % % Basophils % % Neutrophils # (1.3-7.7) k/uL Lymphocytes # (1.0-4.8) k/uL Monocytes # (0-1.0) k/uL Eosinophils # (0-0.7) k/uL Basophils # (0-0.2) k/uL PT (10.0-12.5) sec INR (<1.2) APTT (22.0-30.0) sec D-Dimer (<0.60) mg/L FEU Sodium (137-145) mmol/L Potassium (3.5-5.1) mmol/L Chloride (98-107) mmol/L Carbon Dioxide (22-30) mmol/L Anion Gap mmol/L BUN (7-17) mg/dL Creatinine (0.52-1.04) mg/dL Est GFR (CKD-EPI)AfAm (>60 ml/min/1.73 sqM) Est GFR (CKD-EPI)NonAf (>60 ml/min/1.73 sqM) Glucose (74-99) mg/dL Plasma Lactic Acid Felix (0.7-2.0) mmol/L Calcium (8.4-10.2) mg/dL Magnesium (1.6-2.3) mg/dL Total Bilirubin (0.2-1.3) mg/dL AST (14-36) U/L ALT (4-34) U/L Alkaline Phosphatase (38-126) U/L Troponin I (0.000-0.034) ng/mL NT-Pro-B Natriuret Pep pg/mL Total Protein (6.3-8.2) g/dL Albumin (3.5-5.0) g/dL Urine Color Urine Appearance (Clear) Urine pH (5.0-8.0) Ur Specific [place] (1.001-1.035) Urine Protein (Negative) Urine Glucose (UA) (Negative) Urine Ketones (Negative) Urine Blood (Negative) Urine Nitrite (Negative) Urine Bilirubin (Negative) Urine Urobilinogen (<2.0) mg/dL Ur Leukocyte Esterase (Negative) Urine RBC (0-5) /hpf Urine WBC (0-5) /hpf Ur Squamous Epith Cells (0-4) /hpf Urine Bacteria (None) /hpf Influenza Type A (PCR) Not Detected (Not Detectd) Influenza Type B (PCR) Not Detected (Not Detectd) RSV (PCR) Not Detected (Not Detectd) SARS-CoV-2 (PCR) Not Detected (Not Detectd) - EKG Data -: EKG Interpreted by Me EKG Comments: 12-lead Electrocardiogram Interpretation Note EKG was reviewed and interpreted by myself. 12-lead ECG performed at 2031 is interpreted by me as revealing normal sinus rhythm at a rate of 77 beats per minute. [place] is normal. LA interval is 133 ms, QRS duration is 102 ms, QTc is 370 ms.. There were no ST or T wave abnormalities to suggest myocardial ischemia or injury. R wave progression across the precordium was delayed. By my interpretation this EKG is non-diagnostic for acute ischemia. Disposition Clinical Impression: Hypoxic respiratory failure, Dyspnea Disposition: ADMITTED IP TO THIS HOSP Condition: Stable Time of Disposition: 22:35
[2023-12-13 00:15] LABS: Glucose,Whole Blood 141 mg/dL (70-110)
[2023-12-13] MEDS ORDERED: ACETAMINOPHEN TAB 325 MG TAB PO PRN (00:20)
[2023-12-13] MEDS ORDERED: cloNIDine HCL 0.1 MG TAB PO PRN (02:04)
--- NOTE | 2023-12-13 02:10 | P.HPIM ---
History of Present Illness H&P Date: 12/13/23 Chief Complaint: Shortness of breath 83-year-old female with diabetes mellitus, chronic kidney disease hypertension history of stroke Patient coming in for evaluation of progressive exertional shortness of breath over the past 2 to 3 days this is new onset denies any history of congestive heart failure or COPD patient is not on any home oxygen. She reports that she feels very short of breath upon ambulation even around the house for short distances denies any bilateral leg swelling denies any history of blood clots denies any recent travel or hospital stay denies any recent cardiac workup denies any cardiac history. Patient admits to dry cough denies any runny nose sore throat chest pain denies any runny nose fevers or chills. She denies any known sick contact denies any hemoptysis or GI bleeding Patient has been following outpatient with her position classifier who has been adjusting her blood pressure medications however over the past 6 months there has been no changes to her meds her blood pressure has been running within normal limits Patient takes Coumadin for recurrent strokes in the past She reports similar symptoms in March 2023 when she was diagnosed with pneumonia this is why her daughter was concerned and decided to bring her to the hospital for evaluation Today while in the ED she was found to be hypoxic on room air with oxygen saturation dropping to 89% patient was also found to be hypotensive requiring shots of hydralazine to control her blood pressure Patient denies tobacco smoking illicit drugs or heavy alcohol Patient admits to falling at home she uses a walker. [place] very weak and fell hit her head denies any loss of consciousness she has not had any workup for that. She denies any focal neurodeficits denies any headache changes in vision or hearing at this time review of systems Pertinent positives as noted in HPI. All other systems were reviewed and are negative on exam Constitutional: No acute distress, conversant, pleasant Eyes: Anicteric sclerae, moist conjunctiva, Pupils equal round reactive to light ENMT: NC/AT Oropharynx clear, no erythema, or exudates Neck: Supple, no masses, or JVD No carotid bruits No thyromegaly Lungs: Clear to auscultation Clear to percussion Normal respiratory effort, no accessory muscle use Cardiovascular: Heart regular in rate and rhythm, No murmurs, gallops, or rubs No peripheral edema Abdominal: Soft Nontender, no guarding, rebound or rigidity Abdomen moving with respiration Normoactive bowel sounds Extremities: No digital cyanosis No clubbing Pedal pulses intact and symmetrical Radial pulses intact and symmetrical No calf tenderness Psychiatric: Alert and oriented to person, place and time Appropriate affect fair judgement Neuro Muscles Strength 4/5 in all 4 extremities Sensation to light touch grossly present throughout Cranial nerves II-XII grossly intact Past Medical History Past Medical History: Cancer, CVA/TIA, Diabetes Mellitus, Hyperlipidemia, Hypertension, Osteoarthritis (OA), Renal Disease, Seizure Disorder, Thyroid Disorder Additional Past Medical History / Comment(s): vertigo,hiatal hernia, restless leg,neuropathy,carpal tunnel,ddd, squamous cell carcinoma-arms, hands, legs, CKD History of Any Multi-Drug Resistant Organisms: None Reported Past Surgical History: Appendectomy, Back Surgery, Breast Surgery, Cholecystectomy, Hysterectomy, Orthopedic Surgery, Tonsillectomy Additional Past Surgical History / Comment(s): skin cancer removal, hemorrhoid removal, left breast high risk excisional november 2020, back surgery with rods and screws, tarsel tunnel both feet Past Anesthesia/Blood Transfusion Reactions: Motion Sickness Additional Past Anesthesia/Blood Transfusion Reaction / Comment(s): vertigo Past Psychological History: Anxiety, Depression Smoking Status: Never smoker Past Alcohol Use History: None Reported Past Drug Use History: None Reported - Past Family History Sister(s) Family Medical History: Cancer Additional Family Medical History / Comment(s): BREAST Medications and Allergies Home Medications Medication Instructions Recorded Confirmed Type Losartan Potassium 100 mg PO HS 05/03/14 04/29/23 History amLODIPine [Norvasc] 10 mg PO DAILY 05/03/14 04/29/23 History Levothyroxine Sodium [Synthroid] 75 mcg PO DAILY 06/25/16 04/29/23 History Empagliflozin [Jardiance] 10 mg PO DAILY 08/24/22 04/29/23 History Famotidine [Pepcid] 20 mg PO DAILY PRN 08/24/22 04/29/23 History cloNIDine HCL 0.1 mg PO BID 08/24/22 04/29/23 History levETIRAcetam [Keppra] 500 mg PO BID 08/24/22 04/29/23 History Atorvastatin [Lipitor] 10 mg PO HS #30 tab 08/29/22 04/29/23 Rx DULoxetine HCL [Cymbalta] 30 mg PO DAILY 03/30/23 04/29/23 History Furosemide [Lasix] 20 mg PO DAILY 03/30/23 04/29/23 History Gabapentin 300 mg PO HS 03/30/23 04/29/23 History Mirtazapine [Remeron] 7.5 mg PO HS 03/30/23 04/29/23 History Warfarin Sodium [Jantoven] 4 mg PO DAILY 03/30/23 04/29/23 History metFORMIN HCL 1,000 mg PO DAILY 04/29/23 04/29/23 History Allergies Allergy/AdvReac Type Severity Reaction Status Date / Time Bleach (Sodium Hypochlorite) Allergy Rash/Hives Verified 12/12/23 20:47 Sulfa (Sulfonamide Allergy Rash/Hives Verified 12/12/23 20:47 Antibiotics) Physical Exam Vitals: Vital Signs Temp Pulse Pulse Resp BP BP Pulse Ox 12/13/23 01:01 97.5 F L 98 18 160/90 94 L 12/13/23 00:21 74 18 154/87 95 12/12/23 23:57 72 24 160/88 93 L 12/12/23 23:10 74 18 159/85 95 12/12/23 22:15 66 18 195/105 95 12/12/23 20:51 26 H 12/12/23 20:37 98.7 F 84 26 H 217/120 96 Intake and Output 12/12/23 12/12/23 12/13/23 14:59 22:59 06:59 Other: Voiding Method Toilet # Voids 1 Weight 72.575 kg 72.575 kg Results CBC & Chem 7: 12/12/23 20:25 12/12/23 20:25 Labs: Abnormal Lab Results - Last 24 Hours (Table) 12/12/23 12/12/23 12/12/23 Range/Units 20:25 20:25 21:08 PT 18.5 H (10.0-12.5) sec INR 1.8 H (<1.2) BUN 21 H (7-17) mg/dL Creatinine 1.33 H (0.52-1.04) mg/dL Glucose 123 H (74-99) mg/dL POC Glucose (mg/dL) (70-110) mg/dL Calcium 10.4 H (8.4-10.2) mg/dL Total Bilirubin 1.4 H (0.2-1.3) mg/dL Urine Appearance Cloudy H (Clear) Urine Glucose (UA) 4+ H (Negative) Urine Blood Trace H (Negative) Ur Leukocyte Esterase Large H (Negative) Urine RBC 8 H (0-5) /hpf Urine WBC 7 H (0-5) /hpf Ur Squamous Epith Cells 6 H (0-4) /hpf Urine Bacteria Rare H (None) /hpf 12/13/23 Range/Units 00:13 PT (10.0-12.5) sec INR (<1.2) BUN (7-17) mg/dL Creatinine (0.52-1.04) mg/dL Glucose (74-99) mg/dL POC Glucose (mg/dL) 141 H (70-110) mg/dL Calcium (8.4-10.2) mg/dL Total Bilirubin (0.2-1.3) mg/dL Urine Appearance (Clear) Urine Glucose (UA) (Negative) Urine Blood (Negative) Ur Leukocyte Esterase (Negative) Urine RBC (0-5) /hpf Urine WBC (0-5) /hpf Ur Squamous Epith Cells (0-4) /hpf Urine Bacteria (None) /hpf Thrombosis Risk Factor Assmnt - Choose All That Apply Any of the Below Risk Factors Present?: No Other Risk Factors: Yes Each Risk Factor Represents 3 Points: Age 75 years or older Other congenital or acquired thrombophilia - If yes, enter type in comment: No Thrombosis Risk Factor Assessment Total Risk Factor Score: 3 Thrombosis Risk Factor Assessment Level: Moderate Risk Assessment and Plan Assessment: 83-year-old female with diabetes mellitus hypertension chronic kidney disease stage III comes to the hospital for generalized weakness and exertional shortness of breath she was found hypoxemic on room air in the ED discussed case with ED doctor and accepted the admission for acute hypoxic respiratory failure to rule out underlying cardiac causes with anticipated length of stay less than 2 midnights Acute hypoxic respiratory failure Chest x-ray shows no changes compared to imaging from March 2023 no acute pathology acute respiratory viral panel negative for COVID RSV and influenza White count 7.7 unremarkable Afebrile D-dimer 0.42 negative Troponins less than 0.012 unremarkable proBNP unremarkable 622 Continue supplemental oxygen as needed Supportive care Monitor urine output Check echocardiogram rule out underlying congestive heart failure Hypertension poorly controlled Continue with amlodipine 5 mg daily Clonidine point 1 mg twice daily as needed for systolic blood pressure above 180 Continue to monitor vital signs closely History of stroke Continue with atorvastatin Patient is not on aspirin at home Continue with Coumadin dosing by pharmacy Diabetes mellitus Insulin sliding scale CKD stage III Stable Sodium 141 potassium 4.4 unremarkable BUN 21 creatinine 1.3 at patient baseline Fall at home Head injury while on Coumadin [address] of the brain without contrast No focal neurodeficits on exam PT evaluation Hypothyroid Continue levothyroxine 75 mcg daily CODE STATUS DNR DVT prophylaxis on Coumadin for history of recurrent strokes, continue dosing by pharmacy GI prophylaxis Protonix 40 mg p.o. daily
[2023-12-13] MEDS ORDERED: HYDROcodone/APAP 5-325MG 1 EACH TAB PO PRN (02:11)
[2023-12-13 03:13] LABS: Basophils % (A) 0 %; Eosinophils % (A) 0 %; HCT 38.9 % (34.0-46.0); HGB 12.4 gm/dL (11.4-16.0); Hypochromasia Moderate; Lymphocytes # (A) 1.6 k/uL (1.0-4.8); Lymphocytes % (A) 22 %; MCH 30.3 pg (25.0-35.0); MCV 94.9 fL (80.0-100.0); Mean Platelet Volume 7.9; Monocytes # (A) 0.7 k/uL (0-1.0); Monocytes % (A) 9 %; Neutrophils # (A) 4.9 k/uL (1.3-7.7); Neutrophils % (A) 66 %; Platelet Count 170 k/uL (150-450); RDW 14.7 % (11.5-15.5); WBC 7.5 k/uL (3.8-10.6)
[2023-12-13 03:34] LABS: ALT 10 U/L (4-34); AST 17 U/L (14-36); African American GFR (CKD) 45 (>60 ml/min/1.73 sqM); Albumin 4.1 g/dL (3.5-5.0); Alkaline Phosphatase 59 U/L (38-126); Anion Gap 8 mmol/L; Blood Urea Nitrogen 21 mg/dL (7-17); Calcium 10.1 mg/dL (8.4-10.2); Carbon Dioxide 26 mmol/L (22-30); Chloride 105 mmol/L (98-107); Glucose 143 mg/dL (74-99); Non-African American GFR(CKD) 39 (>60 ml/min/1.73 sqM); Potassium 4.2 mmol/L (3.5-5.1); Sodium 139 mmol/L (137-145); Total Bilirubin 1.5 mg/dL (0.2-1.3); Total Protein 6.4 g/dL (6.3-8.2)
[2023-12-13] MEDS: LEVOTHYROXINE 75 MCG TAB PO SCH (05:51)
[2023-12-13 07:26] LABS: Glucose,Whole Blood 122 mg/dL (70-110)
[2023-12-13] MEDS: amLODIPine 5 MG TAB PO SCH (08:22)
[2023-12-13] MEDS: PANTOPRAZOLE 40 MG TABLET PO SCH (08:22)
--- NOTE | 2023-12-13 09:24 | CT ---
EXAMINATION TYPE: CT brain wo con DATE OF EXAM: 12/13/2023 COMPARISON: 08/24/2022 HISTORY: fall on coumadin head injury [address] DLP: 999.[address] of the brain was performed. The ventricles, basal cisterns and sulci overlying the cerebral convexities demonstrate mild enlargem ent. There is no evidence for intracranial hemorrhage or sulcal effacement. There is decreased attenuation about the periventricular white matter and deep white matter of both c erebral hemispheres, compatible with chronic small vessel ischemia. Differential diagnosis does inclu de demyelination. No mass effects are seen.No midline shift. Osseous calvarium is intact. If symptoms persist consider MRI. IMPRESSION: 1. Age related atrophic and chronic small vessel ischemic change without acute intracranial process s een at this time.
--- NOTE | 2023-12-13 12:18 | CA ---
Transthoracic Echo Report Name: Marilyn Gonzáles Age: 83 Gender: F : 1940 Exam Date: 12/13/2023 09:07 Exam Location: [facility] Ht (in): 66 Wt (lb): 160 Ordering Physician: Ishan Hagen MD Attending/Referring Phys: Oyster Floater [place] Garcia RDCS Procedure CPT: Indications: Hypoxia Cardiac Hx: Technical Quality: Fair Contrast 1: Total Dose (mL): Contrast 2: Total Dose (mL): MEASUREMENTS (Male / Female) Normal Values 2D ECHO LV Diastolic Diameter PLAX 4.0 cm 4.2 - 5.9 / 3.9 - 5.3 cm LV Systolic Diameter PLAX 2.0 cm IVS Diastolic Thickness 1.3 cm 0.6 - 1.0 / 0.6 - 0.9 cm LVPW Diastolic Thickness 1.5 cm 0.6 - 1.0 / 0.6 - 0.9 cm LV Relative Wall Thickness 0.7 RV Internal Dim ED PLAX 2.9 cm LA Volume 93.0 cm??? 18 - 58 / 22 - 52 cm??? LA Volume Index 50.2 cm???/m??? 16 - 28 cm???/m??? M-MODE Aortic Root Diameter MM 2.8 cm LA Systolic Diameter MM 4.5 cm LA Ao Ratio MM 1.6 AV Cusp Separation MM 1.8 cm DOPPLER AV Peak Velocity 155.5 cm/s AV Peak Gradient 9.7 mmHg AV Mean Velocity 98.0 cm/s AV Mean Gradient 4.7 mmHg AV Velocity Time Integral 32.1 cm LVOT Peak Velocity 114.3 cm/s LVOT Peak Gradient 5.2 mmHg LVOT Velocity Time Integral 25.4 cm MV Area PHT 4.1 cm??? Mitral E Point Velocity 77.7 cm/s Mitral A Point Velocity 96.1 cm/s Mitral E to A Ratio 0.8 MV Deceleration Time 183.3 ms MV E' Velocity 6.7 cm/s Mitral E to MV E' Ratio 11.6 TR Peak Velocity 276.0 cm/s TR Peak Gradient 30.5 mmHg Right Ventricular Systolic Press 33.7 mmHg FINDINGS Left Ventricle Moderately increased left ventricular wall thickness. Left ventricular cavity size normal. Normal left ventricular systolic function with no obvious regional wall motion abnormalities. Left ventricular ejection fraction is estimated at 55-60 %. Grade 2 diastolic dysfunction. Right Ventricle Normal right ventricular size and function. Right ventricular systolic pressure within normal limits. Right Atrium Normal right atrial size. Left Atrium Severely increased left atrial volume. Mildly increased left atrial area. Mitral Valve Structurally normal mitral valve. Mitral valve thickened. Mild mitral annular calcification. Aortic Valve Trileaflet aortic valve. Tricuspid Valve Structurally normal tricuspid valve. Mild tricuspid regurgitation. Pulmonic Valve Structurally normal pulmonic valve. Trace pulmonic regurgitation. Pericardium No pericardial effusion. Aorta Normal size aortic root and proximal ascending aorta. CONCLUSIONS Normal LV function Previewed by: Dr. Tyler Calvin MD (Electronically Signed) Final Date: 13 December 2023 12:17
[2023-12-13 12:28] LABS: INR 1.8 sec (0.93-1.11); Prothrombin Time 18.7 sec (9.9-11.9)
[2023-12-13 12:40] LABS: Glucose,Whole Blood 147 mg/dL (70-110)
[2023-12-13] MEDS: DOCUSATE 100 MG CAP PO SCH (17:15)
[2023-12-13] MEDS: WARFARIN 3 MG TAB PO ONE (17:16)
[2023-12-13 17:33] LABS: Glucose,Whole Blood 163 mg/dL (70-110)
[2023-12-13] MEDS: SODIUM CHLORIDE 0.9% 1,000 ML IV ONE (19:50)
[2023-12-13 20:06] LABS: Glucose,Whole Blood 163 mg/dL (70-110)
[2023-12-13] MEDS: FAMOTIDINE 20 MG TAB PO SCH (20:12)
[2023-12-13] MEDS: LOSARTAN 50 MG TAB PO SCH (20:12)
[2023-12-13] MEDS: GABAPENTIN 300 MG CAP PO SCH (20:12)
[2023-12-13] MEDS: ATORVASTATIN 10 MG TAB PO SCH (20:12)
[2023-12-13] MEDS: DULoxetine HCL 30 MG CAPSULE.DR PO SCH (20:12)
[2023-12-13] MEDS: levETIRAcetam 500 MG TAB PO SCH (20:12)
[2023-12-13] MEDS: MIRTAZAPINE 15 MG TAB PO SCH (20:17)
--- NOTE | 2023-12-13 20:23 | CT ---
EXAMINATION TYPE: CT chest angio for PE CT DLP: 537 mGycm, Automated exposure control for dose reduction was used. DATE OF EXAM: 12/13/2023 7:04 PM COMPARISON: CT abdomen/pelvis 02/04/2023. CLINICAL INDICATION:Female, 83 years old with history of SOB Hypoxia; SOB TECHNIQUE/CONTRAST: CTA scan of the thorax is performed with IV Contrast, patient injected with 80 mL of Isovue 370, MIP images are created and reviewed these are created on a separate workstation.. FINDINGS: Pulmonary Artery: There is no evidence for a filling defect within the pulmonary vasculature to sugge st acute pulmonary embolism. The pulmonary artery is of normal size. Lungs/Pleura: There are scattered areas of atelectasis/scarring in the bilateral lower lobes. There a re a few patchy areas of groundglass changes. No pleural effusions or pneumothorax. Airway: Large airways are patent. Tracheal calcifications are noted. Heart: Heart is within normal limits for size. Vasculature: No evidence of aortic aneurysm. Mediastinum: No gross evidence of adenopathy. Musculoskeletal: There is a compression deformity involving L1 vertebral body with significant body h eight loss with areas of lucency seen throughout the remaining osseous portion. This area of lucency may relate to acute/subacute fracture. There is approximately 3 mm of retropulsion. Age indeterminate compression deformity involving the superior endplate of T11 vertebral body with less than 50% body height loss and no retropulsion. Please note that these compression deformities were not present on C T study in reference. No additional acute fractures appreciated. Soft Tissues/lymph nodes: Procedural clips are noted within the area of the left breast. Lower neck: No significant findings. Upper Abdomen: Moderate hiatal hernia. Cholecystectomy clips. IMPRESSION: 1. No evidence of pulmonary embolism. 2. Patchy scattered groundglass pulmonary attenuations may relate to an acute infectious/inflammatory process. Correlate with clinical evaluation. 3. Acute/subacute fracture suggested involving L1 vertebral body with associated vertebra plana. Mild retropulsion seen at this level. Further characterization with MRI spine with IV contrast is recomme nded. 4. Age indeterminate fracture involving T11 vertebral body with less than 50% body height loss with n o significant retropulsion. Correlate with point tenderness. 5. Moderate-sized hiatal hernia. Critical findings discussed with Dr. Epstein on 12/13/2023 8:[address] Christoph Thornton over the phone.
[2023-12-14 05:30] LABS: INR 1.9 (<1.2); Prothrombin Time 19.6 sec (10.0-12.5)
[2023-12-14 07:29] LABS: Glucose,Whole Blood 127 mg/dL (70-110)
[2023-12-14 08:36] LABS: Basophils # (A) 0.01 X 10*3/uL (0.00-0.10); Basophils % (A) 0.1 %; Eosinophils # (A) 0.03 X 10*3/uL (0.04-0.35); Eosinophils % (A) 0.4 %; HGB 11.3 g/dL (12.0-15.0); Lymphocytes # (A) 1.99 X 10*3/uL (0.90-5.00); Lymphocytes % (A) 29.7 %; MCH 29.5 pg (27.0-32.0); MCHC 30.5 g/dL (32.0-37.0); MCV 96.6 FL (80.0-97.0); Mean Platelet Volume 10.2 FL (9.5-12.2); Monocytes % (A) 11.9 %; NRBC Per 100 WBC 0 X 10*3/uL (0.00-0.01); Neutrophils # (A) 3.82 X 10*3/uL (1.80-7.70); Neutrophils % (A) 57.2 %; Platelet Count 144 X 10*3/uL (140-440); RBC 3.83 X 10*6/uL (4.10-5.20); RDW 14.6 % (11.5-14.5)
[2023-12-14] MEDS ORDERED: DOCUSATE 100 MG CAP PO SCH (09:00)
[2023-12-14 09:01] LABS: BUN/Creat Ratio 14.21 Ratio (12.00-20.00); Blood Urea Nitrogen 19.9 mg/dL (9.0-27.0); Calcium 9.9 mg/dL (8.7-10.3); Carbon Dioxide 24.9 mmol/L (21.6-31.8); Chloride 108 mmol/L (96-109); Glucose 133 mg/dL (70-110); Magnesium 2.1 mg/dL (1.5-2.4); Sodium 144 mmol/L (135-145)
[2023-12-14] MEDS: FUROSEMIDE 20 MG TAB PO SCH (10:45)
[2023-12-14] MEDS: LACTOBACILLUS ACIDOPHILUS/PECT 1 EACH CAPSULE PO SCH (10:46)
[2023-12-14 12:44] LABS: Glucose,Whole Blood 118 mg/dL (70-110)
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
[2023-12-14 17:09] LABS: Glucose,Whole Blood 171 mg/dL (70-110)
--- NOTE | 2023-12-14 17:47 | P.PN ---
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 She presented to the emergency department on 12/12/2023 with a chief complaint of shortness of breath. Physical exam: Vital signs reviewed and stable. General: Nontoxic, no distress and appears stated age. Derm: Skin warm and dry, normal coloration for ethnicity. Head: Atraumatic, normocephalic and symmetric. Eyes: EOMs intact, no lid lag, and anicteric sclera Mouth: no lip lesions, mucus membranes moist Cardiovascular: regular rate and rhythm with normal S1S2, systolic murmur, positive posterior tibial pulses bilaterally, and cap refill < 2 seconds. Lungs: Respirations even, regular, and unlabored on room air. Lungs diminished otherwise no rhonchi, no rales, no wheezing, and no accessory muscle usage. Abdominal: soft, nontender to palpation, no guarding, no appreciable organomegaly Ext: ROM intact. No gross muscle atrophy, no edema, no contractures Neuro: Speech clear, face symmetrical and CN II-XII grossly intact with no noted focal neuro deficits Psych: Alert and oriented to person, place, time, and situation. Appropriate and pleasant affect. Assessment and Plan of Care: Acute hypoxic respiratory failure secondary to community-acquired pneumonia Chronic Right hemidiaphragmatic paralysis -CTA chest, abdomen, and pelvis negative for PE showing patchy scattered groundglass pulmonary attenuations possibly secondary to acute infectious inflammatory process moderate sized hiatal hernia, acute/subacute fracture of L1 -Continue antibiotics with Rocephin 2 g IVPB and doxycycline 100 mg twice daily. -Home oxygen evaluation-likely discharge tomorrow -Supplemental oxygen as needed to maintain SpO2 equal to or greater than 90%. -Encourage incentive spirometry Acute/subacute fracture of L1 -Orthopedic surgery team consulted, appreciate recommendations -Symptomatic care and pain management -Fall Precautions Hypertension Continue daily medication regimen with losartan 50 mg daily amd metoprolol 25 mg twice daily. History of recurrent CVAs -Continue daily medication regimen with Coumadin, pharmacy to dose for goal therapeutic INR of 2-3. Seizure disorder Maintain seizure precautions and continue daily medication regimen with Keppra 500 mg twice daily. Hyperlipidemia Continue daily medication regimen with atorvastatin 10 mg nightly. Data and imaging reviewed: CTA chest, abdomen, and pelvis negative for PE showing patchy scattered groundglass pulmonary attenuations possibly secondary to acute infectious inflammatory process moderate sized hiatal hernia, acute/subacute fracture of L1 Morning labs reviewed. CBC showing normocytic anemia with hemoglobin of 11.3. Coagulation profile showing INR 1.9. BMP showing blood glucose of 133 and GFR of 37. Magnesium 2.1. Vital signs reviewed. Blood pressure 149/77, heart rate 58, respiratory rate 16, temp 97.7 F, and SpO2 of 92% on room air. CODE STATUS: DNR/DNI DVT prophylaxis: Coumadin Anticipated discharge date: Tomorrow morning Anticipated discharge place: Home Patient was seen independently by Nurse Pracitioner. This document was prepared using [employer] dictation software. Please allow for errors in finishing technician, while rare they do occur. Objective - Vital Signs Vital signs: Vital Signs Temp 97.7 F 12/14/23 07:37 Pulse 58 L 12/14/23 07:37 Resp 16 12/14/23 07:37 BP 149/77 12/14/23 07:37 Pulse Ox 92 L 12/14/23 07:37 FiO2 Intake & Output 12/13/23 12/14/23 12/14/23 18:59 06:59 18:59 Intake Total 780 120 Balance 780 120 Intake: Oral 780 120 Other: Voiding Method Toilet # Voids 2 1 - Labs CBC & Chem 7: 12/14/23 04:32 12/14/23 04:32 Labs: Abnormal Lab Results - Last 24 Hours (Table) 12/13/23 12/13/23 12/13/23 Range/Units 02:34 12:29 17:30 RBC (4.10-5.20) X 10*6/uL Hgb (12.0-15.0) g/dL Hct (37.2-46.3) % MCHC (32.0-37.0) g/dL RDW (11.5-14.5) % Immature Gran # (0.00-0.04) X 10*3/uL Eosinophils # (0.04-0.35) X 10*3/uL PT 18.7 H (9.9-11.9) sec INR 1.80 H (0.93-1.11) sec Est GFR (CKD-EPI) (>=60) Glucose (70-110) mg/dL POC Glucose (mg/dL) 147 H 163 H (70-110) mg/dL 12/13/23 12/14/23 12/14/23 Range/Units 20:04 04:32 04:32 RBC 3.83 L (4.10-5.20) X 10*6/uL Hgb 11.3 L (12.0-15.0) g/dL Hct 37.0 L (37.2-46.3) % MCHC 30.5 L (32.0-37.0) g/dL RDW 14.6 H (11.5-14.5) % Immature Gran # 0.05 H (0.00-0.04) X 10*3/uL Eosinophils # 0.03 L (0.04-0.35) X 10*3/uL PT (9.9-11.9) sec INR (0.93-1.11) sec Est GFR (CKD-EPI) 37 L (>=60) Glucose 133 H (70-110) mg/dL POC Glucose (mg/dL) 163 H (70-110) mg/dL 12/14/23 12/14/23 Range/Units 04:32 07:17 RBC (4.10-5.20) X 10*6/uL Hgb (12.0-15.0) g/dL Hct (37.2-46.3) % MCHC (32.0-37.0) g/dL RDW (11.5-14.5) % Immature Gran # (0.00-0.04) X 10*3/uL Eosinophils # (0.04-0.35) X 10*3/uL PT 19.6 H (9.9-11.9) sec INR 1.9 H (0.93-1.11) sec Est GFR (CKD-EPI) (>=60) Glucose (70-110) mg/dL POC Glucose (mg/dL) 127 H (70-110) mg/dL
[2023-12-14] MEDS: WARFARIN 5 MG TAB PO ONE (18:09)
[2023-12-14 19:42] LABS: Glucose,Whole Blood 170 mg/dL (70-110)
[2023-12-14] MEDS: DOXYCYCLINE 100 MG CAP PO SCH (21:11)
[2023-12-15 07:17] LABS: Glucose,Whole Blood 135 mg/dL (70-110)
[2023-12-15 07:37] VITALS: RESP 16; TEMP 98
[2023-12-15 12:09] LABS: Glucose,Whole Blood 194 mg/dL (70-110)
[2023-12-15 12:34] VITALS: BP 146/84; PULSE 62
--- NOTE | 2023-12-15 15:29 | XR ---
EXAMINATION TYPE: XR chest 1V portable DATE OF EXAM: 12/15/2023 COMPARISON: 12/12/2023 HISTORY: Shortness of breath TECHNIQUE: Single frontal view of the chest is obtained. FINDINGS: Heart size is stable. Degenerative change of the spine. Arthropathy of the shoulders. Post surgical change of vertebral column.. The osseous structures are intact. Marked elevation the right hemidiaphragm with bilateral subsegmental consolidation at the lung bases. Somewhat nodular density in the left suprahilar region. This is stable. Appears likely that is vascular by previous CT scan. IMPRESSION: 1. Stable elevated right hemidiaphragm which can be associated with phrenic nerve paresis. 2. Bilateral lower lobe atelectasis or early pneumonia, correlate clinically.
[2023-12-15 17:17] LABS: Glucose,Whole Blood 116 mg/dL (70-110)
[2023-12-15] MEDS: WARFARIN 3 MG TAB PO ONE (17:47)
--- NOTE | 2023-12-15 18:31 | P.DS ---
Providers Date of admission: 12/14/23 17:26 Expected date of discharge: 12/15/23 Attending physician: Wilbert Ridley MD Consults: 12/14/23 01:19 Consult Physician Routine Consulting Provider: Zeeshan Mata Consult Reason/Comments: vertebral body fracture Do you want consulting provider notified?: Yes Primary care physician: [place] Hospital Course: This is a 83-year-old lady with a medical history for hypertension, hyperlipidemia, chronic right hemidiaphragmatic paralysis, ndiabetes mellitus, recurrent CVAs who is on anticoagulation with Coumadin [history of A-fib?], seizure disorder, hypothyroidism who presented with difficulty breathing on 12/11. CTA of the chest, abdomen pelvis was negative for PE but did show patchy scattered groundglass pulmonary opacities which was likely secondary to pneumonic process. She was started on Rocephin and doxycycline. Home oxygen eval was done twice and she did not qualify. On today's evaluation, she is denying any shortness of breath. Chest x-ray was done, personally reviewed, does show some bibasilar haziness which is likely consistent with atelectasis. She does not endorse any cough. Overall feels comfortable and wishes to be discharged home. She was incidentally found to have an acute/subacute fracture of L1 for which orthopedics evaluated and recommended conservative measures. She is instructed to follow-up with her primary care physician within 1 week. Instructed return to the ER immediately with any shortness of breath, increased cough, fevers, chills or any other associated symptoms. Advised to follow-up with pulmonology outpatient for PFTs and sleep study. Also advised follow-up with her PCP within 1 week. Explicit discharge instructions were given to her and her daughter. Vitals are stable Exam on day of discharge, she is in no acute distress, RRR, lungs are clear to auscultation bilaterally, no lower extremity edema. Discharge diagnoses Community-acquired pneumonia Acute/subacute L1 fracture Hypertension History of recurrent CVAs Seizure disorder Hyperlipidemia Total discharge time greater than 30 minutes Patient Condition at Discharge: Good Plan - Discharge Summary Discharge Rx Participant: Yes New Discharge Prescriptions: New Warfarin [Coumadin] 6 mg PO ONCE@1800 tab Doxycycline [Vibramycin] 100 mg PO BID 5 Days #11 cap cloNIDine HCL [Catapres] 0.1 mg PO BID PRN tab PRN Reason: Blood Pressure - High Cefpodoxime Proxetil [Vantin] 200 mg PO Q12HR 5 Days #10 tab Continue amLODIPine [Norvasc] 5 mg PO HS Losartan Potassium 100 mg PO HS Levothyroxine Sodium [Synthroid] 75 mcg PO DAILY levETIRAcetam [Keppra] 500 mg PO BID Furosemide [Lasix] 20 mg PO DAILY Warfarin Sodium [Jantoven] 4 mg PO HS@1900 metFORMIN HCL 1,000 mg PO W/BRKFST Docusate [Colace] 200 mg PO DAILY Famotidine [Pepcid] 20 mg PO HS Empagliflozin [Jardiance] 10 mg PO DAILY Atorvastatin [Lipitor] 10 mg PO HS #30 tab DULoxetine HCL [Cymbalta] 30 mg PO HS Gabapentin 300 mg PO HS Mirtazapine [Remeron] 15 mg PO HS Warfarin Sodium 2 mg PO WE@1900 Lactobacillus Acidophilus [Acidophilus] 1 cap PO DAILY Discharge Medication List Losartan Potassium 100 mg PO HS 05/03/14 [History] amLODIPine [Norvasc] 5 mg PO HS 05/03/14 [History] Levothyroxine Sodium [Synthroid] 75 mcg PO DAILY 06/25/16 [History] Empagliflozin [Jardiance] 10 mg PO DAILY 08/24/22 [History] Famotidine [Pepcid] 20 mg PO HS 08/24/22 [History] levETIRAcetam [Keppra] 500 mg PO BID 08/24/22 [History] Atorvastatin [Lipitor] 10 mg PO HS #30 tab 08/29/22 [Rx] DULoxetine HCL [Cymbalta] 30 mg PO HS 03/30/23 [History] Furosemide [Lasix] 20 mg PO DAILY 03/30/23 [History] Gabapentin 300 mg PO HS 03/30/23 [History] Mirtazapine [Remeron] 15 mg PO HS 03/30/23 [History] Warfarin Sodium [Jantoven] 4 mg PO HS@1900 03/30/23 [History] metFORMIN HCL 1,000 mg PO W/BRKFST 04/29/23 [History] Docusate [Colace] 200 mg PO DAILY 12/13/23 [History] Lactobacillus Acidophilus [Acidophilus] 1 cap PO DAILY 12/13/23 [History] Warfarin Sodium 2 mg PO WE@1900 12/13/23 [History] Cefpodoxime Proxetil [Vantin] 200 mg PO Q12HR 5 Days #10 tab 12/15/23 [Rx] Doxycycline [Vibramycin] 100 mg PO BID 5 Days #11 cap 12/15/23 [Rx] Warfarin [Coumadin] 6 mg PO ONCE@1800 tab 12/15/23 [Rx] cloNIDine HCL [Catapres] 0.1 mg PO BID PRN tab 12/15/23 [Rx] Follow up Appointment(s)/Referral(s): Todd Cruz DO [Doctor of Osteopathic Medicine] - 1 Week [facility], [NON-STAFF] - As Needed Zeeshan Mata DO [Doctor of Osteopathic Medicine] - 1 Week Mani Robles DO [Primary Care Provider] - 1-2 days [facility]nard [NON-STAFF] - As Needed Patient Instructions/Handouts: Doxycycline (By mouth), Cefpodoxime Proxetil (By mouth), Clamshell Brace (DC) Activity/Diet/Wound Care/Special Instructions: Please take cefpodoxime 200 mg twice daily for 5 days starting tomorrow Please take doxycycline 100 mg twice daily, next dose should be tonight and then 5 days starting tomorrow Please follow-up with your primary care doctor within 1 week I have placed referral and instructions for orthopedic surgeon Dr. Mata and Dr. Cruz the lung specialist. As we discussed, please have sleep study and pulmonary function test outpatient. Please return to the ER with any shortness of breath, fever, chills, increased cough or difficulty breathing Discharge Disposition: HOME SELF-CARE
== END 2023-12-15 18:40 | disposition home health service (06) | DRG 193 ==
LOC: EC 20:18 → 5NMEDONC 22:39 → OBSVTOIN 12-14 17:26
PROVIDERS: ADMIT Internal Medicine; ATTEND Internal Medicine
DX: J18.9 Pneumonia, unspecified organism (principal); J96.01 Acute respiratory failure with hypoxia; S22.089A Unspecified fracture of T11-T12 vertebra, initial encounter for closed fracture; S32.019A Unspecified fracture of first lumbar vertebra, initial encounter for closed fracture; S09.90XA Unspecified injury of head, initial encounter; E11.22 Type 2 diabetes mellitus with diabetic chronic kidney disease; E11.40 Type 2 diabetes mellitus with diabetic neuropathy, unspecified; I95.9 Hypotension, unspecified; G40.909 Epilepsy, unspecified, not intractable, without status epilepticus; N18.30 Chronic kidney disease, stage 3 unspecified; I48.91 Unspecified atrial fibrillation; I12.9 Hypertensive chronic kidney disease with stage 1 through stage 4 chronic kidney disease, or unspecified chronic kidney disease; E03.9 Hypothyroidism, unspecified; F32.A Depression, unspecified; G25.81 Restless legs syndrome; Z66 Do not resuscitate; J98.6 Disorders of diaphragm; E78.5 Hyperlipidemia, unspecified; F41.9 Anxiety disorder, unspecified; K44.9 Diaphragmatic hernia without obstruction or gangrene; M19.90 Unspecified osteoarthritis, unspecified site; R29.6 Repeated falls; Z79.01 Long term (current) use of anticoagulants; Z79.84 Long term (current) use of oral hypoglycemic drugs; Z79.890 Hormone replacement therapy; Z79.899 Other long term (current) drug therapy; Z98.1 Arthrodesis status; Z85.828 Personal history of other malignant neoplasm of skin; Z86.73 Personal history of transient ischemic attack (TIA), and cerebral infarction without residual deficits; W19.XXXA Unspecified fall, initial encounter; Y92.009 Unspecified place in unspecified non-institutional (private) residence as the place of occurrence of the external cause; Z88.2 Allergy status to sulfonamides
CPT/HCPCS: 36415; 70450; 71045; 71046; 71275; 80048; 80053; 81001; 83605; 83735; 83880; 84484; 85025; 85379; 85610; 85730; 87636; 93005; 93306; 94760; 96374; 99285

== ENCOUNTER 2023-12-26 18:24 | Observation (INO) | payer MEDICARE, BC ==
[2023-12-26 18:42] VITALS: TEMP 97.6
--- NOTE | 2023-12-26 18:46 | ED ---
General Adult HPI - General Chief complaint: Weakness Stated complaint: constipation,back pain Time Seen by Provider: 12/26/23 18:28 Source: patient Mode of arrival: EMS Limitations: no limitations - History of Present Illness Initial comments: Patient is an 83 you female PMH prior CVA, hypertension, hypothyroidism presenting today for constipation and generalized weakness. History provided by patient daughter. They state the patient was recently admitted 2 weeks ago for shortness of breath. At that point patient had a pulse ox of 89% at rest and increased to 93% with ambulation. They were told she had "glassy" findings on her lungs on CT scan but were not sure why she was hypoxic. At that time she was also discovered to have a thoracic spine and low L3 fracture. Patient currently complains of 7 days of constipation. She did state that just prior to arrival when she was moved by EMS personnel she had a small loose stool. She denies any abdominal pain, nausea, vomiting, dizziness, fevers, chest pain, shortness of breath, new numbness or weakness in her lower extremities, difficulty urinating, urinary frequency or dysuria. She does currently take a stool softener twice a day and has been taking [employer] twice a day since discharge patient and daughter deny any new falls since patient was discharged in the hospital. Patient does endorse persistence of her back pain that was present at discharge from the hospital 2/2 spinal vertebral fractures. - Related Data Home Medications Medication Instructions Recorded Confirmed Losartan Potassium 100 mg PO HS 05/03/14 12/13/23 amLODIPine [Norvasc] 5 mg PO HS 05/03/14 12/13/23 Levothyroxine Sodium [Synthroid] 75 mcg PO DAILY 06/25/16 12/13/23 Empagliflozin [Jardiance] 10 mg PO DAILY 08/24/22 12/13/23 Famotidine [Pepcid] 20 mg PO HS 08/24/22 12/13/23 levETIRAcetam [Keppra] 500 mg PO BID 08/24/22 12/13/23 DULoxetine HCL [Cymbalta] 30 mg PO HS 03/30/23 12/13/23 Furosemide [Lasix] 20 mg PO DAILY 03/30/23 12/13/23 Gabapentin 300 mg PO HS 03/30/23 12/13/23 Mirtazapine [Remeron] 15 mg PO HS 03/30/23 12/13/23 Warfarin Sodium [Jantoven] 4 mg PO HS@1900 03/30/23 12/13/23 metFORMIN HCL 1,000 mg PO W/BRKFST 04/29/23 12/13/23 Docusate [Colace] 200 mg PO DAILY 12/13/23 12/13/23 Lactobacillus Acidophilus 1 cap PO DAILY 12/13/23 12/13/23 [Acidophilus] Warfarin Sodium 2 mg PO WE@1900 12/13/23 12/13/23 Previous Rx's Medication Instructions Recorded Atorvastatin [Lipitor] 10 mg PO HS #30 tab 08/29/22 Cefpodoxime Proxetil [Vantin] 200 mg PO Q12HR 5 Days #10 tab 12/15/23 Doxycycline [Vibramycin] 100 mg PO BID 5 Days #11 cap 12/15/23 Warfarin [Coumadin] 6 mg PO ONCE@1800 tab 12/15/23 cloNIDine HCL [Catapres] 0.1 mg PO BID PRN tab 12/15/23 Allergies Allergy/AdvReac Type Severity Reaction Status Date / Time Bleach (Sodium Hypochlorite) Allergy Rash/Hives Verified 12/26/23 18:42 Sulfa (Sulfonamide Allergy Rash/Hives Verified 12/26/23 18:42 Antibiotics) Review of Systems ROS Statement: Those systems with pertinent positive or pertinent negative responses have been documented in the HPI. ROS Other: All systems not noted in ROS Statement are negative. Past Medical History Past Medical History: No Reported History, Cancer, CVA/TIA, Diabetes Mellitus, Hyperlipidemia, Hypertension, Osteoarthritis (OA), Renal Disease, Seizure Disorder, Thyroid Disorder Additional Past Medical History / Comment(s): vertigo,hiatal hernia, restless leg,neuropathy,carpal tunnel,ddd, squamous cell carcinoma-arms, hands, legs, CKD History of Any Multi-Drug Resistant Organisms: None Reported Past Surgical History: Appendectomy, Back Surgery, Breast Surgery, Cholecystectomy, Hysterectomy, Orthopedic Surgery, Tonsillectomy Additional Past Surgical History / Comment(s): skin cancer removal, hemorrhoid removal, left breast high risk excisional november 2020, back surgery with rods and screws, tarsel tunnel both feet Past Anesthesia/Blood Transfusion Reactions: Motion Sickness Additional Past Anesthesia/Blood Transfusion Reaction / Comment(s): vertigo Past Psychological History: Anxiety, Depression Smoking Status: Never smoker Past Alcohol Use History: None Reported Past Drug Use History: None Reported - Past Family History Sister(s) Family Medical History: Cancer Additional Family Medical History / Comment(s): BREAST General Exam - General Exam Comments Initial Comments: PE: CONSTITUTIONAL: No apparent distress, chronically ill-appearing SKIN: Warm, dry, no jaundice, hives or petechiae EYES: Pupils are equally round, extraocular movements intact without nystagmus, clear conjunctiva, non-icteric sclera HENT: Normocephalic, atraumatic, somewhat dry mucus membranes, oropharynx clear without exudates NECK: , Full range of motion, normal appearance, no thyromegaly or masses palpated PULMONARY: Clear to auscultation without wheezes, rhonchi, or rales, normal excursion, no accessory muscle use and no stridor CARDIOVASCULAR: Regular rate, rhythm, normal S1 and S2. No appreciated murmurs, rubs or gallops. Strong dorsalis pedis pulses with intact distal perfusion. No lower extremity edema GASTROINTESTINAL: Soft, non-tender, minimally distended, no palpable masses, no rebound or guarding. No hepatosplenomegaly MUSCULOSKELETAL: Extremities have no gross deformity, no edema, redness, or swelling. No calf swelling NEUROLOGIC:_a/o x 3, GCS 15, normal mentation and speech. Moves all extremities x 4 without motor or sensory deficit PSYCHIATRIC:_normal mood and affect, thought process is clear and linear Limitations: no limitations Course Vital Signs 12/26/23 12/26/23 12/26/23 18:28 19:42 23:00 Temperature 97.6 F Pulse Rate 72 72 83 Respiratory 18 18 18 Rate Blood Pressure 176/89 171/90 184/109 O2 Sat by Pulse 92 L 96 94 L Oximetry 12/27/23 01:00 Temperature Pulse Rate 80 Respiratory 17 Rate Blood Pressure 138/81 O2 Sat by Pulse 94 L Oximetry Procedures - Rectal Disimpaction Consent Obtained: verbal consent Indication: fecal impaction Procedural Sedation: No Sedation/Analgesia: other (Versed) Technique: manual disimpaction with gloved finger Result: significant stool output (approximately 1 cupful) Complications: pain Patient Tolerated Procedure: well Medical Decision Making - Medical Decision Making Was pt. sent in by a medical professional or institution (, PA, OIL AND GAS RECRUITER, urgent care, hospital, or correction...) When possible be specific @ -No Did you speak to anyone other than the patient for history (EMS, parent, family, police, friend...)? What history was obtained from this source @ -Spoke with EMS personnel and patient's daughter at bedside Did you review nursing and triage notes (agree or disagree)? Why? @ -I reviewed and agree with nursing and triage notes Were old charts reviewed (outside hosp., previous admission, EMS record, old EKG, old radiological studies, urgent care reports/EKG's, correction records)? Report findings @ -Reviewed discharge summary from admission 12/14/2023 reviewed, patient discharged in 12/15/2023 during that evaluation patient was started on patient was noted to have patchy scattered groundglass opacities secondary to pneumatic process, started on doxycycline and Rocephin, she did not qualify for home oxygen on evaluation, found to have an L1 fracture incidentally, patient was discharged with doxycycline and cefpodoxime x 5 days. Differential Diagnosis (chest pain, altered mental status, abdominal pain women, abdominal pain men, vaginal bleeding, weakness, fever, dyspnea, syncope, headache, dizziness, GI bleed, back pain, seizure, CVA, palpatations, mental health, musculoskeletal)? @ -Differential Weakness: Hypoglycemia, chronic deconditioning, sepsis, hyponatremia, anemia, infection, ACS, adverse medicine reaction this is not meant to be an all-inclusive list. In regards to constipation differential diagnosis remains broad over top considerations include slow transit constipation secondary to new use of [employer] combined with decreased mobility secondary to L1 fractures, and recent hospitalization, intra-abdominal mass, volvulus EKG interpreted by me (3pts min.). @ -[Sinus rhythm Artifact present Rate 76 bpm CO interval 167 ms QT/QTc 349/379 ms Left axis deviation No ST elevations or depression X-rays interpreted by me (1pt min.). @ -Reviewed x-ray, cardiomegaly noted, right hemidiaphragm elevation, question possible increased hazy opacity in right lower lung field when compared to CT chest performed during prior admission CT interpreted by me (1pt min.). @ -Large stool mass in the rectum, no obvious obstruction, no volvulus, no perforation or free air, no other acute process noted U/S interpreted by me (1pt. min.). @ -None done What testing was considered but not performed or refused? (CT, X-rays, U/S, labs)? Why? @ -None What meds were considered but not given or refused? Why? @ -None Did you discuss the management of the patient with other professionals (professionals i.e. , PA, OIL AND GAS RECRUITER, lab, RT, psych nurse, manager social services, limehouse worker, teacher, evp and chief operating officer, case loader operator)? Give summary @ -No Was smoking cessation discussed for >3mins.? @ -No Was critical care preformed (if so, how long)? @ -No Were there social determinants of health that impacted care today? How? (Homelessness, low income, unemployed, alcoholism, drug addiction, transportation, low edu. Level, literacy, decrease access to med. care, [facility], rehab)? @ -No Was there de-escalation of care discussed even if they declined (Discuss DNR or withdrawal of care, Hospice)? DNR status @ -No What co-morbidities impacted this encounter? (DM, HTN, Smoking, COPD, CAD, Cancer, CVA, ARF, Chemo, Hep., AIDS, mental health diagnosis, sleep apnea, morbid obesity)? @Diabetes, hypertension, hyperlipidemia, prior CVA on Coumadin Was patient admitted / discharged? Hospital course, mention meds given and route, prescriptions, significant lab abnormalities, going to OR and other pertinent info. @ -Hospital course Patient seen and assessed on arrival. She is an 83-year-old female past medical history hypertension, hyperlipidemia, hypertension, chronic right hemidiaphragmatic paralysis, diabetes, CVA on Coumadin, hypothyroidism presentin g predominantly for constipation, no vomiting for 7 days and generalized weakness since hospital discharge. On assessment patient is chronically ill- appearing but in no acute distress. Lungs are clear to auscultation bilaterally. She is hypoxic, pulse ox 89% on room air with so was placed on 2 L nasal cannula, does not currently use oxygen at home. Normal S1-S2 on cardiac exam, extremities well-perfused. Abdomen is soft and minimally distended, nontender no palpable masses. In regards to constipation, I suspect slow transit constipation secondary to decreased activity after recent hospit alization and noted lumbar fracture, worsened by opiate use. CT abdomen pelvis ordered to assess for masses, obstruction, volvulus, other acute intra-abdominal process. Comprehensive labs, IV fluids, morphine and Zofran for pain control for back pain, CXR to assess for causes of hypoxia, EKG. Patient and daughter agreeable with plan of care. Chest x-ray read as stable changes without acute abnormality, CT abdomen pelvis significant for colonic finding suggestive rectal fecal impaction, no acute process otherwise. My interpretation as noted above, I agree with radiologist interpretation, appears lung findings are consistent with prior. Initial lactic 2.4, repeat 1.7. Labs otherwise reassuring, TSH slightly below normal. Added free T3/4. Updated patient and daughter to findings. Patient and daughter did note patient has had worsening cough since discharge. With hypoxia, recent admission, worsening cough and weakness, will initiate zosyn and treat for PNA. Patient endorsed return of back pain so additional dose morphine ordered. Will trial molasses enema to dislodge stool ball however if unsuccessful will attempt manual disimpaction. Patient and daughter agreeable with plan. Urinalysis appears contaminated with many white blood cell clumps, greater than 182 white blood cells, 51 red blood cells, large leukocyte esterase, rare bacteria, few budding yeast negative nitrites. Molasses enema attempted. Patient had no relief. Discussed with patient and daughter performing fecal disimpaction. Patient daughter agreeable with plan. Patient given 2 mg of Versed to help tolerate disimpaction. I was able to disimpact approximately 1 cupful of stool however patient does still have a large amount of stool remaining in rectum before I terminated procedure 2/2 patient discomfort. Bowel regime ordered. Patient's home medications ordered. Patient admitted to Dr. Woods in stable condition. Undiagnosed new problem with uncertain prognosis? @ -No Drug Therapy requiring intensive monitoring for toxicity (Heparin, Nitro, Insulin, Cardizem)? @ -No Were any procedures done? @ -Yes fecal disimpaction Diagnosis/symptom? @ -Constipation, generalized weakness, hypoxia Acute, or Chronic, or Acute on Chronic? @ -Acute Uncomplicated (without systemic symptoms) or Complicated (systemic symptoms)? @ -Complicated Side effects of treatment? @ -No Exacerbation, Progression, or Severe Exacerbation? @ -No Poses a threat to life or bodily function? How? (Chest pain, [place], [place], pneumonia, PE, COPD, DKA, ARF, appy, cholecystitis, CVA, Diverticulitis, Homicidal, Suicidal, threat to staff... and all critical care pts) @ -Unlikely - Lab Data Result diagrams: 12/26/23 19:03 12/26/23 19:03 Lab Results 12/26/23 12/26/23 12/26/23 Range/Units 19:03 19:03 19:03 WBC 9.5 (3.8-10.6) k/uL RBC 4.20 (3.80-5.40) m/uL Hgb 12.8 (11.4-16.0) gm/dL Hct 40.0 (34.0-46.0) % MCV 95.1 (80.0-100.0) fL MCH 30.5 (25.0-35.0) pg MCHC 32.1 (31.0-37.0) g/dL RDW 14.7 (11.5-15.5) % Plt Count 192 (150-450) k/uL MPV 8.0 Neutrophils % 75 % Lymphocytes % 16 % Monocytes % 8 % Eosinophils % 0 % Basophils % 0 % Neutrophils # 7.2 (1.3-7.7) k/uL Lymphocytes # 1.5 (1.0-4.8) k/uL Monocytes # 0.7 (0-1.0) k/uL Eosinophils # 0.0 (0-0.7) k/uL Basophils # 0.0 (0-0.2) k/uL Hypochromasia Moderate PT 22.3 H (10.0-12.5) sec INR 2.2 H (<1.2) APTT 31.4 H (22.0-30.0) sec Sodium (137-145) mmol/L Potassium (3.5-5.1) mmol/L Chloride (98-107) mmol/L Carbon Dioxide (22-30) mmol/L Anion Gap mmol/L BUN (7-17) mg/dL Creatinine (0.52-1.04) mg/dL Est GFR (CKD-EPI)AfAm (>60 ml/min/1.73 sqM) Est GFR (CKD-EPI)NonAf (>60 ml/min/1.73 sqM) Glucose (74-99) mg/dL Lactic Ac Sepsis Rflx Plasma Lactic Acid Felix (0.7-2.0) mmol/L Calcium (8.4-10.2) mg/dL Ionized Calcium Jami (4.5-5.3) mg/dL Magnesium (1.6-2.3) mg/dL Total Bilirubin (0.2-1.3) mg/dL AST (14-36) U/L ALT (4-34) U/L Alkaline Phosphatase (38-126) U/L Troponin I (0.000-0.034) ng/mL NT-Pro-B Natriuret Pep pg/mL Total Protein (6.3-8.2) g/dL Albumin (3.5-5.0) g/dL TSH (0.465-4.680) mIU/L Urine Color Yellow Urine Appearance Turbid H (Clear) Urine pH 5.5 (5.0-8.0) Ur Specific [place] 1.017 (1.001-1.035) Urine Protein 1+ H (Negative) Urine Glucose (UA) 4+ H (Negative) Urine Ketones Negative (Negative) Urine Blood Moderate H (Negative) Urine Nitrite Negative (Negative) Urine Bilirubin Negative (Negative) Urine Urobilinogen <2.0 (<2.0) mg/dL Ur Leukocyte Esterase Large H (Negative) Urine RBC 51 H (0-5) /hpf Urine WBC >182 H (0-5) /hpf Urine WBC Clumps Many H (None) /hpf Ur Squamous Epith Cells 22 H (0-4) /hpf Urine Bacteria Rare H (None) /hpf Urine Mucus Rare H (None) /hpf Urine Yeast (Budding) Few H (None) /hpf 12/26/23 12/26/23 12/26/23 Range/Units 19:03 19:03 19:03 WBC (3.8-10.6) k/uL RBC (3.80-5.40) m/uL Hgb (11.4-16.0) gm/dL Hct (34.0-46.0) % MCV (80.0-100.0) fL MCH (25.0-35.0) pg MCHC (31.0-37.0) g/dL RDW (11.5-15.5) % Plt Count (150-450) k/uL MPV Neutrophils % % Lymphocytes % % Monocytes % % Eosinophils % % Basophils % % Neutrophils # (1.3-7.7) k/uL Lymphocytes # (1.0-4.8) k/uL Monocytes # (0-1.0) k/uL Eosinophils # (0-0.7) k/uL Basophils # (0-0.2) k/uL Hypochromasia PT (10.0-12.5) sec INR (<1.2) APTT (22.0-30.0) sec Sodium 141 (137-145) mmol/L Potassium 4.4 (3.5-5.1) mmol/L Chloride 104 (98-107) mmol/L Carbon Dioxide 29 (22-30) mmol/L Anion Gap 8 mmol/L BUN 31 H (7-17) mg/dL Creatinine 1.68 H (0.52-1.04) mg/dL Est GFR (CKD-EPI)AfAm 32 (>60 ml/min/1.73 sqM) Est GFR (CKD-EPI)NonAf 28 (>60 ml/min/1.73 sqM) Glucose 161 H (74-99) mg/dL Lactic Ac Sepsis Rflx Plasma Lactic Acid Felix 2.4 H* (0.7-2.0) mmol/L Calcium 10.3 H (8.4-10.2) mg/dL Ionized Calcium Jami 5.2 (4.5-5.3) mg/dL Magnesium 2.1 (1.6-2.3) mg/dL Total Bilirubin 1.3 (0.2-1.3) mg/dL AST 16 (14-36) U/L ALT 11 (4-34) U/L Alkaline Phosphatase 74 (38-126) U/L Troponin I <0.012 (0.000-0.034) ng/mL NT-Pro-B Natriuret Pep 719 pg/mL Total Protein 7.1 (6.3-8.2) g/dL Albumin 4.4 (3.5-5.0) g/dL TSH 0.424 L (0.465-4.680) mIU/L Urine Color Urine Appearance (Clear) Urine pH (5.0-8.0) Ur Specific [place] (1.001-1.035) Urine Protein (Negative) Urine Glucose (UA) (Negative) Urine Ketones (Negative) Urine Blood (Negative) Urine Nitrite (Negative) Urine Bilirubin (Negative) Urine Urobilinogen (<2.0) mg/dL Ur Leukocyte Esterase (Negative) Urine RBC (0-5) /hpf Urine WBC (0-5) /hpf Urine WBC Clumps (None) /hpf Ur Squamous Epith Cells (0-4) /hpf Urine Bacteria (None) /hpf Urine Mucus (None) /hpf Urine Yeast (Budding) (None) /hpf 12/26/23 12/26/23 Range/Units 19:43 23:14 WBC (3.8-10.6) k/uL RBC (3.80-5.40) m/uL Hgb (11.4-16.0) gm/dL Hct (34.0-46.0) % MCV (80.0-100.0) fL MCH (25.0-35.0) pg MCHC (31.0-37.0) g/dL RDW (11.5-15.5) % Plt Count (150-450) k/uL MPV Neutrophils % % Lymphocytes % % Monocytes % % Eosinophils % % Basophils % % Neutrophils # (1.3-7.7) k/uL Lymphocytes # (1.0-4.8) k/uL Monocytes # (0-1.0) k/uL Eosinophils # (0-0.7) k/uL Basophils # (0-0.2) k/uL Hypochromasia PT (10.0-12.5) sec INR (<1.2) APTT (22.0-30.0) sec Sodium (137-145) mmol/L Potassium (3.5-5.1) mmol/L Chloride (98-107) mmol/L Carbon Dioxide (22-30) mmol/L Anion Gap mmol/L BUN (7-17) mg/dL Creatinine (0.52-1.04) mg/dL Est GFR (CKD-EPI)AfAm (>60 ml/min/1.73 sqM) Est GFR (CKD-EPI)NonAf (>60 ml/min/1.73 sqM) Glucose (74-99) mg/dL Lactic Ac Sepsis Rflx Y Plasma Lactic Acid Felix 1.7 (0.7-2.0) mmol/L Calcium (8.4-10.2) mg/dL Ionized Calcium Jami (4.5-5.3) mg/dL Magnesium (1.6-2.3) mg/dL Total Bilirubin (0.2-1.3) mg/dL AST (14-36) U/L ALT (4-34) U/L Alkaline Phosphatase (38-126) U/L Troponin I (0.000-0.034) ng/mL NT-Pro-B Natriuret Pep pg/mL Total Protein (6.3-8.2) g/dL Albumin (3.5-5.0) g/dL TSH (0.465-4.680) mIU/L Urine Color Urine Appearance (Clear) Urine pH (5.0-8.0) Ur Specific [place] (1.001-1.035) Urine Protein (Negative) Urine Glucose (UA) (Negative) Urine Ketones (Negative) Urine Blood (Negative) Urine Nitrite (Negative) Urine Bilirubin (Negative) Urine Urobilinogen (<2.0) mg/dL Ur Leukocyte Esterase (Negative) Urine RBC (0-5) /hpf Urine WBC (0-5) /hpf Urine WBC Clumps (None) /hpf Ur Squamous Epith Cells (0-4) /hpf Urine Bacteria (None) /hpf Urine Mucus (None) /hpf Urine Yeast (Budding) (None) /hpf Disposition Clinical Impression: Constipation by delayed colonic transit, Generalized weakness, Hypoxia Disposition: ADMITTED IP TO THIS [facility] Condition: Good Time of Disposition: 23:55
[2023-12-26 19:18] LABS: Basophils % (A) 0 %; Eosinophils % (A) 0 %; HGB 12.8 gm/dL (11.4-16.0); Hypochromasia Moderate; Lymphocytes # (A) 1.5 k/uL (1.0-4.8); Lymphocytes % (A) 16 %; MCH 30.5 pg (25.0-35.0); MCHC 32.1 g/dL (31.0-37.0); MCV 95.1 fL (80.0-100.0); Monocytes # (A) 0.7 k/uL (0-1.0); Monocytes % (A) 8 %; Neutrophils # (A) 7.2 k/uL (1.3-7.7); Neutrophils % (A) 75 %; Platelet Count 192 k/uL (150-450); RDW 14.7 % (11.5-15.5); WBC 9.5 k/uL (3.8-10.6)
[2023-12-26 19:23] LABS: Ionized Calcium 5.2 mg/dL (4.5-5.3)
[2023-12-26 19:26] LABS: INR 2.2 (<1.2); Partial Thromboplastin Time 31.4 sec (22.0-30.0); Prothrombin Time 22.3 sec (10.0-12.5)
[2023-12-26 19:30] LABS: ALT 11 U/L (4-34); AST 16 U/L (14-36); African American GFR (CKD) 32 (>60 ml/min/1.73 sqM); Albumin 4.4 g/dL (3.5-5.0); Alkaline Phosphatase 74 U/L (38-126); Anion Gap 8 mmol/L; Blood Urea Nitrogen 31 mg/dL (7-17); Calcium 10.3 mg/dL (8.4-10.2); Carbon Dioxide 29 mmol/L (22-30); Chloride 104 mmol/L (98-107); Glucose 161 mg/dL (74-99); Magnesium 2.1 mg/dL (1.6-2.3); Non-African American GFR(CKD) 28 (>60 ml/min/1.73 sqM); Potassium 4.4 mmol/L (3.5-5.1); Sodium 141 mmol/L (137-145); Total Bilirubin 1.3 mg/dL (0.2-1.3); Total Protein 7.1 g/dL (6.3-8.2)
[2023-12-26 19:38] LABS: NT-Pro-B-Type Natriuretic Pept 719 pg/mL
[2023-12-26] MEDS: ONDANSETRON 4 MG/2 ML VIAL IVP STA (19:43)
[2023-12-26] MEDS: MORPHINE SULFATE 4 MG/ML SYRINGE IV STA (19:43)
--- NOTE | 2023-12-26 20:49 | XR ---
EXAMINATION TYPE: XR chest 2V DATE OF EXAM: 12/26/2023 7:26 PM CLINICAL INDICATION:Female, 83 years old with history of Weakness; [facility] COMPARISON: 12/15/2023 TECHNIQUE: XR chest 2V. Frontal and lateral views of the chest.. FINDINGS: Heart size upper limits of normal. Unremarkable mediastinal contours. Partially calcified aorta. Relatively severe elevation of the right hemidiaphragm again noted, likely related to eventration wit h extension of the hepatic dome up into the chest. Stable mild bibasilar opacities likely atelectasis over infiltrate. No significant pleural effusion or evidence of pneumothorax. Chronic senescent feng ges in the lungs. Moderate diffuse degenerative changes involving the spine and shoulders. Likely rotator cuff cuff dis ease, especially on the left. No acute bony pathology is suggested. IMPRESSION: Overall stable chest findings, without evidence of an acute abnormality.
[2023-12-26] MEDS: SODIUM CHLORIDE 0.9% 500 ML 500 ML IV ONE (21:35)
--- NOTE | 2023-12-26 21:38 | CT ---
EXAMINATION TYPE: CT abdomen pelvis wo con CT DLP: 538.8 mGycm, Automated exposure control for dose reduction was used. DATE OF EXAM: 12/26/2023 8:15 PM COMPARISON: None. CLINICAL INDICATION:Female, 83 years old with history of abdominal distention, constipation x 7 days; abdominal distention, constipation x 7 days TECHNIQUE: Axial CT of the abdomen and pelvis. Sagittal and coronal reformats were created on a [employer] workstation. Contrast used: mL of , (none if empty) Oral contrast used: without Oral Contrast (none if empty) FINDINGS: LOWER CHEST: Likely eventration along the right hemidiaphragm results in moderate to severe elevation of the hepatic dome up into the chest. Bibasilar lung opacities with the appearance of atelectasis,, right greater than left. Calcified tracheobronchial cartilages are also noted. Pulmonary arteries ar e prominent, the pulmonary trunk is about 3.4 cm suggestive of pulmonary hypertension. Moderate to he rubi calcification of the visualized aorta without aneurysm. Heart appears borderline mildly enlarged. Some aortic valve calcifications are seen. Small to moderate-sized hiatal hernia. ABDOMEN LIVER: Otherwise unremarkable GALLBLADDER AND BILE DUCTS: The gallbladder is surgically absent. Biliary tree does not appear pathol ogically dilated given the postop status and patient age. PANCREAS: No acute finding SPLEEN: Unremarkable. ADRENAL GLANDS: Mildly thickened, may be seen with hyperplasia.. KIDNEYS AND URETERS: No right-sided calculi or hydronephrosis. Nonobstructing 10 mm calculus in the l ower pole left kidney. No left-sided hydronephrosis. PELVIS BLADDER: Unremarkable REPRODUCTIVE: Organs not seen, correlate for hysterectomy. ABDOMEN & PELVIS STOMACH AND BOWEL: Stomach and small bowel are nondistended, no evidence of obstruction. A roughly 2 cm duodenal diverticulum is suggested. There is some fecalization of distal small bowel loops sugg esting slow transit. No evidence of appendicitis. Fatty infiltration ileocecal valve. Moderate stool in the right colon and increased stool in the distal colon with the rectum seen to be packed and dist ended with stool, measuring as large as 10.7 cm transverse. PERITONEUM/RETROPERITONEUM: No evidence of pneumoperitoneum or free fluid. VASCULATURE: Moderate to severe atherosclerotic calcifications are present throughout the abdominal a cassy and its branches. Mild ectasia without evidence of aortic aneurysm. LYMPH NODES: No enlarged nodes by CT size criteria. SOFT TISSUE/ABDOMINAL WALL: No acute finding MUSCULOSKELETAL: No acute osseous abnormalities. Osteopenia and mild/moderate diffuse degenerative c hanges. Postoperative changes including bilateral pedicle screws and posterior fixation rods at L3-L4 , and L3-L4 disc space prosthesis which appears somewhat anteriorly located within the disc space. Co mpression deformity with near vertebra plana appearance L1, appearance favors chronic. Milder tracee julee of T11, favored to be chronic. Small sclerotic densities in T10 and L2 favored to be bone island s. No destructive bony lesion is seen. IMPRESSION: 1. Colonic findings suggestive of rectal fecal impaction. Correlate clinically. 2. Otherwise, no acute process demonstrated. 3. Other chronic and likely incidental findings, as described above.
[2023-12-26 22:18] LABS: Appearance,Urine Turbid (Clear); Bacteria,Urine Rare /hpf; Bilirubin,Urine Negative (Negative); Blood,Urine Moderate (Negative); Budding Yeast,Urine Few /hpf; Color,Urine Yellow; Glucose,Urine (UA) 4+ (Negative); Ketones,Urine Negative (Negative); Leukocyte Esterase,Urine Large (Negative); Mucus,Urine Rare /hpf; Nitrite,Urine Negative (Negative); PH, Urine 5.5 (5.0-8.0); Protein,Urine 1+ (Negative); RBC,Urine 51 /hpf (0-5); Specific Gravity,Urine 1.017 (1.001-1.035); Squamous Epithelial Cell,Urine 22 /hpf (0-4); Urobilinogen,Urine <2.0 mg/dL (<2.0); WBC,Urine >182 /hpf (0-5)
[2023-12-27] MEDS ORDERED: SODIUM CHLORIDE 0.9% 1,000 ML BAG ONE (00:01)
[2023-12-27] MEDS ORDERED: DOCUSATE 100 MG CAP ONE (00:01)
[2023-12-27] MEDS ORDERED: levETIRAcetam 500 MG TAB ONE ×2 (00:01→22:01)
[2023-12-27] MEDS: MORPHINE SULFATE 4 MG/ML SYRINGE IVP STA (00:24)
[2023-12-27] MEDS: PIPERACILLIN-TAZOBACTAM 4.5 GM in SODIUM CHLORIDE 0.9% 100 ML IVPB STA (00:27)
[2023-12-27] MEDS: ONDANSETRON 4 MG/2 ML VIAL IVP STA (00:31)
[2023-12-27] MEDS ORDERED: cloNIDine HCL 0.1 MG TAB PO PRN (01:07)
[2023-12-27] MEDS ORDERED: NALOXONE 0.4 MG/ML 1 ML VIAL IV PRN (01:19)
[2023-12-27] MEDS ORDERED: HYDROcodone/APAP 5-325MG 1 EACH TAB PO PRN (01:19)
[2023-12-27] MEDS ORDERED: ACETAMINOPHEN TAB 325 MG TAB PO PRN (01:19)
[2023-12-27 01:20] VITALS: RESP 17
[2023-12-27] MEDS: MIDAZOLAM 2 MG/2 ML VIAL IV ONE (01:37)
[2023-12-27] MEDS: fentaNYL (PF) 50 MCG/ML 2 ML AMP IVP ONE (02:20)
[2023-12-27] MEDS: MIRTAZAPINE 15 MG TAB PO SCH (02:40)
[2023-12-27] MEDS: WARFARIN 3 MG TAB PO SCH (02:40)
[2023-12-27] MEDS: levETIRAcetam 500 MG TAB PO STA (02:40)
[2023-12-27 02:44] LABS: T4, Free (Free Thyroxine) 1.53 ng/dL (0.78-2.19)
[2023-12-27] MEDS: amLODIPine 5 MG TAB PO SCH (02:50)
[2023-12-27 06:11] VITALS: BP 162/73; PULSE 62
[2023-12-27] MEDS ORDERED: SODIUM CHLORIDE 0.9% 1,000 ML IV SCH (06:45)
[2023-12-27] MEDS ORDERED: DEXTROSE 50% SYRINGE 50 ML IVP PRN ×2 (06:52)
--- NOTE | 2023-12-27 06:56 | P.HPIM ---
History of Present Illness H&P Date: 12/27/23 Chief Complaint: generalized weakness, constipation 83-year-old female with chronic kidney disease, hypertension, diabetes mellitus, history of recurrent strokes on Coumadin Patient coming in for evaluation of generalized weakness she was recently hospitalized about a week ago seen evaluated for shortness of breath and hypoxemia however she did not qualify for home oxygen she was also found to have incidental finding of lower thoracic upper lumbar vertebral fracture evaluated by orthopedic who recommended conservative management was discharged with pain medications. She was also found to have groundglass appearance of her lungs along with her symptoms of coughing she was placed on Rocephin and doxycycline while inpatient and was discharged on Doxy and cefodoxime for 5 days Patient reporting constipation however denies any abdominal pain nausea or vomiting denies any fevers or chills denies any changes in her urinary habits denies any urinary symptoms. She has been taking Bradley for her back pain which helps control the pain. She has not followed up with orthopedic as outpatient yet. She denies any new falls at home Patient daughter grew concerned about her mom and decided to call EMS to bring her to the hospital for evaluation upon arrival of EMS patient had a small loose bowel movement. Upon arrival to the ED she was found to have fecal impaction, enema was attempted with no success, forward ED doctor attempted a bedside fecal disimpaction was successful to remove the palpable stool however patient continued to have significant amount of fecal impaction in her rectum review of systems Pertinent positives as noted in HPI. All other systems were reviewed and are negative on exam Constitutional: No acute distress, ill looking Eyes: Anicteric sclerae, moist conjunctiva, Pupils equal round reactive to light ENMT: NC/AT Oropharynx clear, no erythema, or exudates Lungs: Clear to auscultation Clear to percussion Normal respiratory effort, no accessory muscle use Cardiovascular: Heart regular in rate and rhythm, No murmurs, gallops, or rubs No peripheral edema Abdominal: Mildly distended, abdomen feels tense to palpation throughout Nontender, no guarding, rebound or rigidity Abdomen moving with respiration Normoactive bowel sounds Extremities: No digital cyanosis No clubbing Pedal pulses weak and symmetrical, warm extremities , capillary refill immediate Radial pulses intact and symmetrical No calf tenderness Psychiatric: awake , slow to respond, oriented to person, place Neuro Muscles Strength 3/5 in bilateral lower extremities , and 4/5 in bilateral upper extremities Sensation to light touch grossly present throughout Cranial nerves II-XII grossly intact Past Medical History Past Medical History: No Reported History, Cancer, CVA/TIA, Diabetes Mellitus, Hyperlipidemia, Hypertension, Osteoarthritis (OA), Renal Disease, Seizure Disorder, Thyroid Disorder Additional Past Medical History / Comment(s): vertigo,hiatal hernia, restless leg,neuropathy,carpal tunnel,ddd, squamous cell carcinoma-arms, hands, legs, CKD History of Any Multi-Drug Resistant Organisms: None Reported Past Surgical History: Appendectomy, Back Surgery, Breast Surgery, Cholecystectomy, Hysterectomy, Orthopedic Surgery, Tonsillectomy Additional Past Surgical History / Comment(s): skin cancer removal, hemorrhoid removal, left breast high risk excisional november 2020, back surgery with rods and screws, tarsel tunnel both feet Past Anesthesia/Blood Transfusion Reactions: Motion Sickness Additional Past Anesthesia/Blood Transfusion Reaction / Comment(s): vertigo Past Psychological History: Anxiety, Depression Smoking Status: Never smoker Past Alcohol Use History: None Reported Past Drug Use History: None Reported - Past Family History Sister(s) Family Medical History: Cancer Additional Family Medical History / Comment(s): BREAST Medications and Allergies Home Medications Medication Instructions Recorded Confirmed Type Losartan Potassium 100 mg PO HS 05/03/14 12/13/23 History amLODIPine [Norvasc] 5 mg PO HS 05/03/14 12/13/23 History Levothyroxine Sodium [Synthroid] 75 mcg PO DAILY 06/25/16 12/13/23 History Empagliflozin [Jardiance] 10 mg PO DAILY 08/24/22 12/13/23 History Famotidine [Pepcid] 20 mg PO HS 08/24/22 12/13/23 History levETIRAcetam [Keppra] 500 mg PO BID 08/24/22 12/13/23 History Atorvastatin [Lipitor] 10 mg PO HS #30 tab 08/29/22 12/13/23 Rx DULoxetine HCL [Cymbalta] 30 mg PO HS 03/30/23 12/13/23 History Furosemide [Lasix] 20 mg PO DAILY 03/30/23 12/13/23 History Gabapentin 300 mg PO HS 03/30/23 12/13/23 History Mirtazapine [Remeron] 15 mg PO HS 03/30/23 12/13/23 History Warfarin Sodium [Jantoven] 4 mg PO HS@1900 03/30/23 12/13/23 History metFORMIN HCL 1,000 mg PO W/BRKFST 04/29/23 12/13/23 History Docusate [Colace] 200 mg PO DAILY 12/13/23 12/13/23 History Lactobacillus Acidophilus 1 cap PO DAILY 12/13/23 12/13/23 History [Acidophilus] Warfarin Sodium 2 mg PO WE@1900 12/13/23 12/13/23 History Cefpodoxime Proxetil [Vantin] 200 mg PO Q12HR 5 Days #10 tab 12/15/23 Rx Doxycycline [Vibramycin] 100 mg PO BID 5 Days #11 cap 12/15/23 Rx Warfarin [Coumadin] 6 mg PO ONCE@1800 tab 12/15/23 Rx cloNIDine HCL [Catapres] 0.1 mg PO BID PRN tab 12/15/23 Rx Allergies Allergy/AdvReac Type Severity Reaction Status Date / Time Bleach (Sodium Hypochlorite) Allergy Rash/Hives Verified 12/26/23 18:42 Sulfa (Sulfonamide Allergy Rash/Hives Verified 12/26/23 18:42 Antibiotics) Physical Exam Vitals: Vital Signs Temp Pulse Resp BP Pulse Ox 12/27/23 04:00 60 17 121/71 94 L 12/27/23 01:00 80 17 138/81 94 L 12/26/23 23:00 83 18 184/109 94 L 12/26/23 19:42 72 18 171/90 96 12/26/23 18:28 97.6 F 72 18 176/89 92 L Intake and Output 12/26/23 12/26/23 12/27/23 14:59 22:59 06:59 Other: Weight 72.575 kg Results CBC & Chem 7: 12/26/23 19:03 12/26/23 19:03 Labs: Abnormal Lab Results - Last 24 Hours (Table) 12/26/23 12/26/23 12/26/23 Range/Units 19:03 19:03 19:03 PT 22.3 H (10.0-12.5) sec INR 2.2 H (<1.2) APTT 31.4 H (22.0-30.0) sec BUN 31 H (7-17) mg/dL Creatinine 1.68 H (0.52-1.04) mg/dL Glucose 161 H (74-99) mg/dL Plasma Lactic Acid Felix (0.7-2.0) mmol/L Calcium 10.3 H (8.4-10.2) mg/dL TSH 0.424 L (0.465-4.680) mIU/L Urine Appearance Turbid H (Clear) Urine Protein 1+ H (Negative) Urine Glucose (UA) 4+ H (Negative) Urine Blood Moderate H (Negative) Ur Leukocyte Esterase Large H (Negative) Urine RBC 51 H (0-5) /hpf Urine WBC >182 H (0-5) /hpf Urine WBC Clumps Many H (None) /hpf Ur Squamous Epith Cells 22 H (0-4) /hpf Urine Bacteria Rare H (None) /hpf Urine Mucus Rare H (None) /hpf Urine Yeast (Budding) Few H (None) /hpf 12/26/23 Range/Units 19:03 PT (10.0-12.5) sec INR (<1.2) APTT (22.0-30.0) sec BUN (7-17) mg/dL Creatinine (0.52-1.04) mg/dL Glucose (74-99) mg/dL Plasma Lactic Acid Felix 2.4 H* (0.7-2.0) mmol/L Calcium (8.4-10.2) mg/dL TSH (0.465-4.680) mIU/L Urine Appearance (Clear) Urine Protein (Negative) Urine Glucose (UA) (Negative) Urine Blood (Negative) Ur Leukocyte Esterase (Negative) Urine RBC (0-5) /hpf Urine WBC (0-5) /hpf Urine WBC Clumps (None) /hpf Ur Squamous Epith Cells (0-4) /hpf Urine Bacteria (None) /hpf Urine Mucus (None) /hpf Urine Yeast (Budding) (None) /hpf Assessment and Plan Assessment: 83-year-old female with CKD, hypertension, history of recurrent strokes on Coumadin coming in for constipation and generalized weakness found to have fecal impaction and attempted fecal disimpaction in the ED I discussed the case with ED doctor and accepted the admission for constipation with fecal impaction and generalized weakness with anticipated length of stay less than 2 midnights Constipation suspected secondary to delayed colonic transit secondary to opiate use CT of the abdomen suggestive of rectal fecal impaction otherwise no acute process Enema and manual disimpaction was attempted in the ED with no full relief General surgery consult Continue with bowel regimen IV fluid hydration with normal saline status post 1 L bolus continue with 100 c c/h CBC unremarkable with hemoglobin of 12.8 and white count of 7.5 Mild hypercalcemia Calcium level 10.3, continue to monitor Continue with IV fluid hydration with normal saline Sodium 141 unremarkable Potassium 4.4 unremarkable magnesium 2.1 unremarkable Hypothyroidism Low TSH 0.4, free T4 unremarkable 1.5 Continue with levothyroxine Follow-up thyroid function test as outpatient in 4 to 6 weeks CKD 3 stable BUN 31 creatinine 1.68 Avoid nephrotoxic meds Monitor urine output History of recurrent strokes on Coumadin INR therapeutic 2.3 Continue Coumadin dosing by pharmacy Continue with statin 10 mg p.o. nightly Hypertension uncontrolled Continue with amlodipine 5 mg p.o. nightly Losartan 100 mg p.o. nightly Clonidine 0.1 mg p.o. twice daily as needed for systolic blood pressure above 180 History of seizures Continue with Keppra 500 mg p.o. twice daily Diabetes mellitus Hold oral hypoglycemic agents Insulin sliding scale Patient was given one-time dose of antibiotic with Zosyn in the ED for suspected persistent pneumonia. Patient has already finished a course of antibiotic after discharge about 10 days ago. Currently has no fevers no leukocytosis chest x-ray is stable without any new changes compared to before. Continue to monitor off antibiotics at this time Full code DVT prophylaxis on Coumadin for recurrent strokes GI prophylaxis Protonix 40 mg p.o. daily
[2023-12-27] MEDS: LEVOTHYROXINE 75 MCG TAB PO SCH (07:16)
[2023-12-27] MEDS ORDERED: metFORMIN 500 MG TAB PO SCH (07:30)
[2023-12-27] MEDS ORDERED: PANTOPRAZOLE 40 MG TABLET PO SCH (07:30)
[2023-12-27] MEDS ORDERED: INSULIN ASPART (NovoLOG) 100 UNIT/ML VIAL SQ SCH (07:30)
[2023-12-27] MEDS ORDERED: LACTOBACILLUS ACIDOPHILUS/PECT 1 EACH CAPSULE PO SCH (09:00)
[2023-12-27] MEDS ORDERED: DAPAGLIFLOZIN PROPANEDIOL 5 MG TABLET PO SCH (09:00)
[2023-12-27] MEDS ORDERED: FUROSEMIDE 20 MG TAB PO SCH (09:00)
[2023-12-27] MEDS ORDERED: bisacodyL 5 MG TABLET.DR PO PRN (09:00)
[2023-12-27] MEDS ORDERED: DOCUSATE 100 MG CAP PO SCH (09:00)
[2023-12-27] MEDS ORDERED: levETIRAcetam 500 MG TAB PO SCH (09:00)
[2023-12-27] MEDS ORDERED: cloNIDine HCL 0.1 MG TAB ONE (16:25)
[2023-12-27] MEDS ORDERED: WARFARIN 2 MG TAB ONE (16:25)
[2023-12-27] MEDS ORDERED: HYDROcodone/APAP 5-325MG 1 EACH TAB ONE (16:26)
[2023-12-27] MEDS ORDERED: amLODIPine 5 MG TAB ONE ×2 (16:30→22:01)
[2023-12-27 17:17] LABS: Glucose,Whole Blood 114 mg/dL (70-110)
[2023-12-27] MEDS ORDERED: amLODIPine 5 MG TAB PO SCH (18:00)
[2023-12-27] MEDS ORDERED: WARFARIN 2 MG TAB PO SCH (18:00)
[2023-12-27] MEDS ORDERED: GABAPENTIN 300 MG CAP PO SCH (21:00)
[2023-12-27] MEDS ORDERED: DULoxetine HCL 30 MG CAPSULE.DR PO SCH (21:00)
[2023-12-27] MEDS ORDERED: ATORVASTATIN 10 MG TAB PO SCH (21:00)
[2023-12-27] MEDS ORDERED: LOSARTAN 50 MG TAB PO SCH (21:00)
[2023-12-27] MEDS ORDERED: FAMOTIDINE 20 MG TAB PO SCH (21:00)
[2023-12-27] MEDS ORDERED: FAMOTIDINE 20 MG TAB ONE (22:00)
[2023-12-27] MEDS ORDERED: ATORVASTATIN 10 MG TAB ONE (22:01)
[2023-12-27] MEDS ORDERED: DULoxetine HCL 30 MG CAPSULE.DR PO ONE (22:01)
[2023-12-27] MEDS ORDERED: LOSARTAN 50 MG TAB ONE (22:01)
[2023-12-27] MEDS ORDERED: MIRTAZAPINE 15 MG TAB ONE (22:01)
[2023-12-27] MEDS ORDERED: GABAPENTIN 300 MG CAP ONE (22:02)
[2023-12-27 22:43] LABS: Glucose,Whole Blood 159 mg/dL (70-110)
[2023-12-28 06:05] LABS: Glucose,Whole Blood 117 mg/dL (70-110)
[2023-12-28] MEDS ORDERED: LEVOTHYROXINE 75 MCG TAB ONE (06:53)
[2023-12-28] MEDS ORDERED: PANTOPRAZOLE 40 MG TABLET PO ONE (06:53)
[2023-12-28] MEDS ORDERED: DOCUSATE 100 MG CAP ONE (08:37)
[2023-12-28] MEDS ORDERED: levETIRAcetam 500 MG TAB ONE (08:37)
[2023-12-28] MEDS ORDERED: LACTOBACILLUS ACIDOPHILUS/PECT 1 EACH CAPSULE PO ONE (08:38)
[2023-12-28 11:53] LABS: Glucose,Whole Blood 138 mg/dL (70-110)
[2023-12-28 16:55] LABS: Glucose,Whole Blood 123 mg/dL (70-110)
[2023-12-28] MEDS ORDERED: ACETAMINOPHEN TAB 325 MG TAB ONE (17:40)
[2023-12-29] MEDS ORDERED: WARFARIN 2 MG TAB PO SCH (18:00)
[2024-01-19 09:06] LABS: INR 2.3 (<1.2); Prothrombin Time 23.2 sec (10.0-12.5)
--- NOTE | 2024-02-08 11:40 | XR ---
Patient Marilyn Gonzáles ID [id number] Order # EXAMINATION TYPE: XR abdomen 1V DATE OF EXAM: 01/09/2024 COMPARISON: No comparison available on downtime PACS. INDICATION: Abdominal distention TECHNIQUE: Abdomen is examined in the upright and supine views. FINDINGS: There is asymmetric elevation of the right diaphragm. Slipped desk to be performed if there is concer n for diaphragm paralysis. There is noted. The left base. Correlate for atelectasis or pneumonia. Follow-up can be performed. There is a normal bowel gas pattern. No Free air is under the diaphragm. No Differential air-fluid in the abdomen are evident. No mass effect is evident. There is fecal reten tion within the ascending colon and at the distal sigmoid colon and rectum. No dilated colonic bowel loops are evident. Psoas margins are normal. No organomegaly is present. Preliminary results were provided at the time of imaging. IMPRESSION: 1. Nonspecific abdomen. Fecal debris is within the rectum. Correlate for fecal impaction or constipat ion.
== END 2023-12-28 18:39 | disposition left against medical advice (07) ==
LOC: EC 18:24 → 3SCARD 12-27 01:19
PROVIDERS: ADMIT Internal Medicine; ATTEND Internal Medicine
DX: K59.01 Slow transit constipation (principal); R09.02 Hypoxemia; R53.1 Weakness; E78.5 Hyperlipidemia, unspecified; E11.40 Type 2 diabetes mellitus with diabetic neuropathy, unspecified; I12.9 Hypertensive chronic kidney disease with stage 1 through stage 4 chronic kidney disease, or unspecified chronic kidney disease; N18.30 Chronic kidney disease, stage 3 unspecified; E11.22 Type 2 diabetes mellitus with diabetic chronic kidney disease; F32.A Depression, unspecified; F41.9 Anxiety disorder, unspecified; E83.52 Hypercalcemia; E03.9 Hypothyroidism, unspecified; Z85.828 Personal history of other malignant neoplasm of skin; Z86.73 Personal history of transient ischemic attack (TIA), and cerebral infarction without residual deficits; Z79.01 Long term (current) use of anticoagulants; Z79.84 Long term (current) use of oral hypoglycemic drugs; Z79.890 Hormone replacement therapy; Z79.899 Other long term (current) drug therapy; Z88.2 Allergy status to sulfonamides; Z53.29 Procedure and treatment not carried out because of patient's decision for other reasons
CPT/HCPCS: 36415; 93005; 83880; 80053; 82330; 83605; 83735; 84443; 84484; 85025; 85610; 85730; 81001; 87086; 71046; 74176; J2270; J2405; 74019; 84439; 84481; 96361; 96365; 96366; 96374; 96375; 96376; 99285

== ENCOUNTER → 2024-02-10 | Outpatient (CLI) | payer MEDICARE, BC ==
--- NOTE | 2024-02-20 22:59 | CT ---
EXAMINATION TYPE: High resolution CT chest DATE OF EXAM: 02/10/2024 COMPARISON: 12/13/2023 HISTORY: 83-year-old female J84.9, interstitial lung disease. Difficulty breathing, low oxygen x 8 mo nths TECHNIQUE: High-resolution CT scanning of the chest utilizing 1 mm x 1 procedure protocol. Both prone and supine imaging is performed. CT DLP: 740mGycm. Automatic exposure control utilized for a dose reduction. FINDINGS: The heart is borderline enlarged. No pericardial effusion. RCA coronary artery calcifications are pre sent. Mild atherosclerotic arch calcifications with a short vessel branching anatomy. Borderline enlarged caliber main right and left pulmonary arteries measuring up to 2.6 cm suggest und erlying pulmonary hypertension. There is prominent breathing motion on the inspiratory view and we note a slitlike narrowing of the r ight mainstem bronchus which did not persist on the prone imaging. No obvious thoracic lymphadenopathy though assessment limited by atrophic kidney. There is volume loss at the right base with asymmetric elevation right hemidiaphragm. HRCT technique limits assessment for small pulmonary nodules. Scattered mosaic attenuation is present, some of which is on prone imaging. Fine groundglass and reticular changes present in the lower lung with some mild traction bronchiolect asis at the lung bases. Moderate size hiatal hernia. Visualized upper abdomen shows normal measuring 2.0 cm and cholecystectomy clips. Mild paravertebral soft tissue thickening in the lower thoracic spine. We note vertebral body fractur es on the 12/13/2023 exam possibly T11 and certainly the L1 vertebra. Correlate for any focal new pain to exclude acute on chronic injuries. IMPRESSION: 1. Groundglass and fine reticular densities with a lower lung predominance. Consider interstitial pne umonitis such as NSIP or DIP. There is associated mild basilar bronchiolectasis. 2. Asymmetric elevation right hemidiaphragm. If concern for hemidiaphragmatic paralysis, a fluoroscop ic sniff test can be performed. 3. Slitlike narrowing of the right mainstem bronchus transiently occurs on supine imaging. Given the degree of narrowing, correlate for underlying bronchomalacia. 4. Moderate-sized hiatal hernia. 5. Age indeterminate vertebral body fractures lower thoracic spine. We note fractures on the patient' s 12/13/2023 exam probably T11 and most certainly L1 vertebra. Correlate for any focal pain and any re cent or recurrent injury. Limited assessment on HRCT. [facility], , 02/20/2024 10:57 PM
== END | disposition home or self-care (01) ==
LOC: RADCTMAIN 12:29
PROVIDERS: ATTEND Internal Medicine Critical Care Medicine
DX: J84.9 Interstitial pulmonary disease, unspecified
CPT/HCPCS: 71250

== ENCOUNTER → 2024-02-15 | Outpatient (CLI) | payer MEDICARE, BC ==
--- NOTE | 2024-02-15 14:29 | MM ---
Reason for Exam: Hx of breast cancer, conservation therapy. Last mammogram was performed 1 year(s) and 3 month(s) ago. Patient History: Menarche at age 11. First Full-Term at age 19. Left ovary removed at age 38. Right ovary removed at age 38. Hysterectomy at age 38. Postmenopausal. Other cancer. Breast cancer, left, age 79. Patient used Hormonal Contraceptives for 2 years. 12/19/2020, Lumpectomy on the Left side. 12/19/2020, High risk Core Biopsy on the left side. 10/24/2020, Malignant Core Biopsy on the left side. 06/18/2003, Cyst Aspiration on the Right side. Sister had breast cancer, left, age 69. Tissue Density: The breasts are heterogeneously dense, which may obscure small masses. Findings: Analyzed By CAD. The pattern is symmetrical. Surgical clips are within the left breast. Benign-appearing calcifications right breast. No significant interval change is evident. No suspicious groups of microcalcifications, spiculated or lobular masses, architectural distortion or other secondary signs of malignancy are mammographically apparent. Overall Assessment: Benign, BI-RAD 2 Management: Diagnostic Mammogram of both breasts in 1 year. A negative mammogram report should not preclude additional follow up of suspicious palpable abnormalities. Patient should continue monthly self breast exam. A clinical breast exam by your physician is recommended on an annual basis and results should be correlated with mammographic findings. Note on Genoveva scores and lifetime risk: 1. A Genoveva score greater than 3% is considered moderate risk. If this is the case, consider specialist referral to assess eligibility for a risk reducing agent. 2. If overall lifetime risk for the development of breast cancer is 20% or higher, the patient may qualify for future screening with alternating mammogram and breast MRI. [facility], , 02/15/2024 1:55 PM. Electronically signed and approved by: Sigifredo James D.O. Radiologis
== END | disposition home or self-care (01) ==
LOC: RADMAMWWP 13:26
PROVIDERS: ATTEND Surgery
DX: Z85.3 Personal history of malignant neoplasm of breast
CPT/HCPCS: 77062; 77066

== ENCOUNTER → 2024-02-25 | Outpatient (CLI) | payer MEDICARE, BC ==
[2024-02-25 13:12] VITALS: BP 135/75; PULSE 64; RESP 16; TEMP 98.3
--- NOTE | 2024-02-25 13:30 | P.PN ---
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 Additional studies revealed indeterminate calcifications in the upper outer quadrant of the breast for which stereotactic core biopsy was recommended. Stereotactic core biopsy was performed and 6320 which revealed DCIS. She then had a needle localization resection on which revealed the lesion had been completely removed. She opted for no radiation or hormonal therapy. Bilateral mammogram on 02-15-24 BIRAD 2 personally interpreted She is not complaining of any new lumps masses or nodules in either breast Caffeine: stopped all caffeine nicotine: none chocolate: occasional Family history: sister: Breast cancer at age 73 patient: skin cancer Hormonal History: menarche: 12 M2, breast fed: no, age at first : 20 menopause: surgical, JOHNY at 39 for fibroid tumors, also did Appendectomy and bladder suspension BCP: 5 years Surgical History: Tonsillectomy Hysterectomy with appendectomy and bladder suspension Hemorrhoidectomy Skin cancer tumor on forehead, shoulder, arm, legs, feet, bottom lip, chest, top of head in both hands Right foot attention nerve Cholecystectomy Back surgery left breast lumpectomy skin cancer left upper arm 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 Depression and anxiety Tarsal tunnel both feet Hypertension Vertigo Hiatal hernia Hypothyroid High cholesterol Deteriorated disc lower back Diabetic Restless leg syndrome Neuropathy Pinched nerve right side of neck Osteopenia Seizures Numbness related to her back COVID Social History: nicotine: none alcohol: none drugs: none - Constitutional Constitutional: Denies chills, Denies fever - EENT Eyes: bilateral blurred vision Ears: deny: decreased hearing, tinnitus Ears, nose, mouth and throat: Reports headache, Denies sore throat - Breasts Breasts: bilateral: as per HPI - Cardiovascular Cardiovascular: Denies chest pain, Denies shortness of breath - Respiratory Respiratory: Denies cough - Gastrointestinal Gastrointestinal: Denies abdominal pain, Denies diarrhea, Denies nausea, Denies vomiting - Genitourinary (Female) Genitourinary: Denies dysuria, Denies hematuria - Menstruation Menstruation: Reports post hysterectomy - Musculoskeletal Comment: arthritis Musculoskeletal: Reports myalgias - Integumentary Comment: history of skin cancer Integumentary: Denies pruritus, Denies rash - Neurological Comment: strokes left side weakness Neurological: Reports as per HPI, Reports numbness - Psychiatric Psychiatric: Reports anxiety, Reports depression - Endocrine Comment: Hypothyroid, diabetic - Hematologic/Lymphatic Comment: takes aspirin and Coumadin - Allergic/Immunologic Allergic/Immunologic: Reports seasonal allergies Objective - Vital Signs Vital signs: Vital Signs Temp 98.3 F 02/25/24 13:11 Pulse 64 02/25/24 13:11 Resp 16 02/25/24 13:11 BP 135/75 02/25/24 13:11 Pulse Ox 97 02/25/24 13:11 FiO2 Intake & Output 02/24/24 02/25/24 02/25/24 18:59 06:59 18:59 Weight 73.028 kg - Constitutional General appearance: Present: cooperative - EENT Eyes: Present: EOMI ENT: Present: hearing grossly normal - Neck Neck: Present: normal ROM - Respiratory Respiratory: bilateral: CTA - Cardiovascular Heart sounds: normal: S1, S2 - Integumentary Integumentary: Present: normal turgor - Musculoskeletal Musculoskeletal Comment(s): in a wheel chair - Psychiatric Psychiatric: Present: A&O x's 3, appropriate affect, intact judgment & insight - Additional findings Additional findings: [place] Exam: BRA: 38D inspection: Well-healed scar left breast from prior surgery, bilateral grade 3 ptosis Palpation: Right breast: Exam when seated in wheelchair exam fibrocystic changes no dominant masses or nodules of concern Right axilla: no adenopathy of concern Left breast: examine done seated in wheelchair exam fibrocystic changes no evidence of recurrent disease well-healed scar from prior surgery Left axilla: No adenopathy of concern Assessment and Plan Assessment: Impression: CVA 2000, 2003, 2006 Mini stroke 2002 in 2010 Depression and anxiety Tarsal tunnel both feet Hypertension Vertigo Hiatal hernia Hypothyroid High cholesterol Deteriorated disc lower back Diabetic Restless leg syndrome Neuropathy Pinched nerve right side of neck Osteopenia Seizures Numbness related to her back History of DCIS left breast no evidence of recurrence Shotty adenopathy right axilla bilateral mammogram 02-15-24 BIRAD 2 personally reviewed Plan: Bilateral mammogram January 2025 with appointment follow up in 6 months for appointment Follow-up sooner any questions or concerns CC: Gisela Washington
== END ==
LOC: WWCWWP 12:51
PROVIDERS: ATTEND Surgery
DX: Z85.3 Personal history of malignant neoplasm of breast

== ENCOUNTER 2024-05-20 07:27 | Inpatient (IN) | payer MEDICARE, BC ==
[2024-05-20 08:02] LABS: Basophils % (A) 0 %; Eosinophils % (A) 1 %; HCT 37.5 % (34.0-46.0); HGB 12.1 gm/dL (11.4-16.0); Lymphocytes # (A) 1.8 k/uL (1.0-4.8); Lymphocytes % (A) 21 %; MCH 29.9 pg (25.0-35.0); MCHC 32.1 g/dL (31.0-37.0); MCV 93.1 fL (80.0-100.0); Mean Platelet Volume 8.7; Monocytes # (A) 0.7 k/uL (0-1.0); Monocytes % (A) 9 %; Neutrophils # (A) 5.8 k/uL (1.3-7.7); Neutrophils % (A) 68 %; Platelet Count 149 k/uL (150-450); RBC 4.03 m/uL (3.80-5.40); RDW 15.1 % (11.5-15.5); WBC 8.6 k/uL (3.8-10.6)
[2024-05-20 08:13] LABS: INR 2.6 (<1.2); Partial Thromboplastin Time 32.8 sec (22.0-30.0); Prothrombin Time 25.6 sec (10.0-12.5)
--- NOTE | 2024-05-20 08:23 | XR ---
EXAMINATION TYPE: XR chest 2V DATE OF EXAM: 05/20/2024 8:01 AM COMPARISON: Chest radiographs from 12/26/2023 CLINICAL INDICATION: Female, 83 years old with history of difficulty breathing; [facility] TECHNIQUE: XR chest 2V Frontal and lateral views of the chest. FINDINGS: Lungs/Pleura: Elevated right diaphragm similar prior. Airspace opacities project in the left lower corrina ng. There is no evidence of pleural effusion, focal consolidation, or pneumothorax. Pulmonary vascularity: Unremarkable. Heart/mediastinum: Cardiomediastinal silhouette is unremarkable. Musculoskeletal: No acute osseous pathology. There is lower spine fixation hardware is present. Compr ession deformity to the lower thoracic spine noted at least 2 levels. Findings similar to prior knee 424. IMPRESSION: 1. Left lower lung airspace opacities correlate for pneumonia. 2. Elevated right diaphragm similar prior. [facility], , 05/20/2024 8:20 AM
--- NOTE | 2024-05-20 08:48 | ED ---
General Adult HPI - General Source: patient, EMS, RN notes reviewed Mode of arrival: EMS Limitations: no limitations <Floresita Argueta - Last Filed: 05/20/24 08:47> - General Source: patient, family, RN notes reviewed, old records reviewed <Ishan Hagen - Last Filed: 05/20/24 14:05> - General Chief complaint: Shortness of Breath Stated complaint: JAMES,Cough Time Seen by Provider: 05/20/24 07:31 - History of Present Illness Initial comments: Quick note: 83-year-old female presents to the emergency department for evaluation of shortness of breath. Patient also reports that she has recently had a cough. Reports history of lung disease. (Floresita Argueta) Patient is an 83-year-old female with past medical history remarkable for A-fib, diabetes, hypertension, hyperlipidemia, thyroid disorder, mild dementia who presents emergency department cough and shortness of breath. Is on oxygen as needed at home and she was recently diagnosed with pulmonary fibrosis. Apparently patient has been slightly more confused over the last few days according to family as well as having a nonproductive cough. Concern for possible UTI as well. Patient originally was seen as a quick note. Patient is on 2 L as needed at home. She is requiring 2 L to maintain adequate saturations. Presents for further evaluation. Patient has been having some mild confusion over the last few days as well, with no injuries or falls. Reported that this usually occurs when she has a UTI. (Ishan Hagen) - Related Data Home Medications Medication Instructions Recorded Confirmed Losartan Potassium 100 mg PO HS 05/03/14 05/20/24 amLODIPine [Norvasc] 5 mg PO HS 05/03/14 05/20/24 Levothyroxine Sodium [Synthroid] 75 mcg PO DAILY 06/25/16 05/20/24 Empagliflozin [Jardiance] 10 mg PO DAILY 08/24/22 05/20/24 Famotidine [Pepcid] 20 mg PO HS 08/24/22 05/20/24 levETIRAcetam [Keppra] 500 mg PO BID 08/24/22 05/20/24 DULoxetine HCL [Cymbalta] 30 mg PO HS 03/30/23 05/20/24 Furosemide [Lasix] 20 mg PO DAILY 03/30/23 05/20/24 Gabapentin 300 mg PO HS 03/30/23 05/20/24 Mirtazapine [Remeron] 7.5 mg PO HS 03/30/23 05/20/24 Warfarin Sodium [Jantoven] 4 mg PO CARLOS@209903/30/23 05/20/24 metFORMIN HCL 1,000 mg PO DAILY 04/29/23 05/20/24 Docusate [Colace] 100 mg PO DAILY 12/13/23 05/20/24 Lactobacillus Acidophilus 1 cap PO DAILY 12/13/23 05/20/24 [Acidophilus] HYDROcodone/APAP 5-325MG [[place] 1 tab PO BID PRN 05/20/24 05/20/24 5-325] Warfarin Sodium [Jantoven] 6 mg PO WE@209905/20/24 05/20/24 Previous Rx's Medication Instructions Recorded Atorvastatin [Lipitor] 10 mg PO HS #30 tab 08/29/22 Allergies Allergy/AdvReac Type Severity Reaction Status Date / Time Bleach (Sodium Hypochlorite) Allergy Rash/Hives Verified 05/20/24 10:47 Sulfa (Sulfonamide Allergy Rash/Hives Verified 05/20/24 10:47 Antibiotics) Review of Systems ROS Other: All systems not noted in ROS Statement are negative. <Floresita Argueta - Last Filed: 05/20/24 08:47> ROS Other: All systems not noted in ROS Statement are negative. <Ishan Hagen - Last Filed: 05/20/24 14:05> ROS Statement: Those systems with pertinent positive or pertinent negative responses have been documented in the HPI. Review of Systems: CONST: Denies fever EYES: Denies blurry vision ENT: Denies nasal congestion C/V: Denies Chest pain RESP: Endorses cough GI: Denies abdominal pain : Denies dysuria SKIN: Denies rash. MSK: Denies joint pain. NEURO: Denies headache (Ishan Hagen) Past Medical History Past Medical History: Atrial Fibrillation, Cancer, CVA/TIA, Diabetes Mellitus, Hyperlipidemia, Hypertension, Osteoarthritis (OA), Renal Disease, Seizure Disorder, Thyroid Disorder Additional Past Medical History / Comment(s): vertigo,hiatal hernia, restless leg,neuropathy,carpal tunnel,ddd, squamous cell carcinoma-arms, hands, legs, CKD History of Any Multi-Drug Resistant Organisms: None Reported Past Surgical History: Appendectomy, Back Surgery, Breast Surgery, Cholecystectomy, Hysterectomy, Orthopedic Surgery, Tonsillectomy Additional Past Surgical History / Comment(s): skin cancer removal, hemorrhoid removal, left breast high risk excisional november 2020, back surgery with rods and screws, tarsel tunnel both feet Past Anesthesia/Blood Transfusion Reactions: Motion Sickness Additional Past Anesthesia/Blood Transfusion Reaction / Comment(s): vertigo Past Psychological History: Anxiety, Depression Smoking Status: Never smoker Past Alcohol Use History: None Reported Past Drug Use History: None Reported - Past Family History Sister(s) Family Medical History: Cancer Additional Family Medical History / Comment(s): BREAST <Floresita Argueta - Last Filed: 05/20/24 08:47> General Exam Limitations: no limitations <Floresita Argueta - Last Filed: 05/20/24 08:47> <Ishan Hagen - Last Filed: 05/20/24 14:05> - General Exam Comments Initial Comments: Visual Physical Exam Vital signs reviewed General: Well-appearing, nontoxic, no acute distress. Head: Normocephalic, atraumatic Eyes: PERRLA, EOMI ENT: Airway patent Chest: Nonlabored breathing Skin: No visual rash, normal skin tone Neuro: Alert and oriented 3 Musculoskeletal: No gross abnormalities (Floresita rAgueta) General: Appears in no acute distress. HEAD: Normal with no signs of head trauma. EYES: PERRLA, EOMI, conjunctiva normal, no discharge. ENT: Hearing grossly intact, normal oropharynx. RESPIRATORY: Coarse breath sounds bilaterally. Normoxic on 2 L nasal cannula. No significant respiratory distress. C/V: Regular rate and rhythm. S1 and S2 auscultated, no edema, peripheral pulses 2+ and intact throughout ABD: Abd is soft, nontender, nondistended EXT: Normal range of motion, no obvious deformity SKIN: No rashes or lesions observed on exposed skin. NEURO: Alert and oriented x 2-3 which appears to be patient's baseline per family. No obvious acute deficits. (Ishan Hagen) Course Vital Signs 05/20/24 05/20/24 05/20/24 07:28 10:28 10:29 Temperature 98.4 F 97.5 F L Pulse Rate 72 70 Respiratory 20 20 20 Rate Blood Pressure 171/80 152/86 O2 Sat by Pulse 97 95 Oximetry 05/20/24 05/20/24 05/20/24 11:58 12:48 12:52 Temperature Pulse Rate 74 83 Respiratory 22 20 Rate Blood Pressure 167/85 O2 Sat by Pulse 97 95 Oximetry 05/20/24 12:59 Temperature Pulse Rate 92 Respiratory 20 Rate Blood Pressure O2 Sat by Pulse Oximetry Medical Decision Making - Lab Data Result diagrams: 05/20/24 07:32 <Floresita Argueta - Last Filed: 05/20/24 08:47> - Lab Data Result diagrams: 05/20/24 07:32 05/20/24 07:32 - EKG Data -: EKG Interpreted by Me <Ishan Hagen - Last Filed: 05/20/24 14:05> - Medical Decision Making Quick note preformed and electronically signed by Floresita Argueta PA-C (Floresita Argueta) Was pt. sent in by a medical professional or institution ([facility], WATER QUALITY ANALYST, urgent care, hospital, or fpc...) When possible be specific @ -No Did you speak to anyone other than the patient for history (EMS, parent, family, police, friend...)? What history was obtained from this source @ -Patient's daughter was at bedside and assist with patient's past medical history. Did you review nursing and triage notes (agree or disagree)? Why? @ -I reviewed and agree with nursing and triage notes Were old charts reviewed (outside hosp., previous admission, EMS record, old EKG, old radiological studies, urgent care reports/EKG's, fpc records)? Report findings @ -No old charts were reviewed Differential Diagnosis (chest pain, altered mental status, abdominal pain women, abdominal pain men, vaginal bleeding, weakness, fever, dyspnea, syncope, headache, dizziness, GI bleed, back pain, seizure, CVA, palpatations, mental health, musculoskeletal)? @ -COVID, flu, pneumonia, UTI. This list is not all inclusive. EKG interpreted by me (3pts min.). @ -As above X-rays interpreted by me (1pt min.). @ -Chest x-ray shows left lower lung airspace opacity concerning for pneumonia. CT interpreted by me (1pt min.). @ -None done U/S interpreted by me (1pt. min.). @ -None done What testing was considered but not performed or refused? (CT, X-rays, U/S, labs)? Why? @ -None What meds were considered but not given or refused? Why? @ -None Did you discuss the management of the patient with other professionals (professionals i.e. , PA, WATER QUALITY ANALYST, lab, RT, psych nurse, social worker palliative care, raw juice weigher, teacher, collection officer, case maker)? Give summary @ -Discussed with the admitting provider, Dr. Brito who accepted the admission. Was smoking cessation discussed for >3mins.? @ -No Was critical care preformed (if so, how long)? @ -Yes, 33 minutes for hypoxic respiratory failure Were there social determinants of health that impacted care today? How? (Homelessness, low income, unemployed, alcoholism, drug addiction, transportation, low edu. Level, literacy, decrease access to med. care, skilled nursing, rehab)? @ -No Was there de-escalation of care discussed even if they declined (Discuss DNR or withdrawal of care, Hospice)? DNR status @ -No What co-morbidities impacted this encounter? (DM, HTN, Smoking, COPD, CAD, Cancer, CVA, ARF, Chemo, Hep., AIDS, mental health diagnosis, sleep apnea, morbid obesity)? @ -Pulmonary fibrosis, atrial fibrillation, recurrent UTIs Was patient admitted / discharged? Hospital course, mention meds given and ro jessica, prescriptions, significant lab abnormalities, going to OR and other pertinent info. @ -Patient presents emergency department with productive cough, hypoxia, as well as some mild confusion consistent with UTIs. Originally seen as a quick note and worked up. I evaluated patient when she was placed in a room. Vital signs are remarkable for normoxia on 2 L nasal cannula oxygen. Blood pressure and heart rates okay. Workup remarkable for therapeutic INR, elevated BUN and creatinine in the setting of CKD which is within baseline. Troponin undetectable. Urinalysis concerning for urinary tract infection. Chest x-ray concerning for left lower lobe pneumonia. I discussed the results with patient as well as daughter. Patient will be admitted to the hospital she typically only needs oxygen as needed and not [id number]. They were in agreement this plan. Patient initiated on IV fluids, as well as IV antibiotics Rocephin and azithromycin. Patient does not meet sepsis criteria. I spoke with the admitting provider, Dr. Kennedy of [facility], [place] [facility] who accepted the admission. Pulmonology consulted. Undiagnosed new problem with uncertain prognosis? @ -No Drug Therapy requiring intensive monitoring for toxicity (Heparin, Nitro, Insulin, Cardizem)? @ -No Were any procedures done? @ -No Diagnosis/symptom? @ -Hypoxic respiratory failure likely secondary to chronic pulmonary fibrosis and pneumonia. Acute, or Chronic, or Acute on Chronic? @ -Acute on chronic Uncomplicated (without systemic symptoms) or Complicated (systemic symptoms)? @ -Complicated Side effects of treatment? @ -No Exacerbation, Progression, or Severe Exacerbation? @ -No Poses a threat to life or bodily function? How? (Chest pain, [place], ND, pneumonia, PE, COPD, DKA, ARF, appy, cholecystitis, CVA, Diverticulitis, Homicidal, Suicidal, threat to staff... and all critical care pts) @ -Yes Diagnosis/symptom? @ -UTI Acute, or Chronic, or Acute on Chronic? @ -Acute Uncomplicated (without systemic symptoms) or Complicated (systemic symptoms)? @ -Complicated Side effects of treatment? @ -None Exacerbation, Progression, or Severe Exacerbation] @ -No Poses a threat to life or bodily function? @ -Yes (Ishan Hagen) - Lab Data Lab Results 05/20/24 05/20/24 05/20/24 Range/Units 07:32 07:32 07:32 WBC 8.6 (3.8-10.6) k/uL RBC 4.03 (3.80-5.40) m/uL Hgb 12.1 (11.4-16.0) gm/dL Hct 37.5 (34.0-46.0) % MCV 93.1 (80.0-100.0) fL MCH 29.9 (25.0-35.0) pg MCHC 32.1 (31.0-37.0) g/dL RDW 15.1 (11.5-15.5) % Plt Count 149 L (150-450) k/uL MPV 8.7 Neutrophils % 68 % Lymphocytes % 21 % Monocytes % 9 % Eosinophils % 1 % Basophils % 0 % Neutrophils # 5.8 (1.3-7.7) k/uL Lymphocytes # 1.8 (1.0-4.8) k/uL Monocytes # 0.7 (0-1.0) k/uL Eosinophils # 0.0 (0-0.7) k/uL Basophils # 0.0 (0-0.2) k/uL PT 25.6 H (10.0-12.5) sec INR 2.6 H (<1.2) APTT 32.8 H (22.0-30.0) sec Sodium 142 (137-145) mmol/L Potassium 4.1 (3.5-5.1) mmol/L Chloride 105 (98-107) mmol/L Carbon Dioxide 29 (22-30) mmol/L Anion Gap 8 mmol/L BUN 25 H (7-17) mg/dL Creatinine 1.41 H (0.52-1.04) mg/dL Est GFR (CKD-EPI)AfAm 40 (>60 ml/min/1.73 sqM) Est GFR (CKD-EPI)NonAf 34 (>60 ml/min/1.73 sqM) Glucose 142 H (74-99) mg/dL Plasma Lactic Acid Felix (0.7-2.0) mmol/L Calcium 10.5 H (8.4-10.2) mg/dL Magnesium 2.0 (1.6-2.3) mg/dL Total Bilirubin 1.3 (0.2-1.3) mg/dL AST 14 (14-36) U/L ALT 9 (4-34) U/L Alkaline Phosphatase 103 (38-126) U/L Troponin I (0.000-0.034) ng/mL Total Protein 6.9 (6.3-8.2) g/dL Albumin 4.4 (3.5-5.0) g/dL Urine Color Urine Appearance (Clear) Urine pH (5.0-8.0) Ur Specific [place] (1.001-1.035) Urine Protein (Negative) Urine Glucose (UA) (Negative) Urine Ketones (Negative) Urine Blood (Negative) Urine Nitrite (Negative) Urine Bilirubin (Negative) Urine Urobilinogen (<2.0) mg/dL Ur Leukocyte Esterase (Negative) Urine RBC (0-5) /hpf Urine WBC (0-5) /hpf Urine WBC Clumps (None) /hpf Ur Squamous Epith Cells (0-4) /hpf Urine Bacteria (None) /hpf Urine Mucus (None) /hpf Urine Yeast (Budding) (None) /hpf 05/20/24 05/20/24 05/20/24 Range/Units 07:32 07:32 08:35 WBC (3.8-10.6) k/uL RBC (3.80-5.40) m/uL Hgb (11.4-16.0) gm/dL Hct (34.0-46.0) % MCV (80.0-100.0) fL MCH (25.0-35.0) pg MCHC (31.0-37.0) g/dL RDW (11.5-15.5) % Plt Count (150-450) k/uL MPV Neutrophils % % Lymphocytes % % Monocytes % % Eosinophils % % Basophils % % Neutrophils # (1.3-7.7) k/uL Lymphocytes # (1.0-4.8) k/uL Monocytes # (0-1.0) k/uL Eosinophils # (0-0.7) k/uL Basophils # (0-0.2) k/uL PT (10.0-12.5) sec INR (<1.2) APTT (22.0-30.0) sec Sodium (137-145) mmol/L Potassium (3.5-5.1) mmol/L Chloride (98-107) mmol/L Carbon Dioxide (22-30) mmol/L Anion Gap mmol/L BUN (7-17) mg/dL Creatinine (0.52-1.04) mg/dL Est GFR (CKD-EPI)AfAm (>60 ml/min/1.73 sqM) Est GFR (CKD-EPI)NonAf (>60 ml/min/1.73 sqM) Glucose (74-99) mg/dL Plasma Lactic Acid Felix 1.5 (0.7-2.0) mmol/L Calcium (8.4-10.2) mg/dL Magnesium (1.6-2.3) mg/dL Total Bilirubin (0.2-1.3) mg/dL AST (14-36) U/L ALT (4-34) U/L Alkaline Phosphatase (38-126) U/L Troponin I <0.012 (0.000-0.034) ng/mL Total Protein (6.3-8.2) g/dL Albumin (3.5-5.0) g/dL Urine Color Yellow Urine Appearance Cloudy H (Clear) Urine pH 5.5 (5.0-8.0) Ur Specific [place] 1.020 (1.001-1.035) Urine Protein 1+ H (Negative) Urine Glucose (UA) 4+ H (Negative) Urine Ketones Negative (Negative) Urine Blood Large H (Negative) Urine Nitrite Negative (Negative) Urine Bilirubin Negative (Negative) Urine Urobilinogen <2.0 (<2.0) mg/dL Ur Leukocyte Esterase Large H (Negative) Urine RBC >182 H (0-5) /hpf Urine WBC >182 H (0-5) /hpf Urine WBC Clumps Occasional H (None) /hpf Ur Squamous Epith Cells 5 H (0-4) /hpf Urine Bacteria Rare H (None) /hpf Urine Mucus Rare H (None) /hpf Urine Yeast (Budding) Moderate H (None) /hpf - EKG Data EKG Comments: 12-lead Electrocardiogram Interpretation Note EKG was reviewed and interpreted by myself. 12-lead ECG performed at 07 is interpreted by me as revealing normal sinus rhythm at a rate of 70 beats per minute. [place] is normal. PA interval is 171 ms, QRS duration 102 ms, QTc is 360 ms.. There were no ST or T wave abnormalities to suggest myocardial ischemia or injury. R wave progression across the precordium was delayed. By my interpretation this EKG is non-diagnostic for acute ischemia. (Ishan Hagen) Disposition <Floresita Argueta - Last Filed: 05/20/24 08:47> Time of Disposition: 11:30 <Ishan Hagen - Last Filed: 05/20/24 14:05> Clinical Impression: Hypoxic respiratory failure, Pneumonia, UTI (urinary tract infection) Disposition: ADMITTED IP TO THIS HOSP Condition: Stable
[2024-05-20 08:50] LABS: Appearance,Urine Cloudy (Clear); Bacteria,Urine Rare /hpf; Bilirubin,Urine Negative (Negative); Blood,Urine Large (Negative); Budding Yeast,Urine Moderate /hpf; Color,Urine Yellow; Glucose,Urine (UA) 4+ (Negative); Ketones,Urine Negative (Negative); Leukocyte Esterase,Urine Large (Negative); Mucus,Urine Rare /hpf; Nitrite,Urine Negative (Negative); PH, Urine 5.5 (5.0-8.0); Protein,Urine 1+ (Negative); RBC,Urine >182 /hpf (0-5); Squamous Epithelial Cell,Urine 5 /hpf (0-4); Urobilinogen,Urine <2.0 mg/dL (<2.0); WBC,Urine >182 /hpf (0-5)
[2024-05-20 09:08] LABS: ALT 9 U/L (4-34); AST 14 U/L (14-36); African American GFR (CKD) 40 (>60 ml/min/1.73 sqM); Albumin 4.4 g/dL (3.5-5.0); Alkaline Phosphatase 103 U/L (38-126); Anion Gap 8 mmol/L; Blood Urea Nitrogen 25 mg/dL (7-17); Calcium 10.5 mg/dL (8.4-10.2); Carbon Dioxide 29 mmol/L (22-30); Chloride 105 mmol/L (98-107); Glucose 142 mg/dL (74-99); Non-African American GFR(CKD) 34 (>60 ml/min/1.73 sqM); Potassium 4.1 mmol/L (3.5-5.1); Sodium 142 mmol/L (137-145); Total Bilirubin 1.3 mg/dL (0.2-1.3); Total Protein 6.9 g/dL (6.3-8.2)
[2024-05-20] MEDS ORDERED: PNEUMONIA PROTOCOL UTILIZED 1 EACH MISC PO PRN (10:32)
[2024-05-20] MEDS ORDERED: IPRATROPIUM-ALBUTEROL 3 ML NEB INHALATION PRN (10:32)
[2024-05-20] MEDS ORDERED: NALOXONE 0.4 MG/ML 1 ML VIAL IV PRN (11:05)
[2024-05-20] MEDS ORDERED: ONDANSETRON 4 MG/2 ML VIAL IVP PRN (11:26)
[2024-05-20] MEDS ORDERED: SODIUM CHLORIDE 0.9% 1,000 ML IV SCH (11:30)
[2024-05-20] MEDS: methylPREDNISolone SOD SUCCI 125 MG/2 ML VIAL IV STA (11:42)
[2024-05-20] MEDS: LACTATED RINGERS 1,000 ML BAG IV STA (11:44)
[2024-05-20] MEDS: AZITHROMYCIN 500 MG in SODIUM CHLORIDE 0.9% 250 ML IVPB STA (12:43)
[2024-05-20] MEDS: LACTATED RINGERS 1,000 ML IV ONE (12:45)
[2024-05-20] MEDS: IPRATROPIUM-ALBUTEROL 3 ML NEB INHALATION STA (12:47)
[2024-05-20] MEDS ORDERED: HYDROcodone/APAP 5-325MG 1 EACH TAB PO PRN (13:21)
[2024-05-20] MEDS ORDERED: DEXTROSE 50% SYRINGE 50 ML IVP PRN ×2 (13:25)
--- NOTE | 2024-05-20 14:15 | P.HPIM ---
History of Present Illness H&P Date: 05/20/24 Patient is a 83-year-old female with history of pulmonary fibrosis, chronic right hemidiaphragmatic paralysis, atrial fibrillation On warfarin, recurrent CVAs, seizure disorder, hypothyroidism, hypertension, dyslipidemia, diastolic heart failure presenting with shortness of breath and cough. Daughter at bedside. Patient claims that she was in [place] as of yesterday, and has a grandson that had upper respiratory infection. She started developing nonproductive cough 4 days ago. She also progressively had worsening shortness of breath. She was noted to be hypoxic at home up to 84% on room air. Denies any fevers, chills, chest pain, abdominal pain, nausea, vomiting, urinary or b owel complaints. In the ED, temperature was 98.4, pulse 72, respiratory rate 20, blood pressure 131/80, saturating at 97% on 4 L. WBC 8.6, hemoglobin 12.1, platelet 149, INR 2.6, creatinine 1.41 around baseline, lactate 1. 5, troponin negative, urinalysis shows high squamous epithelial cells. Chest x-ray independently interpreted, shows chronic right hemidiaphragm, left lower lobe opacity. Pa finn started on IV antibiotics. Pulmonology also consulted. Pertinent positives and negatives as discussed in HPI, a complete review of systems was performed and all other systems are negative. Patient seen and examined at bedside. Vital signs reviewed General: nontoxic, no distress, appears at stated age Derm: warm, dry Head: atraumatic, normocephalic, symmetric Eyes: EOMI, no lid lag, anicteric sclera, pupils equal round reactive to light ENT: Nose and ears atraumatic Neck: No thyromegaly, supple Mouth: no lip lesion, mucus membranes moist Cardiovascular: S1S2 reg, no murmur, no edema Lungs: clear to auscultation bilateral, no rhonchi, no rales, no wheeze, no accessory muscle use Abdominal: soft, nontender to palpation, no guarding, no appreciable organomegaly Ext: no gross muscle atrophy, muscle strength muscle strength 5 out of 5 in all 4 extremities, no contractures Neuro: CN II-XII grossly intact Psych: Alert, oriented, appropriate affect Assessment/Plan: Active: Acute hypoxic respiratory failure Community-acquired pneumonia Pulmonary fibrosis? Chronic right hemidiaphragmatic paralysis -Supplemental oxygen, wean as tolerated -Continue Solu-Medrol every 4 hours as needed -Continue steroids 40 mg IV every 12 hours, azithromycin 500 mg daily oral, IV ceftriaxone 2 g every 24 hours -Sputum cultures, blood cultures, Legionella urine antigen pending -Pulmonology consulted, pending recommendations -Currently receiving IV fluids, hold diuretics -Cepheid pending Paroxysmal atrial fibrillation Recurrent CVAs -On warfarin at home -Pharmacy to dose warfarin -Therapeutic INR currently Type 2 diabetes -Sliding scale insulin, ACHS, monitor for hypoglycemia -Hold Jardiance and metformin CKD stage III -Continue to monitor Chronic: Chronic diastolic heart failure, not in exacerbation Depression/anxiety Neuropathy Hypertension Hypothyroidism The patient is admitted with an anticipated greater than 2 midnight stay as inpatient status for evaluation of community-acquired pneumonia. Surrogate decision-maker: Daughter CODE STATUS: Full code DVT prophylaxis: Warfarin Anticipated discharge date: Pending clinical course Anticipated discharge place: Pending clinical course A total of 55 minutes was spent on the care of this complex patient more than 50% of the time was spent in counseling and care coordination. Past Medical History Past Medical History: Atrial Fibrillation, Cancer, CVA/TIA, Diabetes Mellitus, Hyperlipidemia, Hypertension, Osteoarthritis (OA), Renal Disease, Seizure Disorder, Thyroid Disorder Additional Past Medical History / Comment(s): vertigo,hiatal hernia, restless leg,neuropathy,carpal tunnel,ddd, squamous cell carcinoma-arms, hands, legs, CKD History of Any Multi-Drug Resistant Organisms: None Reported Past Surgical History: Appendectomy, Back Surgery, Breast Surgery, Cholecystectomy, Hysterectomy, Orthopedic Surgery, Tonsillectomy Additional Past Surgical History / Comment(s): skin cancer removal, hemorrhoid removal, left breast high risk excisional november 2020, back surgery with rods and screws, tarsel tunnel both feet Past Anesthesia/Blood Transfusion Reactions: Motion Sickness Additional Past Anesthesia/Blood Transfusion Reaction / Comment(s): vertigo Past Psychological History: Anxiety, Depression Smoking Status: Never smoker Past Alcohol Use History: None Reported Past Drug Use History: None Reported - Past Family History Sister(s) Family Medical History: Cancer Additional Family Medical History / Comment(s): BREAST Medications and Allergies Home Medications Medication Instructions Recorded Confirmed Type Losartan Potassium 100 mg PO HS 05/03/14 05/20/24 History amLODIPine [Norvasc] 5 mg PO HS 05/03/14 05/20/24 History Levothyroxine Sodium [Synthroid] 75 mcg PO DAILY 06/25/16 05/20/24 History Empagliflozin [Jardiance] 10 mg PO DAILY 08/24/22 05/20/24 History Famotidine [Pepcid] 20 mg PO HS 08/24/22 05/20/24 History levETIRAcetam [Keppra] 500 mg PO BID 08/24/22 05/20/24 History Atorvastatin [Lipitor] 10 mg PO HS #30 tab 08/29/22 05/20/24 Rx DULoxetine HCL [Cymbalta] 30 mg PO HS 03/30/23 05/20/24 History Furosemide [Lasix] 20 mg PO DAILY 03/30/23 05/20/24 History Gabapentin 300 mg PO HS 03/30/23 05/20/24 History Mirtazapine [Remeron] 7.5 mg PO HS 03/30/23 05/20/24 History Warfarin Sodium [Jantoven] 4 mg PO SUMOTUTHFRSA@2100 03/30/23 05/20/24 History metFORMIN HCL 1,000 mg PO DAILY 04/29/23 05/20/24 History Docusate [Colace] 100 mg PO DAILY 12/13/23 05/20/24 History Lactobacillus Acidophilus 1 cap PO DAILY 12/13/23 05/20/24 History [Acidophilus] HYDROcodone/APAP 5-325MG [[place] 1 tab PO BID PRN 05/20/24 05/20/24 History 5-325] Warfarin Sodium [Jantoven] 6 mg PO WE@2100 05/20/24 05/20/24 History Allergies Allergy/AdvReac Type Severity Reaction Status Date / Time Bleach (Sodium Hypochlorite) Allergy Rash/Hives Verified 05/20/24 10:47 Sulfa (Sulfonamide Allergy Rash/Hives Verified 05/20/24 10:47 Antibiotics) Physical Exam Vitals: Vital Signs Temp Pulse Resp BP Pulse Ox 05/20/24 12:59 92 20 05/20/24 12:52 95 05/20/24 12:48 83 20 05/20/24 11:58 74 22 167/85 97 05/20/24 10:29 20 05/20/24 10:28 97.5 F L 70 20 152/86 95 05/20/24 07:28 98.4 F 72 20 171/80 97 Intake and Output 05/19/24 05/20/24 05/20/24 22:59 06:59 14:59 Other: Weight 77.111 kg Results CBC & Chem 7: 05/20/24 07:32 05/20/24 07:32 Labs: Abnormal Lab Results - Last 24 Hours (Table) 05/20/24 05/20/24 05/20/24 Range/Units 07:32 07:32 07:32 Plt Count 149 L (150-450) k/uL PT 25.6 H (10.0-12.5) sec INR 2.6 H (<1.2) APTT 32.8 H (22.0-30.0) sec BUN 25 H (7-17) mg/dL Creatinine 1.41 H (0.52-1.04) mg/dL Glucose 142 H (74-99) mg/dL Calcium 10.5 H (8.4-10.2) mg/dL Urine Appearance (Clear) Urine Protein (Negative) Urine Glucose (UA) (Negative) Urine Blood (Negative) Ur Leukocyte Esterase (Negative) Urine RBC (0-5) /hpf Urine WBC (0-5) /hpf Urine WBC Clumps (None) /hpf Ur Squamous Epith Cells (0-4) /hpf Urine Bacteria (None) /hpf Urine Mucus (None) /hpf Urine Yeast (Budding) (None) /hpf 05/20/24 Range/Units 08:35 Plt Count (150-450) k/uL PT (10.0-12.5) sec INR (<1.2) APTT (22.0-30.0) sec BUN (7-17) mg/dL Creatinine (0.52-1.04) mg/dL Glucose (74-99) mg/dL Calcium (8.4-10.2) mg/dL Urine Appearance Cloudy H (Clear) Urine Protein 1+ H (Negative) Urine Glucose (UA) 4+ H (Negative) Urine Blood Large H (Negative) Ur Leukocyte Esterase Large H (Negative) Urine RBC >182 H (0-5) /hpf Urine WBC >182 H (0-5) /hpf Urine WBC Clumps Occasional H (None) /hpf Ur Squamous Epith Cells 5 H (0-4) /hpf Urine Bacteria Rare H (None) /hpf Urine Mucus Rare H (None) /hpf Urine Yeast (Budding) Moderate H (None) /hpf
[2024-05-20 15:35] LABS: ABG Base Excess 2.4 mmol/L; ABG HCO3 28 mmol/L (21-25); ABG Oxygen Saturation 92.3 % (94-97); ABG PCO2 46 mmHg (35-45); ABG PH 7.39 (7.35-7.45); ABG PO2 64 mmHg (83-108); ABG TCO2 29 mmol/L (19-24); Allen Test Performed? Yes
[2024-05-20 16:36] LABS: Glucose,Whole Blood 207 mg/dL (70-110)
[2024-05-20] MEDS: INSULIN ASPART (NovoLOG) 100 UNIT/ML VIAL SQ SCH (16:51)
[2024-05-20] MEDS: WARFARIN 2 MG TAB PO ONE (17:46)
[2024-05-20 20:59] LABS: Glucose,Whole Blood 180 mg/dL (70-110)
[2024-05-20] MEDS: ATORVASTATIN 10 MG TAB PO SCH (21:00)
[2024-05-20] MEDS: methylPREDNISolone SOD SUCCI 40 MG/ML 1 ML VIAL IV SCH (21:00)
[2024-05-20] MEDS: FAMOTIDINE 20 MG TAB PO SCH (21:00)
[2024-05-20] MEDS: amLODIPine 5 MG TAB PO SCH (21:00)
[2024-05-20] MEDS: levETIRAcetam 500 MG TAB PO SCH (21:00)
[2024-05-20] MEDS: DULoxetine HCL 30 MG CAPSULE.DR PO SCH (21:00)
[2024-05-20] MEDS: LOSARTAN 50 MG TAB PO SCH (21:01)
[2024-05-20] MEDS: MIRTAZAPINE 15 MG TAB PO SCH (21:01)
[2024-05-20] MEDS: GABAPENTIN 300 MG CAP PO SCH (21:01)
[2024-05-20] MEDS: ACETAMINOPHEN TAB 325 MG TAB PO PRN (23:47)
[2024-05-21 04:06] LABS: INR 2.5 (<1.2); Prothrombin Time 24.9 sec (10.0-12.5)
[2024-05-21 06:28] LABS: Glucose,Whole Blood 162 mg/dL (70-110)
[2024-05-21] MEDS: LEVOTHYROXINE 75 MCG TAB PO SCH (06:43)
--- NOTE | 2024-05-21 09:32 | XR ---
EXAMINATION TYPE: XR chest 2V DATE OF EXAM: 05/21/2024 9:29 AM COMPARISON: Chest radiograph from one day prior. CLINICAL INDICATION: Female, 83 years old with history of pneumonia; [facility] TECHNIQUE: XR chest 2V Frontal and lateral views of the chest. FINDINGS: Lungs/Pleura: Improved aeration of the left lung base. There is improved inspiration (today's exam. E levated right diaphragm. There is no evidence of pleural effusion, focal consolidation, or pneumothor ax. Pulmonary vascularity: Unremarkable. Heart/mediastinum: Cardiomediastinal silhouette is partially obscured due to overlying and adjacent o pacities. Musculoskeletal: No acute osseous pathology. Other findings: None Lines/Tubes: IMPRESSION: Improved aeration of the left lung base. Findings suggest atelectasis on prior. Correlate clinically. Elevated right diaphragm is unchanged. [facility], , 05/21/2024 9:30 AM
[2024-05-21 09:56] LABS: Basophils # (A) 0 X 10*3/uL (0.00-0.10); Basophils % (A) 0 %; Eosinophils # (A) 0 X 10*3/uL (0.04-0.35); Eosinophils % (A) 0 %; HCT 37.5 % (37.2-46.3); HGB 11.5 g/dL (12.0-15.0); Lymphocytes # (A) 1.09 X 10*3/uL (0.90-5.00); Lymphocytes % (A) 18.5 %; MCH 29.4 pg (27.0-32.0); MCHC 30.7 g/dL (32.0-37.0); MCV 95.9 FL (80.0-97.0); Mean Platelet Volume 10.9 FL (9.5-12.2); Monocytes % (A) 1.7 %; NRBC Per 100 WBC 0 X 10*3/uL (0.00-0.01); Neutrophils # (A) 4.63 X 10*3/uL (1.80-7.70); Neutrophils % (A) 78.6 %; Platelet Count 145 X 10*3/uL (140-440); RBC 3.91 X 10*6/uL (4.10-5.20); RDW 14.6 % (11.5-14.5); WBC 5.89 X 10*3/uL (4.50-10.00)
[2024-05-21 10:00] LABS: ALT 5 U/L (8-44); AST 9 U/L (13-35); Albumin/Globulin Ratio 1.82 Ratio (1.60-3.17); Alkaline Phosphatase 86 U/L (41-126); BUN/Creat Ratio 19.83 Ratio (12.00-20.00); Blood Urea Nitrogen 23.8 mg/dL (9.0-27.0); Carbon Dioxide 25.2 mmol/L (21.6-31.8); Chloride 106 mmol/L (96-109); Globulin 2.2 g/dL (1.6-3.3); Glucose 164 mg/dL (70-110); Potassium 4.5 mmol/L (3.5-5.5); Sodium 142 mmol/L (135-145); Total Protein 6.2 g/dL (6.2-8.2)
[2024-05-21] MEDS: DOCUSATE 100 MG CAP PO SCH (10:32)
[2024-05-21] MEDS: AZITHROMYCIN 500 MG TAB PO SCH (10:33)
[2024-05-21 11:21] LABS: Glucose,Whole Blood 249 mg/dL (70-110)
--- NOTE | 2024-05-21 13:12 | P.PN ---
Subjective Progress Note Date: 05/21/24 Hospital Course: 83-year-old female with history of pulmonary fibrosis, chronic right hemidiaph ragmatic paralysis, atrial fibrillation On warfarin, recurrent CVAs, seizure disorder, hypothyroidism, hypertension, dyslipidemia, diastolic heart failure presenting with shortness of breath and cough. In the ED, temperature was 98.4, pulse 72, respiratory rate 20, blood pressure 131/80, saturating at 97% on 4 L. WBC 8.6, hemoglobin 12.1, platelet 149, INR 2.6, creatinine 1.41 around baseline, lactate 1. 5, troponin negative, urinalysis shows high squamous epithelial cells. Chest x-ray independently interpreted, shows chronic right hemidiaphragm, left lower lobe opacity. Patient started on IV antibiotics. Pulmonology also consulted. Subjective: Patient seen and examined at bedside. No acute events overnight. Claims that breathing is slightly better. Pertinent positives and negatives as discussed above, a complete review of systems was performed and all other systems are negative. Vitals Signs Reviewed. General: Nontoxic, no distress, appears at stated age, slightly lethargic Derm: Warm, dry Head: Atraumatic, normocephalic, symmetric Eyes: EOMI, no lid lag, anicteric sclera Mouth: No lip lesion, mucus membranes moist Cardiovascular: S1S2 reg, no murmur Lungs: Bibasilar rales, no accessory muscle use, supplemental oxygen Abdominal: Soft, nontender to palpation, no guarding, no appreciable organomegaly Ext: No gross muscle atrophy, no edema, no contractures Neuro: CN II-XI grossly intact, no focal neuro deficits Psych: Oriented, appropriate affect Data Reviewed Today: Pertinent Labs: Hemoglobin 11.5, INR 2.5, creatinine 1.2, glucose range between 1 62-2 49 Imaging: Chest x-ray independently interpreted, shows similar opacities to yesterday Assessment and Plan: Active: Acute hypoxic respiratory failure Community-acquired pneumonia Pulmonary fibrosis? Chronic right hemidiaphragmatic paralysis -Supplemental oxygen, wean as tolerated -Continue Solu-Medrol every 4 hours as needed -Continue steroids 40 mg IV every 12 hours, azithromycin 500 mg daily oral, IV ceftriaxone 2 g every 24 hours -Sputum cultures, blood cultures, Legionella urine antigen pending -Pulmonology consulted, pending recommendations -Hold diuretics Paroxysmal atrial fibrillation Recurrent CVAs -On warfarin at home -Pharmacy to dose warfarin -Therapeutic INR currently Type 2 diabetes -Sliding scale insulin, ACHS, monitor for hypoglycemia -Hold Jardiance and metformin CKD stage III -Continue to monitor Acute encephalopathy -Possibly related to urinary retention -Bladder scan pending Chronic: Chronic diastolic heart failure, not in exacerbation Depression/anxiety Neuropathy Hypertension Hypothyroidism DVT ppx: Warfarin Code status: DNR only Anticipated discharge place: Pending clinical course Anticipated discharge time: Pending clinical course Objective - Vital Signs Vital signs: Vital Signs Temp 98.5 F 05/21/24 07:20 Pulse 61 05/21/24 07:20 Resp 16 05/21/24 07:20 BP 165/84 05/21/24 07:20 Pulse Ox 93 L 05/21/24 07:20 FiO2 Intake & Output 05/20/24 05/21/24 05/21/24 18:59 06:59 18:59 Weight 77.111 kg Other: Voiding Method External Catheter Incontinent # Voids 1 - Labs CBC & Chem 7: 05/21/24 02:53 05/21/24 02:53 Labs: Abnormal Lab Results - Last 24 Hours (Table) 05/20/24 05/20/24 05/20/24 Range/Units 15:30 16:35 20:58 RBC (4.10-5.20) X 10*6/uL Hgb (12.0-15.0) g/dL MCHC (32.0-37.0) g/dL RDW (11.5-14.5) % Immature Gran # (0.00-0.04) X 10*3/uL Monocytes # (0.20-1.00) X 10*3/uL Eosinophils # (0.04-0.35) X 10*3/uL PT (10.0-12.5) sec INR (<1.2) ABG pCO2 46 H (35-45) mmHg ABG pO2 64 L (83-108) mmHg ABG HCO3 28 H (21-25) mmol/L ABG Total CO2 29 H (19-24) mmol/L ABG O2 Saturation 92.3 L (94-97) % Est GFR (CKD-EPI) (>=60) Glucose (70-110) mg/dL POC Glucose (mg/dL) 207 H 180 H (70-110) mg/dL AST (13-35) U/L ALT (8-44) U/L 05/21/24 05/21/24 05/21/24 Range/Units 02:53 02:53 02:53 RBC 3.91 L (4.10-5.20) X 10*6/uL Hgb 11.5 L (12.0-15.0) g/dL MCHC 30.7 L (32.0-37.0) g/dL RDW 14.6 H (11.5-14.5) % Immature Gran # 0.07 H (0.00-0.04) X 10*3/uL Monocytes # 0.10 L (0.20-1.00) X 10*3/uL Eosinophils # 0 L (0.04-0.35) X 10*3/uL PT 24.9 H (10.0-12.5) sec INR 2.5 H (<1.2) ABG pCO2 (35-45) mmHg ABG pO2 (83-108) mmHg ABG HCO3 (21-25) mmol/L ABG Total CO2 (19-24) mmol/L ABG O2 Saturation (94-97) % Est GFR (CKD-EPI) 45 L (>=60) Glucose 164 H (70-110) mg/dL POC Glucose (mg/dL) (70-110) mg/dL AST 9 L (13-35) U/L ALT 5 L (8-44) U/L 05/21/24 05/21/24 Range/Units 06:25 11:19 RBC (4.10-5.20) X 10*6/uL Hgb (12.0-15.0) g/dL MCHC (32.0-37.0) g/dL RDW (11.5-14.5) % Immature Gran # (0.00-0.04) X 10*3/uL Monocytes # (0.20-1.00) X 10*3/uL Eosinophils # (0.04-0.35) X 10*3/uL PT (10.0-12.5) sec INR (<1.2) ABG pCO2 (35-45) mmHg ABG pO2 (83-108) mmHg ABG HCO3 (21-25) mmol/L ABG Total CO2 (19-24) mmol/L ABG O2 Saturation (94-97) % Est GFR (CKD-EPI) (>=60) Glucose (70-110) mg/dL POC Glucose (mg/dL) 162 H 249 H (70-110) mg/dL AST (13-35) U/L ALT (8-44) U/L
--- NOTE | 2024-05-21 13:19 | P.CNPUL ---
History of Present Illness Consult date: 05/21/24 Requesting physician: Temo Brito Reason for consult: dyspnea Chief complaint: Shortness of breath, cough, confusion History of present illness: This is a 83-year-old female patient with a known history of hypertension, hyperlipidemia, hypothyroidism, mild dementia, atrial fibrillation an ticoagulated with warfarin. She also has a history of mild pulmonary fibrosis and is on home oxygen at 2 L/min per nasal cannula. She was brought in by family members yesterday with shortness of breath cough and increased confusion and concern with possible urinary tract infection. Chest x-ray reveals some left lower lobe airspace opacities/atelectasis. Elevated right hemidiaphragm. White count 5.8. Hemoglobin 11.5. Platelets 145. INR 2.5. Sodium 142. Potassium 4.5. Bicarb 25. BUN 24. Creatinine 1.2. Glucose 164. Terrible gases on 30% FiO2 revealed a PaO2 of 64, pCO2 of 46 and a pH of 7.39. Urinalysis cloudy with large leukocytes and rare bacteria. Viral screen negative. Legionella screen negative. She is seen today in consultation on the regular medical floor. She is currently sitting up in bed. Awake and alert in no acute distress. Maintaining O2 saturations in the 90s on 4 L/min per nasal cannula. She is afebrile. Her family is at the bedside and answers most questions. No worsening shortness of breath, cough or congestion. She has been initiated on ceftriaxone and azithromycin. She is on bronchodilators and steroids. Review of Systems REVIEW OF SYSTEMS: CONSTITUTIONAL: Denies any recent significant weight loss or weight gain. EYES: Denies change in vision. EARS, NOSE, MOUTH, THROAT: Denies headaches, denies sore throat. CARDIOVASCULAR: Denies chest pain, palpitations or syncopal episodes. RESPIRATORY: Positive for shortness of breath, cough, congestion no hemoptysis. GASTROINTESTINAL: Denies change in appetite, denies abdominal pain GENITOURINARY: Denies hematuria, denies infections. MUSKULOSKELETAL: Denies pain, denies swelling. INTEGUMENTARY: Denies rash, denies eczema. NEUROLOGICAL: Denies recent memory loss, no recent seizure activity. PSYCHIATRIC: Denies anxiety, denies depression. HEMATOLOGIC/LYMPHATIC: Denies anemia, denies enlarged lymph nodes. Past Medical History Past Medical History: Atrial Fibrillation, Cancer, CVA/TIA, Diabetes Mellitus, Hyperlipidemia, Hypertension, Osteoarthritis (OA), Renal Disease, Seizure Disorder, Thyroid Disorder Additional Past Medical History / Comment(s): vertigo,hiatal hernia, restless leg,neuropathy,carpal tunnel,ddd, squamous cell carcinoma-arms, hands, legs, CKD, pulmonary fibrosis History of Any Multi-Drug Resistant Organisms: None Reported Past Surgical History: Appendectomy, Back Surgery, Breast Surgery, Cholecystectomy, Hysterectomy, Orthopedic Surgery, Tonsillectomy Additional Past Surgical History / Comment(s): skin cancer removal, hemorrhoid removal, left breast high risk excisional november 2020, back surgery with rods and screws, tarsel tunnel both feet Past Anesthesia/Blood Transfusion Reactions: Motion Sickness Additional Past Anesthesia/Blood Transfusion Reaction / Comment(s): vertigo Past Psychological History: Anxiety, Depression Smoking Status: Never smoker Past Alcohol Use History: None Reported Past Drug Use History: None Reported - Past Family History Sister(s) Family Medical History: Cancer Additional Family Medical History / Comment(s): BREAST Medications and Allergies Home Medications Medication Instructions Recorded Confirmed Type Losartan Potassium 100 mg PO HS 05/03/14 05/20/24 History amLODIPine [Norvasc] 5 mg PO HS 05/03/14 05/20/24 History Levothyroxine Sodium [Synthroid] 75 mcg PO DAILY 06/25/16 05/20/24 History Empagliflozin [Jardiance] 10 mg PO DAILY 08/24/22 05/20/24 History Famotidine [Pepcid] 20 mg PO HS 08/24/22 05/20/24 History levETIRAcetam [Keppra] 500 mg PO BID 08/24/22 05/20/24 History Atorvastatin [Lipitor] 10 mg PO HS #30 tab 08/29/22 05/20/24 Rx DULoxetine HCL [Cymbalta] 30 mg PO HS 03/30/23 05/20/24 History Furosemide [Lasix] 20 mg PO DAILY 03/30/23 05/20/24 History Gabapentin 300 mg PO HS 03/30/23 05/20/24 History Mirtazapine [Remeron] 7.5 mg PO HS 03/30/23 05/20/24 History Warfarin Sodium [Jantoven] 4 mg PO SUMOTUTHFRSA@2100 03/30/23 05/20/24 History metFORMIN HCL 1,000 mg PO DAILY 04/29/23 05/20/24 History Docusate [Colace] 100 mg PO DAILY 12/13/23 05/20/24 History Lactobacillus Acidophilus 1 cap PO DAILY 12/13/23 05/20/24 History [Acidophilus] HYDROcodone/APAP 5-325MG [[place] 1 tab PO BID PRN 05/20/24 05/20/24 History 5-325] Warfarin Sodium [Jantoven] 6 mg PO WE@2100 05/20/24 05/20/24 History Allergies Allergy/AdvReac Type Severity Reaction Status Date / Time Bleach (Sodium Hypochlorite) Allergy Rash/Hives Verified 05/20/24 10:47 Sulfa (Sulfonamide Allergy Rash/Hives Verified 05/20/24 10:47 Antibiotics) Physical Exam Vitals: Vital Signs Temp Pulse Resp BP Pulse Ox 05/21/24 07:20 98.5 F 61 16 165/84 93 L 05/21/24 03:06 98.3 F 72 19 176/81 95 05/20/24 23:11 98.6 F 109 H 16 171/97 93 L 05/20/24 20:57 97.9 F 80 16 151/85 95 05/20/24 17:58 101 H 17 158/97 93 L Intake and Output 05/20/24 05/21/24 05/21/24 22:59 06:59 14:59 Other: Voiding Method External Catheter Incontinent # Voids 1 Weight 77.111 kg GENERAL EXAM: Alert, 83-year-old female, on 4 L nasal cannula, fairly comfortable in no apparent distress. HEAD: Normocephalic. EYES: Normal reaction of pupils, equal size. NOSE: Clear with pink turbinates. THROAT: No erythema or exudates. NECK: No masses, no JVD. CHEST: No chest wall deformity. LUNGS: Equal air entry with faint basilar crackles. CVS: S1 and S2 normal with no audible murmur, regular rhythm. ABDOMEN: No hepatosplenomegaly, normal bowel sounds, no guarding or rigidity. SPINE: No scoliosis or deformity SKIN: No rashes CENTRAL NERVOUS SYSTEM: No focal deficits, tone is normal in all 4 extremities. EXTREMITIES: There is no peripheral edema. No clubbing, no cyanosis. Peripheral pulses are intact. Results - Laboratory Findings CBC and BMP: 05/21/24 02:53 05/21/24 02:53 ABG ABG pH 7.39 (7.35-7.45) 05/20/24 15:30 ABG pCO2 46 mmHg (35-45) H 05/20/24 15:30 ABG pO2 64 mmHg (83-108) L 05/20/24 15:30 ABG O2 Saturation 92.3 % (94-97) L 05/20/24 15:30 PT/INR, D-dimer PT 24.9 sec (10.0-12.5) H 05/21/24 02:53 INR 2.5 (<1.2) H 05/21/24 02:53 Abnormal lab findings: Abnormal Labs 05/20/24 05/20/24 05/20/24 07:32 07:32 07:32 RBC Hgb MCHC RDW Plt Count 149 L Immature Gran # Monocytes # Eosinophils # PT 25.6 H INR 2.6 H APTT 32.8 H ABG pCO2 ABG pO2 ABG HCO3 ABG Total CO2 ABG O2 Saturation BUN 25 H Creatinine 1.41 H Est GFR (CKD-EPI) Glucose 142 H POC Glucose (mg/dL) Calcium 10.5 H AST ALT Urine Appearance Urine Protein Urine Glucose (UA) Urine Blood Ur Leukocyte Esterase Urine RBC Urine WBC Urine WBC Clumps Ur Squamous Epith Cells Urine Bacteria Urine Mucus Urine Yeast (Budding) 05/20/24 05/20/24 05/20/24 08:35 15:30 16:35 RBC Hgb MCHC RDW Plt Count Immature Gran # Monocytes # Eosinophils # PT INR APTT ABG pCO2 46 H ABG pO2 64 L ABG HCO3 28 H ABG Total CO2 29 H ABG O2 Saturation 92.3 L BUN Creatinine Est GFR (CKD-EPI) Glucose POC Glucose (mg/dL) 207 H Calcium AST ALT Urine Appearance Cloudy H Urine Protein 1+ H Urine Glucose (UA) 4+ H Urine Blood Large H Ur Leukocyte Esterase Large H Urine RBC >182 H Urine WBC >182 H Urine WBC Clumps Occasional H Ur Squamous Epith Cells 5 H Urine Bacteria Rare H Urine Mucus Rare H Urine Yeast (Budding) Moderate H 05/20/24 05/21/24 05/21/24 20:58 02:53 02:53 RBC 3.91 L Hgb 11.5 L MCHC 30.7 L RDW 14.6 H Plt Count Immature Gran # 0.07 H Monocytes # 0.10 L Eosinophils # 0 L PT INR APTT ABG pCO2 ABG pO2 ABG HCO3 ABG Total CO2 ABG O2 Saturation BUN Creatinine Est GFR (CKD-EPI) 45 L Glucose 164 H POC Glucose (mg/dL) 180 H Calcium AST 9 L ALT 5 L Urine Appearance Urine Protein Urine Glucose (UA) Urine Blood Ur Leukocyte Esterase Urine RBC Urine WBC Urine WBC Clumps Ur Squamous Epith Cells Urine Bacteria Urine Mucus Urine Yeast (Budding) 05/21/24 05/21/24 05/21/24 02:53 06:25 11:19 RBC Hgb MCHC RDW Plt Count Immature Gran # Monocytes # Eosinophils # PT 24.9 H INR 2.5 H APTT ABG pCO2 ABG pO2 ABG HCO3 ABG Total CO2 ABG O2 Saturation BUN Creatinine Est GFR (CKD-EPI) Glucose POC Glucose (mg/dL) 162 H 249 H Calcium AST ALT Urine Appearance Urine Protein Urine Glucose (UA) Urine Blood Ur Leukocyte Esterase Urine RBC Urine WBC Urine WBC Clumps Ur Squamous Epith Cells Urine Bacteria Urine Mucus Urine Yeast (Budding) - Diagnostic Findings Chest x-ray: image reviewed Assessment and Plan Assessment: Acute on chronic hypoxemic respiratory failure secondary to left lower lobe atelectasis, mild pulmonary fibrosis Altered mental status in a patient with known mild dementia History of atrial fibrillation, anticoagulated with warfarin, therapeutic INR Hypertension Beatties mellitus, type II Hypothyroidism Hyperlipidemia Plan: The patient was seen and evaluated Chest x-rays, labs and medications reviewed Continue antibiotics for now Check a procalcitonin Continue bronchodilators, steroids Titrate down the FiO2 as tolerated Anticoagulated with warfarin We will continue to follow and make further recommendations based on her clinical status I have personally seen and examined the patient, performed the documentation and the assessment and plan as written. Number of minutes spent on the visit: 20 Dictation was produced using Pulse[employer] dictation software. Please excuse any gr ammatical, word or spelling errors.
[2024-05-21 16:37] LABS: Glucose,Whole Blood 220 mg/dL (70-110)
[2024-05-21] MEDS: WARFARIN 2 MG TAB PO ONE (17:15)
[2024-05-21 21:17] LABS: Glucose,Whole Blood 245 mg/dL (70-110)
[2024-05-22 03:43] LABS: INR 2.8 (<1.2); Prothrombin Time 28.1 sec (10.0-12.5)
[2024-05-22 04:04] VITALS: RESP 17
[2024-05-22 06:32] LABS: Glucose,Whole Blood 183 mg/dL (70-110)
[2024-05-22 08:29] VITALS: BP 172/80; PULSE 55; TEMP 97.7
[2024-05-22] MEDS: FUROSEMIDE 20 MG TAB PO SCH (11:09)
--- NOTE | 2024-05-22 11:27 | P.DS ---
Providers Date of admission: 05/20/24 11:30 Expected date of discharge: 05/22/24 Attending physician: Temo Brito Consults: 05/20/24 11:26 Consult Physician Routine Consulting Provider: Kathleen Charles Consult Reason/Comments: pulm fibrosis/pneumonia. hypoxic resp failure Do you want consulting provider notified?: Yes [facility] Course: Discharge Diagnosis: Acute hypoxic respiratory failure Left lower lobe atelectasis Mild pulmonary fibrosis Paroxysmal atrial fibrillation Recurrent CVAs Type 2 diabetes CKD stage III Acute encephalopathy Hospital Course: 83-year-old female with history of pulmonary fibrosis, chronic right hemidiaphragmatic paralysis, atrial fibrillation On warfarin, recurrent CVAs, seizure disorder, hypothyroidism, hypertension, dyslipidemia, diastolic heart failure presenting with shortness of breath and cough. In the ED, temperature was 98.4, pulse 72, respiratory rate 20, blood pressure 131/80, saturating at 97% on 4 L. WBC 8.6, hemoglobin 12.1, platelet 149, INR 2.6, creatinine 1.41 around baseline, lactate 1. 5, troponin negative, urinalysis shows high squamous epithelial cells. Chest x-ray independently interpreted, shows chronic right hemidiaphragm, left lower lobe opacity. Patient started on IV antibiotics. Pulmonology also consulted. Procalcitonin negative. Patient at baseline respiratory status now. Antibiotics discontinued. Patient continued on oral steroids. Likely left lower lobe atelectasis. Follow-up outpatient with PCP and pulmonology. Patient seen and examined at bedside. Vital signs reviewed and stable. General: Nontoxic, no distress, appears at stated age Derm: Warm, dry Head: Atraumatic, normocephalic, symmetric Eyes: EOMI, no lid lag, anicteric sclera Mouth: No lip lesion, mucus membranes moist Cardiovascular: S1S2 reg, no murmur Lungs: CTA bilateral, no rhonchi, no rales, no accessory muscle use, supplemental oxygen Abdominal: Soft, nontender to palpation, no guarding, no appreciable organomegaly Ext: No gross muscle atrophy, no edema, no contractures Neuro: CN II-XI grossly intact, no focal neuro deficits Psych: Alert, oriented, appropriate affect A total of 38 minutes of time were spent preparing this complex discharge summary. Patient was discharged on 05/22/2024 at 1122. Patient Condition at Discharge: Stable Plan - Discharge Summary Discharge Rx Participant: No New Discharge Prescriptions: New Albuterol Inhaler [Ventolin Hfa Inhaler] 1 - 2 puff INHALATION Q6H PRN #1 each PRN Reason: Shortness Of Breath Or Wheezing predniSONE [Deltasone] 40 mg PO DAILY #6 tab Continue amLODIPine [Norvasc] 5 mg PO HS Losartan Potassium 100 mg PO HS Levothyroxine Sodium [Synthroid] 75 mcg PO DAILY levETIRAcetam [Keppra] 500 mg PO BID Furosemide [Lasix] 20 mg PO DAILY Warfarin Sodium [Jantoven] 4 mg PO SUMOTUTHFRSA@2100 metFORMIN HCL 1,000 mg PO DAILY Docusate [Colace] 100 mg PO DAILY Warfarin Sodium [Jantoven] 6 mg PO WE@2100 HYDROcodone/APAP 5-325MG [[place] 5-325] 1 tab PO BID PRN PRN Reason: Pain Famotidine [Pepcid] 20 mg PO HS Empagliflozin [Jardiance] 10 mg PO DAILY Atorvastatin [Lipitor] 10 mg PO HS #30 tab DULoxetine HCL [Cymbalta] 30 mg PO HS Gabapentin 300 mg PO HS Mirtazapine [Remeron] 7.5 mg PO HS Lactobacillus Acidophilus [Acidophilus] 1 cap PO DAILY Discharge Medication List Losartan Potassium 100 mg PO HS 05/03/14 [History] amLODIPine [Norvasc] 5 mg PO HS 05/03/14 [History] Levothyroxine Sodium [Synthroid] 75 mcg PO DAILY 06/25/16 [History] Empagliflozin [Jardiance] 10 mg PO DAILY 08/24/22 [History] Famotidine [Pepcid] 20 mg PO HS 08/24/22 [History] levETIRAcetam [Keppra] 500 mg PO BID 08/24/22 [History] Atorvastatin [Lipitor] 10 mg PO HS #30 tab 08/29/22 [Rx] DULoxetine HCL [Cymbalta] 30 mg PO HS 03/30/23 [History] Furosemide [Lasix] 20 mg PO DAILY 03/30/23 [History] Gabapentin 300 mg PO HS 03/30/23 [History] Mirtazapine [Remeron] 7.5 mg PO HS 03/30/23 [History] Warfarin Sodium [Jantoven] 4 mg PO SUMOTUTHFRSA@2100 11/07/23 [History] metFORMIN HCL 1,000 mg PO DAILY 04/29/23 [History] Docusate [Colace] 100 mg PO DAILY 12/13/23 [History] Lactobacillus Acidophilus [Acidophilus] 1 cap PO DAILY 12/13/23 [History] HYDROcodone/APAP 5-325MG [[place] 5-325] 1 tab PO BID PRN 05/20/24 [History] Warfarin Sodium [Jantoven] 6 mg PO WE@209905/20/24 [History] Albuterol Inhaler [Ventolin Hfa Inhaler] 1 - 2 puff INHALATION Q6H PRN #1 each 05/22/24 [Rx] predniSONE [Deltasone] 40 mg PO DAILY #6 tab 05/22/24 [Rx] Follow up Appointment(s)/Referral(s): Todd Cruz DO [Doctor of Osteopathic Medicine] - 1 Week [facility], [NON-STAFF] - As Needed Mani Robles DO [Primary Care Provider] - 1-2 days Patient Instructions/Handouts: Hypoxia (GEN) Activity/Diet/Wound Care/Special Instructions: Please see your PCP and pulmonology. Discharge Disposition: HOME SELF-CARE
[2024-05-22 11:46] LABS: Glucose,Whole Blood 237 mg/dL (70-110)
--- NOTE | 2024-05-22 14:35 | P.PN ---
Subjective Progress Note Date: 05/22/24 This is a 83-year-old female patient with a known history of hypertension, hyperlipidemia, hypothyroidism, mild dementia, atrial fibrillation anticoagulated with warfarin. She also has a history of mild pulmonary fibrosis and is on home oxygen at 2 L/min per nasal cannula. She was brought in by family members yesterday with shortness of breath cough and increased confusion and concern with possible urinary tract infection. Chest x-ray reveals some left lower lobe airspace opacities/atelectasis. Elevated right hemidiaphragm. White count 5.8. Hemoglobin 11.5. Platelets 145. INR 2.5. Sodium 142. Potassium 4.5. Bicarb 25. BUN 24. Creatinine 1.2. Glucose 164. Terrible gases on 30% FiO2 revealed a PaO2 of 64, pCO2 of 46 and a pH of 7.39. Urinalysis cloudy with large leukocytes and rare bacteria. Viral screen negative. Legionella screen negative. She is seen today in consultation on the regular medical floor. She is currently sitting up in bed. Awake and alert in no acute distress. Maintaining O2 saturations in the 90s on 4 L/min per nasal cannula. She is afebrile. Her family is at the bedside and answers most questions. No worsening shortness of breath, cough or congestion. She has been initiated on ceftriaxone and azithromycin. She is on bronchodilators and steroi ds. The patient is seen today May 22, 2024 in follow-up on the regular medical floor. She is currently resting comfortably in bed. Awake and alert in no acute distress. Maintaining O2 saturations in the 90s on her liters per minute per nasal cannula. She is afebrile. Culture revealing no growth. INR 2.8. Glucose 183. She is continued on ceftriaxone and azithromycin. Receiving bronchodilators as needed. Oral diuretics. IV Solu-Medrol. Anticoagulated with warfarin. Her procalcitonin was negative at 0.14. Objective - Vital Signs Vital signs: Vital Signs Temp 97.7 F 05/22/24 07:10 Pulse 55 L 05/22/24 07:10 Resp 17 05/22/24 08:40 BP 172/80 05/22/24 07:10 Pulse Ox 94 L 05/22/24 07:10 FiO2 Intake & Output 05/21/24 05/22/24 05/22/24 18:59 06:59 18:59 Output Total 400 Balance -400 Output: Urine 400 Other: Voiding Method Incontinent Toilet Diaper Incontinent # Voids 1 2 1 - Exam GENERAL EXAM: Alert, 83-year-old female, resting comfortably in bed, on 4 L nasal cannula, comfortable in no apparent distress. HEAD: Normocephalic. EYES: Normal reaction of pupils, equal size. NOSE: Clear with pink turbinates. THROAT: No erythema or exudates. NECK: No masses, no JVD. CHEST: No chest wall deformity. LUNGS: Equal air entry with faint basilar crackles. CVS: S1 and S2 normal with no audible murmur, regular rhythm. ABDOMEN: No hepatosplenomegaly, normal bowel sounds, no guarding or rigidity. SPINE: No scoliosis or deformity SKIN: No rashes CENTRAL NERVOUS SYSTEM: No focal deficits, tone is normal in all 4 extremities. EXTREMITIES: There is no peripheral edema. No clubbing, no cyanosis. Periphera l pulses are intact. - Labs CBC & Chem 7: 05/21/24 02:53 05/21/24 02:53 Labs: Abnormal Lab Results - Last 24 Hours (Table) 05/21/24 05/21/24 05/22/24 Range/Units 16:35 21:16 02:39 PT 28.1 H (10.0-12.5) sec INR 2.8 H (<1.2) POC Glucose (mg/dL) 220 H 245 H (70-110) mg/dL 05/22/24 05/22/24 Range/Units 06:29 11:45 PT (10.0-12.5) sec INR (<1.2) POC Glucose (mg/dL) 183 H 237 H (70-110) mg/dL Microbiology - Last 24 Hours (Table) 05/20/24 11:25 Blood Culture - Preliminary Blood Assessment and Plan Assessment: Acute on chronic hypoxemic respiratory failure secondary to left lower lobe atelectasis, mild pulmonary fibrosis. Procalcitonin was negative Altered mental status in a patient with known mild dementia History of atrial fibrillation, anticoagulated with warfarin, therapeutic INR Hypertension Beatties mellitus, type II Hypothyroidism Hyperlipidemia Plan: The patient was seen and evaluated Labs and medications reviewed Cleared for discharge Complete a prednisone taper Continue her home oxygen Procalcitonin was negative, no need for antibiotics Keep her appointment with Dr. Cruz as scheduled I have personally seen and examined the patient, performed the documentation and the assessment and plan as written. Number of minutes spent on the visit: 10 Dictation was produced using [employer] dictation software. Please excuse any grammatical, word or spelling errors.
[2024-05-22] MEDS ORDERED: WARFARIN 3 MG TAB PO ONE (18:00)
[2024-05-23] MEDS ORDERED: predniSONE 20 MG TAB PO SCH (09:00)
== END 2024-05-22 12:44 | disposition home or self-care (01) | DRG 193 ==
LOC: EC 07:27 → 4SSUR 11:30
PROVIDERS: ADMIT Student in an Organized Health Care Education/Training Program; ATTEND Student in an Organized Health Care Education/Training Program
DX: J18.9 Pneumonia, unspecified organism (principal); J96.21 Acute and chronic respiratory failure with hypoxia; G93.49 Other encephalopathy; I13.0 Hypertensive heart and chronic kidney disease with heart failure and stage 1 through stage 4 chronic kidney disease, or unspecified chronic kidney disease; I50.32 Chronic diastolic (congestive) heart failure; N39.0 Urinary tract infection, site not specified; F03.A4 Unspecified dementia, mild, with anxiety; F03.A3 Unspecified dementia, mild, with mood disturbance; G83.9 Paralytic syndrome, unspecified; Z66 Do not resuscitate; J98.6 Disorders of diaphragm; J84.10 Pulmonary fibrosis, unspecified; Z99.81 Dependence on supplemental oxygen; E03.9 Hypothyroidism, unspecified; I48.0 Paroxysmal atrial fibrillation; E11.22 Type 2 diabetes mellitus with diabetic chronic kidney disease; N18.30 Chronic kidney disease, stage 3 unspecified; E11.40 Type 2 diabetes mellitus with diabetic neuropathy, unspecified; F32.A Depression, unspecified; E78.5 Hyperlipidemia, unspecified; R33.9 Retention of urine, unspecified; Z79.01 Long term (current) use of anticoagulants; Z79.84 Long term (current) use of oral hypoglycemic drugs; Z79.890 Hormone replacement therapy; Z79.899 Other long term (current) drug therapy; Z86.73 Personal history of transient ischemic attack (TIA), and cerebral infarction without residual deficits; Z86.69 Personal history of other diseases of the nervous system and sense organs; Z85.828 Personal history of other malignant neoplasm of skin
CPT/HCPCS: 36415; 36600; 51702; 71046; 80053; 81001; 82805; 83036; 83605; 83735; 84145; 84484; 85025; 85610; 85730; 87040; 87449; 87636; 93005; 94760; 96361; 96365; 96367; 96375; 99291

== ENCOUNTER → 2024-06-06 | Outpatient (CLI) | payer MEDICARE, BC ==
--- NOTE | 2024-06-06 15:15 | FL ---
EXAMINATION TYPE: FL sniff test without CXR DATE OF EXAM: 06/06/2024 COMPARISON: Chest x-ray May 30, 2024 and older x-rays including outside x-ray back dated December 13, 2011 HISTORY: Possible paralysis of diaphragm. TECHNIQUE: Fluoroscopic assisted sniff contrast. FINDINGS: Fluoroscopic guidance was provided during significant procedure performed by myself. A to alina of 24 seconds of fluoroscopic time was utilized during the procedure and 17 spot images was acqui red. Total dose area product (DAP) in uGy*m?, mGy*cm? (or similar): 173.77. Redemonstration of chronic elevation of the right hemidiaphragm. There is no significant motion or mo vement during inspiration and expiration of the right hemidiaphragm. Left hemidiaphragm show satisfac tory inferior motion during inspiration and superior motion during expiration. IMPRESSION: As Above. 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 [facility], , 06/06/2024 3:12 PM
== END | disposition home or self-care (01) ==
LOC: RADFLMAIN 14:09
PROVIDERS: ATTEND Internal Medicine
DX: Q79.1 Other congenital malformations of diaphragm (principal); G83.9 Paralytic syndrome, unspecified
CPT/HCPCS: 76000

== ENCOUNTER 2024-06-15 15:27 | Emergency (ER) | payer MEDICARE, BC ==
[2024-06-15 15:38] VITALS: RESP 18
--- NOTE | 2024-06-15 16:13 | ED ---
GI Bleed HPI - General Chief complaint: GI Bleed Stated complaint: Blood in stool Time Seen by Provider: 06/15/24 15:59 Source: patient, family, RN notes reviewed Mode of arrival: ambulatory Limitations: no limitations - History of Present Illness Initial comments: This is an 83-year-old female with a history of A-fib on Coumadin, external hemorrhoids, pulmonary fibrosis, CKD presenting to the emergency department from her roll icer office for concern of rectal bleeding. Patient states that she was using the restroom to leave a urine sample at her roll icer office when she noticed there was bright red blood per rectum and had bright red blood diarrhea. Patient was instructed to report to the emergency department for further evaluation. Patient does report a history of external hemorrhoids and previous hemorrhoidectomy. She denies abdominal pain, rectal pressure, shortness of breath, heart palpitations, dizziness lightheadedness. Denies history of need for blood transfusions. - Related Data Home Medications Medication Instructions Recorded Confirmed Losartan Potassium 100 mg PO HS 05/03/14 06/15/24 amLODIPine [Norvasc] 5 mg PO HS 05/03/14 06/15/24 Levothyroxine Sodium [Synthroid] 75 mcg PO DAILY 06/25/16 06/15/24 Empagliflozin [Jardiance] 10 mg PO DAILY 08/24/22 06/15/24 Famotidine [Pepcid] 20 mg PO HS 08/24/22 06/15/24 levETIRAcetam [Keppra] 500 mg PO BID 08/24/22 06/15/24 DULoxetine HCL [Cymbalta] 30 mg PO HS 03/30/23 06/15/24 Furosemide [Lasix] 20 mg PO DAILY 03/30/23 06/15/24 Gabapentin 300 mg PO HS 03/30/23 06/15/24 Mirtazapine [Remeron] 7.5 mg PO HS 03/30/23 06/15/24 Warfarin Sodium [Jantoven] 4 mg PO SUMOTUTHFRSA@2100 03/30/23 06/15/24 metFORMIN HCL 1,000 mg PO DAILY 04/29/23 06/15/24 Docusate [Colace] 100 mg PO DAILY 12/13/23 06/15/24 Lactobacillus Acidophilus 1 cap PO DAILY 12/13/23 06/15/24 [Acidophilus] HYDROcodone/APAP 5-325MG [[place] 1 tab PO BID PRN 05/20/24 06/15/24 5-325] Warfarin Sodium [Jantoven] 6 mg PO WE@2100 05/20/24 06/15/24 Albuterol Inhaler [Ventolin Hfa 2 puff INHALATION RT-Q6H PRN 06/15/24 06/15/24 Inhaler] Previous Rx's Medication Instructions Recorded Atorvastatin [Lipitor] 10 mg PO HS #30 tab 08/29/22 Allergies Allergy/AdvReac Type Severity Reaction Status Date / Time Bleach (Sodium Hypochlorite) Allergy Rash/Hives Verified 06/15/24 17:21 Sulfa (Sulfonamide Allergy Rash/Hives Verified 06/15/24 17:21 Antibiotics) Review of Systems ROS Statement: Those systems with pertinent positive or pertinent negative responses have been documented in the HPI. ROS Other: All systems not noted in ROS Statement are negative. Past Medical History Past Medical History: Atrial Fibrillation, Cancer, CVA/TIA, Diabetes Mellitus, Hyperlipidemia, Hypertension, Osteoarthritis (OA), Renal Disease, Seizure Disorder, Thyroid Disorder Additional Past Medical History / Comment(s): vertigo,hiatal hernia, restless leg,neuropathy,carpal tunnel,ddd, squamous cell carcinoma-arms, hands, legs, CKD, pulmonary fibrosis History of Any Multi-Drug Resistant Organisms: None Reported Past Surgical History: Appendectomy, Back Surgery, Breast Surgery, Cholecyst ectomy, Hysterectomy, Orthopedic Surgery, Tonsillectomy Additional Past Surgical History / Comment(s): skin cancer removal, hemorrhoid removal, left breast high risk excisional november 2020, back surgery with rods and screws, tarsel tunnel both feet Past Anesthesia/Blood Transfusion Reactions: Motion Sickness Additional Past Anesthesia/Blood Transfusion Reaction / Comment(s): vertigo Past Psychological History: Anxiety, Depression Smoking Status: Never smoker Past Alcohol Use History: None Reported Past Drug Use History: None Reported - Past Family History Sister(s) Family Medical History: Cancer Additional Family Medical History / Comment(s): BREAST General Exam Limitations: no limitations Respiratory exam: Present: normal lung sounds bilaterally. Absent: respiratory distress, wheezes, rales, rhonchi, stridor Cardiovascular Exam: Present: regular rate, normal rhythm, normal heart sounds. Absent: systolic murmur, diastolic murmur, rubs, gallop, clicks GI/Abdominal exam: Present: soft, normal bowel sounds. Absent: distended, tenderness, guarding, rebound, rigid Rectal exam: Present: normal rectal tone, hemorrhoids. Absent: decreased rectal tone Extremities exam: Present: normal inspection, full ROM, normal capillary refill. Absent: tenderness, pedal edema, joint swelling, calf tenderness Back exam: Present: normal inspection Course Vital Signs 06/15/24 06/15/24 15:34 17:12 Temperature 97.5 F L Pulse Rate 84 72 Respiratory 18 18 Rate Blood Pressure 125/81 178/87 O2 Sat by Pulse 93 L Oximetry Medical Decision Making - Medical Decision Making Was pt. sent in by a medical professional or institution (, PA, PAPER PRODUCTS SUPERVISOR, urgent care, hospital, or senior living...) When possible be specific @ -Patient was advised by roll icer office reports that his requirement for concern of rectal bleeding Did you speak to anyone other than the patient for history (EMS, parent, family, police, friend...)? What history was obtained from this source @ -Spoke to patient's daughter at bedside as the patient has been on Coumadin for over 20 years for history of A-fib and stroke Did you review nursing and triage notes (agree or disagree)? Why? @ -I reviewed and agree with nursing and triage notes Were old charts reviewed (outside hosp., previous admission, EMS record, old EKG, old radiological studies, urgent care reports/EKG's, senior living records)? Report findings @ -No old charts were reviewed Differential Diagnosis (chest pain, altered mental status, abdominal pain women, abdominal pain men, vaginal bleeding, weakness, fever, dyspnea, syncope, headache, dizziness, GI bleed, back pain, seizure, CVA, palpatations, mental health, musculoskeletal)? @ -Differential GI Bleed: Esophageal varices, aortoenteric fistula, Jillian-Greenberg, gastritis, peptic ulcer disease, diverticulosis, inflammatory bowel disease, hemorrhoids, fissure, colitis, malignancy, Meckel's diverticulum, this is not meant to be an all-inc lusive list. EKG interpreted by me (3pts min.). @ -Completed at 1548 atrial fibrillation with ventricular to 74, QRS 107, QTc 379. X-rays interpreted by me (1pt min.). @ -None done CT interpreted by me (1pt min.). @ -None done U/S interpreted by me (1pt. min.). @ -None done What testing was considered but not performed or refused? (CT, X-rays, U/S, labs)? Why? @ -None What meds were considered but not given or refused? Why? @ -None Did you discuss the management of the patient with other professionals (professionals i.e. DrRebekah, PA, PAPER PRODUCTS SUPERVISOR, lab, RT, psych nurse, social services specialist, risk compliance analyst, teacher, chief safety officer, clinical case manager)? Give summary @ -No Was smoking cessation discussed for >3mins.? @ -No Was critical care preformed (if so, how long)? @ -No Were there social determinants of health that impacted care today? How? (Homelessness, low income, unemployed, alcoholism, drug addiction, transportati on, low edu. Level, literacy, decrease access to med. care, [place] [facility], rehab)? @ -No Was there de-escalation of care discussed even if they declined (Discuss DNR or withdrawal of care, Hospice)? DNR status @ -No What co-morbidities impacted this encounter? (DM, HTN, Smoking, COPD, CAD, Cancer, CVA, ARF, Chemo, Hep., AIDS, mental health diagnosis, sleep apnea, morbid obesity)? @ -None Was patient admitted / discharged? Hospital course, mention meds given and route, prescriptions, significant lab abnormalities, going to OR and other pertinent info. @ -Discharge. 83-year-old female presenting with rectal bleeding. Patient is medically stable on arrival. Rectal examination remarkable for external hemorrhoids with no active bleeding. Laboratory testing is remarkable for an elevated INR of 4.3, elevated creatinine 1.73 and BUN of 26. Patient's troponin is negative. Occult blood is negative. Recommend patient hold Coumadin dose for 2 days and report back to emergency department for any new or worsening symptoms edition following up outpatient with primary care provider. Case erlin guthrieussed with Dr. Galindo Undiagnosed new problem with uncertain prognosis? @ -No Drug Therapy requiring intensive monitoring for toxicity (Heparin, Nitro, Insulin, Cardizem)? @ -No Were any procedures done? @ -No Diagnosis/symptom? @ -GI bleed Acute, or Chronic, or Acute on Chronic? @ -Acute Uncomplicated (without systemic symptoms) or Complicated (systemic symptoms)? @ -Uncomplicated Side effects of treatment? @ -No Exacerbation, Progression, or Severe Exacerbation? @ -No Poses a threat to life or bodily function? How? (Chest pain, [place], [place], pneumonia, PE, COPD, DKA, ARF, appy, cholecystitis, CVA, Diverticulitis, Homicidal, Suicidal, threat to staff... and all critical care pts) @ -No - Lab Data Result diagrams: 06/15/24 16:59 06/15/24 17:12 Lab Results 06/15/24 06/15/24 06/15/24 Range/Units 16:59 16:59 16:59 WBC 7.5 (3.8-10.6) k/uL RBC 4.29 (3.80-5.40) m/uL Hgb 13.1 (11.4-16.0) gm/dL Hct 40.3 (34.0-46.0) % MCV 94.0 (80.0-100.0) fL MCH 30.6 (25.0-35.0) pg MCHC 32.5 (31.0-37.0) g/dL RDW 15.6 H (11.5-15.5) % Plt Count 121 L (150-450) k/uL MPV 7.9 Neutrophils % 60 % Lymphocytes % 28 % Monocytes % 9 % Eosinophils % 1 % Basophils % 0 % Neutrophils # 4.5 (1.3-7.7) k/uL Lymphocytes # 2.1 (1.0-4.8) k/uL Monocytes # 0.7 (0-1.0) k/uL Eosinophils # 0.1 (0-0.7) k/uL Basophils # 0.0 (0-0.2) k/uL Hypochromasia Slight PT 42.7 H (10.0-12.5) sec INR 4.3 H (<1.2) APTT 34.5 H (22.0-30.0) sec Sodium (137-145) mmol/L Potassium (3.5-5.1) mmol/L Chloride (98-107) mmol/L Carbon Dioxide (22-30) mmol/L Anion Gap mmol/L BUN (7-17) mg/dL Creatinine (0.52-1.04) mg/dL Est GFR (CKD-EPI)AfAm (>60 ml/min/1.73 sqM) Est GFR (CKD-EPI)NonAf (>60 ml/min/1.73 sqM) Glucose (74-99) mg/dL Calcium (8.4-10.2) mg/dL Total Bilirubin (0.2-1.3) mg/dL AST (14-36) U/L ALT (4-34) U/L Alkaline Phosphatase (38-126) U/L Troponin I <0.012 (0.000-0.034) ng/mL Total Protein (6.3-8.2) g/dL Albumin (3.5-5.0) g/dL Lipase (23-300) U/L Stool Occult Blood (Negative) 06/15/24 06/15/24 Range/Units 17:12 17:12 WBC (3.8-10.6) k/uL RBC (3.80-5.40) m/uL Hgb (11.4-16.0) gm/dL Hct (34.0-46.0) % MCV (80.0-100.0) fL MCH (25.0-35.0) pg MCHC (31.0-37.0) g/dL RDW (11.5-15.5) % Plt Count (150-450) k/uL MPV Neutrophils % % Lymphocytes % % Monocytes % % Eosinophils % % Basophils % % Neutrophils # (1.3-7.7) k/uL Lymphocytes # (1.0-4.8) k/uL Monocytes # (0-1.0) k/uL Eosinophils # (0-0.7) k/uL Basophils # (0-0.2) k/uL Hypochromasia PT (10.0-12.5) sec INR (<1.2) APTT (22.0-30.0) sec Sodium 139 (137-145) mmol/L Potassium 4.2 (3.5-5.1) mmol/L Chloride 101 (98-107) mmol/L Carbon Dioxide 30 (22-30) mmol/L Anion Gap 8 mmol/L BUN 26 H (7-17) mg/dL Creatinine 1.73 H (0.52-1.04) mg/dL Est GFR (CKD-EPI)AfAm 31 (>60 ml/min/1.73 sqM) Est GFR (CKD-EPI)NonAf 27 (>60 ml/min/1.73 sqM) Glucose 164 H (74-99) mg/dL Calcium 10.4 H (8.4-10.2) mg/dL Total Bilirubin 1.2 (0.2-1.3) mg/dL AST 16 (14-36) U/L ALT 11 (4-34) U/L Alkaline Phosphatase 80 (38-126) U/L Troponin I (0.000-0.034) ng/mL Total Protein 6.8 (6.3-8.2) g/dL Albumin 4.3 (3.5-5.0) g/dL Lipase 201 (23-300) U/L Stool Occult Blood Negative (Negative) Disposition Clinical Impression: GI bleed, Elevated INR Disposition: HOME SELF-CARE Condition: Good Instructions (If sedation given, give patient instructions): Gastrointestinal Bleeding (ED) Additional Instructions: Please return to the Emergency Department if symptoms worsen or any other concerns. It is recommended that you hold your Coumadin dosage on 06/12/2024 and 06/17/2024. Return back to the emergency department for any new or worsening symptoms of rectal bleeding. Recommend follow-up with your primary care tosin yañez for further evaluation. Is patient prescribed a controlled substance at d/c from ED?: No Referrals: Mani Robles DO [Primary Care Provider] - 1-2 days Time of Disposition: 17:52
[2024-06-15 17:10] LABS: Basophils % (A) 0 %; Eosinophils # (A) 0.1 k/uL (0-0.7); Eosinophils % (A) 1 %; HCT 40.3 % (34.0-46.0); HGB 13.1 gm/dL (11.4-16.0); Hypochromasia Slight; Lymphocytes # (A) 2.1 k/uL (1.0-4.8); Lymphocytes % (A) 28 %; MCH 30.6 pg (25.0-35.0); MCHC 32.5 g/dL (31.0-37.0); Mean Platelet Volume 7.9; Monocytes # (A) 0.7 k/uL (0-1.0); Monocytes % (A) 9 %; Neutrophils # (A) 4.5 k/uL (1.3-7.7); Neutrophils % (A) 60 %; Platelet Count 121 k/uL (150-450); RBC 4.29 m/uL (3.80-5.40); RDW 15.6 % (11.5-15.5); WBC 7.5 k/uL (3.8-10.6)
[2024-06-15 17:19] LABS: INR 4.3 (<1.2); Partial Thromboplastin Time 34.5 sec (22.0-30.0); Prothrombin Time 42.7 sec (10.0-12.5)
[2024-06-15 17:34] LABS: ALT 11 U/L (4-34); AST 16 U/L (14-36); African American GFR (CKD) 31 (>60 ml/min/1.73 sqM); Albumin 4.3 g/dL (3.5-5.0); Alkaline Phosphatase 80 U/L (38-126); Anion Gap 8 mmol/L; Blood Urea Nitrogen 26 mg/dL (7-17); Calcium 10.4 mg/dL (8.4-10.2); Carbon Dioxide 30 mmol/L (22-30); Chloride 101 mmol/L (98-107); Glucose 164 mg/dL (74-99); Lipase 201 U/L (23-300); Non-African American GFR(CKD) 27 (>60 ml/min/1.73 sqM); Potassium 4.2 mmol/L (3.5-5.1); Sodium 139 mmol/L (137-145); Total Bilirubin 1.2 mg/dL (0.2-1.3); Total Protein 6.8 g/dL (6.3-8.2)
[2024-06-15 18:37] VITALS: BP 142/78; PULSE 91; TEMP 97.7
== END 2024-06-15 18:36 | disposition home or self-care (01) ==
LOC: EC 15:27
DX: K92.2 Gastrointestinal hemorrhage, unspecified (principal); R79.1 Abnormal coagulation profile; Z86.73 Personal history of transient ischemic attack (TIA), and cerebral infarction without residual deficits; Z88.2 Allergy status to sulfonamides; Z88.8 Allergy status to other drugs, medicaments and biological substances
CPT/HCPCS: 36415; 80053; 82272; 83690; 84484; 85025; 85610; 85730; 93005; 99285

== ENCOUNTER → 2024-09-14 | Outpatient (CLI) | payer MEDICARE, BC ==
[2024-09-14 11:48] VITALS: BP 189/80; PULSE 72; RESP 18; TEMP 97.9
--- NOTE | 2024-09-14 11:49 | P.PN ---
Subjective Progress Note Date: 09/14/24 Principal diagnosis: DCIS left breast 09-14-24 DCIS left breast 2021 Marilyn is an 83-year-old white female who on a routine mammogram performed on had an area of concern noted in the left breast. Additional studies revealed indeterminate calcifications in the upper outer quadrant of the breast for which stereotactic core biopsy was recommended. Stereotactic core biopsy was performed and 6320 which revealed DCIS. She then had a needle localization resection on which revealed the lesion had been completely removed. She opted for no radiation or hormonal therapy. Bilateral mammogram on 02-15-24 BIRAD 2 personally interpreted She is not complaining of any new lumps masses or nodules in either breast She is here for 6 month evaluation recently diagnosed with pulmonary fibrosis, chronic kidney disease function dropped to 30% GFR from 40's, diaphragm right side paralyzed She has recently been having blood from the urethral area, this was evaluated by PSYCHOLOG[employer]UC[employer] and by urology and will continue to be worked up by them. Caffeine: stopped all caffeine nicotine: none chocolate: occasional Family history: sister: Breast cancer at age 73 patient: skin cancer Hormonal History: menarche: 12 M2, breast fed: no, age at first : 20 menopause: surgical, JOHNY at 39 for fibroid tumors, also did Appendectomy and bladder suspension BCP: 5 years Surgical History: Tonsillectomy Hysterectomy with appendectomy and bladder suspension Hemorrhoidectomy Skin cancer tumor on forehead, shoulder, arm, legs, feet, bottom lip, chest, top of head in both hands Right foot attention nerve Cholecystectomy Back surgery left breast lumpectomy skin cancer left upper arm 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 Depression and anxiety Tarsal tunnel both feet Hypertension Vertigo Hiatal hernia Hypothyroid High cholesterol Deteriorated disc lower back Diabetic Restless leg syndrome Neuropathy Pinched nerve right side of neck Osteopenia Seizures Numbness related to her back COVID Paralyzed right-sided diaphragm Pulmonary fibrosis Was hospitalized with urinary tract infection and had decrease in renal function at that time which is persistent Social History: nicotine: none alcohol: none drugs: none - Constitutional Constitutional: Denies chills, Denies fever - EENT Eyes: bilateral blurred vision Ears: deny: decreased hearing, tinnitus Ears, nose, mouth and throat: Reports headache, Denies sore throat - Breasts Breasts: bilateral: as per HPI - Cardiovascular Cardiovascular: Denies chest pain, Denies shortness of breath - Respiratory Respiratory: Denies cough - Gastrointestinal Gastrointestinal: Denies abdominal pain, Denies diarrhea, Denies nausea, Denies vomiting - Genitourinary (Female) Genitourinary: Denies dysuria, Denies hematuria - Menstruation Menstruation: Reports post hysterectomy - Musculoskeletal Comment: arthritis Musculoskeletal: Reports myalgias - Integumentary Comment: history of skin cancer Integumentary: Denies pruritus, Denies rash - Neurological Comment: strokes left side weakness Neurological: Reports as per HPI, Reports numbness - Psychiatric Psychiatric: Reports anxiety, Reports depression - Endocrine Comment: Hypothyroid, diabetic - Hematologic/Lymphatic Comment: takes aspirin and Coumadin - Allergic/Immunologic Allergic/Immunologic: Reports seasonal allergies Objective - Constitutional General appearance: Present: cooperative - EENT Eyes: Present: EOMI ENT: Present: hearing grossly normal - Neck Neck: Present: normal ROM - Respiratory Respiratory: bilateral: CTA - Cardiovascular Rhythm: regular Heart sounds: normal: S1, S2 - Integumentary Integumentary: Present: normal turgor - Musculoskeletal Musculoskeletal Comment(s): wheel chair dependent - Psychiatric Psychiatric: Present: A&O x's 3, appropriate affect, intact judgment & insight - Additional findings Additional findings: [place] Exam: BRA: 38D inspection: Well-healed scar left breast from prior surgery, bilateral grade 3 ptosis Palpation: Right breast: Exam when seated in wheelchair exam fibrocystic changes no dominant masses or nodules of concern Right axilla: no adenopathy of concern Left breast: examine done seated in wheelchair exam fibrocystic changes no evidence of recurrent disease well-healed scar from prior surgery Left axilla: No adenopathy of concern Assessment and Plan Assessment: Impression: CVA 2000, 2004, 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 Depression and anxiety Tarsal tunnel both feet Hypertension Vertigo Hiatal hernia Hypothyroid High cholesterol Deteriorated disc lower back Diabetic Restless leg syndrome Neuropathy Pinched nerve right side of neck Osteopenia Seizures Numbness related to her back History of DCIS left breast no evidence of recurrence Shotty adenopathy right axilla bilateral mammogram 02-15-24 BIRAD 2 personally reviewed Plan: Bilateral mammogram January 2025 with appointment follow up in 6 months for appointment Follow-up sooner any questions or concerns follow with primary care regarding blood from urethral area CC: Gisela [place]
== END ==
LOC: WWCWWP 11:31
PROVIDERS: ATTEND Surgery
DX: Z12.31 Encounter for screening mammogram for malignant neoplasm of breast (principal); F32.A Depression, unspecified; F41.9 Anxiety disorder, unspecified; I10 Essential (primary) hypertension; R42 Dizziness and giddiness; K44.9 Diaphragmatic hernia without obstruction or gangrene; E03.9 Hypothyroidism, unspecified; E78.00 Pure hypercholesterolemia, unspecified; E11.9 Type 2 diabetes mellitus without complications; G25.81 Restless legs syndrome; E11.40 Type 2 diabetes mellitus with diabetic neuropathy, unspecified; M85.80 Other specified disorders of bone density and structure, unspecified site; E11.41 Type 2 diabetes mellitus with diabetic mononeuropathy; R56.9 Unspecified convulsions; R59.9 Enlarged lymph nodes, unspecified; M51.360 Other intervertebral disc degeneration, lumbar region with discogenic back pain only; G57.53 Tarsal tunnel syndrome, bilateral lower limbs; Z86.007 Personal history of in-situ neoplasm of skin; Z91.048 Other nonmedicinal substance allergy status; Z88.2 Allergy status to sulfonamides